=== PATIENT | female | born 1950 | race Caucasian/White ===

== ENCOUNTER 2016-07-04 12:57 | Outpatient (CLI) | payer MEDICAID | END 2016-07-04 12:58 | disposition home or self-care (01) | DX: I69.90 Unspecified sequelae of unspecified cerebrovascular disease (principal) ==

== ENCOUNTER 2016-07-11 14:32 | Outpatient (CLI) | payer MEDICAID | END 2016-07-11 14:33 | disposition home or self-care (01) | DX: I69.90 Unspecified sequelae of unspecified cerebrovascular disease (principal) ==

== ENCOUNTER 2016-08-01 12:34 | Outpatient (CLI) | payer MEDICAID | END 2016-08-01 12:35 | disposition home or self-care (01) | DX: I69.90 Unspecified sequelae of unspecified cerebrovascular disease (principal) ==

== ENCOUNTER 2016-08-22 12:30 | Outpatient (CLI) | payer MEDICAID | END 2016-08-22 12:31 | disposition home or self-care (01) | DX: I69.90 Unspecified sequelae of unspecified cerebrovascular disease (principal) ==

== ENCOUNTER 2016-09-30 08:00 | Outpatient (CLI) | payer MEDICAID | END 2016-09-30 08:01 | disposition home or self-care (01) | DX: I69.90 Unspecified sequelae of unspecified cerebrovascular disease (principal) ==

== ENCOUNTER 2016-09-30 13:24 | Outpatient (CLI) | payer MEDICAID | END 2016-09-30 13:25 | disposition home or self-care (01) | DX: R91.8 Other nonspecific abnormal finding of lung field (principal); I69.90 Unspecified sequelae of unspecified cerebrovascular disease ==

== ENCOUNTER 2016-10-02 11:47 | Outpatient (CLI) | payer MEDICAID | END 2016-10-02 11:48 | disposition home or self-care (01) | DX: I69.90 Unspecified sequelae of unspecified cerebrovascular disease (principal) ==

== ENCOUNTER 2016-10-15 15:20 | Outpatient (CLI) | payer MEDICAID | END 2016-10-15 15:21 | disposition home or self-care (01) | DX: I69.90 Unspecified sequelae of unspecified cerebrovascular disease (principal) ==

== ENCOUNTER 2016-11-07 12:24 | Outpatient (CLI) | payer MEDICAID | END 2016-11-07 12:25 | disposition home or self-care (01) | DX: I69.90 Unspecified sequelae of unspecified cerebrovascular disease (principal) ==

== ENCOUNTER 2016-11-20 14:17 | Outpatient (CLI) | payer MEDICAID | END 2016-11-20 14:18 | disposition home or self-care (01) | DX: I69.90 Unspecified sequelae of unspecified cerebrovascular disease (principal) ==

== ENCOUNTER 2016-11-28 14:21 | Outpatient (CLI) | payer MEDICAID | END 2016-11-28 14:22 | disposition home or self-care (01) | LOC: LAB 14:21 | PROVIDERS: ATTEND Nurse Practitioner Gerontology | DX: I69.90 Unspecified sequelae of unspecified cerebrovascular disease (principal) | CPT/HCPCS: 85610 ==

== ENCOUNTER 2016-11-28 14:32 | Outpatient (CLI) | payer MEDICAID ==
--- NOTE | 2016-11-28 21:48 | Ultrasound Report ---
EXAM: RIGHT LOWER EXTREMITY VENOUS ULTRASOUND EXAM DATE: 11/28/2016 03:25 PM. CLINICAL HISTORY: RIGHT EDEMA LOWER EXTREMITY. COMPARISON: None. TECHNIQUE: Real-time sonographic vascular imaging was performed by the gyn physician through the lower extremity utilizing both color-flow and Doppler spectral analysis. Multiple parts representative static dean ges were saved for review. FINDINGS: Common Femoral Vein (CFV): Normal. CFV-GSV Junction: Normal. Profunda Femoral Vein (PFV): Normal. Femoral Vein (FV) Prox: Normal. Femoral Vein (FV) Mid: Normal. Femoral Vein (FV) Dist: Normal. Popliteal Vein: Normal. Posterior Tibial Veins: Normal. Peroneal Veins: Normal. Other: None. IMPRESSION: No evidence for deep venous thrombosis. [facility] Referring Provider Line: [phone] SITE ID: [id number]
== END 2016-11-28 14:33 | disposition home or self-care (01) ==
LOC: DI 14:32
PROVIDERS: ATTEND Nurse Practitioner Gerontology
DX: R60.0 Localized edema (principal)
CPT/HCPCS: 85610

== ENCOUNTER 2016-12-05 15:36 | Outpatient (CLI) | payer MEDICAID | END 2016-12-05 15:37 | disposition home or self-care (01) | LOC: LAB 15:36 | PROVIDERS: ATTEND Nurse Practitioner Gerontology | DX: I69.90 Unspecified sequelae of unspecified cerebrovascular disease (principal) | CPT/HCPCS: 85610 ==

== ENCOUNTER 2016-12-19 11:23 | Outpatient (CLI) | payer MEDICAID | END 2016-12-19 11:24 | disposition home or self-care (01) | LOC: LAB 11:23 | PROVIDERS: ATTEND Nurse Practitioner Gerontology | DX: I69.90 Unspecified sequelae of unspecified cerebrovascular disease (principal) | CPT/HCPCS: 85610 ==

== ENCOUNTER 2017-01-02 15:35 | Outpatient (CLI) | payer MEDICAID | END 2017-01-02 15:36 | disposition home or self-care (01) | LOC: LAB.N 15:35 | PROVIDERS: ATTEND Nurse Practitioner Gerontology | DX: I69.90 Unspecified sequelae of unspecified cerebrovascular disease (principal) | CPT/HCPCS: 85610 ==

== ENCOUNTER 2017-01-29 14:00 | Outpatient (CLI) | payer MEDICAID | END 2017-01-29 14:01 | disposition home or self-care (01) | LOC: LAB 14:00 | PROVIDERS: ATTEND Nurse Practitioner Gerontology | DX: I69.90 Unspecified sequelae of unspecified cerebrovascular disease (principal) | CPT/HCPCS: 85610 ==

== ENCOUNTER 2017-03-20 13:40 | Outpatient (CLI) | payer MEDICARE, MEDICAID | END 2017-03-20 13:41 | disposition home or self-care (01) | LOC: LAB 13:40 | PROVIDERS: ATTEND Nurse Practitioner Gerontology | DX: I69.90 Unspecified sequelae of unspecified cerebrovascular disease (principal); Z79.01 Long term (current) use of anticoagulants | CPT/HCPCS: 85610 ==

== ENCOUNTER 2017-04-17 12:45 | Outpatient (CLI) | payer MEDICARE, MEDICAID | END 2017-04-17 12:46 | disposition home or self-care (01) | LOC: LAB 12:45 | PROVIDERS: ATTEND Nurse Practitioner Gerontology | DX: I69.90 Unspecified sequelae of unspecified cerebrovascular disease (principal); Z79.01 Long term (current) use of anticoagulants | CPT/HCPCS: 85610 ==

== ENCOUNTER 2017-05-11 14:42 | Outpatient (CLI) | payer MEDICARE, MEDICAID ==
[2017-05-11 19:04] LABS: BASOPHILS # (AUTO) 0.1 10^3/uL (0.0-0.1); BASOPHILS % (AUTO) 0.8 %; EOSINOPHILS # (AUTO) 0.2 10^3/uL (0.0-0.7); EOSINOPHILS % (AUTO) 2.4 %; HCT - HEMATOCRIT 39.2 % (37.0-47.0); HGB - HEMOGLOBIN 12.9 g/dL (12.0-16.0); LYMPHOCYTES # (AUTO) 1.7 10^3/uL (1.5-3.5); LYMPHOCYTES % (AUTO) 20.7 %; MEAN CORPUSCULAR HEMOGLOBIN 31.1 pg (27.0-31.0); MEAN CORPUSCULAR HGB CONC 32.9 g/dL (32.0-36.0); MEAN CORPUSCULAR VOLUME 94.4 fL (81.0-99.0); MEAN PLATELET VOLUME 8.6 fL (7.9-10.8); MONOCYTES # (AUTO) 0.5 10^3/uL (0.0-1.0); MONOCYTES % (AUTO) 6.6 %; NEUTROPHILS # (AUTO) 5.6 10^3/uL (1.5-6.6); NEUTROPHILS % (AUTO) 69.5 %; NUCLEATED RED BLOOD CELLS AUTO 0.2 /100WBC; RED BLOOD COUNT 4.15 10^6/uL (4.20-5.40); RED CELL DISTRIBUTION WIDTH 13.7 % (12.0-15.0); UNCORRECTED WHITE BLOOD COUNT 8.1 x10^3/uL; WHITE BLOOD COUNT 8.1 x10^3/uL (4.8-10.8)
[2017-05-11 19:53] LABS: BILIRUBIN,TOTAL 0.3 mg/dL (0.2-1.0); BUN - BLOOD UREA NITROGEN 18 mg/dL (6-20); CALCIUM 9.1 mg/dL (8.5-10.3); CARBON DIOXIDE - CO2 28 mmol/L (21-32); CHLORIDE 99 mmol/L (101-111); CHOLESTEROL 151 mg/dL; CREATININE 0.8 mg/dL (0.4-1.0); GFR - MDRD 72 (>89); GLUCOSE 118 mg/dL (70-100); HDL CHOLESTEROL 38 mg/dL; LDL/HDL RATIO 1.5 (<4.4); POTASSIUM 4.1 mmol/L (3.5-5.0); SODIUM 137 mmol/L (135-145); TOTAL PROTEIN 7.8 g/dL (6.7-8.2); TRIGLYCERIDES 280 mg/dL; VLDL CHOLESTEROL 56 mg/dL
[2017-05-11 20:35] LABS: HEMOGLOBIN A1C 0.62 g/dL
== END 2017-05-11 14:43 | disposition home or self-care (01) ==
LOC: LAB.N 14:42
PROVIDERS: ATTEND Nurse Practitioner Gerontology
DX: E78.5 Hyperlipidemia, unspecified (principal); E11.9 Type 2 diabetes mellitus without complications; Z79.01 Long term (current) use of anticoagulants; I69.90 Unspecified sequelae of unspecified cerebrovascular disease
CPT/HCPCS: 36415; 80053; 80061; 83036; 85025; 85610

== ENCOUNTER 2017-06-10 13:37 | Outpatient (CLI) | payer MEDICARE, MEDICAID | END 2017-06-10 13:38 | disposition home or self-care (01) | LOC: LAB 13:37 | PROVIDERS: ATTEND Nurse Practitioner Gerontology | DX: I69.90 Unspecified sequelae of unspecified cerebrovascular disease (principal); Z79.01 Long term (current) use of anticoagulants | CPT/HCPCS: 85610 ==

== ENCOUNTER 2017-07-07 15:40 | Outpatient (CLI) | payer MEDICARE, MEDICAID | END 2017-07-07 15:41 | disposition home or self-care (01) | LOC: LAB.N 15:40 | PROVIDERS: ATTEND Nurse Practitioner Gerontology | DX: I69.90 Unspecified sequelae of unspecified cerebrovascular disease (principal); Z79.01 Long term (current) use of anticoagulants | CPT/HCPCS: 85610 ==

== ENCOUNTER 2017-08-10 12:23 | Outpatient (CLI) | payer MEDICARE, MEDICAID | END 2017-08-10 12:24 | disposition home or self-care (01) | LOC: LAB 12:23 | PROVIDERS: ATTEND Nurse Practitioner Gerontology | DX: I69.90 Unspecified sequelae of unspecified cerebrovascular disease (principal); Z79.01 Long term (current) use of anticoagulants | CPT/HCPCS: 85610 ==

== ENCOUNTER 2017-08-18 13:54 | Outpatient (CLI) | payer MEDICARE, MEDICAID | END 2017-08-18 13:55 | disposition home or self-care (01) | LOC: LAB 13:54 | PROVIDERS: ATTEND Nurse Practitioner Gerontology | DX: I69.90 Unspecified sequelae of unspecified cerebrovascular disease (principal); Z79.01 Long term (current) use of anticoagulants | CPT/HCPCS: 85610 ==

== ENCOUNTER 2017-09-02 13:48 | Outpatient (CLI) | payer MEDICARE, MEDICAID | END 2017-09-02 13:49 | disposition home or self-care (01) | LOC: LAB 13:48 | PROVIDERS: ATTEND Nurse Practitioner Gerontology | DX: I69.90 Unspecified sequelae of unspecified cerebrovascular disease (principal); Z79.01 Long term (current) use of anticoagulants | CPT/HCPCS: 85610 ==

== ENCOUNTER 2017-09-11 13:23 | Outpatient (CLI) | payer MEDICARE, MEDICAID | END 2017-09-11 13:24 | disposition home or self-care (01) | LOC: LAB 13:23 | PROVIDERS: ATTEND Nurse Practitioner Gerontology | DX: I69.90 Unspecified sequelae of unspecified cerebrovascular disease (principal); Z79.01 Long term (current) use of anticoagulants | CPT/HCPCS: 85610 ==

== ENCOUNTER 2017-09-21 23:17 | Outpatient (CLI) | payer MEDICARE, MEDICAID | END 2017-09-21 23:18 | disposition home or self-care (01) | LOC: LAB.N 23:17 | PROVIDERS: ATTEND Nurse Practitioner Gerontology | DX: I69.90 Unspecified sequelae of unspecified cerebrovascular disease (principal); Z79.01 Long term (current) use of anticoagulants | CPT/HCPCS: 85610 ==

== ENCOUNTER 2017-10-19 11:48 | Outpatient (CLI) | payer MEDICARE, MEDICAID | END 2017-10-19 11:49 | disposition home or self-care (01) | LOC: LAB 11:48 | PROVIDERS: ATTEND Nurse Practitioner Gerontology | DX: Z79.01 Long term (current) use of anticoagulants (principal); I69.90 Unspecified sequelae of unspecified cerebrovascular disease | CPT/HCPCS: 85610 ==

== ENCOUNTER 2017-10-26 13:47 | Outpatient (CLI) | payer MEDICARE, MEDICAID | END 2017-10-26 13:48 | disposition home or self-care (01) | LOC: LAB 13:47 | PROVIDERS: ATTEND Nurse Practitioner Gerontology | DX: I69.90 Unspecified sequelae of unspecified cerebrovascular disease (principal); Z79.01 Long term (current) use of anticoagulants | CPT/HCPCS: 85610 ==

== ENCOUNTER 2017-11-19 13:53 | Outpatient (CLI) | payer MEDICARE, MEDICAID ==
[2017-11-19 14:45] LABS: HB2 TOTAL 15.2 g/dL; HEMOGLOBIN A1C 0.75 g/dL; HEMOGLOBIN A1C % 6.7 % (4.6-6.2)
== END 2017-11-19 13:54 | disposition home or self-care (01) ==
LOC: LAB 13:53
PROVIDERS: ATTEND Nurse Practitioner Gerontology
DX: Z79.01 Long term (current) use of anticoagulants (principal); E11.9 Type 2 diabetes mellitus without complications; I69.90 Unspecified sequelae of unspecified cerebrovascular disease
CPT/HCPCS: 36415; 83036; 85610

== ENCOUNTER 2017-12-17 11:16 | Outpatient (CLI) | payer MEDICARE, MEDICAID | END 2017-12-17 11:17 | disposition home or self-care (01) | LOC: LAB 11:16 | PROVIDERS: ATTEND Nurse Practitioner Gerontology | DX: I69.90 Unspecified sequelae of unspecified cerebrovascular disease (principal); Z79.01 Long term (current) use of anticoagulants | CPT/HCPCS: 85610 ==

== ENCOUNTER 2017-12-22 12:35 | Outpatient (CLI) | payer MEDICARE | END 2017-12-22 12:36 | disposition home or self-care (01) | LOC: LAB 12:35 | PROVIDERS: ATTEND Nurse Practitioner Gerontology | DX: I69.90 Unspecified sequelae of unspecified cerebrovascular disease (principal); Z79.01 Long term (current) use of anticoagulants | CPT/HCPCS: 85610 ==

== ENCOUNTER 2017-12-30 13:52 | Outpatient (CLI) | payer MEDICARE, MEDICAID | END 2017-12-30 13:53 | disposition home or self-care (01) | LOC: LAB 13:52 | PROVIDERS: ATTEND Nurse Practitioner Gerontology | DX: Z79.01 Long term (current) use of anticoagulants (principal); I69.90 Unspecified sequelae of unspecified cerebrovascular disease | CPT/HCPCS: 85610 ==

== ENCOUNTER 2018-01-07 13:37 | Outpatient (CLI) | payer MEDICARE, MEDICAID | END 2018-01-07 13:38 | disposition home or self-care (01) | LOC: LAB 13:37 | PROVIDERS: ATTEND Nurse Practitioner Gerontology | DX: Z79.01 Long term (current) use of anticoagulants (principal); I69.90 Unspecified sequelae of unspecified cerebrovascular disease | CPT/HCPCS: 85610 ==

== ENCOUNTER 2018-01-14 09:32 | Outpatient (CLI) | payer MEDICARE, MEDICAID | END 2018-01-14 09:33 | disposition home or self-care (01) | LOC: LAB 09:32 | PROVIDERS: ATTEND Nurse Practitioner Gerontology | DX: I69.90 Unspecified sequelae of unspecified cerebrovascular disease (principal); Z79.01 Long term (current) use of anticoagulants | CPT/HCPCS: 85610 ==

== ENCOUNTER 2018-02-03 13:21 | Outpatient (CLI) | payer MEDICARE, MEDICAID | END 2018-02-03 13:22 | disposition home or self-care (01) | LOC: LAB 13:21 | PROVIDERS: ATTEND Nurse Practitioner Gerontology | DX: Z79.01 Long term (current) use of anticoagulants (principal); I69.90 Unspecified sequelae of unspecified cerebrovascular disease | CPT/HCPCS: 85610 ==

== ENCOUNTER 2018-02-17 12:15 | Outpatient (CLI) | payer MEDICARE, MEDICAID | END 2018-02-17 12:16 | disposition home or self-care (01) | LOC: LAB 12:15 | PROVIDERS: ATTEND Nurse Practitioner Gerontology | DX: I69.90 Unspecified sequelae of unspecified cerebrovascular disease (principal); Z79.01 Long term (current) use of anticoagulants | CPT/HCPCS: 85610 ==

== ENCOUNTER 2018-03-22 12:36 | Outpatient (CLI) | payer MEDICARE, MEDICAID | END 2018-03-22 12:37 | disposition home or self-care (01) | LOC: LAB 12:36 | PROVIDERS: ATTEND Nurse Practitioner Gerontology | DX: I69.90 Unspecified sequelae of unspecified cerebrovascular disease (principal); Z79.01 Long term (current) use of anticoagulants | CPT/HCPCS: 85610 ==

== ENCOUNTER 2018-03-31 13:54 | Outpatient (CLI) | payer MEDICARE, MEDICAID | END 2018-03-31 13:55 | disposition home or self-care (01) | LOC: LAB 13:54 | PROVIDERS: ATTEND Nurse Practitioner Gerontology | DX: Z79.01 Long term (current) use of anticoagulants (principal); I69.90 Unspecified sequelae of unspecified cerebrovascular disease | CPT/HCPCS: 85610 ==

== ENCOUNTER 2018-04-07 13:17 | Outpatient (CLI) | payer MEDICARE, MEDICAID | END 2018-04-07 13:18 | disposition home or self-care (01) | LOC: LAB 13:17 | PROVIDERS: ATTEND Nurse Practitioner Gerontology | DX: Z79.01 Long term (current) use of anticoagulants (principal); I69.90 Unspecified sequelae of unspecified cerebrovascular disease | CPT/HCPCS: 85610 ==

== ENCOUNTER 2018-04-15 12:22 | Outpatient (CLI) | payer MEDICARE, MEDICAID | END 2018-04-15 12:23 | disposition home or self-care (01) | LOC: LAB 12:22 | PROVIDERS: ATTEND Nurse Practitioner Gerontology | DX: Z79.01 Long term (current) use of anticoagulants (principal); I69.90 Unspecified sequelae of unspecified cerebrovascular disease | CPT/HCPCS: 85610 ==

== ENCOUNTER 2018-04-22 09:53 | Outpatient (CLI) | payer MEDICARE, MEDICAID | END 2018-04-22 09:54 | disposition home or self-care (01) | LOC: LAB 09:53 | PROVIDERS: ATTEND Nurse Practitioner Gerontology | DX: I69.90 Unspecified sequelae of unspecified cerebrovascular disease (principal); Z79.01 Long term (current) use of anticoagulants | CPT/HCPCS: 85610 ==

== ENCOUNTER 2018-05-06 12:21 | Outpatient (CLI) | payer MEDICARE, MEDICAID | END 2018-05-06 12:22 | disposition home or self-care (01) | LOC: LAB 12:21 | PROVIDERS: ATTEND Nurse Practitioner Gerontology | DX: I69.90 Unspecified sequelae of unspecified cerebrovascular disease (principal); Z79.01 Long term (current) use of anticoagulants | CPT/HCPCS: 85610 ==

== ENCOUNTER 2018-05-14 13:33 | Outpatient (CLI) | payer MEDICARE, MEDICAID | END 2018-05-14 13:34 | disposition home or self-care (01) | LOC: LAB 13:33 | PROVIDERS: ATTEND Nurse Practitioner Gerontology | DX: I69.90 Unspecified sequelae of unspecified cerebrovascular disease (principal); Z79.01 Long term (current) use of anticoagulants | CPT/HCPCS: 85610 ==

== ENCOUNTER 2018-05-21 13:03 | Outpatient (CLI) | payer MEDICARE, MEDICAID | END 2018-05-21 13:04 | disposition home or self-care (01) | LOC: LAB 13:03 | PROVIDERS: ATTEND Nurse Practitioner Gerontology | DX: I69.90 Unspecified sequelae of unspecified cerebrovascular disease (principal); Z79.01 Long term (current) use of anticoagulants | CPT/HCPCS: 85610 ==

== ENCOUNTER 2018-06-04 12:13 | Outpatient (CLI) | payer MEDICARE, MEDICAID | END 2018-06-04 12:14 | disposition home or self-care (01) | LOC: LAB 12:13 | PROVIDERS: ATTEND Nurse Practitioner Gerontology | DX: I69.90 Unspecified sequelae of unspecified cerebrovascular disease (principal); Z79.01 Long term (current) use of anticoagulants | CPT/HCPCS: 85610 ==

== ENCOUNTER 2018-07-02 07:50 | Outpatient (CLI) | payer MEDICARE, MEDICAID ==
[2018-07-02 08:41] LABS: BASOPHILS % (AUTO) 0.6 %; EOSINOPHILS # (AUTO) 0.2 10^3/uL (0.0-0.7); EOSINOPHILS % (AUTO) 1.8 %; HGB - HEMOGLOBIN 13.6 g/dL (12.0-16.0); LYMPHOCYTES # (AUTO) 1.5 10^3/uL (1.5-3.5); LYMPHOCYTES % (AUTO) 17.7 %; MEAN CORPUSCULAR HEMOGLOBIN 31.2 pg (27.0-31.0); MEAN CORPUSCULAR HGB CONC 33.2 g/dL (32.0-36.0); MEAN CORPUSCULAR VOLUME 93.9 fL (81.0-99.0); MEAN PLATELET VOLUME 8.2 fL (7.9-10.8); MONOCYTES # (AUTO) 0.6 10^3/uL (0.0-1.0); MONOCYTES % (AUTO) 7.1 %; NEUTROPHILS % (AUTO) 72.8 %; PLT - PLATELET COUNT 398 10^3/uL (130-450); RED BLOOD COUNT 4.35 10^6/uL (4.20-5.40); RED CELL DISTRIBUTION WIDTH 14.6 % (12.0-15.0); WHITE BLOOD COUNT 8.3 x10^3/uL (4.8-10.8)
[2018-07-02 08:53] LABS: ALBUMIN/GLOBULIN RATIO 1.1 (1.0-2.2); ALKALINE PHOSPHATASE 104 IU/L (42-121); ALT ALANINE AMINOTRANSFERASE 16 IU/L (10-60); AST ASPARTATE AMINOTRANSFERASE 17 IU/L (10-42); BILIRUBIN,TOTAL 0.5 mg/dL (0.2-1.0); BUN - BLOOD UREA NITROGEN 17 mg/dL (6-20); CALCIUM 8.9 mg/dL (8.5-10.3); CARBON DIOXIDE - CO2 26 mmol/L (21-32); CHLORIDE 103 mmol/L (101-111); CHOL/HDL RATIO 3.7 (<4.4); CHOLESTEROL 139 mg/dL; CREATININE 0.8 mg/dL (0.4-1.0); GFR - MDRD 72 (>89); GLUCOSE 100 mg/dL (70-100); HDL CHOLESTEROL 38 mg/dL; LDL CHOLESTEROL,CALCULATED 75 mg/dL; SODIUM 140 mmol/L (135-145); TOTAL PROTEIN 7.8 g/dL (6.7-8.2); VLDL CHOLESTEROL 26 mg/dL
[2018-07-02 09:09] LABS: HB2 TOTAL 14.4 g/dL; HEMOGLOBIN A1C 0.61 g/dL
== END 2018-07-02 07:51 | disposition home or self-care (01) ==
LOC: LAB 07:50
PROVIDERS: ATTEND Nurse Practitioner Gerontology
DX: R74.8 Abnormal levels of other serum enzymes (principal); Z79.01 Long term (current) use of anticoagulants; E11.9 Type 2 diabetes mellitus without complications; E78.5 Hyperlipidemia, unspecified; Z79.899 Other long term (current) drug therapy; I69.90 Unspecified sequelae of unspecified cerebrovascular disease
CPT/HCPCS: 36415; 80053; 80061; 83036; 83721; 84443; 85025; 85610

== ENCOUNTER 2018-07-09 13:00 | Outpatient (CLI) | payer MEDICARE, MEDICAID | END 2018-07-09 13:01 | disposition home or self-care (01) | LOC: LAB 13:00 | PROVIDERS: ATTEND Nurse Practitioner Gerontology | DX: I69.90 Unspecified sequelae of unspecified cerebrovascular disease (principal); Z79.01 Long term (current) use of anticoagulants | CPT/HCPCS: 85610 ==

== ENCOUNTER 2018-07-23 12:41 | Outpatient (CLI) | payer MEDICARE, MEDICAID | END 2018-07-23 12:42 | disposition home or self-care (01) | LOC: LAB 12:41 | PROVIDERS: ATTEND Nurse Practitioner Gerontology | DX: I69.90 Unspecified sequelae of unspecified cerebrovascular disease (principal); Z79.01 Long term (current) use of anticoagulants | CPT/HCPCS: 85610 ==

== ENCOUNTER 2018-08-20 10:36 | Outpatient (CLI) | payer MEDICARE, MEDICAID | END 2018-08-20 10:37 | disposition home or self-care (01) | LOC: LAB 10:36 | PROVIDERS: ATTEND Nurse Practitioner Gerontology | DX: I69.90 Unspecified sequelae of unspecified cerebrovascular disease (principal); Z79.01 Long term (current) use of anticoagulants | CPT/HCPCS: 85610 ==

== ENCOUNTER 2018-09-03 11:20 | Outpatient (CLI) | payer MEDICARE, MEDICAID | END 2018-09-03 11:21 | disposition home or self-care (01) | LOC: LAB 11:20 | PROVIDERS: ATTEND Nurse Practitioner Gerontology | DX: I69.90 Unspecified sequelae of unspecified cerebrovascular disease (principal); Z79.01 Long term (current) use of anticoagulants | CPT/HCPCS: 85610 ==

== ENCOUNTER 2018-09-06 12:01 | Outpatient (CLI) | payer MEDICARE, MEDICAID | END 2018-09-06 12:02 | disposition home or self-care (01) | LOC: LAB 12:01 | PROVIDERS: ATTEND Nurse Practitioner Gerontology | DX: I69.90 Unspecified sequelae of unspecified cerebrovascular disease (principal); Z79.01 Long term (current) use of anticoagulants | CPT/HCPCS: 85610 ==

== ENCOUNTER 2018-09-10 11:34 | Outpatient (CLI) | payer MEDICARE, MEDICAID | END 2018-09-10 11:35 | disposition home or self-care (01) | LOC: LAB 11:34 | PROVIDERS: ATTEND Nurse Practitioner Gerontology | DX: I69.90 Unspecified sequelae of unspecified cerebrovascular disease (principal); Z79.01 Long term (current) use of anticoagulants | CPT/HCPCS: 85610 ==

== ENCOUNTER 2018-09-17 11:32 | Outpatient (CLI) | payer MEDICARE, MEDICAID | END 2018-09-17 11:33 | disposition home or self-care (01) | LOC: LAB 11:32 | PROVIDERS: ATTEND Nurse Practitioner Gerontology | DX: Z79.01 Long term (current) use of anticoagulants (principal); I69.90 Unspecified sequelae of unspecified cerebrovascular disease | CPT/HCPCS: 85610 ==

== ENCOUNTER 2018-09-24 13:06 | Emergency (ER) | payer MEDICARE, MEDICAID ==
[2018-09-24 13:16] VITALS: BP 143/54
--- NOTE | 2018-09-24 13:42 | ED Physician Documentation ---
History of Present Illness - Stated complaint Stated Complaint: RT FT SWELLING - Chief complaint Chief Complaint: Ext Problem - History obtained from History obtained from: Patient, Caregiver - History of Present Illness Timing: Unknown Pain level max: 0 Pain level now: 0 Improved by: Nothing Worsened by: Nothing - Additonal information Additional information: Caregiver last saw the patient on Thursday, a week ago. Today she saw her again and noticed that her right foot and right lower extremity were swollen. Patient does not recall any injury. No pain. Patient has had a stroke that does affect the right side of her body. She is on warfarin, unknown if she has a history of A. fib or not. Her INR was high approximately 4 weeks ago, therefore they decreased her warfarin, last INR last week was 1.0. She is on 2.5 mg of warfarin daily currently. Review of Systems Ten Systems: 10 systems reviewed and negative Constitutional: denies: Fever, Chills Throat: denies: Sore throat Cardiac: denies: Chest pain / pressure Respiratory: denies: Cough GI: denies: Nausea, Vomiting Skin: denies: Rash Musculoskeletal: denies: Neck pain, Back pain Neurologic: denies: Headache PD PAST MEDICAL HISTORY - Past Medical History Past Medical History: Yes Cardiovascular: High cholesterol, Coronary artery disease, Deep vein thrombosis Respiratory: None Endocrine/Autoimmune: Type 2 diabetes GI: None : None HEENT: Chronic vision loss, Other Psych: None Musculoskeletal: Fibromyalgia, Hemiplegia Derm: None - Past Surgical History Past Surgical History: No - Present Medications Home Medications: Ambulatory Orders Medication Instructions Recorded Confirmed Atorvastatin [Lipitor] 40 mg ORAL QPM 08/21/15 08/21/15 Bethanechol [Urecholine] 12.5 mg ORAL TID 08/21/15 08/21/15 Bisacodyl Supp [Dulcolax Supp] 10 mg [place] DAILY PRN 08/21/15 08/21/15 Cholecalciferol (Vitamin D3) 2,000 unit ORAL DAILY 08/21/15 08/21/15 [Vitamin D] Docusate Sodium [Stool Softener] 100 mg ORAL BID 08/21/15 08/21/15 Gabapentin 400 mg ORAL TID 08/21/15 08/21/15 Lidocaine Patch 5% [Lidoderm Patch] 1 each TOP DAILY PRN #10 patch 08/21/15 Lisinopril 20 mg ORAL BID 08/21/15 08/21/15 Ondansetron Odt [Zofran] 4 mg TL Q6H PRN #10 tablet 08/21/15 Polyethylene Glycol 3350 [Miralax] 17 gm ORAL DAILY 08/21/15 08/21/15 Senna [Senokot] 17.2 mg ORAL QPM 08/21/15 08/21/15 Sertraline [Zoloft] 100 mg ORAL DAILY 08/21/15 08/21/15 Warfarin [Coumadin] 2.5 mg ORAL DAILY 08/21/15 08/21/15 amLODIPine [Norvasc] 10 mg ORAL QPM 08/21/15 08/21/15 metFORMIN [Glucophage] 500 mg ORAL BID 08/21/15 08/21/15 traMADol [Ultram] 50 mg ORAL BID 08/21/15 08/21/15 Amox/Clav 875/125 [Augmentin] 1 each PO Q12H #20 tablet 12/18/15 - Allergies Allergies/Adverse Reactions: Allergies Allergy/AdvReac Type Severity Reaction Status Date / Time No Known Drug Allergies Allergy Verified 09/24/18 13:15 - Social History Does the pt smoke?: No Smoking Status: Never smoker Does the pt drink ETOH?: Yes Does the pt have substance abuse?: No - Immunizations Immunizations are current?: No Immunizations: TDAP >10years/unknown - POLST Patient has POLST: No PD ED PE NORMAL - Vitals Vital signs reviewed: Yes - General General: Alert and oriented X 3, No acute distress - HEENT HEENT: Moist mucous membranes - Neck Neck: Supple, no meningeal sign - Cardiac Cardiac: RRR - Respiratory Respiratory: No respiratory distress, Clear bilaterally - Abdomen Abdomen: Soft, Non tender, Non distended - Derm Derm: Warm and dry - Extremities Extremities: Other (RLE swollen from foot to mid thigh. no calf tenderness.) - Neuro Neuro: Alert and oriented X 3 Results - Vitals Vitals: Vital Signs - 24 hr 09/24/18 09/24/18 13:09 13:15 Temperature 36.2 C L Heart Rate 94 94 Respiratory 14 14 Rate Blood Pressure 143/54 H 143/54 H O2 Saturation 99 99 Oxygen O2 Source Room air - Labs Labs: Laboratory Tests 09/24/18 09/24/18 09/24/18 13:50 13:50 13:50 WBC 7.6 RBC 3.84 L Hgb 12.7 Hct 36.2 L MCV 94.1 MCH 33.0 H MCHC 35.1 RDW 14.9 Plt Count 363 MPV 7.7 L Neut # (Auto) 5.3 Lymph # (Auto) 1.6 [place] # (Auto) 0.5 Eos # (Auto) 0.2 Baso # (Auto) 0.0 Absolute Nucleated RBC 0.00 Nucleated RBC % 0.0 PT 21.2 H INR 1.9 H Sodium 138 Potassium 4.2 Chloride 100 L Carbon Dioxide 26 Anion Gap 12.0 BUN 19 Creatinine 0.8 Estimated GFR (MDRD) 72 L Glucose 115 H Calcium 9.0 Urine Color Urine Clarity Urine pH Ur Specific [place] Urine Protein Urine Glucose (UA) Urine Ketones Urine Occult Blood Urine Nitrite Urine Bilirubin Urine Urobilinogen Ur Leukocyte Esterase Urine RBC Urine WBC Ur Squamous Epith Cells Urine Bacteria Ur Microscopic Review Urine Culture Comments 09/24/18 14:50 WBC RBC Hgb Hct MCV MCH MCHC RDW Plt Count MPV Neut # (Auto) Lymph # (Auto) [place] # (Auto) Eos # (Auto) Baso # (Auto) Absolute Nucleated RBC Nucleated RBC % PT INR Sodium Potassium Chloride Carbon Dioxide Anion Gap BUN Creatinine Estimated GFR (MDRD) Glucose Calcium Urine Color YELLOW Urine Clarity CLEAR Urine pH 6.0 Ur Specific [place] 1.010 Urine Protein NEGATIVE Urine Glucose (UA) NEGATIVE Urine Ketones NEGATIVE Urine Occult Blood NEGATIVE Urine Nitrite NEGATIVE Urine Bilirubin NEGATIVE Urine Urobilinogen 0.2 (NORMAL) Ur Leukocyte Esterase TRACE H Urine RBC 0-5 Urine WBC 0-3 Ur Squamous Epith Cells RARE Squamous Urine Bacteria None Seen Ur Microscopic Review INDICATED Urine Culture Comments INDICATED - Rads (name of study) duplex US RLE Radiology: Prelim report reviewed, EMP read contemporaneously PD MEDICAL DECISION MAKING - ED course Complexity details: reviewed results, re-evaluated patient, considered differential, d/w patient ED course: 68-year-old female with right lower extremity swelling that started when her warfarin level was subtherapeutic. Concern for possible DVT as she has had DVTs in the past. Ultrasound ordered. Patient and caregiver did not want to wait to have ultrasound performed. Counseled regarding the importance of evaluation for new DVT and potential harmful effects such as pulmonary embolisms that could result in her if they do not stay. They state understanding of this and still wants to go home. Signed AGAINST MEDICAL ADVICE. They are informed that they are welcome to return anytime for further evaluation. Patient counseled regarding signs and symptoms for which I believe and urgent re-evaluation would be necessary. Patient with good understanding of and agreement to plan and is comfortable going home at this time This document was made in part using voice recognition software. While efforts are made to proofread this document, sound alike and grammatical errors may occur. Departure - Departure Disposition: 07 Against Medical Advice Clinical Impression: Peripheral edema Condition: Stable Discharge Date/Time: 09/24/18 15:11
[2018-09-24 13:57] LABS: BASOPHILS % (AUTO) 0.6 %; EOSINOPHILS # (AUTO) 0.2 10^3/uL (0.0-0.7); EOSINOPHILS % (AUTO) 2.5 %; HGB - HEMOGLOBIN 12.7 g/dL (12.0-16.0); LYMPHOCYTES # (AUTO) 1.6 10^3/uL (1.5-3.5); LYMPHOCYTES % (AUTO) 21.4 %; MEAN CORPUSCULAR HGB CONC 35.1 g/dL (32.0-36.0); MEAN CORPUSCULAR VOLUME 94.1 fL (81.0-99.0); MEAN PLATELET VOLUME 7.7 fL (7.9-10.8); MONOCYTES # (AUTO) 0.5 10^3/uL (0.0-1.0); MONOCYTES % (AUTO) 6.1 %; NEUTROPHILS # (AUTO) 5.3 10^3/uL (1.5-6.6); NEUTROPHILS % (AUTO) 69.4 %; PLT - PLATELET COUNT 363 10^3/uL (130-450); RED BLOOD COUNT 3.84 10^6/uL (4.20-5.40); RED CELL DISTRIBUTION WIDTH 14.9 % (12.0-15.0); WHITE BLOOD COUNT 7.6 x10^3/uL (4.8-10.8)
[2018-09-24 14:01] LABS: INR 1.9 (0.8-1.2); PT - PROTHROMBIN TIME 21.2 secs (9.9-12.6)
[2018-09-24 14:06] LABS: CREATININE 0.8 mg/dL (0.4-1.0)
[2018-09-24 15:02] LABS: BILIRUBIN,URINE NEGATIVE (NEGATIVE); GLUCOSE, URINE (UA) NEGATIVE (NEGATIVE); KETONES,URINE (UA) NEGATIVE (NEGATIVE); LEUKOCYTE ESTERASE, URINE TRACE (NEGATIVE); NITRITE,URINE NEGATIVE (NEGATIVE); OCCULT BLOOD,URINE NEGATIVE (NEGATIVE); PROTEIN,URINE NEGATIVE (NEGATIVE); UROBILINOGEN,URINE 0.2 (NORMAL) E.U./dL (NORMAL)
[2018-09-24 15:09] LABS: CLARITY,URINE CLEAR (CLEAR)
[2018-09-24 15:16] LABS: BACTERIA,URINE None Seen /HPF (None Seen); RBC,URINE 0-5 /HPF (0-5); SQUAMOUS EPITHELIAL CELL,UR RARE Squamous (<= Few)
== END 2018-09-24 15:11 | disposition left against medical advice (07) ==
LOC: ED 13:06
DX: R60.0 Localized edema (principal); I25.10 Atherosclerotic heart disease of native coronary artery without angina pectoris; E78.00 Pure hypercholesterolemia, unspecified; E11.9 Type 2 diabetes mellitus without complications; G81.90 Hemiplegia, unspecified affecting unspecified side; Z79.84 Long term (current) use of oral hypoglycemic drugs; Z86.718 Personal history of other venous thrombosis and embolism; Z79.01 Long term (current) use of anticoagulants
CPT/HCPCS: 36415; 80048; 81001; 81003; 85025; 85610; 87086; 99283

== ENCOUNTER 2018-09-27 10:11 | Emergency (ER) | payer MEDICARE, MEDICAID ==
--- NOTE | 2018-09-27 13:28 | Ultrasound Report ---
Reason: RLE swollen Procedure Date: 09/27/2018 Accession Number: [id number] / [id number] Procedure: US - Duplex Ext Veins Right CPT Code: FULL RESULT: EXAM: RIGHT LOWER EXTREMITY VENOUS ULTRASOUND EXAM DATE: 09/27/2018 12:43 PM. CLINICAL HISTORY: RLE swollen. COMPARISON: DUPLEX EXT VEINS RIGHT 11/28/2016 2:45 PM. TECHNIQUE: Real-time sonographic vascular imaging was performed by the truck and transport mechanic through the lower extremity utilizing both color-flow and Doppler spectral analysis. Multiple insurance healthcare representative static images were saved for review. FINDINGS: Common Femoral Vein (CFV): Normal. CFV-GSV Junction: Normal. Profunda Femoral Vein (PFV): Normal. Femoral Vein (FV) Prox: Normal. Femoral Vein (FV) Mid: Normal. Femoral Vein (FV) Dist: Normal. Popliteal Vein: Normal. Posterior Tibial Veins: Normal. Peroneal Veins: Normal. Other: None. IMPRESSION: No evidence for deep venous thrombosis. [facility]
--- NOTE | 2018-09-27 13:42 | ED Physician Documentation ---
History of Present Illness - Stated complaint Stated Complaint: LEG SWOLLEN - Chief complaint Chief Complaint: General - History obtained from History obtained from: Patient, Caregiver - History of Present Illness Timing: Other (68-year-old woman with history of stroke and some communication difficulty. Much of the history is from her caregiver who accompanies her. She has had approximately 2 weeks of atraumatic right lower extremity swelling without pain. She was seen here on Thursday but signed out against advice before the performance of an ultrasound and they returned today for that to be done. She denies chest pain or trouble breathing.) Review of Systems Constitutional: reports: Reviewed and negative Cardiac: reports: Reviewed and negative Respiratory: reports: Reviewed and negative PD PAST MEDICAL HISTORY - Past Medical History Cardiovascular: High cholesterol, Coronary artery disease, Deep vein thrombosis Respiratory: None Endocrine/Autoimmune: Type 2 diabetes GI: None : None HEENT: Chronic vision loss, Other Psych: None Musculoskeletal: Fibromyalgia, Hemiplegia Derm: None - Past Surgical History Past Surgical History: No - Present Medications Home Medications: Ambulatory Orders Medication Instructions Recorded Confirmed Atorvastatin [Lipitor] 40 mg ORAL QPM 08/21/15 08/21/15 Bethanechol [Urecholine] 12.5 mg ORAL TID 08/21/15 08/21/15 Bisacodyl Supp [Dulcolax Supp] 10 mg [place] DAILY PRN 08/21/15 08/21/15 Cholecalciferol (Vitamin D3) 2,000 unit ORAL DAILY 08/21/15 08/21/15 [Vitamin D] Docusate Sodium [Stool Softener] 100 mg ORAL BID 08/21/15 08/21/15 Gabapentin 400 mg ORAL TID 08/21/15 08/21/15 Lidocaine Patch 5% [Lidoderm Patch] 1 each TOP DAILY PRN #10 patch 08/21/15 Lisinopril 20 mg ORAL BID 08/21/15 08/21/15 Ondansetron Odt [Zofran] 4 mg TL Q6H PRN #10 tablet 08/21/15 Polyethylene Glycol 3350 [Miralax] 17 gm ORAL DAILY 08/21/15 08/21/15 Senna [Senokot] 17.2 mg ORAL QPM 08/21/15 08/21/15 Sertraline [Zoloft] 100 mg ORAL DAILY 03/01/16 03/01/16 Warfarin [Coumadin] 2.5 mg ORAL DAILY 08/21/15 08/21/15 amLODIPine [Norvasc] 10 mg ORAL QPM 08/21/15 08/21/15 metFORMIN [Glucophage] 500 mg ORAL BID 08/21/15 08/21/15 traMADol [Ultram] 50 mg ORAL BID 08/21/15 08/21/15 Amox/Clav 875/125 [Augmentin] 1 each PO Q12H #20 tablet 12/18/15 - Allergies Allergies/Adverse Reactions: Allergies Allergy/AdvReac Type Severity Reaction Status Date / Time No Known Drug Allergies Allergy Verified 09/24/18 13:15 - Social History Does the pt smoke?: No Smoking Status: Never smoker Does the pt drink ETOH?: Yes Does the pt have substance abuse?: No - Immunizations Immunizations are current?: No Immunizations: TDAP >10years/unknown - POLST Patient has POLST: No PD ED PE NORMAL - Vitals Vital signs reviewed: Yes - General General: Other (She is alert, answers simple questions but clearly has some difficulty with communication.) - Extremities Extremities: Other (Very mild right lower extremity swelling from mid calf down without tenderness or cellulitis.) Results - Vitals Vitals: Vital Signs - 24 hr 09/27/18 10:17 Temperature 36.8 C Heart Rate 110 H Respiratory 14 Rate Blood Pressure 147/70 H O2 Saturation 98 Oxygen O2 Source Room air - Rads (name of study) RLE DVT sono Radiology: EMP read contemporaneously (negative) PD MEDICAL DECISION MAKING - ED course ED course: 68-year-old woman with history of stroke with right-sided deficits and some communication difficulties presents with about 2 weeks of right lower extremity swelling. They return today for ultrasound which was negative. No other new complaints. Departure - Departure Disposition: Home, Self Care Clinical Impression: Peripheral edema Condition: Good Record reviewed to determine appropriate education?: Yes Comments: Recheck with your doctor towards the end of the week, repeat INR then as it was 1.9 the other day and is probably still coming up. Return for new or worsening symptoms.
[2018-09-27 13:52] VITALS: BP 149/63
== END 2018-09-27 14:41 | disposition home or self-care (01) ==
LOC: ED 10:11
DX: R60.0 Localized edema (principal); I25.10 Atherosclerotic heart disease of native coronary artery without angina pectoris; E78.00 Pure hypercholesterolemia, unspecified; E11.9 Type 2 diabetes mellitus without complications; Z86.718 Personal history of other venous thrombosis and embolism; Z86.73 Personal history of transient ischemic attack (TIA), and cerebral infarction without residual deficits
CPT/HCPCS: 99281; 99282

== ENCOUNTER 2018-10-01 12:09 | Outpatient (CLI) | payer MEDICARE, MEDICAID | END 2018-10-01 12:10 | disposition home or self-care (01) | LOC: LAB 12:09 | PROVIDERS: ATTEND Nurse Practitioner Gerontology | DX: Z79.01 Long term (current) use of anticoagulants (principal); I69.90 Unspecified sequelae of unspecified cerebrovascular disease | CPT/HCPCS: 85610 ==

== ENCOUNTER 2018-10-08 12:36 | Outpatient (CLI) | payer MEDICARE, MEDICAID | END 2018-10-08 12:37 | disposition home or self-care (01) | LOC: LAB 12:36 | PROVIDERS: ATTEND Nurse Practitioner Gerontology | DX: Z79.01 Long term (current) use of anticoagulants (principal); I69.90 Unspecified sequelae of unspecified cerebrovascular disease | CPT/HCPCS: 85610 ==

== ENCOUNTER 2018-10-15 10:55 | Outpatient (CLI) | payer MEDICARE, MEDICAID | END 2018-10-15 10:56 | disposition home or self-care (01) | LOC: LAB 10:55 | PROVIDERS: ATTEND Nurse Practitioner Gerontology | DX: I69.90 Unspecified sequelae of unspecified cerebrovascular disease (principal); Z79.01 Long term (current) use of anticoagulants | CPT/HCPCS: 85610 ==

== ENCOUNTER 2018-10-18 08:00 | Outpatient (CLI) | payer MEDICARE, MEDICAID | END 2018-10-18 23:59 | disposition home or self-care (01) | LOC: LAB.N 08:00 | PROVIDERS: ATTEND Nurse Practitioner Gerontology | DX: I69.90 Unspecified sequelae of unspecified cerebrovascular disease (principal); Z79.01 Long term (current) use of anticoagulants | CPT/HCPCS: 85610 ==

== ENCOUNTER 2018-10-22 09:51 | Outpatient (CLI) | payer MEDICARE, MEDICAID | END 2018-10-22 09:52 | disposition home or self-care (01) | LOC: LAB 09:51 | PROVIDERS: ATTEND Nurse Practitioner Gerontology | DX: I69.90 Unspecified sequelae of unspecified cerebrovascular disease (principal); Z79.01 Long term (current) use of anticoagulants | CPT/HCPCS: 85610 ==

== ENCOUNTER 2018-10-29 12:48 | Outpatient (CLI) | payer MEDICARE, MEDICAID | END 2018-10-29 12:49 | disposition home or self-care (01) | LOC: LAB 12:48 | PROVIDERS: ATTEND Nurse Practitioner Gerontology | DX: I69.90 Unspecified sequelae of unspecified cerebrovascular disease (principal); Z79.01 Long term (current) use of anticoagulants | CPT/HCPCS: 85610 ==

== ENCOUNTER 2018-11-05 12:56 | Outpatient (CLI) | payer MEDICARE, MEDICAID | END 2018-11-05 12:57 | disposition home or self-care (01) | LOC: LAB 12:56 | PROVIDERS: ATTEND Nurse Practitioner Gerontology | DX: Z51.81 Encounter for therapeutic drug level monitoring (principal); Z79.01 Long term (current) use of anticoagulants; I69.90 Unspecified sequelae of unspecified cerebrovascular disease | CPT/HCPCS: 85610 ==

== ENCOUNTER 2018-11-08 11:37 | Emergency (ER) | payer MEDICARE, MEDICAID ==
--- NOTE | 2018-11-08 12:25 | ED Physician Documentation ---
PD HPI Fall - Stated complaint Stated Complaint: GLF/R ARM AND R HIP PX - Chief complaint Chief Complaint: Trauma Ext - History obtained from History obtained from: Patient, Caregiver - History of Present Illness Mechanism of injury: Lost balance Fall distance: Standing position (The patient reportedly fell trying to get up out of her wheelchair couple of days ago. She fell to the left side. She has been complaining of pain in the left posterior lateral ribs and chest as well as the left low back and pelvis. Her caregiver says she takes an aspirin but no blood thinners. She is at her normal level of mentation and has not had any headache or neck pain. She was having pain in the left hip and left ribs with movement and as they were assisting her up in the caregiver and were concerned she may have broken some ribs.) Where injury occurred: Home Timing - onset: How many days ago (2) Injury(ies) location: Chest (left posterior lower), Other (left posterior pelvis/SI area.). No: Head, Neck Quality of pain: Aching Associated symptoms: Weakness (baseline weakness right arm/leg from prior CVA, per caregiver.). No: LOC, Neck pain Contributing factors: Anticoagulated. No: Intoxicated Similar symptoms before: Has not had sx before Review of Systems Constitutional: denies: Fever Nose: denies: Rhinorrhea / runny nose, Congestion Throat: denies: Sore throat Respiratory: denies: Cough PD PAST MEDICAL HISTORY - Past Medical History Cardiovascular: High cholesterol, Coronary artery disease, Deep vein thrombosis Respiratory: None Endocrine/Autoimmune: Type 2 diabetes GI: None : None HEENT: Chronic vision loss, Other Psych: None Musculoskeletal: Fibromyalgia, Hemiplegia Derm: None - Past Surgical History Past Surgical History: No - Present Medications Home Medications: Ambulatory Orders Medication Instructions Recorded Confirmed Atorvastatin [Lipitor] 40 mg ORAL QPM 08/21/15 11/08/18 Cholecalciferol (Vitamin D3) 2,000 unit ORAL DAILY 08/21/15 11/08/18 [Vitamin D] Gabapentin 400 mg ORAL TID 08/21/15 11/08/18 Lisinopril 20 mg ORAL BID 08/21/15 11/08/18 Warfarin [Coumadin] 2.5 mg ORAL DAILY 08/21/15 11/08/18 amLODIPine [Norvasc] 10 mg ORAL QPM 08/21/15 11/08/18 metFORMIN [Glucophage] 500 mg ORAL BID 08/21/15 11/08/18 - Allergies Allergies/Adverse Reactions: Allergies Allergy/AdvReac Type Severity Reaction Status Date / Time No Known Drug Allergies Allergy Verified 11/08/18 11:45 - Social History Does the pt smoke?: No Smoking Status: Never smoker Does the pt drink ETOH?: Yes Does the pt have substance abuse?: No - Immunizations Immunizations are current?: No Immunizations: TDAP >10years/unknown - POLST Patient has POLST: No PD ED PE NORMAL - Vitals Vital signs reviewed: Yes - General General: Well developed/nourished, Other (Oriented to person and place but not time. She does appear uncomfortable with turning to the side and points to the lower posterior lateral ribs and also the back part of the pelvis at the SI joint.) - HEENT HEENT: Atraumatic - Neck Neck: Supple, no meningeal sign, No bony TTP, No adenopathy - Cardiac Cardiac: RRR, No murmur - Respiratory Respiratory: Clear bilaterally, Other (There is some tenderness to palpation in the posterior lateral left lower ribs 8 through 11 area. There is no obvious crepitance. There is no rash nor sores. There is no bruising noted. There is also some tenderness in the left iliac crest and SI joint area on the pelvis. There is no tenderness in the anterior hip joint. There is no pain with impaction no rotational stress testing on either hip. There is weakness noted of the right arm and leg consistent with prior stroke according to her caregiver.) - Abdomen Abdomen: Normal bowel sounds, Soft, Non tender, Non distended, No organomegaly Results - Vitals Vitals: Vital Signs - 24 hr 11/08/18 11/08/18 11:41 14:47 Temperature 37.2 C 37 C Heart Rate 108 H 95 Respiratory 18 18 Rate Blood Pressure 158/73 H 160/80 H O2 Saturation 96 97 Oxygen O2 Source Room air - Labs Labs: Laboratory Tests 11/08/18 11/08/18 11/08/18 12:52 12:52 12:52 WBC 12.5 H RBC 4.09 L Hgb 12.8 Hct 38.3 MCV 93.7 MCH 31.3 H MCHC 33.4 RDW 14.5 Plt Count 417 MPV 7.8 L Neut # (Auto) 10.4 H Lymph # (Auto) 1.2 L [place] # (Auto) 0.7 Eos # (Auto) 0.1 Baso # (Auto) 0.1 Absolute Nucleated RBC 0.00 Nucleated RBC % 0.0 PT 30.5 H INR 2.8 H Sodium 142 Potassium 3.2 L Chloride 104 Carbon Dioxide 26 Anion Gap 12.0 BUN 17 Creatinine 0.7 Estimated GFR (MDRD) 84 L Glucose 139 H Calcium 9.2 Total Bilirubin 0.5 AST 21 ALT 14 Alkaline Phosphatase 97 Total Protein 7.7 Albumin 4.2 Globulin 3.5 Albumin/Globulin Ratio 1.2 Lipase 31 Urine Color Urine Clarity Urine pH Ur Specific [place] Urine Protein Urine Glucose (UA) Urine Ketones Urine Occult Blood Urine Nitrite Urine Bilirubin Urine Urobilinogen Ur Leukocyte Esterase Urine RBC Urine WBC Ur Squamous Epith Cells Urine Bacteria Urine Mucus Ur Microscopic Review Urine Culture Comments 11/08/18 13:15 WBC RBC Hgb Hct MCV MCH MCHC RDW Plt Count MPV Neut # (Auto) Lymph # (Auto) [place] # (Auto) Eos # (Auto) Baso # (Auto) Absolute Nucleated RBC Nucleated RBC % PT INR Sodium Potassium Chloride Carbon Dioxide Anion Gap BUN Creatinine Estimated GFR (MDRD) Glucose Calcium Total Bilirubin AST ALT Alkaline Phosphatase Total Protein Albumin Globulin Albumin/Globulin Ratio Lipase Urine Color YELLOW Urine Clarity CLEAR Urine pH 6.0 Ur Specific [place] 1.020 Urine Protein TRACE Urine Glucose (UA) NEGATIVE Urine Ketones NEGATIVE Urine Occult Blood SMALL H Urine Nitrite NEGATIVE Urine Bilirubin NEGATIVE Urine Urobilinogen 0.2 (NORMAL) Ur Leukocyte Esterase NEGATIVE Urine RBC 0-5 Urine WBC 0-3 Ur Squamous Epith Cells RARE Squamous Urine Bacteria Rare Urine Mucus Few Strands Ur Microscopic Review INDICATED Urine Culture Comments NOT INDICATED - Rads (name of study) chest,abd,pelvis CT Radiology: Prelim report reviewed (Irregular contour of left ribs 2 and 3. No definitie fracture. else no acute. See report. ), EMP read contemporaneously, See rad report PD MEDICAL DECISION MAKING - ED course Complexity details: reviewed results (Her pain is in the posterior lateral lower ribs area. The CT reading of some irregular contour in the second and third rib area do not correlate clinically. There is no report of fractures in the pelvic area. No other acute findings reported on the CT.) Departure - Departure Disposition: 01 Home, Self Care Clinical Impression: Fall, accidental Qualifiers: Encounter type: initial encounter Qualified Code(s): W19.XXXA - Unspecified fall, initial encounter Pelvic contusion Qualifiers: Encounter type: initial encounter Qualified Code(s): S30.0XXA - Contusion of lower back and pelvis, initial encounter Chest wall contusion Qualifiers: Encounter type: initial encounter Laterality: left Qualified Code(s): S20.212A - Contusion of left front wall of thorax, initial encounter Condition: Stable Record reviewed to determine appropriate education?: Yes Instructions: ED Contusion Chest Wall Follow-Up: Brittney Alicea ARNP [Primary Care Provider] - Comments: Continue usual medications at home. There is no obvious fracture seen on your x-ray. Discharge Date/Time: 11/08/18 16:00
[2018-11-08] MEDS ORDERED: SODIUM CHLORIDE 0.9% 1,000 ML IV ONE (12:26)
[2018-11-08] MEDS ORDERED: ACETAMINOPHEN 325 MG TABLET PO STA (12:28)
[2018-11-08] MEDS ORDERED: IOVERSOL 320 100 ML VIAL IVP ONE ×2 (12:38→15:12)
[2018-11-08 13:06] LABS: BASOPHILS # (AUTO) 0.1 10^3/uL (0.0-0.1); BASOPHILS % (AUTO) 0.6 %; EOSINOPHILS # (AUTO) 0.1 10^3/uL (0.0-0.7); EOSINOPHILS % (AUTO) 0.4 %; HGB - HEMOGLOBIN 12.8 g/dL (12.0-16.0); LYMPHOCYTES # (AUTO) 1.2 10^3/uL (1.5-3.5); LYMPHOCYTES % (AUTO) 9.7 %; MEAN CORPUSCULAR HEMOGLOBIN 31.3 pg (27.0-31.0); MEAN CORPUSCULAR HGB CONC 33.4 g/dL (32.0-36.0); MEAN CORPUSCULAR VOLUME 93.7 fL (81.0-99.0); MEAN PLATELET VOLUME 7.8 fL (7.9-10.8); MONOCYTES # (AUTO) 0.7 10^3/uL (0.0-1.0); MONOCYTES % (AUTO) 5.8 %; NEUTROPHILS # (AUTO) 10.4 10^3/uL (1.5-6.6); NEUTROPHILS % (AUTO) 83.5 %; PLT - PLATELET COUNT 417 10^3/uL (130-450); RED BLOOD COUNT 4.09 10^6/uL (4.20-5.40); RED CELL DISTRIBUTION WIDTH 14.5 % (12.0-15.0); WHITE BLOOD COUNT 12.5 x10^3/uL (4.8-10.8)
[2018-11-08 13:15] LABS: ALBUMIN 4.2 g/dL (3.2-5.5); ALBUMIN/GLOBULIN RATIO 1.2 (1.0-2.2); BILIRUBIN,TOTAL 0.5 mg/dL (0.2-1.0); CALCIUM 9.2 mg/dL (8.5-10.3); CREATININE 0.7 mg/dL (0.4-1.0); TOTAL PROTEIN 7.7 g/dL (6.7-8.2)
[2018-11-08 13:24] LABS: INR 2.8 (0.8-1.2); PT - PROTHROMBIN TIME 30.5 secs (9.9-12.6)
[2018-11-08 13:29] LABS: BILIRUBIN,URINE NEGATIVE (NEGATIVE); GLUCOSE, URINE (UA) NEGATIVE (NEGATIVE); KETONES,URINE (UA) NEGATIVE (NEGATIVE); LEUKOCYTE ESTERASE, URINE NEGATIVE (NEGATIVE); NITRITE,URINE NEGATIVE (NEGATIVE); OCCULT BLOOD,URINE SMALL (NEGATIVE); PROTEIN,URINE TRACE mg/dL (NEGATIVE); UROBILINOGEN,URINE 0.2 (NORMAL) E.U./dL (NORMAL)
[2018-11-08 13:34] LABS: CLARITY,URINE CLEAR (CLEAR)
[2018-11-08 13:44] LABS: RBC,URINE 0-5 /HPF (0-5); SQUAMOUS EPITHELIAL CELL,UR RARE Squamous (<= Few)
[2018-11-08 13:45] LABS: BACTERIA,URINE Rare /HPF (None Seen); MUCUS,URINE Few Strands
--- NOTE | 2018-11-08 14:36 | CT Report ---
Reason: fall with pain left chest and flank Procedure Date: 11/08/2018 Accession Number: [id number] / [id number] Procedure: CT - Abdomen/Pelvis W CPT Code: FULL RESULT: EXAM: CT CHEST, ABDOMEN AND PELVIS WITH CONTRAST. EXAM DATE: 11/08/2018 01:48 PM. CLINICAL HISTORY: Fall with pain left chest and flank. COMPARISONS: CHEST W/ 11/08/2018 1:46 PM. TECHNIQUE: Routine helical CT imaging was performed through the chest, abdomen, and pelvis. IV contrast: 100 mL Optiray 320. Enteric contrast: No. Reconstructions: Coronal and sagittal. In accordance with CT protocol optimization, one or more of the following dose reduction techniques were utilized for this exam: automated exposure control, adjustment of mA and/or KV based on patient size, or use of iterative reconstructive technique. FINDINGS: Lungs/Pleura: Normal. No nodules, bronchial thickening, consolidation, or edema. Pulmonary vasculature is normal. No effusions or pneumothorax. Mediastinum: Coronary atherosclerotic disease as well as atherosclerotic aortic arch without evidence of traumatic injury to the mediastinal structures. No pericardial effusion. Liver: No evidence of trauma. Segment 7 curvilinear hyperdensity, prior intervention versus calcification. Gallbladder/Bile Ducts: Unremarkable. Spleen: Atraumatic with 2.2 x 1.6 cm calcification. Pancreas: Normal. Adrenal Glands: Normal. Kidneys: Atraumatic with no evidence of hydronephrosis. Visualized renal hypodensities are too small to characterize. Peritoneal Cavity/Bowel: No free fluid, free air or adenopathy. No masses or acute inflammatory process. No bowel obstruction. Pelvic Organs: Normal. The bladder and visualized pelvic organs are within normal limits. Vasculature: Atherosclerotic disease with no traumatic vascular injury detected. Bones: There are subtle anterolateral cortical buckle deformities of the left second and third ribs without displacement or interruption of the cortex. No acute displaced traumatic fracture is identified. Remote posttraumatic changes are seen at the right clavicle. Healed rib fractures are also seen in the right first rib. 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 Other: None. IMPRESSION: Minimal buckling irregularity of the anterolateral second and third left ribs with no other traumatic injury to the chest, abdomen or pelvis detected. [facility]
[2018-11-08 14:49] VITALS: BP 160/80
== END 2018-11-08 16:00 | disposition home or self-care (01) ==
LOC: ED 11:37
DX: S30.0XXA Contusion of lower back and pelvis, initial encounter (principal); S20.212A Contusion of left front wall of thorax, initial encounter; W05.0XXA Fall from non-moving wheelchair, initial encounter; Y92.009 Unspecified place in unspecified non-institutional (private) residence as the place of occurrence of the external cause; E11.9 Type 2 diabetes mellitus without complications; Z79.82 Long term (current) use of aspirin; Z79.01 Long term (current) use of anticoagulants; I69.351 Hemiplegia and hemiparesis following cerebral infarction affecting right dominant side
CPT/HCPCS: 36415; 71260; 74177; 80053; 81001; 83690; 85025; 85610; 96360; 96361; 99283; A9270; Q9967; 81003; 87086

== ENCOUNTER 2018-11-12 08:00 | Outpatient (CLI) | payer MEDICARE, MEDICAID | END 2018-11-12 23:59 | LOC: LAB.R 08:00 | PROVIDERS: ATTEND Family Medicine | DX: Z53.9 Procedure and treatment not carried out, unspecified reason (principal) ==

== ENCOUNTER 2018-11-22 08:00 | Outpatient (CLI) | payer MEDICARE, MEDICAID ==
[2018-11-22 19:52] LABS: HB2 TOTAL 15.4 g/dL; HEMOGLOBIN A1C 0.64 g/dL
== END 2018-11-22 23:59 | disposition home or self-care (01) ==
LOC: LAB.N 08:00
PROVIDERS: ATTEND Nurse Practitioner Gerontology
DX: I69.90 Unspecified sequelae of unspecified cerebrovascular disease (principal); Z79.01 Long term (current) use of anticoagulants; E11.9 Type 2 diabetes mellitus without complications
CPT/HCPCS: 36415; 83036; 85610

== ENCOUNTER 2018-12-10 13:00 | Outpatient (CLI) | payer MEDICARE, MEDICAID ==
[2018-12-10 13:38] LABS: BILIRUBIN,URINE NEGATIVE (NEGATIVE); GLUCOSE, URINE (UA) NEGATIVE (NEGATIVE); KETONES,URINE (UA) NEGATIVE (NEGATIVE); LEUKOCYTE ESTERASE, URINE NEGATIVE (NEGATIVE); NITRITE,URINE NEGATIVE (NEGATIVE); OCCULT BLOOD,URINE TRACE-INTA (NEGATIVE); PROTEIN,URINE TRACE mg/dL (NEGATIVE); UROBILINOGEN,URINE 0.2 (NORMAL) E.U./dL (NORMAL)
[2018-12-10 13:40] LABS: CLARITY,URINE CLEAR (CLEAR)
== END 2018-12-10 23:59 | disposition home or self-care (01) ==
LOC: LAB.R 13:00
PROVIDERS: ATTEND Nurse Practitioner Gerontology
DX: I69.351 Hemiplegia and hemiparesis following cerebral infarction affecting right dominant side (principal); M62.81 Muscle weakness (generalized); N39.0 Urinary tract infection, site not specified
CPT/HCPCS: 81001; 81003

== ENCOUNTER 2019-04-25 12:04 | Outpatient (CLI) | payer MEDICARE, MEDICAID ==
[2019-04-25 19:04] LABS: BASOPHILS # (AUTO) 0.1 10^3/uL (0.0-0.1); BASOPHILS % (AUTO) 0.5 %; EOSINOPHILS # (AUTO) 0.2 10^3/uL (0.0-0.7); EOSINOPHILS % (AUTO) 1.3 %; HGB - HEMOGLOBIN 12.5 g/dL (12.0-16.0); LYMPHOCYTES # (AUTO) 2.7 10^3/uL (1.5-3.5); LYMPHOCYTES % (AUTO) 20.1 %; MEAN CORPUSCULAR HEMOGLOBIN 31.3 pg (27.0-31.0); MEAN CORPUSCULAR HGB CONC 31.9 g/dL (32.0-36.0); MEAN PLATELET VOLUME 10.4 fL (7.9-10.8); MONOCYTES # (AUTO) 0.8 10^3/uL (0.0-1.0); MONOCYTES % (AUTO) 6.2 %; NEUTROPHILS # (AUTO) 9.5 10^3/uL (1.5-6.6); NEUTROPHILS % (AUTO) 71.2 %; PLT - PLATELET COUNT 464 10^3/uL (130-450); RED CELL DISTRIBUTION WIDTH 13.6 % (12.0-15.0); WHITE BLOOD COUNT 13.3 x10^3/uL (4.8-10.8)
[2019-04-25 19:45] LABS: ALBUMIN 3.9 g/dL (3.2-5.5); ALKALINE PHOSPHATASE 81 IU/L (42-121); ALT ALANINE AMINOTRANSFERASE 25 IU/L (10-60); AST ASPARTATE AMINOTRANSFERASE 22 IU/L (10-42); BILIRUBIN,TOTAL 0.5 mg/dL (0.2-1.0); BUN - BLOOD UREA NITROGEN 27 mg/dL (6-20); CALCIUM 9.2 mg/dL (8.5-10.3); CARBON DIOXIDE - CO2 28 mmol/L (21-32); CHLORIDE 101 mmol/L (101-111); CHOL/HDL RATIO 3.2 (<4.4); CHOLESTEROL 154 mg/dL; CREATININE 0.8 mg/dL (0.4-1.0); GFR - MDRD 72 (>89); HDL CHOLESTEROL 48 mg/dL; LDL CHOLESTEROL,CALCULATED 84 mg/dL; LDL/HDL RATIO 1.8 (<4.4); SODIUM 138 mmol/L (135-145); TOTAL PROTEIN 7.7 g/dL (6.7-8.2); VLDL CHOLESTEROL 22 mg/dL
[2019-04-25 19:46] LABS: HB2 TOTAL 12.6 g/dL; HEMOGLOBIN A1C 0.55 g/dL; HEMOGLOBIN A1C % 6.1 % (4.6-6.2)
[2019-04-25 19:51] LABS: GLUCOSE 59 mg/dL (70-100)
== END 2019-04-25 23:59 | disposition home or self-care (01) ==
LOC: LAB.N 12:04
PROVIDERS: ATTEND Nurse Practitioner Gerontology
DX: I10 Essential (primary) hypertension (principal); Z79.899 Other long term (current) drug therapy; E78.5 Hyperlipidemia, unspecified; E11.9 Type 2 diabetes mellitus without complications
CPT/HCPCS: 36415; 80053; 80061; 83036; 83721; 84443; 85025

== ENCOUNTER 2019-08-16 14:28 | Outpatient (CLI) | payer MEDICARE, MEDICAID | END 2019-08-16 14:29 | disposition home or self-care (01) | LOC: DI.N 14:28 | PROVIDERS: ATTEND Nurse Practitioner Gerontology | DX: Z53.9 Procedure and treatment not carried out, unspecified reason (principal) ==

== ENCOUNTER 2019-08-17 13:17 | Outpatient (CLI) | payer MEDICARE, MEDICAID ==
--- NOTE | 2019-08-17 19:08 | XRAY Report ---
Reason: COPD,CHRONIC COUGH Procedure Date: 08/17/2019 Accession Number: [id number] / [id number] Procedure: XR - Chest 2 View X-Ray CPT Code: 38971 Final Report FULL RESULT: EXAM: CHEST RADIOGRAPHY. EXAM DATE: 08/17/2019 01:37 PM. CLINICAL HISTORY: Chronic obstructive pulmonary disease, chronic cough. COMPARISON: RIBS W/PA CHEST LT 11/06/2015 12:15 PM. CHEST W/ 11/08/2018 1:46 PM. TECHNIQUE: 2 views. FINDINGS: Lungs/Pleura: No focal opacities evident. No pleural effusion. No pneumothorax. Normal volumes. Mediastinum: Heart and mediastinal contours are unremarkable. Other: Old rib fractures. IMPRESSION: No acute process seen in the chest. [facility]
== END 2019-08-17 13:18 | disposition home or self-care (01) ==
LOC: DI 13:17
PROVIDERS: ATTEND Nurse Practitioner Gerontology
DX: J44.9 Chronic obstructive pulmonary disease, unspecified (principal); R05 Cough
CPT/HCPCS: 71046

== ENCOUNTER 2019-08-18 12:15 | Outpatient (CLI) | payer MEDICARE, MEDICAID | END 2019-08-18 12:16 | disposition EMS.NT | LOC: EMS 12:15 | PROVIDERS: ATTEND Surgery | DX: R11.10 Vomiting, unspecified (principal) ==

== ENCOUNTER 2019-08-18 13:09 | Emergency (ER) | payer MEDICARE, MEDICAID ==
[2019-08-18 14:01] LABS: BASOPHILS # (AUTO) 0.1 10^3/uL (0.0-0.1); BASOPHILS % (AUTO) 0.6 %; EOSINOPHILS # (AUTO) 0.2 10^3/uL (0.0-0.7); EOSINOPHILS % (AUTO) 1.8 %; LYMPHOCYTES # (AUTO) 1.3 10^3/uL (1.5-3.5); LYMPHOCYTES % (AUTO) 12.3 %; MEAN CORPUSCULAR HEMOGLOBIN 31.3 pg (27.0-31.0); MEAN CORPUSCULAR HGB CONC 33.1 g/dL (32.0-36.0); MEAN CORPUSCULAR VOLUME 94.7 fL (81.0-99.0); MEAN PLATELET VOLUME 9.2 fL (7.9-10.8); MONOCYTES # (AUTO) 0.7 10^3/uL (0.0-1.0); MONOCYTES % (AUTO) 6.9 %; NEUTROPHILS # (AUTO) 8.4 10^3/uL (1.5-6.6); NEUTROPHILS % (AUTO) 77.9 %; PLT - PLATELET COUNT 433 10^3/uL (130-450); RED BLOOD COUNT 4.15 10^6/uL (4.20-5.40); RED CELL DISTRIBUTION WIDTH 13.2 % (12.0-15.0); WHITE BLOOD COUNT 10.8 x10^3/uL (4.8-10.8)
[2019-08-18 14:22] LABS: ALBUMIN 3.9 g/dL (3.2-5.5); ALBUMIN/GLOBULIN RATIO 1.1 (1.0-2.2); BILIRUBIN,TOTAL 0.5 mg/dL (0.2-1.0); CALCIUM 9.3 mg/dL (8.5-10.3); CREATININE 0.8 mg/dL (0.4-1.0); TOTAL PROTEIN 7.5 g/dL (6.7-8.2)
[2019-08-18] MEDS ORDERED: IPRATROPIUM/ALBUTEROL 3 ML NEB INH STA (14:58)
--- NOTE | 2019-08-18 15:01 | ED Physician Documentation ---
PD HPI DYSPNEA - Stated complaint Stated Complaint: N/V - Chief complaint Chief Complaint: Resp - History obtained from History obtained from: Patient, Caregiver - History of Present Illness Timing - onset: Chronic (69-year-old woman with history of stroke, also COPD. For the last several months she has had an increased cough and often has posttussive emesis and gagging. 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 HEENT: Chronic vision loss, Other Psych: None Musculoskeletal: Fibromyalgia, Hemiplegia Derm: None - Past Surgical History Past Surgical History: No - Present Medications Home Medications: Ambulatory Orders Medication Instructions Recorded Confirmed Atorvastatin [Lipitor] 40 mg ORAL QPM 08/21/15 11/08/18 Cholecalciferol (Vitamin D3) 2,000 unit ORAL DAILY 08/21/15 11/08/18 [Vitamin D] Gabapentin 400 mg ORAL 08/21/15 11/08/18 Lisinopril 20 mg ORAL BID 08/21/15 11/08/18 amLODIPine [Norvasc] 10 mg ORAL QPM 08/21/15 11/08/18 metFORMIN [Glucophage] 500 mg ORAL BID 08/21/15 11/08/18 Ipratropium/Albuterol [Duoneb] 3 ml INH Q6H PRN #1 neb 08/18/19 Nebulizer [Aeroneb Go Nebulizer] 1 each MC ONCE #1 each 08/18/19 Rivaroxaban [Xarelto] 20 mg PO 08/18/19 08/18/19 - Allergies Allergies/Adverse Reactions: Allergies Allergy/AdvReac Type Severity Reaction Status Date / Time No Known Drug Allergies Allergy Verified 08/18/19 13:36 - Social History Does the pt smoke?: No Smoking Status: Never smoker Does the pt drink ETOH?: Yes Does the pt have substance abuse?: No - Immunizations Immunizations are current?: No Immunizations: TDAP >10years/unknown - POLST Patient has POLST: No PD ED PE NORMAL - Vitals Vital signs reviewed: Yes - General General: Other (She is alert and cooperative but minimally verbal) - Cardiac Cardiac: RRR, No murmur - Respiratory Respiratory: No respiratory distress, Other (Mild expiratory wheezes) - Abdomen Abdomen: Non tender - Derm Derm: Normal color, Warm and dry - Extremities Extremities: No edema, No calf tenderness / cord Results - Vitals Vitals: Vital Signs - 24 hr 08/18/19 13:29 Temperature 36.8 C Heart Rate 80 Respiratory 16 Rate Blood Pressure 126/35 L O2 Saturation 96 Oxygen O2 Source Room air - Labs Labs: Laboratory Tests 08/18/19 08/18/19 13:54 13:54 WBC 10.8 RBC 4.15 L Hgb 13.0 Hct 39.3 MCV 94.7 MCH 31.3 H MCHC 33.1 RDW 13.2 Plt Count 433 MPV 9.2 Neut # (Auto) 8.4 H Lymph # (Auto) 1.3 L Dougherty # (Auto) 0.7 Eos # (Auto) 0.2 Baso # (Auto) 0.1 Absolute Nucleated RBC 0.00 Nucleated RBC % 0.0 Sodium 141 Potassium 3.8 Chloride 101 Carbon Dioxide 27 Anion Gap 13.0 BUN 19 Creatinine 0.8 Estimated GFR (MDRD) 72 L Glucose 142 H Calcium 9.3 Total Bilirubin 0.5 AST 18 ALT 19 Alkaline Phosphatase 82 Total Protein 7.5 Albumin 3.9 Globulin 3.6 Albumin/Globulin Ratio 1.1 Lipase 37 PD MEDICAL DECISION MAKING - ED course ED course: 69-year-old woman with history of stroke presents with subacute increased cough with posttussive emesis. I suspect inhalers may not be working well for her given the history of stroke and as such she is prescribed a nebulizer. A chest x-ray was done yesterday which was without acute infiltrates. Departure - Departure Disposition: 01 Home, Self Care Clinical Impression: Moderate COPD (chronic obstructive pulmonary disease), Post-tussive emesis Condition: Good Record reviewed to determine appropriate education?: Yes Instructions: COPD Dc Prescriptions: Ipratropium/Albuterol [Duoneb] 3 ml INH Q6H PRN #1 neb PRN Reason: Cough Nebulizer [Aeroneb Go Nebulizer] 1 each ONCE #1 each Comments: It seems that likely the vomiting is related to the increased cough. The x-ray yesterday showed no sign of pneumonia. I suspect that they her inhalers are not working because of the difficulty coordinating between the inhaler action and history of stroke and as such we are prescribing a nebulizer. Return if worse. Follow-up with your primary care physician, next available appointment.
[2019-08-18 15:22] VITALS: BP 150/56
== END 2019-08-18 15:21 | disposition home or self-care (01) ==
LOC: ED 13:09
DX: J44.9 Chronic obstructive pulmonary disease, unspecified (principal); R11.10 Vomiting, unspecified; E11.9 Type 2 diabetes mellitus without complications; Z79.84 Long term (current) use of oral hypoglycemic drugs; I69.359 Hemiplegia and hemiparesis following cerebral infarction affecting unspecified side
CPT/HCPCS: 36415; 80053; 83690; 85025; 94640; 99281; 99283

== ENCOUNTER 2019-09-21 10:23 | Outpatient (CLI) | payer MEDICARE, MEDICAID | END 2019-09-21 10:24 | disposition home or self-care (01) | LOC: DI 10:23 | PROVIDERS: ATTEND Nurse Practitioner Gerontology | DX: R01.1 Cardiac murmur, unspecified (principal); I51.7 Cardiomegaly | CPT/HCPCS: 93306 ==

== ENCOUNTER → 2020-02-14 | Outpatient (CLI) | payer MEDICARE, MEDICAID ==
[2020-02-14 18:22] LABS: BASOPHILS # (AUTO) 0.1 10^3/uL (0.0-0.1); BASOPHILS % (AUTO) 0.5 %; EOSINOPHILS # (AUTO) 0.1 10^3/uL (0.0-0.7); EOSINOPHILS % (AUTO) 0.9 %; HGB - HEMOGLOBIN 12.1 g/dL (12.0-16.0); LYMPHOCYTES # (AUTO) 1.3 10^3/uL (1.5-3.5); LYMPHOCYTES % (AUTO) 10.6 %; MEAN CORPUSCULAR HEMOGLOBIN 30.6 pg (27.0-31.0); MEAN CORPUSCULAR VOLUME 98.7 fL (81.0-99.0); MEAN PLATELET VOLUME 10.2 fL (7.9-10.8); MONOCYTES # (AUTO) 0.8 10^3/uL (0.0-1.0); MONOCYTES % (AUTO) 6.7 %; NEUTROPHILS # (AUTO) 10.1 10^3/uL (1.5-6.6); NEUTROPHILS % (AUTO) 80.7 %; PLT - PLATELET COUNT 439 10^3/uL (130-450); RED BLOOD COUNT 3.95 10^6/uL (4.20-5.40); RED CELL DISTRIBUTION WIDTH 13.9 % (12.0-15.0); WHITE BLOOD COUNT 12.5 x10^3/uL (4.8-10.8)
[2020-02-14 18:48] LABS: ALBUMIN/GLOBULIN RATIO 1.1 (1.0-2.2); ALKALINE PHOSPHATASE 90 IU/L (42-121); ALT ALANINE AMINOTRANSFERASE 15 IU/L (10-60); AST ASPARTATE AMINOTRANSFERASE 18 IU/L (10-42); BILIRUBIN,TOTAL 0.5 mg/dL (0.2-1.0); BUN - BLOOD UREA NITROGEN 20 mg/dL (6-20); CALCIUM 9.9 mg/dL (8.5-10.3); CARBON DIOXIDE - CO2 26 mmol/L (21-32); CHLORIDE 99 mmol/L (101-111); CHOL/HDL RATIO 3.4 (<4.4); CHOLESTEROL 148 mg/dL; CREATININE 0.9 mg/dL (0.4-1.0); GLUCOSE 129 mg/dL (70-100); HDL CHOLESTEROL 43 mg/dL; LDL CHOLESTEROL,CALCULATED 62 mg/dL; LDL/HDL RATIO 1.4 (<4.4); SODIUM 138 mmol/L (135-145); TOTAL PROTEIN 7.6 g/dL (6.7-8.2); VLDL CHOLESTEROL 43 mg/dL
[2020-02-14 19:10] LABS: HEMOGLOBIN A1c% 6.4 % (4.27-6.07)
== END ==
LOC: LAB.WCP 11:15
PROVIDERS: ATTEND Nurse Practitioner
DX: I10 Essential (primary) hypertension (principal); E11.9 Type 2 diabetes mellitus without complications; Z79.01 Long term (current) use of anticoagulants; Z79.899 Other long term (current) drug therapy; Z86.79 Personal history of other diseases of the circulatory system; R74.8 Abnormal levels of other serum enzymes; E78.5 Hyperlipidemia, unspecified
CPT/HCPCS: 36415; 80053; 80061; 83036; 83721; 84443; 85025

== ENCOUNTER 2020-06-06 08:00 | Outpatient (CLI) | payer MEDICARE, MEDICAID ==
[2020-06-06 18:11] LABS: BASOPHILS # (AUTO) 0.1 10^3/uL (0.0-0.1); BASOPHILS % (AUTO) 0.6 %; EOSINOPHILS # (AUTO) 0.2 10^3/uL (0.0-0.7); EOSINOPHILS % (AUTO) 1.6 %; HGB - HEMOGLOBIN 12.2 g/dL (12.0-16.0); LYMPHOCYTES # (AUTO) 1.3 10^3/uL (1.5-3.5); LYMPHOCYTES % (AUTO) 12.6 %; MEAN CORPUSCULAR HGB CONC 30.5 g/dL (32.0-36.0); MEAN CORPUSCULAR VOLUME 98.5 fL (81.0-99.0); MEAN PLATELET VOLUME 10.4 fL (7.9-10.8); MONOCYTES # (AUTO) 0.6 10^3/uL (0.0-1.0); MONOCYTES % (AUTO) 5.5 %; NEUTROPHILS # (AUTO) 8.2 10^3/uL (1.5-6.6); NEUTROPHILS % (AUTO) 79.3 %; PLT - PLATELET COUNT 447 10^3/uL (130-450); RED BLOOD COUNT 4.06 10^6/uL (4.20-5.40); RED CELL DISTRIBUTION WIDTH 13.8 % (12.0-15.0); WHITE BLOOD COUNT 10.4 x10^3/uL (4.8-10.8)
[2020-06-06 18:36] LABS: ALBUMIN/GLOBULIN RATIO 1.1 (1.0-2.2); BILIRUBIN,TOTAL 0.5 mg/dL (0.2-1.0); CALCIUM 9.6 mg/dL (8.5-10.3); CREATININE 0.9 mg/dL (0.4-1.0); TOTAL PROTEIN 7.8 g/dL (6.7-8.2)
[2020-06-06 19:03] LABS: HEMOGLOBIN A1c% 6.2 % (4.27-6.07)
== END 2020-06-06 23:59 | disposition home or self-care (01) ==
LOC: LAB.WCP 08:00
PROVIDERS: ATTEND Nurse Practitioner
DX: R63.0 Anorexia (principal); R10.11 Right upper quadrant pain; E11.9 Type 2 diabetes mellitus without complications; R74.8 Abnormal levels of other serum enzymes
CPT/HCPCS: 36415; 80053; 83036; 85025

== ENCOUNTER 2020-06-29 12:35 | Outpatient (CLI) | payer MEDICARE, MEDICAID ==
[2020-06-29] MEDS ORDERED: IOVERSOL 320 50 ML VIAL ONE (12:53)
[2020-06-29] MEDS ORDERED: IOVERSOL 320 100 ML VIAL IVP ONE ×2 (12:53→14:30)
[2020-06-29] MEDS ORDERED: IOVERSOL 320 50 ML VIAL PO ONE (14:30)
--- NOTE | 2020-06-29 16:06 | CT Report ---
PROCEDURE: CHEST W INDICATIONS: DECREASED APPETITE CONTRAST: IV CONTRAST: Optiray 320 ml: 100 PO CONTRAST: Optiray 320 ml50 TECHNIQUE: After the administration of intravenous contrast, 5 mm thick sections acquired from the pulmonary api tae to the posterior costophrenic angles. 7 mm thick coronal MIP reformats were acquired. For radia tion dose reduction, the following was used: automated exposure control, adjustment of mA and/or kV according to patient size. COMPARISON: 11/08/2018. FINDINGS: Image quality: Excellent. Lungs and pleura: There is a rounded groundglass nodule in the right lung apex measuring approximate ly 1.8 cm in diameter. This is seen on image 38, series 4. There is a smaller, adjacent groundglass n odule noted near the inferior, medial aspect of this larger nodule measuring 5 mm on image 42, series 4. Otherwise, no acute air space opacities. No septal thickening or nodularity. No pleural effusions or pneumothorax. Central and peripheral airways are patent and normal in caliber. Mediastinum: Heart size is normal. Atherosclerotic calcifications of the coronary arteries are pres ent. No pericardial effusion. Multiple mediastinal lymph nodes are visualized which are more notable for number rather than size. Largest measures approximately 1.1 cm in maximum short axis dimension. No hilar adenopathy. Thoracic aorta and central pulmonary arteries are normal in size with moderate atherosclerotic calcifications of the thoracic aorta. No evidence for dissection or aneurysmal dilata tion. Esophagus is normal in caliber. There is a moderate-sized hiatal hernia. Bones and chest wall: No suspicious bony lesions. There are healed fracture deformities of the righ t mid clavicle. No acute vertebral body compression fractures. No axillary or supraclavicular adenop athy by size criteria. Thyroid gland is unremarkable.. Abdomen: Stable coarse calcifications of the posterior aspect of the right hepatic lobe and anterior margin of the spleen. Remainder of the visualized upper abdominal solid organs appear normal. Upper abdominal bowel loops are normal in caliber. IMPRESSION: There is a 1.8 cm groundglass nodule in the right lung apex smaller adjacent 5 mm groundglass nodule. There are prominent, scattered mediastinal lymph nodes more notable for number rather than size, lik oscar reactive in etiology. Recommend short interval follow-up CT in 3-6 months to document stability v ersus resolution. Moderate sized hiatal hernia. Atherosclerotic vascular disease. Borderline ectasia of the thoracic aorta. No evidence for aneurysma l dilatation or dissection Reviewed by: Haseeb Quinn MD on 06/29/2020 4:04 PM PST Approved by: Haseeb Quinn MD on 06/29/2020 4:04 PM PST Station ID: [id number]
--- NOTE | 2020-06-29 17:42 | CT Report ---
PROCEDURE: Abdomen/Pelvis W INDICATIONS: DECREASED APPETITE CONTRAST: IV CONTRAST: Optiray 320 ml: 100 PO CONTRAST: Optiray 320 ml50 TECHNIQUE: After the administration of both oral and weight appropriate dose of intravenous contrast, 5 mm thick sections acquired from the diaphragms to the symphysis. 5 mm thick coronal and sagittal reformats w ere acquired. For radiation dose reduction, the following was used: automated exposure control, adj ustment of mA and/or kV according to patient size. COMPARISON: 11/08/2018. FINDINGS: Image quality: Excellent. ABDOMEN: Lung bases: Lung bases are clear. Heart size is normal. Moderate-sized hiatal hernia. Solid organs: Liver and spleen are normal in size and enhancement. Diffuse hepatic steatosis. Stabl e coarse calcifications of the liver and spleen. Gallbladder is unremarkable Biliary system is non d ilated. Pancreas enhances normally. No adrenal nodules. Kidneys demonstrate normal size and enhanc ement, without hydronephrosis. Peritoneum and bowel: Bowel loops demonstrate normal wall thickness and caliber. No free fluid or a ir. Normal appendix. Small distal duodenal diverticulum is incidentally noted. Nodes and vessels: No retroperitoneal or mesenteric adenopathy by size criteria. Aorta and inferior vena cava are normal in size. Atherosclerotic calcifications of the abdominal aorta without aneurys mal dilatation. Miscellaneous: No ventral hernias. PELVIS: Genitourinary: Bladder wall thickness is normal. Miscellaneous: No inguinal hernias or adenopathy. Bones: No suspicious bony lesions. No acute vertebral body compression fractures. Moderate multile erma spondylitic changes throughout the imaged spine. IMPRESSION: 1. CT abdomen and pelvis without acute abnormalities, suspicious mass, or adenopathy. 2. Hepatic steatosis. 3. Moderate size hiatal hernia. 4. Atherosclerotic vascular disease without aneurysmal dilatation of the abdominal aorta. Reviewed by: Haseeb Quinn MD on 06/29/2020 5:41 PM PST Approved by: Haseeb Quinn MD on 06/29/2020 5:41 PM PST Station ID: [id number]
== END 2020-06-29 12:36 | disposition home or self-care (01) ==
LOC: DI 12:35
PROVIDERS: ATTEND Nurse Practitioner
DX: R10.11 Right upper quadrant pain (principal); R63.0 Anorexia; R74.8 Abnormal levels of other serum enzymes; E11.9 Type 2 diabetes mellitus without complications; R91.1 Solitary pulmonary nodule; K76.0 Fatty (change of) liver, not elsewhere classified; K44.9 Diaphragmatic hernia without obstruction or gangrene; I70.0 Atherosclerosis of aorta
CPT/HCPCS: 71260; 74177; Q9967

== ENCOUNTER 2020-09-03 15:44 | Outpatient (CLI) | payer MEDICARE, MEDICAID ==
[2020-09-03 18:42] LABS: ALBUMIN/GLOBULIN RATIO 1.1 (1.0-2.2); BILIRUBIN,TOTAL 0.4 mg/dL (0.2-1.0); CALCIUM 9.1 mg/dL (8.5-10.3); CREATININE 1.1 mg/dL (0.4-1.0); POTASSIUM 4.4 mmol/L (3.5-5.0); TOTAL PROTEIN 7.8 g/dL (6.7-8.2)
[2020-09-03 18:58] LABS: THYROID STIMULATING HORMONE 1.74 uIU/mL (0.34-5.60)
[2020-09-03 19:00] LABS: FREE T3 2.95 pg/mL (2.5-3.9); FREE T4 (FREE THYROXINE) 0.97 ng/dL (0.58-1.64)
== END 2020-09-03 23:59 | disposition home or self-care (01) ==
LOC: LAB.WCP 15:44
PROVIDERS: ATTEND Nurse Practitioner
DX: R91.8 Other nonspecific abnormal finding of lung field (principal); R63.0 Anorexia
CPT/HCPCS: 36415; 80053; 84439; 84443; 84481

== ENCOUNTER 2020-09-14 12:56 | Outpatient (CLI) | payer MEDICARE, MEDICAID ==
[2020-09-14] MEDS ORDERED: IOVERSOL 320 100 ML VIAL IVP ONE ×2 (13:11→13:38)
--- NOTE | 2020-09-14 16:59 | CT Report ---
PROCEDURE: CHEST W INDICATIONS: MULTIPLE NODULES CONTRAST: IV CONTRAST: Optiray 320 ml: 100 PO CONTRAST: *NO PO CONTRAST TECHNIQUE: After the administration of intravenous contrast, 5 mm thick sections acquired from the pulmonary api tae to the posterior costophrenic angles. 7 mm thick coronal MIP reformats were acquired. For radia tion dose reduction, the following was used: automated exposure control, adjustment of mA and/or kV according to patient size. COMPARISON: CT chest 06/29/2020 FINDINGS: Image quality: Excellent. Lungs and pleura: There is a groundglass nodule in the right upper lobe measuring 17 mm AP by 21 mm t ransverse compared to 15 mm AP by 16 mm transverse. It is noted on prior exam there was a adjacent sm aller subcentimeter nodule. Minimal residual nodule is visualized. There are No pleural effusions or pneumothorax. Central and peripheral airways are patent and normal in caliber. Mediastinum: Heart size is normal. No pericardial effusion. No mediastinal or hilar adenopathy by size criteria. Thoracic aorta and central pulmonary arteries are normal in size. Esophagus is mayte l in caliber. No hiatal hernia. Bones and chest wall: No suspicious bony lesions. No vertebral body compression fractures. No axil brenda or supraclavicular adenopathy by size criteria. Thyroid gland demonstrates a subcentimeter low- attenuation focus within the left lobe. Abdomen: Visualized upper abdominal solid organs appear normal. Upper abdominal bowel loops are nor mal in caliber. IMPRESSION: 1. Increased size of previously identified right upper lobe nodule. Finding is concerning for progres melinda of infection/inflammation. However, neoplasm should be considered as a can present as a groundgl ass nodule. Further evaluation with PET scan may be obtained for further evaluation as indicated. 2. Low-attenuation focus within the left thyroid lobe, unchanged. Further evaluation with thyroid ult rasound may be obtained as indicated. Reviewed by: Deisy Pineda MD on 09/14/2020 4:58 PM PDT Approved by: Deisy Pineda MD on 09/14/2020 4:58 PM PDT Station ID: [id number]
== END 2020-09-14 12:57 | disposition home or self-care (01) ==
LOC: DI 12:56
PROVIDERS: ATTEND Nurse Practitioner
DX: R91.1 Solitary pulmonary nodule (principal); R93.89 Abnormal findings on diagnostic imaging of other specified body structures
CPT/HCPCS: 71260; Q9967

== ENCOUNTER 2020-10-08 14:00 | Outpatient (CLI) | payer MEDICARE, MEDICAID | END 2020-10-08 14:01 | disposition critical access hospital (66) | LOC: EMS 14:00 | DX: S40.022A Contusion of left upper arm, initial encounter (principal); M79.602 Pain in left arm; X58.XXXA Exposure to other specified factors, initial encounter | CPT/HCPCS: A0425; A0429 ==

== ENCOUNTER 2020-10-08 14:13 | Emergency (ER) | payer MEDICARE, MEDICAID ==
--- NOTE | 2020-10-08 14:30 | ED Physician Documentation ---
PD HPI UPPER EXT INJURY - Stated complaint Stated Complaint: LT ARM PX - History obtained from History obtained from: EMS - Additonal information Additional information: Much of the history is from EMS as the patient is not a very good historian because of prior stroke. Had El[employer]gin vaccine in the left arm about 3 weeks ago. Also has had some blood draws in that arm. Caregiver had not noted any bruising 3 days ago but now has extensive bruising and complaints of pain to the left arm. 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 HEENT: Chronic vision loss, Other Psych: None Musculoskeletal: Fibromyalgia, Hemiplegia Derm: None - Past Surgical History Past Surgical History: No - Present Medications Home Medications: Ambulatory Orders Medication Instructions Recorded Confirmed Atorvastatin [Lipitor] 20 mg ORAL QPM 08/21/15 11/08/18 Cholecalciferol (Vitamin D3) 2,000 unit ORAL DAILY 08/21/15 10/08/20 [Vitamin D] Gabapentin 400 mg ORAL BID 08/21/15 10/08/20 Lisinopril 20 mg ORAL BID 08/21/15 11/08/18 amLODIPine [Norvasc] 10 mg ORAL QPM 08/21/15 11/08/18 Ipratropium/Albuterol [Duoneb] 3 ml INH Q6H PRN #1 neb 08/18/19 Nebulizer [Aeroneb Go Nebulizer] 1 each MC ONCE #1 each 08/18/19 Rivaroxaban [Xarelto] 20 mg PO DAILY 08/18/19 10/08/20 Losartan [Cozaar] 50 mg PO BID 10/08/20 10/08/20 Metformin HCl [Glucophage] 1,000 mg PO BID 10/08/20 10/08/20 Multivitamin 1 each PO DAILY 10/08/20 10/08/20 Omeprazole Magnesium 20 mg PO DAILY 10/08/20 10/08/20 Sertraline [Zoloft] 25 mg PO DAILY 10/08/20 10/08/20 - Allergies Allergies/Adverse Reactions: Allergies Allergy/AdvReac Type Severity Reaction Status Date / Time No Known Drug Allergies Allergy Verified 10/08/20 14:26 - Social History Does the pt smoke?: No Smoking Status: Never smoker Does the pt drink ETOH?: Yes Does the pt have substance abuse?: No - Immunizations Immunizations are current?: No Immunizations: TDAP >10years/unknown - POLST Patient has POLST: No PD ED PE NORMAL - Vitals Vital signs reviewed: Yes - General General: Other (She is alert and cooperative, can answer yes or no questions for the most part although seems easily flustered by them. Obvious right-sided deficits from prior stroke.) - Neck Neck: Supple, no meningeal sign, No bony TTP - Extremities Extremities: Other (Bruising and swelling of the left arm over the deltoid, medial antecubital fossa and forearm. No tenderness or limited range of motion. No signs of infection. Normal radial pulse.) Results - Vitals Vitals: Vital Signs - 24 hr 10/08/20 14:26 Temperature 37.3 C Heart Rate 88 Respiratory 18 Rate Blood Pressure 183/73 H O2 Saturation 97 Oxygen O2 Source Room air - Labs Labs: Laboratory Tests 10/08/20 10/08/20 10/08/20 14:34 14:34 14:34 WBC 10.1 RBC 3.38 L Hgb 10.4 L Hct 32.0 L MCV 94.7 MCH 30.8 MCHC 32.5 RDW 14.1 Plt Count 395 MPV 9.6 Neut # (Auto) 7.7 H Lymph # (Auto) 1.4 L Weber # (Auto) 0.7 Eos # (Auto) 0.2 Baso # (Auto) 0.1 Absolute Nucleated RBC 0.00 Nucleated RBC % 0.0 PT 14.1 H INR 1.3 H Sodium 140 Potassium 4.1 Chloride 105 Carbon Dioxide 25 Anion Gap 10.0 BUN 24 H Creatinine 0.9 Estimated GFR (MDRD) 62 L Glucose 151 H Calcium 9.0 PD MEDICAL DECISION MAKING - ED course ED course: 70-year-old woman presents with extensive left arm bruising. Recent El[employer] vaccine in that arm and also some blood draws. Could just be local trauma with subcutaneous bleeding. Given the recent concerns about that particular vaccine will obtain ultrasound to rule out DVT and labs. 70-year-old woman presents with bruising to the left upper extremity, could be from blood draws or vaccine. No evidence of infection. Given the recent vaccination she was checked for DVT and no evidence of this. They declined anything stronger for pain than Tylenol noting that she will just use marijuana. Departure - Departure Disposition: 01 Home, Self Care Clinical Impression: CVA (cerebral vascular accident) Qualifiers: Laterality of affected vessel: left Pain in extremity Qualifiers: Extremity pain location: upper extremity Laterality: left Qualified Code(s): M79.602 - Pain in left arm Condition: Good Record reviewed to determine appropriate education?: Yes Instructions: ED Contusion Soft Tissue Comments: No Evidence of blood clot or other serious etiology of your arm bruising. Likely from the vaccination. Ice and elevate. Return for new or worsening symptoms.
[2020-10-08 14:48] LABS: CREATININE 0.9 mg/dL (0.4-1.0); POTASSIUM 4.1 mmol/L (3.5-5.0)
[2020-10-08 14:49] LABS: BASOPHILS # (AUTO) 0.1 10^3/uL (0.0-0.1); BASOPHILS % (AUTO) 0.6 %; EOSINOPHILS # (AUTO) 0.2 10^3/uL (0.0-0.7); EOSINOPHILS % (AUTO) 2.1 %; HGB - HEMOGLOBIN 10.4 g/dL (12.0-16.0); LYMPHOCYTES # (AUTO) 1.4 10^3/uL (1.5-3.5); LYMPHOCYTES % (AUTO) 13.4 %; MEAN CORPUSCULAR HEMOGLOBIN 30.8 pg (27.0-31.0); MEAN CORPUSCULAR HGB CONC 32.5 g/dL (32.0-36.0); MEAN CORPUSCULAR VOLUME 94.7 fL (81.0-99.0); MEAN PLATELET VOLUME 9.6 fL (7.9-10.8); MONOCYTES # (AUTO) 0.7 10^3/uL (0.0-1.0); MONOCYTES % (AUTO) 7.1 %; NEUTROPHILS # (AUTO) 7.7 10^3/uL (1.5-6.6); NEUTROPHILS % (AUTO) 76.3 %; PLT - PLATELET COUNT 395 10^3/uL (130-450); RED BLOOD COUNT 3.38 10^6/uL (4.20-5.40); RED CELL DISTRIBUTION WIDTH 14.1 % (12.0-15.0); WHITE BLOOD COUNT 10.1 x10^3/uL (4.8-10.8)
[2020-10-08 15:02] LABS: INR 1.3 (0.8-1.2); PT - PROTHROMBIN TIME 14.1 secs (9.9-12.6)
--- NOTE | 2020-10-08 16:16 | Ultrasound Report ---
PROCEDURE: Duplex Ext Veins Left INDICATIONS: L arm pain TECHNIQUE: Real-time imaging, as well as color and pulse Doppler interrogation, was performed of the left upper extremity deep veins from the inferior neck to the antecubital fossa. COMPARISON: None. FINDINGS: The internal jugular vein, visualized portions of the subclavian vein, axillary, and brach ial veins are free of intraluminal thrombus. Where physically possible, the veins are normally compr essible. Color and pulse Doppler demonstrate normal intraluminal flow, with expected phasicity and p ulsatility. Additional scanning of the cephalic and basilic veins of the superficial system demonstr ate normal compressibility, without thrombus. IMPRESSION: No evidence of deep vein thrombosis involving the left upper extremity. Reviewed by: Elle Cabrera MD, PhD on 10/08/2020 4:14 PM PDT Approved by: Elle Cabrera MD, PhD on 10/08/2020 4:14 PM PDT Station ID: [id number]
[2020-10-08 16:24] VITALS: BP 174/79
== END 2020-10-08 16:56 | disposition home or self-care (01) ==
LOC: EDUNIT# → ED 14:13
DX: S40.022A Contusion of left upper arm, initial encounter (principal); X58.XXXA Exposure to other specified factors, initial encounter; R41.0 Disorientation, unspecified; I69.959 Hemiplegia and hemiparesis following unspecified cerebrovascular disease affecting unspecified side; E11.9 Type 2 diabetes mellitus without complications; I25.10 Atherosclerotic heart disease of native coronary artery without angina pectoris; M79.7 Fibromyalgia; E78.00 Pure hypercholesterolemia, unspecified; H54.7 Unspecified visual loss; Z86.718 Personal history of other venous thrombosis and embolism; Z79.84 Long term (current) use of oral hypoglycemic drugs; Z79.899 Other long term (current) drug therapy
CPT/HCPCS: 36415; 80048; 85025; 85610; 99281; 99284

== ENCOUNTER 2020-10-22 20:10 | Outpatient (CLI) | payer MEDICARE, MEDICAID | END 2020-10-22 20:11 | disposition home or self-care (01) | LOC: COV 20:10 | PROVIDERS: ATTEND Internal Medicine Gastroenterology | DX: Z01.812 Encounter for preprocedural laboratory examination (principal); Z20.822 Contact with and (suspected) exposure to COVID-19 ==

== ENCOUNTER 2020-11-06 10:04 | Outpatient (CLI) | payer MEDICARE, MEDICAID ==
[2020-11-06] MEDS ORDERED: GADOBUTROL 10 MMOL/10 ML VIAL ONE (10:18)
--- NOTE | 2020-11-06 15:16 | MRI Report ---
PROCEDURE: Upper Arm/Humerus LT W/WO INDICATIONS: MASS OF SOFT TISSUSE OF LEFT ARM TECHNIQUE: Coronal T1-weighted, STIR, Axial fat-suppressed T2-weighted, T1-weighted, Axial diffusion weighted, sagittal STIR, Postcontrast axial, coronal and sagittal fat-suppressed T1-weighted pulse sequences were obtained thr ough the left humerus COMPARISON: Outside PET/CT dated 10/19/2020 [facility]. FINDINGS: In the area of masslike appearance on the outside PET/CT, there is enlargement of the triceps muscula ture with multifocal areas of T1/T2 bright foci the largest measuring up to 1.7 x 1.0 cm. All of these demonstrate a low signal presumed hemosiderin rim. There is surrounding inflammation and T2 hyperintensity. The overall extent measures approximately 4.6 x 2.9 cm on coronal pulse sequences . Intrinsic T1 hyperintensity is present therefore no definite internal enhancement. Marrow signal in tensity grossly unremarkable. Incidentally noted lipoma seen in the posterior left shoulder measuring 5.2 x 1.9 cm on image 29/601. No axillary lymphadenopathy. IMPRESSION: Heterogeneous, multifocal or confluent mass involving the triceps musculature in the area of abnormal ity described on the PET/CT. This could reflect large hematoma given areas of hemosiderin deposition, however an underlying hemorrhagic soft tissue neoplasm cannot be excluded. Recommend surgical consul tation and management. Reviewed by: Rahul Ramos MD on 11/06/2020 3:15 PM PDT Approved by: Rahul Ramos MD on 11/06/2020 3:15 PM PDT Station ID: [id number]
[2020-11-06] MEDS ORDERED: GADOBUTROL 10 MMOL/10 ML VIAL IVP ONE (15:43)
== END 2020-11-06 10:05 | disposition home or self-care (01) ==
LOC: DI 10:04
PROVIDERS: ATTEND Family Medicine
DX: M79.89 Other specified soft tissue disorders (principal); R22.32 Localized swelling, mass and lump, left upper limb
CPT/HCPCS: 73220; A9585

== ENCOUNTER 2020-11-28 10:37 | Outpatient (CLI) | payer MEDICARE, MEDICAID | END 2020-11-28 10:38 | disposition home or self-care (01) | LOC: DI 10:37 | PROVIDERS: ATTEND Family Medicine | DX: I51.7 Cardiomegaly (principal); I87.8 Other specified disorders of veins | CPT/HCPCS: 93306 ==

== ENCOUNTER 2020-12-18 14:10 | Outpatient (CLI) | payer MEDICARE, MEDICAID ==
--- NOTE | 2020-12-18 15:15 | XRAY Report ---
PROCEDURE: Humerus LT INDICATIONS: mass of soft tissue of left arm TECHNIQUE: 2 views of the humerus were acquired. COMPARISON: MRI of humerus dated 11/06/2020 FINDINGS: Bones: No fractures or dislocations. Moderate left acromioclavicular joint and glenohumeral joint o steophytic changes are seen. No bony erosive changes. No suspicious bony lesions. Soft tissues: No suspicious soft tissue calcifications. IMPRESSION: Patient's known intramuscular mass involving left triceps muscle is not well appreciated on this uppe r arm radiograph study. No humeral fracture or dislocation. 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 No suspicious intraosseous lesion. Reviewed by: Angel Vicente MD on 12/18/2020 3:14 PM PDT Approved by: Angel Vicente MD on 12/18/2020 3:14 PM PDT Station ID: [id number]
== END 2020-12-18 14:11 | disposition home or self-care (01) ==
LOC: DI 14:10
PROVIDERS: ATTEND Family Medicine
DX: M19.012 Primary osteoarthritis, left shoulder (principal)

== ENCOUNTER 2021-01-17 12:27 | Outpatient (CLI) | payer MEDICARE, MEDICAID ==
[2021-01-17 13:15] LABS: BASOPHILS % (AUTO) 0.5 %; EOSINOPHILS # (AUTO) 0.2 10^3/uL (0.0-0.7); EOSINOPHILS % (AUTO) 2.4 %; HCT - HEMATOCRIT 37.8 % (37.0-47.0); HGB - HEMOGLOBIN 12.2 g/dL (12.0-16.0); LYMPHOCYTES # (AUTO) 1.3 10^3/uL (1.5-3.5); LYMPHOCYTES % (AUTO) 15.7 %; MEAN CORPUSCULAR HEMOGLOBIN 30.2 pg (27.0-31.0); MEAN CORPUSCULAR HGB CONC 32.3 g/dL (32.0-36.0); MEAN CORPUSCULAR VOLUME 93.6 fL (81.0-99.0); MEAN PLATELET VOLUME 9.2 fL (7.9-10.8); MONOCYTES # (AUTO) 0.5 10^3/uL (0.0-1.0); MONOCYTES % (AUTO) 6.4 %; NEUTROPHILS # (AUTO) 6.3 10^3/uL (1.5-6.6); NEUTROPHILS % (AUTO) 74.5 %; PLT - PLATELET COUNT 376 10^3/uL (130-450); RED BLOOD COUNT 4.04 10^6/uL (4.20-5.40); RED CELL DISTRIBUTION WIDTH 13.7 % (12.0-15.0); WHITE BLOOD COUNT 8.5 x10^3/uL (4.8-10.8)
[2021-01-17 13:27] LABS: ALBUMIN 4.1 g/dL (3.2-5.5); ALBUMIN/GLOBULIN RATIO 1.1 (1.0-2.2); BILIRUBIN,TOTAL 0.5 mg/dL (0.2-1.0); CALCIUM 9.6 mg/dL (8.5-10.3); CREATININE 1.1 mg/dL (0.4-1.0)
[2021-01-17 13:45] LABS: THYROID STIMULATING HORMONE 1.39 uIU/mL (0.34-5.60)
[2021-01-17 21:22] LABS: ESTIMATED AVERAGE GLUCOSE 137 mg/dL (70-100); HEMOGLOBIN A1c% 6.4 % (4.27-6.07)
== END 2021-01-17 12:28 | disposition home or self-care (01) ==
LOC: LAB 12:27
PROVIDERS: ATTEND Family Medicine
DX: K80.20 Calculus of gallbladder without cholecystitis without obstruction (principal); E11.9 Type 2 diabetes mellitus without complications
CPT/HCPCS: 36415; 80053; 83036; 84443; 85025

== ENCOUNTER 2021-02-22 09:31 | Outpatient (CLI) | payer MEDICARE, MEDICAID ==
[2021-02-22] MEDS ORDERED: LACTATED RINGERS 1,000 ML IV ONE ×2 (10:05→12:17)
[2021-02-22 10:24] LABS: BASOPHILS # (AUTO) 0.1 10^3/uL (0.0-0.1); BASOPHILS % (AUTO) 0.6 %; EOSINOPHILS # (AUTO) 0.2 10^3/uL (0.0-0.7); EOSINOPHILS % (AUTO) 2.1 %; HCT - HEMATOCRIT 36.2 % (37.0-47.0); HGB - HEMOGLOBIN 11.5 g/dL (12.0-16.0); LYMPHOCYTES % (AUTO) 11.1 %; MEAN CORPUSCULAR HEMOGLOBIN 29.8 pg (27.0-31.0); MEAN CORPUSCULAR HGB CONC 31.8 g/dL (32.0-36.0); MEAN CORPUSCULAR VOLUME 93.8 fL (81.0-99.0); MEAN PLATELET VOLUME 9.3 fL (7.9-10.8); MONOCYTES # (AUTO) 0.6 10^3/uL (0.0-1.0); MONOCYTES % (AUTO) 7.2 %; NEUTROPHILS % (AUTO) 78.4 %; PLT - PLATELET COUNT 366 10^3/uL (130-450); RED BLOOD COUNT 3.86 10^6/uL (4.20-5.40); WHITE BLOOD COUNT 8.9 x10^3/uL (4.8-10.8)
[2021-02-22 10:31] LABS: INR 1.1 (0.8-1.2)
[2021-02-22 10:39] LABS: PARTIAL THROMBOPLASTIN TIME 30.3 secs (24.9-33.3)
[2021-02-22] MEDS ORDERED: fentaNYL 100 MCG/2 ML VIAL ONE (10:40)
[2021-02-22] MEDS ORDERED: MIDAZOLAM 2 MG/2 ML VIAL ONE (10:41)
--- NOTE | 2021-02-22 13:24 | CT Report ---
PROCEDURE: RT LUNG BX PERC Sedation analgesia for 30 minutes. INDICATIONS: RIGHT UPPER LOBE BRONCHIAL CA TECHNIQUE: The indications, alternatives, benefits, risks, and possible complications of the procedure were comm unicated to the patient. Informed written consent from the patient was obtained and placed in the art. Continuous EKG and hemodynamic monitoring was started by trained personnel. For radiation dose reduction, the following was used: automated exposure control, adjustment of mA and/or kV according to patient size. The patient was brought to the CT suite and supervisor production spiral CT imaging was performed with localization g rid. The appropriate site for percutaneous access to the biopsy target was marked, was prepped and d raped sterilely, and was infused with local anaesthesia. Under CT guidance, a core biopsy trocar and needle set was advanced to the biopsy target, and specimen(s) were obtained. The trocar and needle were then removed, and the patient was sent for post-procedure monitoring. Trace pneumothorax is pre sent at the procedure. COMPARISON: CT chest 326.1 FINDINGS: Biopsy site: Right upper lobe Needle: 20 gauge biopsy needle with introducer trocar. Number of passes: 3 Medications: 1% lidocaine for local anaesthesia. IV Fentanyl and Versed for conscious sedation for 30 minutes (see nursing record). Complications: None. IMPRESSION: Successful CT-guided biopsy of right upper lobe mass. Reviewed by: Deisy Pineda MD on 02/22/2021 1:22 PM PDT Approved by: Deisy Pineda MD on 02/22/2021 1:22 PM PDT Station ID: [id number]
--- NOTE | 2021-02-22 14:23 | XRAY Report ---
PROCEDURE: Chest 1 View X-Ray INDICATIONS: 2 HOUR POST FILM TECHNIQUE: One view of the chest was acquired. COMPARISON: Chest x-ray 02/22/2021 FINDINGS: Surgical changes and devices: None. Lungs and pleura: Minimal lucency at the right apex is noted.. Mediastinum: Mediastinal contours appear normal. Heart size is normal. Bones and chest wall: No suspicious bony lesions. Overlying soft tissues appear unremarkable. IMPRESSION: Minimal right apical lucency likely related to trace pneumothorax identified at procedure conclusion. Reviewed by: Deisy Pineda MD on 02/22/2021 2:21 PM PDT Approved by: Deisy Pineda MD on 02/22/2021 2:21 PM PDT Station ID: [id number]
--- NOTE | 2021-02-22 14:40 | XRAY Report ---
PROCEDURE: Chest 1 View X-Ray INDICATIONS: POST LUNG BIOSPY TECHNIQUE: One view of the chest was acquired. COMPARISON: CT lung biopsy 02/22/2021. Chest CT 09/14/2020. FINDINGS: Surgical changes and devices: None. Lungs and pleura: Small opacity at the right lung apex most likely represents the previously seen no dule in the small amount of surrounding edema or blood products related to the recent biopsy. Minimal trace periapical lucency is consistent with the trace pneumothorax is seen at the end of the procedu re. Mediastinum: Mediastinal contours appear normal. Heart size is normal. Mild aortic atherosclerotic calcifications. Bones and chest wall: No suspicious bony lesions. Overlying soft tissues appear unremarkable. IMPRESSION: Subtle trace apical lucency is consistent with the tiny apical pneumothorax seen at the termination o f the biopsy procedure performed earlier the same day. Reviewed by: Oliver Michel MD on 02/22/2021 2:39 PM PDT Approved by: Oliver Michel MD on 02/22/2021 2:39 PM PDT Station ID: [id number]
[2021-02-22 16:03] VITALS: BP 187/63
--- NOTE | 2021-02-22 16:06 | XRAY Report ---
PROCEDURE: Chest 1 View X-Ray INDICATIONS: Pneumothorax TECHNIQUE: One view of the chest was acquired. COMPARISON: Chest x-ray 02/22/2021 FINDINGS: Surgical changes and devices: None. Lungs and pleura: Persistent trace right apical pneumothorax. Mediastinum: Mediastinal contours appear normal. Heart size is normal. Bones and chest wall: No suspicious bony lesions. Overlying soft tissues appear unremarkable. IMPRESSION: Persistent right apical trace pneumothorax. Reviewed by: Deisy Pineda MD on 02/22/2021 4:05 PM PDT Approved by: Deisy Pineda MD on 02/22/2021 4:05 PM PDT Station ID: [id number]
== END 2021-02-22 09:32 | disposition home or self-care (01) ==
LOC: DI 09:31
PROVIDERS: ATTEND Family Medicine
DX: D02.21 Carcinoma in situ of right bronchus and lung (principal); I48.91 Unspecified atrial fibrillation; Z87.891 Personal history of nicotine dependence; Z79.01 Long term (current) use of anticoagulants
CPT/HCPCS: 32408; 36415; 85025; 85610; 85730; J7120

== ENCOUNTER 2021-02-23 14:26 | Outpatient (CLI) | payer MEDICARE, MEDICAID ==
--- NOTE | 2021-02-23 15:12 | XRAY Report ---
PROCEDURE: Chest 1 View X-Ray INDICATIONS: PNEUMO, POST BIOPSY TECHNIQUE: One view of the chest was acquired. COMPARISON: Prior radiographs on 03/11/2021 FINDINGS: Surgical changes and devices: None. Lungs and pleura: There is again seen a trace right apical pneumothorax, which is minimally smaller than on the prior chest radiograph. No pleural effusions. Lungs are clear. Mediastinum: Mediastinal contours appear normal. Heart size is normal. Calcification is seen of th e aortic arch. Bones and chest wall: No suspicious bony lesions. Age-appropriate degenerative changes are seen. Overlying soft tissues appear unremarkable. IMPRESSION: Trace right apical pneumothorax, minimally improved compared to the prior. Reviewed by: Stefano Mora MD on 02/23/2021 2:11 PM PAIGE Approved by: Stefano Mora MD on 02/23/2021 2:11 PM PAIGE Station ID: [id number]
== END 2021-02-23 14:27 | disposition home or self-care (01) ==
LOC: DI 14:26
PROVIDERS: ATTEND Radiology Neuroradiology
DX: J93.9 Pneumothorax, unspecified (principal)

== ENCOUNTER 2021-02-23 22:08 | Outpatient (CLI) | payer MEDICARE, MEDICAID | END 2021-02-23 22:09 | disposition EMS.NT | LOC: EMS 22:08 | DX: Z03.89 Encounter for observation for other suspected diseases and conditions ruled out (principal) ==

== ENCOUNTER 2021-03-25 12:30 | Outpatient (CLI) | payer MEDICARE, MEDICAID ==
[2021-03-25 13:04] LABS: CALCIUM 9.2 mg/dL (8.5-10.3); CREATININE 1.1 mg/dL (0.4-1.0); POTASSIUM 4.1 mmol/L (3.5-5.0)
[2021-03-25] MEDS ORDERED: IOVERSOL 320 100 ML VIAL IVP ONE (15:08)
--- NOTE | 2021-03-26 09:09 | CT Report ---
PROCEDURE: CHEST W INDICATIONS: LUNG CA CONTRAST: IV CONTRAST: Optiray 320 ml: 100 PO CONTRAST: *NO PO CONTRAST TECHNIQUE: After the administration of intravenous contrast, 1 mm axial images were acquired from the pulmonary apices through the posterior costophrenic angles. Axial 5 mm soft tissue kernel reconstructions were performed as well as 8 mm axial MIP and coronal and sagittal 5 mm reformations. For radiation dose reduction, the following was used: automated exposure control, adjustment of mA and/or kV according to patient size. COMPARISON: Prior studies dating back to June 29, 2019 FINDINGS: CT CHEST: Thyroid: Redemonstrated 5.6 mm hypoattenuating area in the left lobe of the rectum which may reflect a nodule. Vasculature: Calcified atheromatous changes aorta. No evidence of aneurysm or dissection. Heart: No cardiomegaly or significant pericardial effusion. Prominence of the left ventricle wall, wh ich is nonspecific and may reflect hypertrophy. Mediastinum: No pathologic enlargement. Small hiatal hernia. Lung/pleura: Redemonstrated groundglass nodule in the right upper lobe measuring 2 x 1.7 cm (4-46). A n additional spiculated, ground glass density seen in the right upper lobe, measuring 8 mm (4-64), un changed. No consolidation, pleural effusion, or pneumothorax. Tracheobronchial tree: Patent. Minimal bronchial wall thickening. Upper abdomen: No acute abnormality. Redemonstrated coarse calcifications in the liver and spleen. Mi nimal cholelithiasis. Bones: No significant osseous abnormalities are noted. Remote fracture deformity of the right clavicl e. Chest wall: The chest wall and axilla are within normal limits. IMPRESSION: 1.Stable subsolid nodule in the right apex, measuring up to 2 cm. Continued follow-up as clinically w arranted. Reviewed by: Ryley Muro MD on 03/25/2021 3:12 PM PDT Approved by: Ryley Muro MD on 03/25/2021 3:12 PM PDT Station ID: [id number]
== END 2021-03-25 12:31 | disposition home or self-care (01) ==
LOC: LAB 12:30
PROVIDERS: ATTEND Thoracic Surgery (Cardiothoracic Vascular Surgery)
DX: C34.11 Malignant neoplasm of upper lobe, right bronchus or lung (principal)
CPT/HCPCS: 36415; 71260; 80048; Q9967

== ENCOUNTER 2021-04-12 07:00 | Outpatient (CLI) | payer MEDICARE, MEDICAID | END 2021-04-12 23:59 | disposition home or self-care (01) | LOC: COV 07:00 | PROVIDERS: ATTEND Thoracic Surgery (Cardiothoracic Vascular Surgery) | DX: Z01.812 Encounter for preprocedural laboratory examination (principal); C34.11 Malignant neoplasm of upper lobe, right bronchus or lung; Z20.822 Contact with and (suspected) exposure to COVID-19 ==

== ENCOUNTER 2021-04-24 17:34 | Outpatient (CLI) | payer MEDICARE, MEDICAID | END 2021-04-24 17:35 | disposition critical access hospital (66) | LOC: EMS 17:34 | DX: R41.82 Altered mental status, unspecified (principal); R53.83 Other fatigue; R50.9 Fever, unspecified; R11.10 Vomiting, unspecified; I69.351 Hemiplegia and hemiparesis following cerebral infarction affecting right dominant side; Z74.01 Bed confinement status | CPT/HCPCS: A0425; A0429 ==

== ENCOUNTER 2021-04-24 17:47 | Inpatient (IN) | payer MEDICARE, MEDICAID ==
[2021-04-24] MEDS ORDERED: OLANZapine ODT 5 MG TABLET TL STA (18:03)
--- NOTE | 2021-04-24 18:05 | ED Physician Documentation ---
PD HPI ALTERED MENTAL STATUS - Stated complaint Stated Complaint: AMS - Chief complaint Chief Complaint: Neuro - History obtained from History obtained from: Patient, EMS - History of Present Illness Contributing factors: Anticoagulated (Upon review of her chart, she appears to be on Xarelto), Diabetic, Cancer Treatment CERTIFIED PARALEGAL: Accucheck - Additional information Additional information: Patient is a 71-year-old female who presents to the emergency department altered mental status today. EMS states that she has residual right-sided deficits from a stroke. Patient has had decreased verbal responsiveness today per EMS. EMS believes that she has mostly bedbound at home. She does not use home oxygen. They state she had a recent lung biopsy at [facility]. They believe that she may have lung cancer but are unsure of this. No other history available at this time. 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 : None HEENT: Chronic vision loss, Other Psych: None Musculoskeletal: Fibromyalgia, Hemiplegia Derm: None - Past Surgical History Past Surgical History: No - Present Medications Home Medications: Ambulatory Orders Medication Instructions Recorded Confirmed Atorvastatin [Lipitor] 20 mg ORAL QPM 08/21/15 11/08/18 Cholecalciferol (Vitamin D3) 2,000 unit ORAL DAILY 08/21/15 10/08/20 [Vitamin D] Gabapentin 400 mg ORAL BID 08/21/15 10/08/20 Lisinopril 20 mg ORAL BID 08/21/15 11/08/18 amLODIPine [Norvasc] 10 mg ORAL QPM 08/21/15 02/22/21 Ipratropium/Albuterol [Duoneb] 3 ml INH Q6H PRN #1 neb 08/18/19 Nebulizer [Aeroneb Go Nebulizer] 1 each MC ONCE #1 each 08/18/19 02/22/21 Rivaroxaban [Xarelto] 20 mg PO DAILY 08/18/19 02/22/21 Losartan [Cozaar] 50 mg PO BID 10/08/20 02/22/21 Metformin HCl [Glucophage] 1,000 mg PO BID 10/08/20 02/22/21 Multivitamin 1 each PO DAILY 10/08/20 02/22/21 Omeprazole Magnesium 20 mg PO DAILY 10/08/20 02/22/21 Sertraline [Zoloft] 25 mg PO DAILY 10/08/20 02/22/21 - Allergies Allergies/Adverse Reactions: Allergies Allergy/AdvReac Type Severity Reaction Status Date / Time No Known Drug Allergies Allergy Verified 04/24/21 17:57 - Social History Does the pt smoke?: No Smoking Status: Never smoker Does the pt drink ETOH?: Yes Does the pt have substance abuse?: No - Immunizations Immunizations are current?: No Immunizations: TDAP >10years/unknown - POLST Patient has POLST: No PD ED PE NORMAL - Vitals Vital signs reviewed: Yes - General General: No acute distress, Well developed/nourished, Other (Drowsy but arousabl e. Minimal verbal responses) - HEENT HEENT: Atraumatic, PERRL, Moist mucous membranes - Neck Neck: Supple, no meningeal sign, No bony TTP - Cardiac Cardiac: RRR - Respiratory Respiratory: No respiratory distress, Other (Diminished breath sounds on the right side) - Abdomen Abdomen: Soft, Non tender, Non distended - Back Back: No CVA TTP, No spinal TTP - Derm Derm: Warm and dry, Other (Multiple healing biopsy incisions on the back. Mild warmth and redness.) - Extremities Extremities: No edema, No calf tenderness / cord - Neuro Neuro: Other (Drowsy but arousable) Results - Vitals Vitals: Vital Signs - 24 hr 04/24/21 04/24/21 04/24/21 17:57 18:29 18:30 Temperature 37.6 C Heart Rate 78 66 68 Respiratory 18 18 Rate Blood Pressure 131/102 H 110/69 O2 Saturation 90 L 90 L 96 04/24/21 04/24/21 04/24/21 19:00 19:30 20:00 Temperature Heart Rate 73 72 75 Respiratory 19 15 17 Rate Blood Pressure 112/48 L 103/73 112/48 L O2 Saturation 96 97 96 04/24/21 20:30 Temperature Heart Rate 68 Respiratory 18 Rate Blood Pressure 110/74 O2 Saturation 99 Oxygen O2 Source Room air - Labs Labs: Laboratory Tests 04/24/21 04/24/21 04/24/21 17:57 18:12 18:12 WBC 13.7 H RBC 3.11 L Hgb 9.4 L Hct 30.4 L MCV 97.7 MCH 30.2 MCHC 30.9 L RDW 14.2 Plt Count 512 H MPV 9.3 Neut # (Auto) 12.0 H Lymph # (Auto) 0.7 L [place] # (Auto) 0.6 Eos # (Auto) 0.1 Baso # (Auto) 0.1 Absolute Nucleated RBC 0.00 Nucleated RBC % 0.0 Sodium 138 Potassium 5.6 H Chloride 106 Carbon Dioxide 22 Anion Gap 10.0 BUN 58 H Creatinine 2.4 H Estimated GFR (MDRD) 20 L Glucose 150 H Lactic Acid Calcium 8.3 L Total Bilirubin 0.5 AST 12 ALT < 10 L Alkaline Phosphatase 94 Total Protein 6.7 Albumin 3.0 L Globulin 3.7 Albumin/Globulin Ratio 0.8 L Lipase 33 TSH 0.29 L Urine Color Urine Clarity Urine pH Ur Specific [place] Urine Protein Urine Glucose (UA) Urine Ketones Urine Occult Blood Urine Nitrite Urine Bilirubin Urine Urobilinogen Ur Leukocyte Esterase Urine RBC Urine WBC Ur Squamous Epith Cells Urine Bacteria Ur Microscopic Review Urine Culture Comments Salicylates < 6.0 Urine Opiates Screen Ur Oxycodone Screen Urine Methadone Screen Ur Propoxyphene Screen Acetaminophen 14 Ur Barbiturates Screen Ur Tricyclics Screen Ur Phencyclidine Scrn Ur Amphetamine Screen U Methamphetamines Scrn U Benzodiazepines Scrn Urine Cocaine Screen U Cannabinoids Screen Ethyl Alcohol < 5.0 04/24/21 04/24/21 18:12 18:35 WBC RBC Hgb Hct MCV MCH MCHC RDW Plt Count MPV Neut # (Auto) Lymph # (Auto) [place] # (Auto) Eos # (Auto) Baso # (Auto) Absolute Nucleated RBC Nucleated RBC % Sodium Potassium Chloride Carbon Dioxide Anion Gap BUN Creatinine Estimated GFR (MDRD) Glucose Lactic Acid 2.1 Calcium Total Bilirubin AST ALT Alkaline Phosphatase Total Protein Albumin Globulin Albumin/Globulin Ratio Lipase TSH Urine Color YELLOW Urine Clarity CLOUDY Urine pH 5.0 Ur Specific [place] >=1.030 H Urine Protein 30 H Urine Glucose (UA) NEGATIVE Urine Ketones TRACE Urine Occult Blood TRACE-INTA Urine Nitrite NEGATIVE Urine Bilirubin NEGATIVE Urine Urobilinogen 0.2 (NORMAL) Ur Leukocyte Esterase MODERATE H Urine RBC 0-5 Urine WBC >25 H Ur Squamous Epith Cells RARE Squamous Urine Bacteria Moderate H Ur Microscopic Review INDICATED Urine Culture Comments INDICATED Salicylates Urine Opiates Screen NEGATIVE Ur Oxycodone Screen NEGATIVE Urine Methadone Screen NEGATIVE Ur Propoxyphene Screen NEGATIVE Acetaminophen Ur Barbiturates Screen NEGATIVE Ur Tricyclics Screen NEGATIVE Ur Phencyclidine Scrn NEGATIVE Ur Amphetamine Screen NEGATIVE U Methamphetamines Scrn NEGATIVE U Benzodiazepines Scrn NEGATIVE Urine Cocaine Screen NEGATIVE U Cannabinoids Screen POSITIVE H Ethyl Alcohol - Rads (name of study) Head CT Radiology: Final report received, EMP read contemporaneously, See rad report (1. No acute process. 2. 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 3. Sinus disease.) cxr Radiology: Final report received, EMP read contemporaneously, See rad report (Right greater than left pneumonia. Small right parapneumonic effusion. Follow- up PA and lateral chest x-rays or chest CT is recommended to ensure resolution, and to exclude underlying neoplasm.) chest CT Radiology: Final report received, EMP read contemporaneously, See rad report (1. Right pleural effusion. 2. Presumed postsurgical sequelae within the right upper lobe posteriorly. Continued follow-up is recommended to exclude underlying neoplasm. 3. Coronary artery disease. 4. Aneurysmal dilatation of the thoracic aorta. 5. Cholelithiasis.) abd/pelvis Ct Radiology: Final report received, EMP read contemporaneously, See rad report (1. Right pleural effusion. 2. Right lower lobe atelectasis versus pneumonia. 3. Coronary artery disease. 4. Cholelithiasis. 5. Normal appendix.) PD MEDICAL DECISION MAKING - ED course Complexity details: reviewed results, re-evaluated patient, considered differential, d/w patient ED course: Patient with significant altered mental status. She does have a UTI, leukocytosis, pleural effusion and possible secondary pneumonia. Given IV Rocephin and azithromycin. Attempted to obtain records from [facility] for 3 to 4 hours, no records given. Likely this will have to be attempted again tomorrow. We will admit the patient for her altered mental status, UTI and pleural effusion/pneumonia. Discussed the case with Dr. Boyce, hospitalist who accepts This document was made in part using voice recognition software. While efforts are made to proofread this document, sound alike and grammatical errors may occur. Departure - Departure Disposition: 66 [facility] DC/Xfer Clinical Impression: Pleural effusion Altered mental status Qualifiers: Altered mental status type: delirium Qualified Code(s): R41.0 - Disorientation, unspecified UTI (urinary tract infection) Qualifiers: Urinary tract infection type: acute cystitis Hematuria presence: without hematuria Qualified Code(s): N30.00 - Acute cystitis without hematuria Condition: Stable Discharge Date/Time: 04/24/21 21:41
--- NOTE | 2021-04-24 18:14 | XRAY Report ---
PROCEDURE: Chest 1 View X-Ray INDICATIONS: recent lung biopsy, altered TECHNIQUE: One view of the chest was acquired. COMPARISON: 02/23/2021 FINDINGS: Surgical changes and devices: None. Lungs and pleura: No pneumothorax. Small right pleural effusion. Severe diffuse right lung airspace opacity. Mild diffuse left lung opacity. Mediastinum: Mediastinal contours appear normal. Heart size is normal. Bones and chest wall: No suspicious bony lesions. Overlying soft tissues appear unremarkable. IMPRESSION: Right greater than left pneumonia. Small right parapneumonic effusion. Follow-up PA and lateral chest x-rays or chest CT is recommended to ensure resolution, and to exclude underlying neoplasm. Reviewed by: Maegan Carrillo MD on 04/24/2021 6:13 PM PDT Approved by: Maegan Carrillo MD on 04/24/2021 6:13 PM PDT Station ID: [id number]
[2021-04-24 18:25] LABS: BASOPHILS # (AUTO) 0.1 10^3/uL (0.0-0.1); BASOPHILS % (AUTO) 0.4 %; EOSINOPHILS # (AUTO) 0.1 10^3/uL (0.0-0.7); EOSINOPHILS % (AUTO) 0.6 %; HCT - HEMATOCRIT 30.4 % (37.0-47.0); HGB - HEMOGLOBIN 9.4 g/dL (12.0-16.0); LYMPHOCYTES # (AUTO) 0.7 10^3/uL (1.5-3.5); LYMPHOCYTES % (AUTO) 4.8 %; MEAN CORPUSCULAR HEMOGLOBIN 30.2 pg (27.0-31.0); MEAN CORPUSCULAR HGB CONC 30.9 g/dL (32.0-36.0); MEAN CORPUSCULAR VOLUME 97.7 fL (81.0-99.0); MEAN PLATELET VOLUME 9.3 fL (7.9-10.8); MONOCYTES # (AUTO) 0.6 10^3/uL (0.0-1.0); MONOCYTES % (AUTO) 4.7 %; NEUTROPHILS % (AUTO) 87.9 %; PLT - PLATELET COUNT 512 10^3/uL (130-450); RED BLOOD COUNT 3.11 10^6/uL (4.20-5.40); RED CELL DISTRIBUTION WIDTH 14.2 % (12.0-15.0); WHITE BLOOD COUNT 13.7 x10^3/uL (4.8-10.8)
[2021-04-24 18:41] LABS: ACETAMINOPHEN 14 ug/mL (10-30); ALBUMIN/GLOBULIN RATIO 0.8 (1.0-2.2); ALKALINE PHOSPHATASE 94 IU/L (42-121); ALT ALANINE AMINOTRANSFERASE < 10 IU/L (10-60); AST ASPARTATE AMINOTRANSFERASE 12 IU/L (10-42); BILIRUBIN,TOTAL 0.5 mg/dL (0.2-1.0); BUN - BLOOD UREA NITROGEN 58 mg/dL (6-20); CALCIUM 8.3 mg/dL (8.5-10.3); CARBON DIOXIDE - CO2 22 mmol/L (21-32); CHLORIDE 106 mmol/L (101-111); CREATININE 2.4 mg/dL (0.4-1.0); ETOH - ETHANOL < 5.0 mg/dL; GFR - MDRD 20 (>89); GLUCOSE 150 mg/dL (70-100); LIPASE 33 U/L (22-51); POTASSIUM 5.6 mmol/L (3.5-5.0); SALICYLATE < 6.0 mg/dL; SODIUM 138 mmol/L (135-145); TOTAL PROTEIN 6.7 g/dL (6.7-8.2)
[2021-04-24 18:42] LABS: MUDS CUTOFF CONCENTRATIONS CUTOFF CONC BELOW:
[2021-04-24 18:49] LABS: BILIRUBIN,URINE NEGATIVE (NEGATIVE); GLUCOSE, URINE (UA) NEGATIVE (NEGATIVE); KETONES,URINE (UA) TRACE mg/dL (NEGATIVE); LEUKOCYTE ESTERASE, URINE MODERATE (NEGATIVE); NITRITE,URINE NEGATIVE (NEGATIVE); OCCULT BLOOD,URINE TRACE-INTA (NEGATIVE); PROTEIN,URINE 30 mg/dL (NEGATIVE); UROBILINOGEN,URINE 0.2 (NORMAL) E.U./dL (NORMAL)
[2021-04-24] MEDS ORDERED: SODIUM CHLORIDE 0.9% 1,000 ML IV STA ×3 (18:50→19:20)
[2021-04-24 18:51] LABS: CLARITY,URINE CLOUDY (CLEAR)
[2021-04-24 18:57] LABS: BACTERIA,URINE Moderate /HPF (None Seen); RBC,URINE 0-5 /HPF (0-5); SQUAMOUS EPITHELIAL CELL,UR RARE Squamous (<= Few); WBC,URINE >25 /HPF (0-5)
[2021-04-24 19:03] LABS: AMPHETAMINE SCREEN,URINE NEGATIVE (NEGATIVE); BARBITURATE SCREEN,UR NEGATIVE (NEGATIVE); BENZODIAZEPINES SCREEN, URINE NEGATIVE (NEGATIVE); COCAINE SCREEN URINE NEGATIVE (NEGATIVE); METHADONE SCREEN, URINE NEGATIVE (NEGATIVE); METHAMPHETAMINES SCREEN, URINE NEGATIVE (NEGATIVE); OPIATE SCREEN, URINE NEGATIVE (NEGATIVE); OXYCODONE SCREEN, URINE NEGATIVE (NEGATIVE); PROPOXYPHENE SCREEN, URINE NEGATIVE (NEGATIVE); THC CANNABINOID SCREEN, URINE POSITIVE (NEGATIVE); TRICYCLIC ANTIDEPRESSANT,URINE NEGATIVE (NEGATIVE)
[2021-04-24] MEDS ORDERED: cefTRIAXone 1 GM VIAL IVP STA (19:06)
[2021-04-24] MEDS ORDERED: AZITHROMYCIN INJ 500 MG in SODIUM CHLORIDE 0.9% 250 ML IV STA (20:43)
[2021-04-24] MEDS ORDERED: SODIUM CHLORIDE FLUSH 0.9% 10 ML SYRINGE IVP PRN (20:44)
[2021-04-24] MEDS ORDERED: ACETAMINOPHEN 325 MG TABLET PO PRN (20:44)
[2021-04-24] MEDS ORDERED: ONDANSETRON 4 MG/2 ML VIAL IVP PRN (20:44)
--- NOTE | 2021-04-24 20:45 | CT Report ---
PROCEDURE: HEAD WO INDICATIONS: altered mental status TECHNIQUE: Noncontrast 4.5 mm thick angled axial sections acquired from the foramen magnum to the vertex. For r adiation dose reduction, the following was used: automated exposure control, adjustment of mA and/or kV according to patient size. COMPARISON: None. FINDINGS: Image quality: Excellent. CSF spaces: Basal cisterns are patent. No extra-axial fluid collections. A saccular dilatation of t he left lateral ventricle. Ventricles are otherwise normal in size and shape. Brain: No midline shift. Well-aerated degeneration of the left cerebral peduncle. Moderate chronic appearing left middle cerebral artery distribution infarct. No intracranial masses or hemorrhage. Gr ay-white matter interface is normal. Skull and face: Calvarium and visualized facial bones are intact, without suspicious lesions. Sinuses: Mild mucosal thickening within the bilateral ethmoid air cells. Visualized sinuses and mast oids are otherwise clear. IMPRESSION: 1. No acute process. 2. 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 3. Sinus disease. Reviewed by: Maegan Carrillo MD on 04/24/2021 8:44 PM PDT Approved by: Maegan Carrillo MD on 04/24/2021 8:44 PM PDT Station ID: [id number]
--- NOTE | 2021-04-24 20:48 | HISTORY & PHYSICAL EXAMINATION ---
Chief Complaint - Chief Complaint Chief Complaint: Altered mental status History of Present Illness - Admitted From Admitted From:: [facility] ED - History Obtained From Records Reviewed: Yes History obtained from: ED physicians notes Exam Limitations: AMS - History of Present Illness HPI Comment/Other: "Patient is a 71-year-old female who presents to the emergency department altered mental status today. EMS states that she has residual right-sided deficits from a stroke. Patient has had decreased verbal responsiveness today per EMS. EMS believes that she has mostly bedbound at home. She does not use home oxygen. They state she had a recent lung biopsy at [facility]. They believe that she may have lung cancer but are unsure of this. No other history available at this time." The above was obtained from the ED physicians H&P because the patient is currently very altered/somnolent and unable to provide history. Work-up in the ED included CBC which showed a white count of 13.7. Urine analysis was also indicated of of a UTI with moderate bacteria, moderate leukocyte esterase, greater than 25 WBCs. Patient also had a creatinine of 2.4. As a result of this findings and her clinical presentation, she was presented for admission for further treatment. At bedside patient mainly mumbles and groans. She is unable to provide any further history. 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 Her mother of CHF complications but also had a major stroke in her 70s. Her father is secondary to a brain bleed secondary to a fall at age of 86. She has 5 siblings, 1 is due to Hodgkin's lymphoma. Social History Notes: The patient smoked on and off for 20 years combined at half a pack per day. She drinks wine with dinner on occasion. She uses marijuana. - POLST Patient has POLST: No POLST Status: Full Code Meds/Allgy - Home Medications Home Medications: Ambulatory Orders Medication Instructions Recorded Confirmed Atorvastatin [Lipitor] 20 mg ORAL QPM 08/21/15 11/08/18 Cholecalciferol (Vitamin D3) 2,000 unit ORAL DAILY 08/21/15 10/08/20 [Vitamin D] Gabapentin 400 mg ORAL BID 08/21/15 10/08/20 Lisinopril 20 mg ORAL BID 08/21/15 11/08/18 amLODIPine [Norvasc] 10 mg ORAL QPM 08/21/15 02/22/21 Ipratropium/Albuterol [Duoneb] 3 ml INH Q6H PRN #1 neb 08/18/19 Nebulizer [Aeroneb Go Nebulizer] 1 each MC ONCE #1 each 08/18/19 02/22/21 Rivaroxaban [Xarelto] 20 mg PO DAILY 08/18/19 02/22/21 Losartan [Cozaar] 50 mg PO BID 10/08/20 02/22/21 Metformin HCl [Glucophage] 1,000 mg PO BID 10/08/20 02/22/21 Multivitamin 1 each PO DAILY 10/08/20 02/22/21 Omeprazole Magnesium 20 mg PO DAILY 10/08/20 02/22/21 Sertraline [Zoloft] 25 mg PO DAILY 10/08/20 02/22/21 - Allergies Allergies/Adverse Reactions: Allergies Allergy/AdvReac Type Severity Reaction Status Date / Time No Known Drug Allergies Allergy Verified 04/24/21 17:57 Review of Systems - Other Findings Other Findings: A 12 point Review of system is limited because the patient is currently altered and unable to provide Prior Level of Functionality: Patient's assists her with activities of daily living Exam - Vital Signs Vital Signs: Vital Signs x48h Temp Pulse Resp BP Pulse Ox 04/24/21 20:30 68 18 110/74 99 04/24/21 20:00 75 17 112/48 L 96 04/24/21 19:30 72 15 103/73 97 04/24/21 19:00 73 19 112/48 L 96 04/24/21 18:30 68 96 04/24/21 18:29 66 18 110/69 90 L 04/24/21 17:57 37.6 C 78 18 131/102 H 90 L - Physical Exam General Appearance: positive: No acute distress, Lethargic, Other (not oriented to place time or reason) Eyes Bilateral: positive: PERRL ENT: positive: Dry mucous membranes Neck: positive: No JVD, Trachea midline Respiratory: positive: Chest non-tender, No respiratory distress, Breath sounds nml. negative: Wheezes, Rales, Rhonchi Cardiovascular: positive: Systolic murmur Abdomen: positive: Non-tender, No organomegaly, Nml bowel sounds, No distention. negative: Guarding, Rebound Back: positive: Nml inspection Skin: positive: Color nml, No rash, Warm, Dry Extremities: positive: Non-tender, Nml appearance, No pedal edema Neurologic/Psychiatric: positive: Disoriented to person, Disoriented to place, Disoriented to time Conclusion/Plan - Problem List (1) UTI (urinary tract infection) Conclusion/Plan: Blood and urine cultures obtained. Patient is currently on Rocephin 1 g IV daily. Will continue. Qualifiers: Urinary tract infection type: acute cystitis Hematuria presence: without h ematuria Qualified Code(s): N30.00 - Acute cystitis without hematuria (2) Pleural effusion Conclusion/Plan: Suspected to be related to recent lung biopsy. There is suspicion of potential lung cancer. Patient recently under went lung biopsy at [facility]. Medical records from [facility] pending. Patient was an on and off smoker for 20 years. Patient is empirically on Rocephin and azithromycin for possible pneumonia. (3) Altered mental status Conclusion/Plan: Likely secondary to infection. Patient is on Rocephin for UTI. Pneumonia also suspected. Patient is also on azithromycin. Blood and urine cultures pending. White blood cell count was 13.7. Toxicology was only positive for cannabinoids CT Brain was unremarkable for any acute process. It showed chronic left middle cerebral artery distribution infarct.. Qualifiers: Altered mental status type: delirium Qualified Code(s): R41.0 - Disorientation, unspecified (4) Hypertension Conclusion/Plan: On amlodipine 10 mg p.o. daily and losartan 50 mg p.o. twice daily. (5) Hyperlipidemia Conclusion/Plan: On atorvastatin 20 mg p.o. daily (6) History of CVA (cerebrovascular accident) Conclusion/Plan: Withdrawal right-sided weakness. On atorvastatin, Xarelto, amlodipine, lisinopril. (7) T2DM (type 2 diabetes mellitus) Conclusion/Plan: We will hold patient's Metformin. We will order sliding scale insulin. Continue gabapentin 400 mg p.o. twice daily - Lab Results Fish Bones: 04/24/21 17:57 04/24/21 18:12 Core Measures - Anticipated LOS I expect patient to be DC'd or transferred within 96 hours.: Yes - DVT/VTE - Prophylaxis VTE/DVT Device ordered at admit?: Yes VTE/DVT Prophylaxis med ordered at admit?: Yes
--- NOTE | 2021-04-24 20:48 | CT Report ---
PROCEDURE: CHEST WO INDICATIONS: altered s/p biopsy, poss pneumonia TECHNIQUE: Noncontrast 1mm axial images were acquired from the pulmonary apices to the posterior costophrenic an gles. Axial 5 mm soft tissue kernel reconstructions were performed as well as 8 mm axial MIP and cor onal and sagittal 5 mm reformations. For radiation dose reduction, the following was used: automate d exposure control, adjustment of mA and/or kV according to patient size. COMPARISON: 03/25/[address] FINDINGS: Image quality: Excellent. Lungs and pleura: There is a moderate right pleural effusion. There is a rounded density within the r ight upper lobe posteriorly with curvilinear internal metallic density, measuring roughly 30 mm, comp atible with postsurgical sequelae. Deep tendon atelectasis versus pneumonia within the right lower lo be is present. Central and peripheral airways are patent and normal in caliber. Mediastinum: Heart size is normal. No pericardial effusion. No mediastinal adenopathy by size crit eria. There is mild dilatation of the descending thoracic aorta with a maximal short axis diameter o f roughly 35 mm. Calcification of the coronary vasculature is present. Thoracic aorta and central pul monary arteries are otherwise normal in size. Esophagus is normal in caliber. No hiatal hernia. Bones and chest wall: No suspicious bony lesions. No vertebral body compression fractures. No axil brenda or supraclavicular adenopathy by size criteria. The thyroid is normal in size and there are no incidental findings. Abdomen: Visualized portions of the upper abdomen demonstrate calcifications within the spleen and l iver. Cholelithiasis is present. IMPRESSION: 1. Right pleural effusion. 2. Presumed postsurgical sequelae within the right upper lobe posteriorly. Continued follow-up is rec ommended to exclude underlying neoplasm. 3. Coronary artery disease. 4. Aneurysmal dilatation of the thoracic aorta. 5. Cholelithiasis. CLINICAL RECOMMENDATION STATEMENTS: In patients <35 years with an ITN detected on CT, MRI, or extrathyroidal ultrasound, the Committee re commends further evaluation with dedicated thyroid ultrasound if the nodule is "e1 cm and has no susp icious imaging features, and if the patient has normal life expectancy. In patients "e35 years with an ITN detected on CT, MRI, or extrathyroidal ultrasound, the Committee r ecommends further evaluation with dedicated thyroid ultrasound if the nodule is "e1.5 cm and has no s uspicious imaging features, and if the patient has normal life expectancy. (ACR, 2014) Reviewed by: Maegan Carrillo MD on 04/24/2021 8:47 PM PDT Approved by: Maegan Carrillo MD on 04/24/2021 8:47 PM PDT Station ID: [id number]
--- NOTE | 2021-04-24 20:50 | CT Report ---
PROCEDURE: Abdomen/Pelvis WO INDICATIONS: altered s/p biopsy, acute renal insufficiency TECHNIQUE: Noncontrast 5 mm thick sections acquired from the diaphragms to the symphysis. 5 mm coronal and sagi ttal reformats were then performed. For radiation dose reduction, the following was used: automated exposure control, adjustment of mA and/or kV according to patient size. COMPARISON: CT dated 06/29/2020 FINDINGS: Image quality: Excellent. ABDOMEN: Lung bases: Moderate right pleural effusion. The atelectasis versus pneumonia within the right lower lobe. Calcification of the coronary vasculature. Heart size is normal. Solid organs: Liver and spleen are normal in size. Calcification within the right posterior liver an d anterior spleen. Gallbladder demonstrates multiple calculi within its lumen Pancreas is normal in contours. No adrenal nodules. Kidneys are normal in size, without hydronephrosis or nephrolithiasi s. Peritoneum and bowel: Unenhanced bowel loops demonstrate normal wall thickness and caliber. No free fluid or air. Normal appendix. Nodes and vessels: No retroperitoneal or mesenteric adenopathy by size criteria. Aorta and inferior vena cava are normal in caliber. Miscellaneous: No ventral hernias. PELVIS: Genitourinary: Bladder wall thickness is normal. Miscellaneous: No inguinal hernias or adenopathy. Bones: No suspicious bony lesions. No vertebral body compression fractures. IMPRESSION: 1. Right pleural effusion. 2. Right lower lobe atelectasis versus pneumonia. 3. Coronary artery disease. 4. Cholelithiasis. 5. Normal appendix. Reviewed by: Maegan Carrillo MD on 04/24/2021 8:49 PM PDT Approved by: Maegan Carrillo MD on 04/24/2021 8:49 PM PDT Station ID: [id number]
[2021-04-24] MEDS: SODIUM CHLORIDE 0.9% 1,000 ML IV SCH (22:06)
[2021-04-24 22:26] LABS: B. PARAPERTUSSIS- RESP PCR PAN NOT DETECTED; B. PERTUSSIS- RESP PCR PANEL NOT DETECTED; C. PNEUMONIAE- RESP PCR PANEL NOT DETECTED; CORONAVIRUS 229E-RESP PCR NOT DETECTED; CORONAVIRUS HKU1-RESP PCR NOT DETECTED; CORONAVIRUS NL63-RESP PCR NOT DETECTED; CORONAVIRUS OC43-RESP PCR NOT DETECTED; HUMAN METAPNEUMOVIRUS NOT DETECTED; INFLUENZA A- RESP PCR PANEL NOT DETECTED; INFLUENZA B - RESP PCR PANEL NOT DETECTED; M. PNEUMONIAE- RESP PCR PANEL NOT DETECTED; PARAINFLUENZA VIRUS 1 NOT DETECTED; PARAINFLUENZA VIRUS 2 NOT DETECTED; PARAINFLUENZA VIRUS 3 NOT DETECTED; PARAINFLUENZA VIRUS 4 NOT DETECTED; RHINOVIRUS/ENTEROVIRUS NOT DETECTED; RSV- RESP PCR PANEL NOT DETECTED; SARS-CoV-2 -RESP PCR PANEL NOT DETECTED
[2021-04-25] MEDS: SODIUM CHLORIDE FLUSH 0.9% 10 ML SYRINGE IVP SCH ×3 (01:30→16:41)
[2021-04-25] MEDS: SODIUM CHLORIDE 0.9% 1,000 ML IV SCH ×2 (05:31→15:37)
[2021-04-25 05:51] LABS: BASOPHILS % (AUTO) 0.4 %; EOSINOPHILS # (AUTO) 0.4 10^3/uL (0.0-0.7); EOSINOPHILS % (AUTO) 4.3 %; HCT - HEMATOCRIT 28.9 % (37.0-47.0); LYMPHOCYTES # (AUTO) 1.5 10^3/uL (1.5-3.5); LYMPHOCYTES % (AUTO) 15.3 %; MEAN CORPUSCULAR HEMOGLOBIN 30.1 pg (27.0-31.0); MEAN CORPUSCULAR HGB CONC 31.1 g/dL (32.0-36.0); MEAN CORPUSCULAR VOLUME 96.7 fL (81.0-99.0); MEAN PLATELET VOLUME 9.1 fL (7.9-10.8); MONOCYTES # (AUTO) 0.7 10^3/uL (0.0-1.0); MONOCYTES % (AUTO) 6.7 %; NEUTROPHILS % (AUTO) 72.3 %; PLT - PLATELET COUNT 435 10^3/uL (130-450); RED BLOOD COUNT 2.99 10^6/uL (4.20-5.40); WHITE BLOOD COUNT 9.7 x10^3/uL (4.8-10.8)
[2021-04-25 05:58] LABS: CALCIUM 7.7 mg/dL (8.5-10.3); CREATININE 1.8 mg/dL (0.4-1.0); POTASSIUM 4.3 mmol/L (3.5-5.0)
[2021-04-25] MEDS ORDERED: INSULIN REGULAR HUMAN 300 UNIT/3 ML VIAL SUBQ SCH (06:00)
--- NOTE | 2021-04-25 11:38 | PHARMACY PROGRESS NOTE ---
- Best Possible Medication History Admit Date and Time: 04/24/212043 Processed by: Pharmacy Medication History completed: Yes Patient Interview: Pt unable to participate Secondary Source(s): Physician records, Pharmacy records, Insurance records As the person ultimately responsible for medication therapy, providers are able to order a medication from an existing home medication list in [facility] via the "Reconcile Routine" prior to Confirmation of that medication by office support assistant. Such practice is discouraged except when the physician, in their clinical judgment, deems that a medical need exists for a medication without regard to previous use.
[2021-04-25] MEDS: INSULIN ASPART 300 UNIT/3 ML PEN SUBQ SCH ×3 (12:19→20:45)
--- NOTE | 2021-04-25 13:12 | PROVIDER PROGRESS NOTE ---
Assessment/Plan - Problem List (1) UTI (urinary tract infection) Qualifiers: Urinary tract infection type: acute cystitis Hematuria presence: without hematuria Qualified Code(s): N30.00 - Acute cystitis without hematuria Assessment/Plan: Blood and urine cultures obtained. Patient is currently on Rocephin 1 g IV daily. Will continue. (2) Altered mental status Qualifiers: Altered mental status type: delirium Qualified Code(s): R41.0 - Disorientation, unspecified Assessment/Plan: She was obtunded on presentation, today she is opening her eyes, following, speaking however she answers the same sentence to all questions she is asked. Continue with IV hydration and IV back antibiotics to manage the underlying cause of the altered mental status (3) History of CVA with residual deficit Assessment/Plan: She has right arm and leg flaccidity. The right leg has clonus. She is bedbound according to history. She is on atorvastatin, Xarelto, amlodipine, lisinopril. (4) REINIER (acute kidney injury) Assessment/Plan: Her BUN and creatinine are improving with IV fluids. Avoid nephrotoxins. Follow BMP daily (5) Pleural effusion Assessment/Plan: She recently had a biopsy of an area that was suspected to be malignant. The results are not known, we have asked for records from [facility]. Since the lungs could also be the source of her infection causing the obtundation, she is on Zithromax (6) Anemia Assessment/Plan: Her baseline hemoglobin level is not known. Part of the anemia is hemodilutional. Follow CBC daily. Transfuse if hemoglobin under 7. Serum studies could be done (7) Hypertension Assessment/Plan: Will resume amlodipine 10 mg p.o. daily and losartan 50 mg p.o. twice daily, when she is able to swallow, as she awakens (8) Hyperlipidemia Assessment/Plan: On atorvastatin 20 mg p.o. daily at home (9) T2DM (type 2 diabetes mellitus) Assessment/Plan: We will hold patient's Metformin. Will restart a diet, c arb controlled. We will order sliding scale insulin. Continue gabapentin 400 mg p.o. twice daily - Current Meds Current Meds: Current Medications Generic Name Dose Route Start Last Admin Trade Name Freq PRN Reason Stop Dose Admin Sodium Chloride 1,000 mls @ 100 mls/hr 04/24/21 21:00 04/25/21 05:31 Normal Saline 0.9% IV 100 mls/hr .Q10H ZIGGY Administration Insulin Aspart 1 - 5 unit 04/25/21 12:07 04/25/21 12:19 Insulin Aspart 300 Unit/3 Ml Pen SUBQ Not Given 0800,1200,1700,2100 [facility] Protocol Sodium Chloride 10 ml 04/25/21 01:00 04/25/21 10:16 Sodium Chloride Flush 0.9% 10 Ml Syringe IVP Not Given 0100,0900,1700 ZIGGY - Lab Result Fish Bone Diagrams: 04/25/21 05:32 04/25/21 05:32 - Additional Planning My Orders: My Active Orders 04/25/21 08:49 Miscellaenous Nursing Order [RC] ONCE 04/25/21 Lunch Carb-controlled Diet [DIET] 04/26/21 05:00 HEMOGLOBIN A1c% [CHEM] DAILYLAB Subjective - Subjective Patient Reports: Other (Awake, staring ahead, needed to be fed) Objective Vital Signs: Vital Signs - 24 hr 04/24/21 04/24/21 04/24/21 17:57 18:29 18:30 Temperature 37.6 C Heart Rate 78 66 68 Heart Rate [ Brachial] Heart Rate [ Radial] Respiratory 18 18 Rate Blood Pressure 131/102 H 110/69 Blood Pressure [Right Brachial artery] O2 Saturation 90 L 90 L 96 04/24/21 04/24/21 04/24/21 19:00 19:30 20:00 Temperature Heart Rate 73 72 75 Heart Rate [ Brachial] Heart Rate [ Radial] Respiratory 19 15 17 Rate Blood Pressure 112/48 L 103/73 112/48 L Blood Pressure [Right Brachial artery] O2 Saturation 96 97 96 04/24/21 04/24/21 04/24/21 20:30 21:00 21:50 Temperature Heart Rate 68 70 Heart Rate [ Brachial] Heart Rate [ 73 Radial] Respiratory 18 12 22 Rate Blood Pressure 110/74 123/48 L Blood Pressure 105/50 L [Right Brachial artery] O2 Saturation 99 97 04/25/21 04/25/21 04/25/21 01:45 01:46 03:16 Temperature 35.4 C L 34.9 C L Heart Rate Heart Rate [ Brachial] Heart Rate [ 70 74 Radial] Respiratory 16 16 Rate Blood Pressure Blood Pressure 146/58 H 148/59 H [Right Brachial artery] O2 Saturation 98 98 04/25/21 04/25/21 05:00 07:35 Temperature 36.3 C L 37.0 C Heart Rate Heart Rate [ 83 Brachial] Heart Rate [ 75 Radial] Respiratory 18 18 Rate Blood Pressure Blood Pressure 140/50 H 148/59 H [Right Brachial artery] O2 Saturation 98 93 Oxygen O2 Source Room air I&O (Last 24 Hrs): Intake and Output Totals x24h 04/23/21 04/24/21 04/25/21 23:59 23:59 23:59 Intake Total 2250 741.667 Output Total 50 Balance 2250 691.667 General: Alert HEENT: Mucous membr. moist/pink Neck: Supple, No JVD Neuro: Alert (R sided weakness 0/5, stares ahead, answers but repeats the same answer to all, questions.), Other (R foot has clonus) Cardiovascular: Regular rate, No murmurs Respiratory: No respiratory distress, Breath sounds nml Abdomen: Normal bowel sounds, Soft Extremities: No edema, No tenderness/swelling - Results Results: Laboratory Results WBC 9.7 x10^3/uL (4.8-10.8) 04/25/21 05:32 RBC 2.99 10^6/uL (4.20-5.40) L 04/25/21 05:32 Hgb 9.0 g/dL (12.0-16.0) L 04/25/21 05:32 Hct 28.9 % (37.0-47.0) L 04/25/21 05:32 MCV 96.7 fL (81.0-99.0) 04/25/21 05:32 MCH 30.1 pg (27.0-31.0) 04/25/21 05:32 MCHC 31.1 g/dL (32.0-36.0) L 04/25/21 05:32 RDW 14.0 % (12.0-15.0) 04/25/21 05:32 Plt Count 435 10^3/uL (130-450) 04/25/21 05:32 MPV 9.1 fL (7.9-10.8) 04/25/21 05:32 Neut # (Auto) 7.0 10^3/uL (1.5-6.6) H 04/25/21 05:32 Lymph # (Auto) 1.5 10^3/uL (1.5-3.5) 04/25/21 05:32 Coffee # (Auto) 0.7 10^3/uL (0.0-1.0) 04/25/21 05:32 Eos # (Auto) 0.4 10^3/uL (0.0-0.7) 04/25/21 05:32 Baso # (Auto) 0.0 10^3/uL (0.0-0.1) 04/25/21 05:32 Absolute Nucleated RBC 0.00 x10^3/uL 04/25/21 05:32 Nucleated RBC % 0.0 /100WBC 04/25/21 05:32 Sodium 142 mmol/L (135-145) 04/25/21 05:32 Potassium 4.3 mmol/L (3.5-5.0) 04/25/21 05:32 Chloride 111 mmol/L (101-111) 04/25/21 05:32 Carbon Dioxide 22 mmol/L (21-32) 04/25/21 05:32 Anion Gap 9.0 (6-13) 04/25/21 05:32 BUN 49 mg/dL (6-20) H 04/25/21 05:32 Creatinine 1.8 mg/dL (0.4-1.0) H 04/25/21 05:32 Estimated GFR (MDRD) 28 (>89) L 04/25/21 05:32 Glucose 82 mg/dL (70-100) 04/25/21 05:32 Lactic Acid 2.1 mmol/L (0.5-2.2) 04/24/21 18:12 Calcium 7.7 mg/dL (8.5-10.3) L 04/25/21 05:32 Total Bilirubin 0.5 mg/dL (0.2-1.0) 04/24/21 18:12 AST 12 IU/L (10-42) 04/24/21 18:12 ALT < 10 IU/L (10-60) L 04/24/21 18:12 Alkaline Phosphatase 94 IU/L (42-121) 04/24/21 18:12 Total Protein 6.7 g/dL (6.7-8.2) 04/24/21 18:12 Albumin 3.0 g/dL (3.2-5.5) L 04/24/21 18:12 Globulin 3.7 g/dL (2.1-4.2) 04/24/21 18:12 Albumin/Globulin Ratio 0.8 (1.0-2.2) L 04/24/21 18:12 Lipase 33 U/L (22-51) 04/24/21 18:12 TSH 0.29 uIU/mL (0.34-5.60) L 04/24/21 18:12 Urine Color YELLOW 04/24/21 18:35 Urine Clarity CLOUDY (CLEAR) 04/24/21 18:35 Urine pH 5.0 PH (5.0-7.5) 04/24/21 18:35 Ur Specific Strang >=1.030 (1.002-1.030) H 04/24/21 18:35 Urine Protein 30 mg/dL (NEGATIVE) H 04/24/21 18:35 Urine Glucose (UA) NEGATIVE mg/dL (NEGATIVE) 04/24/21 18:35 Urine Ketones TRACE mg/dL (NEGATIVE) 04/24/21 18:35 Urine Occult Blood TRACE-INTA (NEGATIVE) 04/24/21 18:35 Urine Nitrite NEGATIVE (NEGATIVE) 04/24/21 18:35 Urine Bilirubin NEGATIVE (NEGATIVE) 04/24/21 18:35 Urine Urobilinogen 0.2 (NORMAL) E.U./dL (NORMAL) 04/24/21 18:35 Ur Leukocyte Esterase MODERATE (NEGATIVE) H 04/24/21 18:35 Urine RBC 0-5 /HPF (0-5) 04/24/21 18:35 Urine WBC >25 /HPF (0-5) H 04/24/21 18:35 Ur Squamous Epith Cells RARE Squamous (<= Few) 04/24/21 18:35 Urine Bacteria Moderate /HPF (None Seen) H 04/24/21 18:35 Ur Microscopic Review INDICATED 04/24/21 18:35 Urine Culture Comments INDICATED 04/24/21 18:35 Nasal Adenovirus (PCR) NOT DETECTED 04/24/21 21:29 Nasal B. parapertussis DNA (PCR) NOT DETECTED 04/24/21 21: Nasal Coronavir 229E PCR NOT DETECTED 04/24/21 21:29 Nasal Coronavir HKU1 PCR NOT DETECTED 04/24/21 21:29 Nasal Coronavir NL63 PCR NOT DETECTED 04/24/21 21:29 Nasal Coronavir OC43 PCR NOT DETECTED 04/24/21 21:29 Nasal Enterovir/Rhinovir PCR NOT DETECTED 04/24/21 21:29 Nasal Influenza B PCR NOT DETECTED 04/24/21 21:29 Nasal Influenza A PCR NOT DETECTED 04/24/21 21:29 Nasal Parainfluen 1 PCR NOT DETECTED 04/24/21 21:29 Nasal Parainfluen 2 PCR NOT DETECTED 04/24/21 21:29 Nasal Parainfluen 3 PCR NOT DETECTED 04/24/21 21:29 Nasal Parainfluen 4 PCR NOT DETECTED 04/24/21 21:29 Nasal RSV (PCR) NOT DETECTED 04/24/21 21: Nasal B.pertussis DNA PCR NOT DETECTED 04/24/21 21: Nasal C.pneumoniae (PCR) NOT DETECTED 04/24/21 21:29 Jewel Human Metapneumo PCR NOT DETECTED 04/24/21 21: Nasal M.pneumoniae (PCR) NOT DETECTED 04/24/21 21:29 Nasal SARS-CoV-2 (PCR) NOT DETECTED 04/24/21 21:29 Salicylates < 6.0 mg/dL 04/24/21 18:12 Urine Opiates Screen NEGATIVE (NEGATIVE) 04/24/21 18:35 Ur Oxycodone Screen NEGATIVE (NEGATIVE) 04/24/21 18:35 Urine Methadone Screen NEGATIVE (NEGATIVE) 04/24/21 18:35 Ur Propoxyphene Screen NEGATIVE (NEGATIVE) 04/24/21 18:35 Acetaminophen 14 ug/mL (10-30) 04/24/21 18:12 Ur Barbiturates Screen NEGATIVE (NEGATIVE) 04/24/21 18:35 Ur Tricyclics Screen NEGATIVE (NEGATIVE) 04/24/21 18:35 Ur Phencyclidine Scrn NEGATIVE (NEGATIVE) 04/24/21 18:35 Ur Amphetamine Screen NEGATIVE (NEGATIVE) 04/24/21 18:35 U Methamphetamines Scrn NEGATIVE (NEGATIVE) 04/24/21 18:35 U Benzodiazepines Scrn NEGATIVE (NEGATIVE) 04/24/21 18:35 Urine Cocaine Screen NEGATIVE (NEGATIVE) 04/24/21 18:35 U Cannabinoids Screen POSITIVE (NEGATIVE) H 04/24/21 18:35 Ethyl Alcohol < 5.0 mg/dL 04/24/21 18:12
[2021-04-25] MEDS ORDERED: cefTRIAXone 1 GM in SODIUM CHLORIDE 0.9% MINIBAG 100 ML IV SCH (20:00)
[2021-04-25] MEDS ORDERED: AZITHROMYCIN INJ 500 MG in SODIUM CHLORIDE 0.9% 250 ML IV SCH (21:00)
[2021-04-26] MEDS: SODIUM CHLORIDE FLUSH 0.9% 10 ML SYRINGE IVP SCH ×2 (00:42→08:51)
[2021-04-26] MEDS: SODIUM CHLORIDE 0.9% 1,000 ML IV SCH ×2 (02:47→13:01)
--- NOTE | 2021-04-26 08:18 | PROVIDER PROGRESS NOTE ---
Objective - Vital Signs/Intake & Output Vital Signs: Vital Signs x48h Temp Pulse Resp BP BP Pulse Ox 04/26/21 08:00 82 18 215/77 H 100 04/26/21 05:27 73 18 199/72 H 94 04/26/21 03:05 197/85 H 04/26/21 02:58 190/70 H 04/26/21 00:30 36.6 C 79 16 172/72 H 94 Intake & Output: Intake & Output 04/23/21 04/24/21 04/25/21 04/26/21 23:59 23:59 23:59 23:59 Intake Total 2250 3761.667 1000 Output Total 1500 500 Balance 2250 2261.667 500 - Lab Results Fish Bones: 04/25/21 05:32 04/25/21 05:32
[2021-04-26] MEDS: INSULIN ASPART 300 UNIT/3 ML PEN SUBQ SCH ×2 (08:50→12:08)
[2021-04-26] MEDS ORDERED: GABAPENTIN 400 MG CAPSULE PO SCH ×2 (09:00→21:00)
[2021-04-26] MEDS ORDERED: SERTRALINE 50 MG TABLET PO SCH (09:00)
[2021-04-26] MEDS ORDERED: CHOLECALCIFEROL 25 MCG TABLET PO SCH (09:00)
[2021-04-26] MEDS ORDERED: SPIRONOLACTONE 25 MG TABLET PO SCH (09:00)
[2021-04-26] MEDS ORDERED: VERAPAMIL ER 180 MG TABLET PO SCH ×2 (09:00→13:15)
[2021-04-26] MEDS ORDERED: LOSARTAN 50 MG TABLET PO SCH ×2 (09:00→13:15)
[2021-04-26 13:00] LABS: BASOPHILS # (AUTO) 0.1 10^3/uL (0.0-0.1); BASOPHILS % (AUTO) 0.7 %; EOSINOPHILS # (AUTO) 0.2 10^3/uL (0.0-0.7); EOSINOPHILS % (AUTO) 1.9 %; HCT - HEMATOCRIT 33.4 % (37.0-47.0); HGB - HEMOGLOBIN 10.8 g/dL (12.0-16.0); LYMPHOCYTES % (AUTO) 9.6 %; MEAN CORPUSCULAR HEMOGLOBIN 30.9 pg (27.0-31.0); MEAN CORPUSCULAR HGB CONC 32.3 g/dL (32.0-36.0); MEAN CORPUSCULAR VOLUME 95.4 fL (81.0-99.0); MEAN PLATELET VOLUME 9.1 fL (7.9-10.8); MONOCYTES # (AUTO) 0.6 10^3/uL (0.0-1.0); MONOCYTES % (AUTO) 5.5 %; NEUTROPHILS # (AUTO) 8.1 10^3/uL (1.5-6.6); NEUTROPHILS % (AUTO) 81.2 %; PLT - PLATELET COUNT 498 10^3/uL (130-450); RED CELL DISTRIBUTION WIDTH 13.8 % (12.0-15.0)
[2021-04-26 13:10] LABS: CALCIUM 7.9 mg/dL (8.5-10.3); POTASSIUM 4.5 mmol/L (3.5-5.0)
[2021-04-26 14:02] LABS: ESTIMATED AVERAGE GLUCOSE 131 mg/dL (70-100); HEMOGLOBIN A1c% 6.2 % (4.27-6.07)
--- NOTE | 2021-04-26 14:03 | Discharge Plan ---
Discharge Plan Problem Reviewed?: Yes Disposition: Home Health Service Condition: Stable Diet: Regular Activity Restrictions: Activity as Tolerated Health Concerns: You were admitted to the hospital because of confusion which was likely due to dehydration which affected your kidneys. Because your kidneys were not working as well as usual, some of the medications you take at home likely accumulated which can cause confusion. This is not uncommon with the medication called gabapentin. We thought you may have had an infection of the urine and so treated you with antibiotics but ultimately no bacteria grew in urine. Your kidney numbers are now back to normal and you are back to your baseline. You are stable for discharge. Plan of Treatment: There are no changes to medication. Please continue take your blood pressure medications as prescribed. Please make sure to drink plenty of fluids. Care Goals: The goal is to prevent further episodes of confusion. Assessment: The family and caregiver expressed understanding of the treatment plan. Additional Instructions or Follow Up instructions: Please follow-up with your primary care physician within 1 week. No Smoking: If you smoke, Please STOP! Call for help. Follow-up with: Prem Vaughn MD [Primary Care Provider] -
[2021-04-26] MEDS ORDERED: hydrALAZINE INJ 20 MG/ML VIAL IVP ONE (15:44)
[2021-04-26 16:48] VITALS: BP 142/61
[2021-04-26] MEDS ORDERED: APIXABAN 5 MG TABLET PO SCH (17:00)
--- NOTE | 2021-04-26 18:22 | DISCHARGE SUMMARY ---
Discharge Summary Admit Date: 04/24/21 Discharge Date: 04/26/21 Discharging Provider: Too Rodriguez Primary Care Provider: Prem Vaughn Code Status: Attempt Resuscitation Condition at Discharge: Stable Discharge Disposition: 06 Home Health Service - DIAGNOSES Admission Diagnoses: UTI Pleural effusion Altered mental status Hypertension Hyperlipidemia History of CVA Type 2 diabetes mellitus Discharge Diagnoses with Status of Each Condition: Altered mental status - resolved. Acute kidney injury - resolved. Right pleural effusion - stable. Lung mass - stable. History of CVA with residual deficits - stable. Hypertension - stable. Hyperlipidemia - stable. Type 2 diabetes mellitus - stable. - HPI History of Present Illness: H&P per Dr. Boyce: "Patient is a 71-year-old female who presents to the emergency department altered mental status today. EMS states that she has residual right-sided deficits from a stroke. Patient has had decreased verbal responsiveness today p er EMS. EMS believes that she has mostly bedbound at home. She does not use home oxygen. They state she had a recent lung biopsy at [facility]. They believe that she may have lung cancer but are unsure of this. No other history available at this time." The above was obtained from the ED physicians H&P because the patient is currently very altered/somnolent and unable to provide history. Work-up in the ED included CBC which showed a white count of 13.7. Urine analys is was also indicated of of a UTI with moderate bacteria, moderate leukocyte esterase, greater than 25 WBCs. Patient also had a creatinine of 2.4. As a result of this findings and her clinical presentation, she was presented for admission for further treatment. At bedside patient mainly mumbles and groans. She is unable to provide any further history. - HOSPITAL COURSE Hospital Course: She was admitted for altered mental status which was initially thought to be secondary to urinary tract infection. Urine culture ultimately had no growth. She was treated with ceftriaxone and azithromycin initially given result also concern for possible pneumonia. CT showed no evidence of pneumonia. Her mentation returned to baseline within 24 hours. She did have acute kidney injury and this resolved on discharge. It was suspect that she likely had ultimately status due to acute kidney injury and likely drug accumulation given she is on gabapentin at home. On day of discharge, antibiotics were discontinued and after speaking with family, it was found that she was at baseline. She was initially hypertensive the day of discharge with systolic as high as 200 but this was because she declined her and hypertensives in the morning. These were resumed and she was given a dose of IV hydralazine. Her blood pressure had improved to the 140s on discharge. - ALLERGIES Allergies/Adverse Reactions: Allergies Allergy/AdvReac Type Severity Reaction Status Date / Time No Known Drug Allergies Allergy Verified 04/24/21 17:57 - MEDICATIONS Home Medications: Ambulatory Orders Medication Instructions Recorded Confirmed Cholecalciferol (Vitamin D3) 2,000 unit PO DAILY 08/21/15 04/25/21 [Vitamin D3] Gabapentin 400 mg PO DAILY 08/21/15 04/25/21 Rivaroxaban [Xarelto] 20 mg PO QDDINNER 08/18/19 04/25/21 Losartan [Cozaar] 50 mg PO BID 10/08/20 04/25/21 Metformin HCl [Glucophage] 1,000 mg PO BID 10/08/20 04/25/21 Multivitamin 1 each PO DAILY 10/08/20 04/25/21 Omeprazole Magnesium 20 mg PO BID 10/08/20 04/25/21 Atorvastatin [Lipitor] 20 mg PO QPM 04/25/21 04/25/21 Gabapentin [Neurontin] 800 mg PO QPM 04/25/21 04/25/21 Sertraline [Zoloft] 50 mg PO DAILY 04/25/21 04/25/21 Spironolactone [Aldactone] 25 mg PO DAILY 04/25/21 04/25/21 Verapamil HCl [Verapamil ER] 180 mg PO DAILY 04/25/21 04/25/21 - PHYSICAL EXAM AT DISCHARGE General Appearance: positive: No acute distress, Alert Eyes Bilateral: positive: Conjunctivae nml ENT: positive: ENT inspection nml Neck: positive: Nml inspection Respiratory: positive: No respiratory distress. negative: Wheezes, Rales Cardiovascular: positive: Regular rate & rhythm. negative: Tachycardia, Systolic murmur Abdomen: positive: Non-tender, No distention Skin: positive: Warm, Dry Extremities: positive: No pedal edema Neurologic/Psychiatric: positive: Slurred/abnml speech (Speech slightly slurred which is baseline. Repeats yes/no often.), Other (Contracture of right upper extremity. 2/5 motor strength in right upper and lower extremities.) Physical Exam Other/Comments: Vital Signs - 24 hr 04/25/21 04/26/21 04/26/21 20:00 00:30 02:58 Temperature 37.0 C 36.6 C Heart Rate [ 84 79 Brachial] Respiratory 18 16 Rate Blood Pressure 149/60 H [Right Brachial artery] Blood Pressure 172/72 H 190/70 H [left arm] O2 Saturation 94 94 04/26/21 04/26/21 04/26/21 03:05 05:27 08:00 Temperature Heart Rate [ 73 82 Brachial] Respiratory 18 18 Rate Blood Pressure 199/72 H 215/77 H [Right Brachial artery] Blood Pressure 197/85 H [left arm] O2 Saturation 94 100 04/26/21 04/26/21 04/26/21 13:26 14:59 15:38 Temperature 36.8 C Heart Rate [ 86 89 87 Brachial] Respiratory 16 16 18 Rate Blood Pressure 195/79 H 195/69 H [Right Brachial artery] Blood Pressure 188/73 H 193/52 H [left arm] O2 Saturation 93 04/26/21 04/26/21 04/26/21 16:10 16:15 16:20 Temperature Heart Rate [ 90 91 90 Brachial] Respiratory 18 Rate Blood Pressure 187/75 H 195/73 H 184/83 H [Right Brachial artery] Blood Pressure [left arm] O2 Saturation 04/26/21 04/26/21 04/26/21 16:25 16:30 16:35 Temperature Heart Rate [ 95 99 97 Brachial] Respiratory Rate Blood Pressure 176/59 H 155/70 H 142/61 H [Right Brachial artery] Blood Pressure [left arm] O2 Saturation Oxygen O2 Source Room air - LABS Result Diagrams: 04/26/21 12:49 04/26/21 12:49 - FOLLOW UP Follow Up: She was asked to follow-up with her primary care physician within 1 week. - TIME SPENT Time Spent in Discharge (Minutes): 36
[2021-04-26] MEDS ORDERED: ATORVASTATIN 10 MG TABLET PO SCH (21:00)
== END 2021-04-26 17:45 | disposition home health service (06) | DRG 948 ==
LOC: EDUNIT# → SUPCPDRO 17:47 → ED 17:47 → MS2 20:44
PROVIDERS: ADMIT Internal Medicine; ATTEND Internal Medicine
DX: N30.00 Acute cystitis without hematuria (principal); R41.0 Disorientation, unspecified; R41.82 Altered mental status, unspecified; N17.9 Acute kidney failure, unspecified; Z20.822 Contact with and (suspected) exposure to COVID-19; J90 Pleural effusion, not elsewhere classified; I69.351 Hemiplegia and hemiparesis following cerebral infarction affecting right dominant side; R91.8 Other nonspecific abnormal finding of lung field; I10 Essential (primary) hypertension; E11.9 Type 2 diabetes mellitus without complications; E78.5 Hyperlipidemia, unspecified; I25.10 Atherosclerotic heart disease of native coronary artery without angina pectoris; Z86.718 Personal history of other venous thrombosis and embolism; Z79.01 Long term (current) use of anticoagulants; Z87.891 Personal history of nicotine dependence; Z74.01 Bed confinement status; D64.9 Anemia, unspecified; R25.8 Other abnormal involuntary movements; E86.0 Dehydration; Z79.84 Long term (current) use of oral hypoglycemic drugs; R47.81 Slurred speech; Z79.899 Other long term (current) drug therapy
CPT/HCPCS: 36415; 51701; 70450; 71045; 71250; 74176; 80048; 80053; 80306; 80307; 81001; 83036; 83605; 83690; 84439; 84443; 85025; 87040; 87086; 87631; 96361; 96374; 99285; A9270; G0480; 0202U; 80320; 80329; 81003

== ENCOUNTER 2021-05-03 14:22 | Outpatient (CLI) | payer MEDICARE, MEDICAID | END 2021-05-03 23:59 | disposition EMS.NT | LOC: EMS 14:22 | DX: Z03.89 Encounter for observation for other suspected diseases and conditions ruled out (principal) ==

== ENCOUNTER 2021-06-14 18:00 | Outpatient (CLI) | payer MEDICARE, MEDICAID | END 2021-06-14 18:01 | disposition critical access hospital (66) | LOC: EMS 18:00 | DX: R41.82 Altered mental status, unspecified (principal); R11.2 Nausea with vomiting, unspecified | CPT/HCPCS: A0425; A0429 ==

== ENCOUNTER 2021-06-14 18:13 | Inpatient (IN) | payer MEDICARE, MEDICAID ==
--- NOTE | 2021-06-14 18:23 | ED Physician Documentation ---
PD HPI FOCAL NEURO - Stated complaint Stated Complaint: AMS - History obtained from History obtained from: EMS - Additional information Additional information: 71-year-old woman with history of prior stroke presents from home with altered mental status which is reportedly improving compared to what the paramedics initially saw. She had a similar presentation in early April and was in the hospital for 2 days. It was felt to be due to gabapentin use in the setting of mild acute kidney injury. She is still on gabapentin. She was released from another hospital 10 days ago where it sounds like she had a biopsy of a lung lesion or pleural effusion drainage. She is on Xarelto. Prehospital blood sugar was 180. Family was concerned that she was having a stroke but really her symptoms were just decreased mental status and communication. She has chronic deficits on the right side from prior stroke. Review of Systems Unable to obtain: Confused PD PAST MEDICAL HISTORY - Past Medical History Cardiovascular: High cholesterol, Coronary artery disease, Deep vein thrombosis Respiratory: None Neuro: CVA Endocrine/Autoimmune: Type 2 diabetes GI: None REFERENCE ASSISTANT: None : None HEENT: Chronic vision loss, Other Psych: None Musculoskeletal: Fibromyalgia, Hemiplegia Derm: None - Past Surgical History Past Surgical History: No HEENT: Tonsil/Adenoidectomy - Present Medications Home Medications: Ambulatory Orders Medication Instructions Recorded Confirmed Cholecalciferol (Vitamin D3) 2,000 unit PO DAILY 08/21/15 04/25/21 [Vitamin D3] Gabapentin 400 mg PO DAILY 08/21/15 04/25/21 Rivaroxaban [Xarelto] 20 mg PO QDDINNER 08/18/19 04/25/21 Losartan [Cozaar] 50 mg PO BID 10/08/20 04/25/21 Metformin HCl [Glucophage] 1,000 mg PO BID 10/08/20 04/25/21 Multivitamin 1 each PO DAILY 10/08/20 04/25/21 Omeprazole Magnesium 20 mg PO BID 10/08/20 04/25/21 Atorvastatin [Lipitor] 20 mg PO QPM 04/25/21 04/25/21 Gabapentin [Neurontin] 800 mg PO QPM 04/25/21 04/25/21 Sertraline [Zoloft] 50 mg PO DAILY 04/25/21 04/25/21 Spironolactone [Aldactone] 25 mg PO DAILY 04/25/21 04/25/21 Verapamil HCl [Verapamil ER] 180 mg PO DAILY 04/25/21 04/25/21 - Allergies Allergies/Adverse Reactions: Allergies Allergy/AdvReac Type Severity Reaction Status Date / Time No Known Drug Allergies Allergy Verified 06/14/21 18:23 - Social History Does the pt smoke?: No Smoking Status: Never smoker Does the pt drink ETOH?: Yes Does the pt have substance abuse?: No - Immunizations Immunizations are current?: No Immunizations: TDAP >10years/unknown - POLST Patient has POLST: No POLST Status: Full Code PD ED PE NORMAL - Vitals Vital signs reviewed: Yes - General General: Other (She makes eye contact and will follow simple commands on the left. She is slightly somnolent.) - HEENT HEENT: Other (Midpoint reactive pupils) - Neck Neck: Supple, no meningeal sign, No bony TTP - Cardiac Cardiac: RRR, No murmur - Respiratory Respiratory: No respiratory distress, Clear bilaterally - Abdomen Abdomen: Normal bowel sounds, Soft, Non tender - Back Back: No CVA TTP, No spinal TTP - Derm Derm: Normal color, Warm and dry - Neuro Neuro: Other (Contracture in the right upper extremity, she will squeeze hands on the left side. Does not follow commands in any other extremity. She does withdraw from pain seemingly in all 4.) Eye Opening: Spontaneous Motor: Obeys Commands Verbal: None GCS Score: 11 - Psych Psych: Normal mood, Normal affect Results - Vitals Vitals: Vital Signs - 24 hr 06/14/21 06/14/21 18:14 18:34 Temperature 35.9 C L Heart Rate 67 Respiratory 16 22 Rate Blood Pressure 101/37 L 94/50 L O2 Saturation 94 94 Oxygen O2 Source Room air - Labs Labs: Laboratory Tests 06/14/21 06/14/21 06/14/21 18:48 18:48 18:48 WBC 14.4 H RBC 3.68 L Hgb 10.8 L Hct 33.8 L MCV 91.8 MCH 29.3 MCHC 32.0 RDW 14.2 Plt Count 463 H MPV 9.9 Neut # (Auto) 12.1 H Lymph # (Auto) 1.0 L Washburn # (Auto) 0.9 Eos # (Auto) 0.2 Baso # (Auto) 0.1 Absolute Nucleated RBC 0.00 Nucleated RBC % 0.0 VBG pH 7.371 VBG pCO2 41.2 VBG pO2 50.0 H VBG HCO3 23.3 VBG Total CO2 24.6 VBG O2 Saturation 84.6 H VBG Base Excess -1.8 Sodium 132 L Potassium 4.2 Chloride 100 L Carbon Dioxide 23 Anion Gap 9.0 BUN 22 H Creatinine 0.9 Estimated GFR (MDRD) 62 L Glucose 191 H Calcium 7.9 L Magnesium 1.2 L Total Bilirubin 0.3 AST 13 ALT 10 Alkaline Phosphatase 87 Total Protein 6.1 L Albumin 2.7 L Globulin 3.4 Albumin/Globulin Ratio 0.8 L Urine Color Urine Clarity Urine pH Ur Specific Woodrow Urine Protein Urine Glucose (UA) Urine Ketones Urine Occult Blood Urine Nitrite Urine Bilirubin Urine Urobilinogen Ur Leukocyte Esterase Ur Microscopic Review Urine Culture Comments Nasal Adenovirus (PCR) Nasal B. parapertussis DNA (PCR) Nasal Coronavir 229E PCR Nasal Coronavir HKU1 PCR Nasal Coronavir NL63 PCR Nasal Coronavir OC43 PCR Nasal Enterovir/Rhinovir PCR Nasal Influenza B PCR Nasal Influenza A PCR Nasal Parainfluen 1 PCR Nasal Parainfluen 2 PCR Nasal Parainfluen 3 PCR Nasal Parainfluen 4 PCR Nasal RSV (PCR) Nasal B.pertussis DNA PCR Nasal C.pneumoniae (PCR) Jewel Human Metapneumo PCR Nasal M.pneumoniae (PCR) Nasal SARS-CoV-2 (PCR) Urine Opiates Screen Ur Oxycodone Screen Urine Methadone Screen Ur Propoxyphene Screen Ur Barbiturates Screen Ur Tricyclics Screen Ur Phencyclidine Scrn Ur Amphetamine Screen U Methamphetamines Scrn U Benzodiazepines Scrn Urine Cocaine Screen U Cannabinoids Screen Ethyl Alcohol < 5.0 06/14/21 06/14/21 18:50 19:17 WBC RBC Hgb Hct MCV MCH MCHC RDW Plt Count MPV Neut # (Auto) Lymph # (Auto) Washburn # (Auto) Eos # (Auto) Baso # (Auto) Absolute Nucleated RBC Nucleated RBC % VBG pH VBG pCO2 VBG pO2 VBG HCO3 VBG Total CO2 VBG O2 Saturation VBG Base Excess Sodium Potassium Chloride Carbon Dioxide Anion Gap BUN Creatinine Estimated GFR (MDRD) Glucose Calcium Magnesium Total Bilirubin AST ALT Alkaline Phosphatase Total Protein Albumin Globulin Albumin/Globulin Ratio Urine Color YELLOW Urine Clarity CLEAR Urine pH 5.0 Ur Specific Woodrow >=1.030 H Urine Protein NEGATIVE Urine Glucose (UA) NEGATIVE Urine Ketones TRACE Urine Occult Blood NEGATIVE Urine Nitrite NEGATIVE Urine Bilirubin NEGATIVE Urine Urobilinogen 0.2 (NORMAL) Ur Leukocyte Esterase NEGATIVE Ur Microscopic Review NOT INDICATED Urine Culture Comments NOT INDICATED Nasal Adenovirus (PCR) NOT DETECTED Nasal B. parapertussis DNA (PCR) NOT DETECTED Nasal Coronavir 229E PCR NOT DETECTED Nasal Coronavir HKU1 PCR NOT DETECTED Nasal Coronavir NL63 PCR NOT DETECTED Nasal Coronavir OC43 PCR NOT DETECTED Nasal Enterovir/Rhinovir PCR NOT DETECTED Nasal Influenza B PCR NOT DETECTED Nasal Influenza A PCR NOT DETECTED Nasal Parainfluen 1 PCR NOT DETECTED Nasal Parainfluen 2 PCR NOT DETECTED Nasal Parainfluen 3 PCR NOT DETECTED Nasal Parainfluen 4 PCR NOT DETECTED Nasal RSV (PCR) NOT DETECTED Nasal B.pertussis DNA PCR NOT DETECTED Nasal C.pneumoniae (PCR) NOT DETECTED Jewel Human Metapneumo PCR NOT DETECTED Nasal M.pneumoniae (PCR) NOT DETECTED Nasal SARS-CoV-2 (PCR) NOT DETECTED Urine Opiates Screen NEGATIVE Ur Oxycodone Screen NEGATIVE Urine Methadone Screen NEGATIVE Ur Propoxyphene Screen NEGATIVE Ur Barbiturates Screen NEGATIVE Ur Tricyclics Screen NEGATIVE Ur Phencyclidine Scrn NEGATIVE Ur Amphetamine Screen NEGATIVE U Methamphetamines Scrn NEGATIVE U Benzodiazepines Scrn NEGATIVE Urine Cocaine Screen NEGATIVE U Cannabinoids Screen POSITIVE H Ethyl Alcohol - Rads (name of study) 1v chest Radiology: EMP read contemporaneously (Single view chest x-ray shows extensive subcutaneous emphysema likely related to recent thoracic procedure, small right pleural effusion and atelectasis, possible additional right-sided opacities could be pneumonia or edema versus overlying emphysema.) CT of the head demonstrates no acute abnormality but with a chronic left MCA infarct Radiology: EMP read contemporaneously PD MEDICAL DECISION MAKING - ED course ED course: 71-year-old woman brought in with altered mental status. Stroke is considered but she is not a TPA candidate due to recent surgery as well as Xarelto use. This is very similar to admission she had in early April, it sounds like at that time REINIER combined with gabapentin use was the culprit and she certainly is a victim of polypharmacy. She did not clear at all during her ED stay and I discussed the case with Dr. Boyce at 8:24pm who would like her covered for pneumonia given the chest x-ray findings. Departure - Departure Disposition: ED Place in Observation Clinical Impression: History of CVA with residual deficit, Altered mental status, Polypharmacy Condition: Fair
[2021-06-14 19:09] LABS: BASOPHILS # (AUTO) 0.1 10^3/uL (0.0-0.1); BASOPHILS % (AUTO) 0.4 %; EOSINOPHILS # (AUTO) 0.2 10^3/uL (0.0-0.7); HCT - HEMATOCRIT 33.8 % (37.0-47.0); HGB - HEMOGLOBIN 10.8 g/dL (12.0-16.0); LYMPHOCYTES % (AUTO) 6.9 %; MEAN CORPUSCULAR HEMOGLOBIN 29.3 pg (27.0-31.0); MEAN CORPUSCULAR VOLUME 91.8 fL (81.0-99.0); MEAN PLATELET VOLUME 9.9 fL (7.9-10.8); MONOCYTES # (AUTO) 0.9 10^3/uL (0.0-1.0); MONOCYTES % (AUTO) 6.1 %; NEUTROPHILS # (AUTO) 12.1 10^3/uL (1.5-6.6); NEUTROPHILS % (AUTO) 83.9 %; PLT - PLATELET COUNT 463 10^3/uL (130-450); RED BLOOD COUNT 3.68 10^6/uL (4.20-5.40); RED CELL DISTRIBUTION WIDTH 14.2 % (12.0-15.0); WHITE BLOOD COUNT 14.4 x10^3/uL (4.8-10.8)
[2021-06-14 19:10] LABS: VBG HCO3 23.3 mmol/L (23-28); VBG PCO2 41.2 mmHg (41-51); VBG PH 7.371 (7.31-7.41); VBG TOTAL CO2 24.6 mmol/L (24-29)
[2021-06-14 19:11] LABS: VBG BASE EXCESS -1.8 mmol/L (-2 - +2); VBG OXYGEN SATURATION 84.6 % (60-80)
--- NOTE | 2021-06-14 19:11 | XRAY Report ---
PROCEDURE: Chest 1 View X-Ray INDICATIONS: ams, recent pna, effusion TECHNIQUE: One view of the chest was acquired. COMPARISON: CT chest 04/24/2021 FINDINGS: Surgical changes and devices: None. Lungs and pleura: Small right pleural effusion with atelectasis of the right lung base. The right nathanael g is obscured by heterogeneity of the overlying soft tissues related to subcutaneous emphysema. Right -sided opacities are not excluded. The patient is mildly rotated towards the right. Mediastinum: Mediastinal contours appear normal. Heart size is normal. Bones and chest wall: Extensive subcutaneous emphysema is seen throughout the right chest. No suspic ious bony lesions. A splenic ossification is seen in the right upper quadrant. Coarse calcification is also noted in the liver. Healed right clavicular shaft fracture is noted. IMPRESSION: 1.Extensive subcutaneous emphysema is new when compared to the CT from 04/24/2021. Findings are most l ikely related to recent instrumentation. 2.Small right pleural effusion with atelectasis of the right lung base. 3.Possible additional right-sided pulmonary opacities could represent pneumonia or edema, although fi ndings are obscured by superimposed subcutaneous emphysema. Findings were discussed with the referring physician, Dr. Grace, by telephone on 06/14/2021 at 7:08 PM. Reviewed by: Oliver Michel MD on 06/14/2021 7:10 PM PST Approved by: Oliver Michel MD on 06/14/2021 7:10 PM PST Station ID: [id number]
[2021-06-14 19:21] LABS: ALBUMIN 2.7 g/dL (3.2-5.5); ALBUMIN/GLOBULIN RATIO 0.8 (1.0-2.2); ALKALINE PHOSPHATASE 87 IU/L (42-121); ALT ALANINE AMINOTRANSFERASE 10 IU/L (10-60); AST ASPARTATE AMINOTRANSFERASE 13 IU/L (10-42); BILIRUBIN,TOTAL 0.3 mg/dL (0.2-1.0); BUN - BLOOD UREA NITROGEN 22 mg/dL (6-20); CALCIUM 7.9 mg/dL (8.5-10.3); CARBON DIOXIDE - CO2 23 mmol/L (21-32); CHLORIDE 100 mmol/L (101-111); CREATININE 0.9 mg/dL (0.4-1.0); ETOH - ETHANOL < 5.0 mg/dL; GFR - MDRD 62 (>89); GLUCOSE 191 mg/dL (70-100); MAGNESIUM 1.2 mg/dL (1.7-2.8); POTASSIUM 4.2 mmol/L (3.5-5.0); SODIUM 132 mmol/L (135-145); TOTAL PROTEIN 6.1 g/dL (6.7-8.2)
[2021-06-14 19:23] LABS: MUDS CUTOFF CONCENTRATIONS CUTOFF CONC BELOW:
--- NOTE | 2021-06-14 19:23 | CT Report ---
PROCEDURE: HEAD WO INDICATIONS: ams TECHNIQUE: Noncontrast 4.5 mm thick angled axial sections acquired from the foramen magnum to the vertex. For r adiation dose reduction, the following was used: automated exposure control, adjustment of mA and/or kV according to patient size. COMPARISON: CT head 04/24/2021. FINDINGS: Image quality: Excellent. CSF spaces: Basal cisterns are patent. No extra-axial fluid collections. There is ex vacuo dilatati on of the left lateral ventricle Brain: No midline shift. No acute intracranial hemorrhage or mass effect. Chronic encephalomalacia is seen in the left temporal lobe and left basal ganglia. There is asymmetric parenchymal volume loss throughout the left cerebral hemisphere with ex vacuo dilatation of the left lateral ventricle. Hypo densities in the subcortical and periventricular white matter are worse on the left side. While teari ng and degeneration of the left cerebral peduncle is noted. Findings do not appear significant change d when compared to the prior CT from 04/24/2021. Skull and face: Calvarium and visualized facial bones are intact, without suspicious lesions. Sinuses: There is partial opacification of the ethmoid air cells. The remainder/paranasal sinuses and the mastoid air cells are clear. IMPRESSION: 1.No acute intracranial abnormality. 2.Chronic left middle cerebral artery territory infarct. Reviewed by: Oliver Michel MD on 06/14/2021 7:22 PM PST Approved by: Oliver Mcihel MD on 06/14/2021 7:22 PM PST Station ID: [id number]
[2021-06-14 19:26] LABS: BILIRUBIN,URINE NEGATIVE (NEGATIVE); GLUCOSE, URINE (UA) NEGATIVE (NEGATIVE); KETONES,URINE (UA) TRACE mg/dL (NEGATIVE); LEUKOCYTE ESTERASE, URINE NEGATIVE (NEGATIVE); NITRITE,URINE NEGATIVE (NEGATIVE); OCCULT BLOOD,URINE NEGATIVE (NEGATIVE); PROTEIN,URINE NEGATIVE (NEGATIVE); UROBILINOGEN,URINE 0.2 (NORMAL) E.U./dL (NORMAL)
[2021-06-14 19:38] LABS: CLARITY,URINE CLEAR (CLEAR)
[2021-06-14 19:39] LABS: AMPHETAMINE SCREEN,URINE NEGATIVE (NEGATIVE); BARBITURATE SCREEN,UR NEGATIVE (NEGATIVE); BENZODIAZEPINES SCREEN, URINE NEGATIVE (NEGATIVE); COCAINE SCREEN URINE NEGATIVE (NEGATIVE); METHADONE SCREEN, URINE NEGATIVE (NEGATIVE); METHAMPHETAMINES SCREEN, URINE NEGATIVE (NEGATIVE); OPIATE SCREEN, URINE NEGATIVE (NEGATIVE); OXYCODONE SCREEN, URINE NEGATIVE (NEGATIVE); PROPOXYPHENE SCREEN, URINE NEGATIVE (NEGATIVE); THC CANNABINOID SCREEN, URINE POSITIVE (NEGATIVE); TRICYCLIC ANTIDEPRESSANT,URINE NEGATIVE (NEGATIVE)
[2021-06-14 20:10] LABS: CORONAVIRUS 229E-RESP PCR NOT DETECTED; CORONAVIRUS HKU1-RESP PCR NOT DETECTED; CORONAVIRUS NL63-RESP PCR NOT DETECTED; CORONAVIRUS OC43-RESP PCR NOT DETECTED; HUMAN METAPNEUMOVIRUS NOT DETECTED; INFLUENZA A- RESP PCR PANEL NOT DETECTED; RHINOVIRUS/ENTEROVIRUS NOT DETECTED; SARS-CoV-2 -RESP PCR PANEL NOT DETECTED
[2021-06-14 20:11] LABS: B. PARAPERTUSSIS- RESP PCR PAN NOT DETECTED; B. PERTUSSIS- RESP PCR PANEL NOT DETECTED; C. PNEUMONIAE- RESP PCR PANEL NOT DETECTED; INFLUENZA B - RESP PCR PANEL NOT DETECTED; M. PNEUMONIAE- RESP PCR PANEL NOT DETECTED; PARAINFLUENZA VIRUS 1 NOT DETECTED; PARAINFLUENZA VIRUS 2 NOT DETECTED; PARAINFLUENZA VIRUS 3 NOT DETECTED; PARAINFLUENZA VIRUS 4 NOT DETECTED; RSV- RESP PCR PANEL NOT DETECTED
[2021-06-14] MEDS ORDERED: cefTRIAXone 1 GM in SODIUM CHLORIDE 0.9% MINIBAG 100 ML IV STA (20:22)
[2021-06-14] MEDS ORDERED: AZITHROMYCIN INJ 500 MG in SODIUM CHLORIDE 0.9% 250 ML IV STA (20:22)
[2021-06-14] MEDS ORDERED: MAGNESIUM SULFATE 2 GRAM 2 GM/50 ML BAG IV ONE ×2 (20:22→23:28)
[2021-06-14] MEDS ORDERED: ACETAMINOPHEN 325 MG TABLET PO PRN (20:30)
[2021-06-14] MEDS ORDERED: ONDANSETRON 4 MG/2 ML VIAL IVP PRN (20:30)
[2021-06-14] MEDS ORDERED: SODIUM CHLORIDE FLUSH 0.9% 10 ML SYRINGE IVP PRN (20:30)
[2021-06-14] MEDS ORDERED: cefTRIAXone 1 GM VIAL ONE (20:32)
--- NOTE | 2021-06-14 20:36 | HISTORY & PHYSICAL EXAMINATION ---
Chief Complaint - Chief Complaint Chief Complaint: altered mental status History of Present Illness - Admitted From Admitted From:: [facility] ED - History Obtained From Records Reviewed: yes History obtained from: ED physician and medical records Exam Limitations: altered mental status - History of Present Illness HPI Comment/Other: "71-year-old woman with history of prior stroke presents from home with altered mental status which is reportedly improving compared to what the paramedics initially saw. She had a similar presentation in early April and was in the hospital for 2 days. It was felt to be due to gabapentin use in the setting of mild acute kidney injury. She is still on gabapentin. She was released from another hospital 10 days ago where it sounds like she had a biopsy of a lung lesion or pleural effusion drainage. She is on Xarelto. Prehospital blood sugar was 180. Family was concerned that she was having a stroke but really her symptoms were just decreased mental status and communication. She has chronic deficits on the right side from prior stroke. " The above account Obtained from the ED physician Dr. Babcock H&P because the patient is currently altered and unable to provide history. Upon presentation to bedside she is awake and alert but mainly oriented to self. She is not in any distress. She does not answer any questions asked. On auscultation of lungs there is appreciable subcutaneous emphysema. History - Past Medical History Cardiovascular: reports: High cholesterol, Coronary artery disease, Deep vein thrombosis Respiratory: reports: None Neuro: reports: CVA Endocrine/Autoimmune: reports: Type 2 diabetes GI: reports: None TRAINING AND DEVELOPMENT PROFESSIONAL: reports: None : reports: None HEENT: reports: Chronic vision loss, Other Psych: reports: None Musculoskeletal: reports: Fibromyalgia, Hemiplegia Derm: reports: None MRSA Hx?: No - Past Surgical History HEENT: reports: Tonsil/Adenoidectomy - Family & Social History Family History Comment/Other: Prior records indicate the patient's parents are . Her mother of CHF complications but also had a major stroke in her 70s. Her father is secondary to a brain bleed secondary to a fall at age of 86. She has 5 siblings, 1 is due to Hodgkin's lymphoma. Social History Notes: The patient smoked on and off for 20 years combined at half a pack per day. She drinks wine with dinner on occasion. She uses marijuana. - POLST Patient has POLST: No POLST Status: Full Code Meds/Allgy - Home Medications Home Medications: Ambulatory Orders Medication Instructions Recorded Confirmed Cholecalciferol (Vitamin D3) 2,000 unit PO DAILY 08/21/15 04/25/21 [Vitamin D3] Gabapentin 400 mg PO DAILY 08/21/15 04/25/21 Rivaroxaban [Xarelto] 20 mg PO QDDINNER 08/18/19 04/25/21 Losartan [Cozaar] 50 mg PO BID 10/08/20 04/25/21 Metformin HCl [Glucophage] 1,000 mg PO BID 10/08/20 04/25/21 Multivitamin 1 each PO DAILY 10/08/20 04/25/21 Omeprazole Magnesium 20 mg PO BID 10/08/20 04/25/21 Atorvastatin [Lipitor] 20 mg PO QPM 04/25/21 04/25/21 Gabapentin [Neurontin] 800 mg PO QPM 04/25/21 04/25/21 Sertraline [Zoloft] 50 mg PO DAILY 04/25/21 04/25/21 Spironolactone [Aldactone] 25 mg PO DAILY 04/25/21 04/25/21 Verapamil HCl [Verapamil ER] 180 mg PO DAILY 04/25/21 04/25/21 - Allergies Allergies/Adverse Reactions: Allergies Allergy/AdvReac Type Severity Reaction Status Date / Time No Known Drug Allergies Allergy Verified 06/14/21 18:23 Review of Systems - Other Findings Other Findings: Review of system is currently limited because patient is encephalopathic and unable to provide a reliable history. Prior Level of Functionality: Patient's assists her with activities of daily living. Exam - Vital Signs Vital Signs: Vital Signs x48h Temp Pulse Resp BP Pulse Ox 06/14/21 20:23 66 18 97/51 L 95 06/14/21 18:34 22 94/50 L 94 06/14/21 18:14 35.9 C L 67 16 101/37 L 94 - Physical Exam General Appearance: positive: No acute distress, Alert, Other (Oriented to self only) Eyes Bilateral: positive: PERRL, EOMI ENT: positive: No signs of dehydration Neck: positive: No JVD, Trachea midline Respiratory: positive: Chest non-tender, No respiratory distress, Breath sounds nml, Other (Subcutaneous emphysema noted/crepitus on palpation of chest wall on the left.) Cardiovascular: positive: Regular rate & rhythm, No murmur Abdomen: positive: Non-tender, No organomegaly, Nml bowel sounds, No distention. negative: Guarding, Rebound Back: positive: Nml inspection Skin: positive: Color nml, No rash, Warm, Dry Extremities: positive: Non-tender, Full ROM, Nml appearance, No pedal edema Neurologic/Psychiatric: positive: Mood/affect nml, Disoriented to place, Disoriented to time Conclusion/Plan - Problem List (1) Altered mental status Conclusion/Plan: Etiology undetermined Suspected medication vs pneumonia Patient presented on 04/24/2021 with similar symptoms. At that time it was start that had gabapentin could be contributing to her symptoms. She is currently still on gabapentin which we will hold. She was empirically started on Rocephin and azithromycin after blood cultures were obtained for potential pneumonia. Her white blood cell count was 14.4 at time of presentation. CT brain done today was negative for any acute intracranial abnormality. It showed chronic left middle cerebral artery territory infarct. (2) Leukocytosis Conclusion/Plan: White blood cell count was 14.4. Reactive versus infectious. Chest x-ray done today raised reported right-sided pulmonary opacity for which pneumonia was a possibility. Blood cultures were drawn. Lactic acid was 1.8. Patient was started on Rocephin and azithromycin. (3) Pleural effusion Conclusion/Plan: Chest x-ray reported small right pleural effusion with atelectasis of the right lung bases. It was reported by the ED provider that the patient recently underwent another thoracentesis. Patient is breathing comfortably on room air without any difficulties. Oxygen saturation is 97% on room air. (4) Subcutaneous emphysema Conclusion/Plan: This is new when compared to CT scan from 04/24/2021. This is most likely related to recent instrumentation. Patient is comfortable on room air with oxygen saturation 97%. We will continue to monitor. Anticipating improvement/resolution over time. (5) History of CVA (cerebrovascular accident) Conclusion/Plan: With right-sided residual weakness. On atorvastatin, Xarelto, amlodipine and losartan. (6) Hyperlipidemia Conclusion/Plan: On atorvastatin 20 mg p.o. daily. (7) Hypertension Conclusion/Plan: On amlodipine, verapamil and losartan (8) T2DM (type 2 diabetes mellitus) Conclusion/Plan: We will hold patient's Metformin and gabapentin. Accu-Cheks before every meal and at bedtime. Sliding scale insulin. Carb controlled diet. - Lab Results Fish Bones: 06/14/21 18:48 06/14/21 18:48 Core Measures - Anticipated LOS I expect patient to be DC'd or transferred within 96 hours.: Yes - DVT/VTE - Prophylaxis VTE/DVT Device ordered at admit?: Yes
[2021-06-14] MEDS: SODIUM CHLORIDE 0.9% 1,000 ML IV SCH (21:49)
[2021-06-14] MEDS: INSULIN ASPART 300 UNIT/3 ML PEN SUBQ SCH (21:53)
[2021-06-15] MEDS: SODIUM CHLORIDE FLUSH 0.9% 10 ML SYRINGE IVP SCH ×4 (00:09→23:40)
[2021-06-15] MEDS ORDERED: LACTATED RINGERS 1,000 ML IV ONE (07:15)
[2021-06-15] MEDS: INSULIN ASPART 300 UNIT/3 ML PEN SUBQ SCH ×4 (08:05→21:42)
[2021-06-15 08:49] LABS: BASOPHILS % (AUTO) 0.4 %; EOSINOPHILS # (AUTO) 0.2 10^3/uL (0.0-0.7); EOSINOPHILS % (AUTO) 2.1 %; HGB - HEMOGLOBIN 10.8 g/dL (12.0-16.0); LYMPHOCYTES # (AUTO) 1.1 10^3/uL (1.5-3.5); LYMPHOCYTES % (AUTO) 10.8 %; MEAN CORPUSCULAR HEMOGLOBIN 29.6 pg (27.0-31.0); MEAN CORPUSCULAR HGB CONC 31.8 g/dL (32.0-36.0); MEAN CORPUSCULAR VOLUME 93.2 fL (81.0-99.0); MEAN PLATELET VOLUME 9.8 fL (7.9-10.8); MONOCYTES # (AUTO) 0.8 10^3/uL (0.0-1.0); MONOCYTES % (AUTO) 7.6 %; NEUTROPHILS % (AUTO) 77.9 %; PLT - PLATELET COUNT 418 10^3/uL (130-450); RED BLOOD COUNT 3.65 10^6/uL (4.20-5.40); RED CELL DISTRIBUTION WIDTH 14.1 % (12.0-15.0); WHITE BLOOD COUNT 10.2 x10^3/uL (4.8-10.8)
[2021-06-15 08:59] LABS: CREATININE 0.8 mg/dL (0.4-1.0); MAGNESIUM 2.4 mg/dL (1.7-2.8); PHOSPHORUS 2.7 mg/dL (2.5-4.6); POTASSIUM 4.4 mmol/L (3.5-5.0)
[2021-06-15 09:14] LABS: % IRON SATURATION 10 % (20-50); IRON 23 ug/dL (28-170); TOTAL IRON BINDING CAPACITY 232 ug/dL (250-450); TRANSFERRIN 166 mg/dL (192-382)
--- NOTE | 2021-06-15 09:27 | PHARMACY PROGRESS NOTE ---
- Best Possible Medication History Admit Date and Time: 06/14/212029 Processed by: Pharmacy Medication History completed: Yes Patient Interview: Pt unable to participate Secondary Source(s): Physician records, Insurance records As the person ultimately responsible for medication therapy, providers are able to order a medication from an existing home medication list in [facility] via the "Reconcile Routine" prior to Confirmation of that medication by work station support specialist. Such practice is discouraged except when the physician, in their clinical judgment, deems that a medical need exists for a medication without regard to previous use.
[2021-06-15] MEDS: cefTRIAXone 1 GM in SODIUM CHLORIDE 0.9% MINIBAG 100 ML IV SCH (10:05)
[2021-06-15] MEDS: SODIUM CHLORIDE 0.9% 1,000 ML IV SCH ×3 (12:22→21:41)
--- NOTE | 2021-06-15 13:57 | PROVIDER PROGRESS NOTE ---
Subjective - Prog Note Date Prog Note Date: 06/15/21 - Subjective Subjective: She denies any complaints. Reports no dyspnea. She is able to move her left upper extremity and leg. Current Medications - Current Medications Current Medications: Active Medications Acetaminophen (Acetaminophen 325 Mg Tablet) 650 mg PO Q4HR PRN PRN Reason: Pain 1 to 4 Gabapentin (Gabapentin 400 Mg Capsule) 400 mg PO DAILY [facility] Gabapentin (Gabapentin 400 Mg Capsule) 800 mg PO QPM [facility] Sodium Chloride (Normal Saline 0.9%) 1,000 mls @ 100 mls/hr IV .Q10H [facility] Last Admin: 06/15/21 12:22 Dose: 100 mls/hr Documented by: Ceftriaxone Sodium 1 gm/ (Sodium Chloride) 100 mls @ 200 mls/hr IV DAILY [facility] Stop: 06/18/21 09:29 Last Infusion: 06/15/21 10:43 Dose: Infused Documented by: Azithromycin 500 mg/ Sodium (Chloride) 250 mls @ 250 mls/hr IV DAILY [facility] Stop: 06/16/21 09:59 Insulin Aspart (Insulin Aspart 300 Unit/3 Ml Pen) 1 - 5 unit SUBQ 0800,1200,1700,2100 [facility]; Protocol Last Admin: 06/15/21 12:23 Dose: Not Given Documented by: Losartan Potassium (Losartan 50 Mg Tablet) 50 mg PO DAILY [facility] Non-Formulary Medication (Atorvastatin [Lipitor]) 20 mg PO QPM [facility] Non-Formulary Medication (Rivaroxaban [Xarelto]) 20 mg PO QDDINNER [facility] Non-Formulary Medication (Omeprazole Magnesium [Omeprazole Magnesium]) 20 mg PO BID [facility] Non-Formulary Medication (Verapamil Hcl [Verapamil Er]) 180 mg PO QPM [facility] Ondansetron HCl (Ondansetron 4 Mg/2 Ml Vial) 4 mg IVP Q6HR PRN PRN Reason: Nausea / Vomiting Sertraline HCl (Sertraline 50 Mg Tablet) 50 mg PO DAILY [facility] Sodium Chloride (Sodium Chloride Flush 0.9% 10 Ml Syringe) 10 ml IVP PRN PRN PRN Reason: NEEDED PER PROVIDER ORDERS Sodium Chloride (Sodium Chloride Flush 0.9% 10 Ml Syringe) 10 ml IVP 0100,0900,1700 [facility] Last Admin: 06/15/21 08:06 Dose: 10 ml Documented by: Spironolactone (Spironolactone 25 Mg Tablet) 25 mg PO DAILY [facility] Cholecalciferol (Vitamin D3) [Vitamin D3] 2,000 unit PO DAILY 08/21/15 Gabapentin 400 mg PO DAILY 08/21/15 Rivaroxaban [Xarelto] 20 mg PO QDDINNER 08/18/19 Losartan [Cozaar] 50 mg PO BID 10/08/20 Metformin HCl [Glucophage] 1,000 mg PO BID 10/08/20 Multivitamin 1 each PO DAILY 10/08/20 Omeprazole Magnesium 20 mg PO BID 10/08/20 Atorvastatin [Lipitor] 20 mg PO QPM 04/25/21 Gabapentin [Neurontin] 800 mg PO QPM 04/25/21 Sertraline [Zoloft] 50 mg PO DAILY 04/25/21 Spironolactone [Aldactone] 25 mg PO DAILY 04/25/21 Albuterol 2.5 mg INH Q4H PRN 06/15/21 Budesonide/Formoterol Fumarate [Symbicort 160-4.5 Mcg Inhaler] 2 puffs INH BID 06/15/21 Carvedilol [Coreg] 6.25 mg PO BID 06/15/21 Verapamil HCl [Verapamil ER] 240 mg PO QPM 06/15/21 Objective - Vital Signs/Intake & Output Reviewed Vital Signs: Yes Vital Signs: Vital Signs x48h Temp Pulse Resp BP Pulse Ox 06/15/21 09:00 36.4 C L 78 15 137/60 H 93 06/15/21 06:01 35.1 C L 74 16 113/56 L 95 Intake & Output: Intake & Output 06/12/21 06/13/21 06/14/21 06/15/21 23:59 23:59 23:59 23:59 Intake Total 342.677 5471.667 Output Total 1050 Balance 151.667 571.667 - Objective General Appearance: positive: No acute distress, Alert Eyes Bilateral: positive: Normal inspection, Conjunctivae nml ENT: positive: ENT inspection nml Neck: positive: Nml inspection Cardiovascular: positive: Regular rate & rhythm, No murmur. negative: Ta chycardia Abdomen: positive: Non-tender, No distention. negative: Tenderness Skin: positive: Warm, Dry Extremities: positive: No pedal edema Neurologic/Psychiatric: positive: Disoriented to time, Facial droop, Other (She has contractures of the right upper extremity. She has 1 out of 5 motor stren gth in the right upper and lower extremity. Motor strength is intact in the left upper extremity and lower extremity.). negative: Disoriented to person - Lab Results Fish Bones: 06/15/21 08:37 06/15/21 08:37 Other Labs: Lab Results x24hrs 06/15/21 06/15/21 06/15/21 Range/Units 08:37 08:37 08:37 WBC (4.8-10.8) x10^3/uL RBC (4.20-5.40) 10^6/uL Hgb (12.0-16.0) g/dL Hct (37.0-47.0) % MCV (81.0-99.0) fL MCH (27.0-31.0) pg MCHC (32.0-36.0) g/dL RDW (12.0-15.0) % Plt Count (130-450) 10^3/uL MPV (7.9-10.8) fL Neut # (Auto) (1.5-6.6) 10^3/uL Lymph # (Auto) (1.5-3.5) 10^3/uL Levy # (Auto) (0.0-1.0) 10^3/uL Eos # (Auto) (0.0-0.7) 10^3/uL Baso # (Auto) (0.0-0.1) 10^3/uL Absolute Nucleated RBC x10^3/uL Nucleated RBC % /100WBC VBG pH (7.31-7.41) VBG pCO2 (41-51) mmHg VBG pO2 (25-47) mmHg VBG HCO3 (23-28) mmol/L VBG Total CO2 (24-29) mmol/L VBG O2 Saturation (60-80) % VBG Base Excess (-2 - +2) mmol/L Sodium 135 (135-145) mmol/L Potassium 4.4 (3.5-5.0) mmol/L Chloride 101 (101-111) mmol/L Carbon Dioxide 26 (21-32) mmol/L Anion Gap 8.0 (6-13) BUN 18 (6-20) mg/dL Creatinine 0.8 (0.4-1.0) mg/dL Estimated GFR (MDRD) 71 L (>89) Glucose 100 (70-100) mg/dL Lactic Acid (0.5-2.2) mmol/L Calcium 8.0 L (8.5-10.3) mg/dL Phosphorus 2.7 (2.5-4.6) mg/dL Magnesium 2.4 (1.7-2.8) mg/dL Iron 23 L (28-170) ug/dL TIBC 232 L (250-450) ug/dL % Saturation 10 L (20-50) % Transferrin 166 L (192-382) mg/dL Ferritin 78.5 (11.0-306.8) ng/mL Total Bilirubin (0.2-1.0) mg/dL AST (10-42) IU/L ALT (10-60) IU/L Alkaline Phosphatase (42-121) IU/L Total Protein (6.7-8.2) g/dL Albumin (3.2-5.5) g/dL Globulin (2.1-4.2) g/dL Albumin/Globulin Ratio (1.0-2.2) Urine Color Urine Clarity (CLEAR) Urine pH (5.0-7.5) PH Ur Specific [place] (1.002-1.030) Urine Protein (NEGATIVE) mg/dL Urine Glucose (UA) (NEGATIVE) mg/dL Urine Ketones (NEGATIVE) mg/dL Urine Occult Blood (NEGATIVE) Urine Nitrite (NEGATIVE) Urine Bilirubin (NEGATIVE) Urine Urobilinogen (NORMAL) E.U./dL Ur Leukocyte Esterase (NEGATIVE) Ur Microscopic Review Urine Culture Comments Nasal Adenovirus (PCR) Nasal B. parapertussis DNA (PCR) Nasal Coronavir 229E PCR Nasal Coronavir HKU1 PCR Nasal Coronavir NL63 PCR Nasal Coronavir OC43 PCR Nasal Enterovir/Rhinovir PCR Nasal Influenza B PCR Nasal Influenza A PCR Nasal Parainfluen 1 PCR Nasal Parainfluen 2 PCR Nasal Parainfluen 3 PCR Nasal Parainfluen 4 PCR Nasal RSV (PCR) Nasal B.pertussis DNA PCR Nasal C.pneumoniae (PCR) Jewel Human Metapneumo PCR Nasal M.pneumoniae (PCR) Nasal SARS-CoV-2 (PCR) Urine Opiates Screen (NEGATIVE) Ur Oxycodone Screen (NEGATIVE) Urine Methadone Screen (NEGATIVE) Ur Propoxyphene Screen (NEGATIVE) Ur Barbiturates Screen (NEGATIVE) Ur Tricyclics Screen (NEGATIVE) Ur Phencyclidine Scrn (NEGATIVE) Ur Amphetamine Screen (NEGATIVE) U Methamphetamines Scrn (NEGATIVE) U Benzodiazepines Scrn (NEGATIVE) Urine Cocaine Screen (NEGATIVE) U Cannabinoids Screen (NEGATIVE) Ethyl Alcohol mg/dL 06/15/21 06/14/21 06/14/21 Range/Units 08:37 20:30 19:17 WBC 10.2 (4.8-10.8) x10^3/uL RBC 3.65 L (4.20-5.40) 10^6/uL Hgb 10.8 L (12.0-16.0) g/dL Hct 34.0 L (37.0-47.0) % MCV 93.2 (81.0-99.0) fL MCH 29.6 (27.0-31.0) pg MCHC 31.8 L (32.0-36.0) g/dL RDW 14.1 (12.0-15.0) % Plt Count 418 (130-450) 10^3/uL MPV 9.8 (7.9-10.8) fL Neut # (Auto) 8.0 H (1.5-6.6) 10^3/uL Lymph # (Auto) 1.1 L (1.5-3.5) 10^3/uL Levy # (Auto) 0.8 (0.0-1.0) 10^3/uL Eos # (Auto) 0.2 (0.0-0.7) 10^3/uL Baso # (Auto) 0.0 (0.0-0.1) 10^3/uL Absolute Nucleated RBC 0.00 x10^3/uL Nucleated RBC % 0.0 /100WBC VBG pH (7.31-7.41) VBG pCO2 (41-51) mmHg VBG pO2 (25-47) mmHg VBG HCO3 (23-28) mmol/L VBG Total CO2 (24-29) mmol/L VBG O2 Saturation (60-80) % VBG Base Excess (-2 - +2) mmol/L Sodium (135-145) mmol/L Potassium (3.5-5.0) mmol/L Chloride (101-111) mmol/L Carbon Dioxide (21-32) mmol/L Anion Gap (6-13) BUN (6-20) mg/dL Creatinine (0.4-1.0) mg/dL Estimated GFR (MDRD) (>89) Glucose (70-100) mg/dL Lactic Acid 1.8 (0.5-2.2) mmol/L Calcium (8.5-10.3) mg/dL Phosphorus (2.5-4.6) mg/dL Magnesium (1.7-2.8) mg/dL Iron (28-170) ug/dL TIBC (250-450) ug/dL % Saturation (20-50) % Transferrin (192-382) mg/dL Ferritin (11.0-306.8) ng/mL Total Bilirubin (0.2-1.0) mg/dL AST (10-42) IU/L ALT (10-60) IU/L Alkaline Phosphatase (42-121) IU/L Total Protein (6.7-8.2) g/dL Albumin (3.2-5.5) g/dL Globulin (2.1-4.2) g/dL Albumin/Globulin Ratio (1.0-2.2) Urine Color YELLOW Urine Clarity CLEAR (CLEAR) Urine pH 5.0 (5.0-7.5) PH Ur Specific [place] >=1.030 H (1.002-1.030) Urine Protein NEGATIVE (NEGATIVE) mg/dL Urine Glucose (UA) NEGATIVE (NEGATIVE) mg/dL Urine Ketones TRACE (NEGATIVE) mg/dL Urine Occult Blood NEGATIVE (NEGATIVE) Urine Nitrite NEGATIVE (NEGATIVE) Urine Bilirubin NEGATIVE (NEGATIVE) Urine Urobilinogen 0.2 (NORMAL) (NORMAL) E.U./dL Ur Leukocyte Esterase NEGATIVE (NEGATIVE) Ur Microscopic Review NOT INDICATED Urine Culture Comments NOT INDICATED Nasal Adenovirus (PCR) Nasal B. parapertussis DNA (PCR) Nasal Coronavir 229E PCR Nasal Coronavir HKU1 PCR Nasal Coronavir NL63 PCR Nasal Coronavir OC43 PCR Nasal Enterovir/Rhinovir PCR Nasal Influenza B PCR Nasal Influenza A PCR Nasal Parainfluen 1 PCR Nasal Parainfluen 2 PCR Nasal Parainfluen 3 PCR Nasal Parainfluen 4 PCR Nasal RSV (PCR) Nasal B.pertussis DNA PCR Nasal C.pneumoniae (PCR) Jewel Human Metapneumo PCR Nasal M.pneumoniae (PCR) Nasal SARS-CoV-2 (PCR) Urine Opiates Screen NEGATIVE (NEGATIVE) Ur Oxycodone Screen NEGATIVE (NEGATIVE) Urine Methadone Screen NEGATIVE (NEGATIVE) Ur Propoxyphene Screen NEGATIVE (NEGATIVE) Ur Barbiturates Screen NEGATIVE (NEGATIVE) Ur Tricyclics Screen NEGATIVE (NEGATIVE) Ur Phencyclidine Scrn NEGATIVE (NEGATIVE) Ur Amphetamine Screen NEGATIVE (NEGATIVE) U Methamphetamines Scrn NEGATIVE (NEGATIVE) U Benzodiazepines Scrn NEGATIVE (NEGATIVE) Urine Cocaine Screen NEGATIVE (NEGATIVE) U Cannabinoids Screen POSITIVE H (NEGATIVE) Ethyl Alcohol mg/dL 06/14/21 06/14/21 06/14/21 Range/Units 18:50 18:48 18:48 WBC (4.8-10.8) x10^3/uL RBC (4.20-5.40) 10^6/uL Hgb (12.0-16.0) g/dL Hct (37.0-47.0) % MCV (81.0-99.0) fL MCH (27.0-31.0) pg MCHC (32.0-36.0) g/dL RDW (12.0-15.0) % Plt Count (130-450) 10^3/uL MPV (7.9-10.8) fL Neut # (Auto) (1.5-6.6) 10^3/uL Lymph # (Auto) (1.5-3.5) 10^3/uL Levy # (Auto) (0.0-1.0) 10^3/uL Eos # (Auto) (0.0-0.7) 10^3/uL Baso # (Auto) (0.0-0.1) 10^3/uL Absolute Nucleated RBC x10^3/uL Nucleated RBC % /100WBC VBG pH 7.371 (7.31-7.41) VBG pCO2 41.2 (41-51) mmHg VBG pO2 50.0 H (25-47) mmHg VBG HCO3 23.3 (23-28) mmol/L VBG Total CO2 24.6 (24-29) mmol/L VBG O2 Saturation 84.6 H (60-80) % VBG Base Excess -1.8 (-2 - +2) mmol/L Sodium 132 L (135-145) mmol/L Potassium 4.2 (3.5-5.0) mmol/L Chloride 100 L (101-111) mmol/L Carbon Dioxide 23 (21-32) mmol/L Anion Gap 9.0 (6-13) BUN 22 H (6-20) mg/dL Creatinine 0.9 (0.4-1.0) mg/dL Estimated GFR (MDRD) 62 L (>89) Glucose 191 H (70-100) mg/dL Lactic Acid (0.5-2.2) mmol/L Calcium 7.9 L (8.5-10.3) mg/dL Phosphorus (2.5-4.6) mg/dL Magnesium 1.2 L (1.7-2.8) mg/dL Iron (28-170) ug/dL TIBC (250-450) ug/dL % Saturation (20-50) % Transferrin (192-382) mg/dL Ferritin (11.0-306.8) ng/mL Total Bilirubin 0.3 (0.2-1.0) mg/dL AST 13 (10-42) IU/L ALT 10 (10-60) IU/L Alkaline Phosphatase 87 (42-121) IU/L Total Protein 6.1 L (6.7-8.2) g/dL Albumin 2.7 L (3.2-5.5) g/dL Globulin 3.4 (2.1-4.2) g/dL Albumin/Globulin Ratio 0.8 L (1.0-2.2) Urine Color Urine Clarity (CLEAR) Urine pH (5.0-7.5) PH Ur Specific [place] (1.002-1.030) Urine Protein (NEGATIVE) mg/dL Urine Glucose (UA) (NEGATIVE) mg/dL Urine Ketones (NEGATIVE) mg/dL Urine Occult Blood (NEGATIVE) Urine Nitrite (NEGATIVE) Urine Bilirubin (NEGATIVE) Urine Urobilinogen (NORMAL) E.U./dL Ur Leukocyte Esterase (NEGATIVE) Ur Microscopic Review Urine Culture Comments Nasal Adenovirus (PCR) NOT DETECTED Nasal B. parapertussis DNA (PCR) NOT DETECTED Nasal Coronavir 229E PCR NOT DETECTED Nasal Coronavir HKU1 PCR NOT DETECTED Nasal Coronavir NL63 PCR NOT DETECTED Nasal Coronavir OC43 PCR NOT DETECTED Nasal Enterovir/Rhinovir PCR NOT DETECTED Nasal Influenza B PCR NOT DETECTED Nasal Influenza A PCR NOT DETECTED Nasal Parainfluen 1 PCR NOT DETECTED Nasal Parainfluen 2 PCR NOT DETECTED Nasal Parainfluen 3 PCR NOT DETECTED Nasal Parainfluen 4 PCR NOT DETECTED Nasal RSV (PCR) NOT DETECTED Nasal B.pertussis DNA PCR NOT DETECTED Nasal C.pneumoniae (PCR) NOT DETECTED Jewel Human Metapneumo PCR NOT DETECTED Nasal M.pneumoniae (PCR) NOT DETECTED Nasal SARS-CoV-2 (PCR) NOT DETECTED Urine Opiates Screen (NEGATIVE) Ur Oxycodone Screen (NEGATIVE) Urine Methadone Screen (NEGATIVE) Ur Propoxyphene Screen (NEGATIVE) Ur Barbiturates Screen (NEGATIVE) Ur Tricyclics Screen (NEGATIVE) Ur Phencyclidine Scrn (NEGATIVE) Ur Amphetamine Screen (NEGATIVE) U Methamphetamines Scrn (NEGATIVE) U Benzodiazepines Scrn (NEGATIVE) Urine Cocaine Screen (NEGATIVE) U Cannabinoids Screen (NEGATIVE) Ethyl Alcohol < 5.0 mg/dL 06/14/21 Range/Units 18:48 WBC 14.4 H (4.8-10.8) x10^3/uL RBC 3.68 L (4.20-5.40) 10^6/uL Hgb 10.8 L (12.0-16.0) g/dL Hct 33.8 L (37.0-47.0) % MCV 91.8 (81.0-99.0) fL MCH 29.3 (27.0-31.0) pg MCHC 32.0 (32.0-36.0) g/dL RDW 14.2 (12.0-15.0) % Plt Count 463 H (130-450) 10^3/uL MPV 9.9 (7.9-10.8) fL Neut # (Auto) 12.1 H (1.5-6.6) 10^3/uL Lymph # (Auto) 1.0 L (1.5-3.5) 10^3/uL Levy # (Auto) 0.9 (0.0-1.0) 10^3/uL Eos # (Auto) 0.2 (0.0-0.7) 10^3/uL Baso # (Auto) 0.1 (0.0-0.1) 10^3/uL Absolute Nucleated RBC 0.00 x10^3/uL Nucleated RBC % 0.0 /100WBC VBG pH (7.31-7.41) VBG pCO2 (41-51) mmHg VBG pO2 (25-47) mmHg VBG HCO3 (23-28) mmol/L VBG Total CO2 (24-29) mmol/L VBG O2 Saturation (60-80) % VBG Base Excess (-2 - +2) mmol/L Sodium (135-145) mmol/L Potassium (3.5-5.0) mmol/L Chloride (101-111) mmol/L Carbon Dioxide (21-32) mmol/L Anion Gap (6-13) BUN (6-20) mg/dL Creatinine (0.4-1.0) mg/dL Estimated GFR (MDRD) (>89) Glucose (70-100) mg/dL Lactic Acid (0.5-2.2) mmol/L Calcium (8.5-10.3) mg/dL Phosphorus (2.5-4.6) mg/dL Magnesium (1.7-2.8) mg/dL Iron (28-170) ug/dL TIBC (250-450) ug/dL % Saturation (20-50) % Transferrin (192-382) mg/dL Ferritin (11.0-306.8) ng/mL Total Bilirubin (0.2-1.0) mg/dL AST (10-42) IU/L ALT (10-60) IU/L Alkaline Phosphatase (42-121) IU/L Total Protein (6.7-8.2) g/dL Albumin (3.2-5.5) g/dL Globulin (2.1-4.2) g/dL Albumin/Globulin Ratio (1.0-2.2) Urine Color Urine Clarity (CLEAR) Urine pH (5.0-7.5) PH Ur Specific [place] (1.002-1.030) Urine Protein (NEGATIVE) mg/dL Urine Glucose (UA) (NEGATIVE) mg/dL Urine Ketones (NEGATIVE) mg/dL Urine Occult Blood (NEGATIVE) Urine Nitrite (NEGATIVE) Urine Bilirubin (NEGATIVE) Urine Urobilinogen (NORMAL) E.U./dL Ur Leukocyte Esterase (NEGATIVE) Ur Microscopic Review Urine Culture Comments Nasal Adenovirus (PCR) Nasal B. parapertussis DNA (PCR) Nasal Coronavir 229E PCR Nasal Coronavir HKU1 PCR Nasal Coronavir NL63 PCR Nasal Coronavir OC43 PCR Nasal Enterovir/Rhinovir PCR Nasal Influenza B PCR Nasal Influenza A PCR Nasal Parainfluen 1 PCR Nasal Parainfluen 2 PCR Nasal Parainfluen 3 PCR Nasal Parainfluen 4 PCR Nasal RSV (PCR) Nasal B.pertussis DNA PCR Nasal C.pneumoniae (PCR) Jewel Human Metapneumo PCR Nasal M.pneumoniae (PCR) Nasal SARS-CoV-2 (PCR) Urine Opiates Screen (NEGATIVE) Ur Oxycodone Screen (NEGATIVE) Urine Methadone Screen (NEGATIVE) Ur Propoxyphene Screen (NEGATIVE) Ur Barbiturates Screen (NEGATIVE) Ur Tricyclics Screen (NEGATIVE) Ur Phencyclidine Scrn (NEGATIVE) Ur Amphetamine Screen (NEGATIVE) U Methamphetamines Scrn (NEGATIVE) U Benzodiazepines Scrn (NEGATIVE) Urine Cocaine Screen (NEGATIVE) U Cannabinoids Screen (NEGATIVE) Ethyl Alcohol mg/dL Assessment/Plan - Problem List (1) Altered mental status Impression: This appears to have resolved. She appears to be back to her baseline neurologic status after speaking with her . He did inform me that she s tarted on carvedilol recently and he does not know if that may have played a part in what occurred yesterday evening. I do wonder if she might have been hypotensive or potentially bradycardic causing her to become unresponsive. Her blood pressure today is borderline with systolics as low as the 90s at times. This is without her receiving any of her home antihypertensives. Low suspicion for stroke at this time given lack of new deficits. CT on admission also showed no acute normalities. We will keep her hospitalized 1 more night as we resume her home and hypertensives at a reduced dose. If she is stable tomorrow then she can be discharged home. (2) Hypotension Impression: She is hypotensive at times with systolics as low as the 90s. I do wonder if she may have been hypotensive yesterday at home causing her presentation. She could have also been bradycardic although she has been in a sinus rhythm here without any significant bradycardia on telemetry. We will resume her home and hypertensives but at a lower dose. Losartan will be 50 mg once a day instead of twice daily. We will discontinue carvedilol. We will resume verapamil but at a lower dose of 180 mg. If she does well on this overnight then we will plan to discharge her tomorrow. (3) Community acquired pneumonia Impression: There was concern on admission for community-acquired pneumonia given an infiltrate on chest x-ray though this was difficult to appreciate due to subcutaneous emphysema from her recent thoracentesis. Her white count was elevated though and so we will treat her empirically. Is difficult to obtain a good history from the patient is we will treat her empirically with Rocephin and azithromycin with today being day 2. We will switch her to oral antibiotics tomorrow in preparation for discharge. (4) Subcutaneous emphysema Impression: Imaging revealed subcutaneous emphysema which was likely due to her recent lung biopsy. Her told me that she had a complication with a pneumothorax that required chest tube placement. We will continue to monitor at this time. (5) History of CVA with residual deficit Impression: She has a history of stroke with residual right-sided deficits. We have resumed her home Xarelto and Lipitor. (6) Hypertension Impression: She is a history of hypertension but is currently borderline hypotensive. We will adjust her home antihypertensives as mentioned above. (7) T2DM (type 2 diabetes mellitus) Impression: Her blood glucose is currently well controlled. We will keep on a sliding scale and carb controlled diet. Continue Metformin on discharge.
[2021-06-15] MEDS: AZITHROMYCIN INJ 500 MG in SODIUM CHLORIDE 0.9% 250 ML IV SCH (14:36)
[2021-06-15] MEDS: LOSARTAN 50 MG TABLET PO SCH (14:37)
[2021-06-15] MEDS: PANTOPRAZOLE 40 MG TABLET PO SCH (16:57)
[2021-06-15] MEDS ORDERED: ATORVASTATIN 10 MG TABLET PO SCH (21:00)
[2021-06-15] MEDS ORDERED: VERAPAMIL ER 180 MG TABLET PO SCH (21:00)
[2021-06-15] MEDS ORDERED: AZITHROMYCIN INJ 500 MG in SODIUM CHLORIDE 0.9% 250 ML IV SCH (21:00)
[2021-06-15] MEDS ORDERED: GABAPENTIN 400 MG CAPSULE PO SCH (21:00)
[2021-06-15] MEDS: polyethylene glycoL 3350 17 GM PACKET PO SCH (21:28)
[2021-06-15] MEDS: SENNA 8.6 MG TABLET PO SCH (21:29)
[2021-06-15] MEDS: APIXABAN 5 MG TABLET PO SCH (21:30)
[2021-06-15] MEDS: DOCUSATE SODIUM 250 MG CAPSULE PO SCH (21:30)
[2021-06-16] MEDS: PANTOPRAZOLE 40 MG TABLET PO SCH (05:16)
[2021-06-16 06:04] LABS: BASOPHILS % (AUTO) 0.4 %; EOSINOPHILS # (AUTO) 0.3 10^3/uL (0.0-0.7); EOSINOPHILS % (AUTO) 2.7 %; HCT - HEMATOCRIT 31.6 % (37.0-47.0); HGB - HEMOGLOBIN 10.2 g/dL (12.0-16.0); LYMPHOCYTES % (AUTO) 10.3 %; MEAN CORPUSCULAR HEMOGLOBIN 29.3 pg (27.0-31.0); MEAN CORPUSCULAR HGB CONC 32.3 g/dL (32.0-36.0); MEAN CORPUSCULAR VOLUME 90.8 fL (81.0-99.0); MEAN PLATELET VOLUME 9.6 fL (7.9-10.8); MONOCYTES # (AUTO) 0.9 10^3/uL (0.0-1.0); MONOCYTES % (AUTO) 8.8 %; NEUTROPHILS # (AUTO) 7.7 10^3/uL (1.5-6.6); NEUTROPHILS % (AUTO) 77.1 %; PLT - PLATELET COUNT 424 10^3/uL (130-450); RED BLOOD COUNT 3.48 10^6/uL (4.20-5.40); RED CELL DISTRIBUTION WIDTH 14.3 % (12.0-15.0)
[2021-06-16 06:13] LABS: CALCIUM 7.7 mg/dL (8.5-10.3); CREATININE 0.7 mg/dL (0.4-1.0); MAGNESIUM 1.7 mg/dL (1.7-2.8); PHOSPHORUS 2.6 mg/dL (2.5-4.6); POTASSIUM 3.6 mmol/L (3.5-5.0)
[2021-06-16] MEDS: SODIUM CHLORIDE 0.9% 1,000 ML IV SCH (06:52)
[2021-06-16] MEDS: cefTRIAXone 1 GM in SODIUM CHLORIDE 0.9% MINIBAG 100 ML IV SCH (07:54)
--- NOTE | 2021-06-16 08:13 | Discharge Plan ---
Discharge Plan Problem Reviewed?: Yes Disposition: Home, Self Care Condition: Stable Prescriptions: Amoxicillin 1,000 mg PO TID 2 Days #6 cap Diet: Regular Activity Restrictions: Activity as Tolerated Assistance Devices: Wheelchair Health Concerns: You were admitted to the hospital because of confusion. This is felt to be likely due to dehydration and low blood pressure. We gave you IV fluids and adjusted your blood pressure medications with improvement. There was concern that he may have potentially had a pneumonia and so you are treated with antibiotics. You are now stable for discharge home. Plan of Treatment: You were previously taking losartan 50 mg twice a day but please begin to take this only once a day. You can continue with your current dose of verapamil 240 mg in the evening. Please stop the carvedilol. Please finish the course of antibiotics which will resume on June 17 for 2 more days. Please take amoxicillin 1 g 3 times a day for the remaining 2 days. There were no other changes made to medications. Please ensure that you continue to drink plenty of fluids. Additional Instructions or Follow Up instructions: Please follow-up with your primary care physician within 1 week to ensure your blood pressure is stable. No Smoking: If you smoke, Please STOP! Call for help.
--- NOTE | 2021-06-16 08:15 | DISCHARGE SUMMARY ---
Discharge Summary Admit Date: 06/14/21 Discharge Date: 06/16/21 Discharging Provider: Too Rodriguez Primary Care Provider: Prem Vaughn Code Status: Attempt Resuscitation Condition at Discharge: Stable Discharge Disposition: 01 Home, Self Care - DIAGNOSES Admission Diagnoses: Altered mental status Leukocytosis Pleural effusion Subcutaneous emphysema History of CVA Hyperlipidemia Hypertension Type 2 diabetes mellitus Discharge Diagnoses with Status of Each Condition: Altered mental status - resolved. Hypotension - resolved. Community-acquired pneumonia - improved. Subcutaneous emphysema - stable. History of CVA with residual deficit - stable. Hypertension - stable. Type 2 diabetes mellitus - stable. - HPI History of Present Illness: H&P per Dr. Boyce: "71-year-old woman with history of prior stroke presents from home with altered mental status which is reportedly improving compared to what the paramedics initially saw. She had a similar presentation in early April and was in the hospital for 2 days. It was felt to be due to gabapentin use in the setting of mild acute kidney injury. She is still on gabapentin. She was released from another hospital 10 days ago where it sounds like she had a biopsy of a lung lesion or pleural effusion drainage. She is on Xarelto. Prehospital blood sugar was 180. Family was concerned that she was having a stroke but really her symptoms were just decreased mental status and communication. She has chronic deficits on the right side from prior stroke. " The above account Obtained from the ED physician Dr. Babcock H&P because the patient is currently altered and unable to provide history. Upon presentation to bedside she is awake and alert but mainly oriented to self. She is not in any distress. She does not answer any questions asked. On auscultation of lungs there is appreciable subcutaneous emphysema. - HOSPITAL COURSE Hospital Course: She was admitted for altered mental status which was felt to likely be secondary to acute kidney injury and potentially gabapentin accumulation due to this. It was noted she was also hypotensive and quite dehydrated. She treated with IV fluids with improvement in her mentation. After discussion with her , it was noted she was started on carvedilol recently and the concern was that she may have become hypotensive with this or bradycardic causing her to become altered at times. Initial x-ray is also concerning for potential infiltrate and so she was treated with ceftriaxone and azithromycin. Her home blood pressure medications were resumed but losartan was continued at a lower dose of 50 mg daily instead of twice daily and carvedilol was discontinued. She did well with this and was actually hypertensive with systolics in the 160s but given she was mentating well, it was felt this was acceptable for the time being. She was discharged home on her home antihypertensives except with a change of the reduced dose of losartan to once daily and the discontinuation of carvedilol. She is also prescribed amoxicillin 1 g 3 times daily for 2 more days to complete 5 days of therapy for the pneumonia. She will need follow-up with a primary care physician to monitor her blood pressure. - ALLERGIES Allergies/Adverse Reactions: Allergies Allergy/AdvReac Type Severity Reaction Status Date / Time No Known Drug Allergies Allergy Verified 06/14/21 18:23 - MEDICATIONS Home Medications: Ambulatory Orders Medication Instructions Recorded Confirmed Cholecalciferol (Vitamin D3) 2,000 unit PO DAILY 08/21/15 06/15/21 [Vitamin D3] Gabapentin 400 mg PO DAILY 08/21/15 06/15/21 Rivaroxaban [Xarelto] 20 mg PO QDDINNER 08/18/19 06/15/21 Metformin HCl [Glucophage] 1,000 mg PO BID 10/08/20 06/15/21 Multivitamin 1 each PO DAILY 10/08/20 06/15/21 Omeprazole Magnesium 20 mg PO BID 10/08/20 06/15/21 Atorvastatin [Lipitor] 20 mg PO QPM 04/25/21 06/15/21 Gabapentin [Neurontin] 800 mg PO QPM 04/25/21 06/15/21 Sertraline [Zoloft] 50 mg PO DAILY 04/25/21 06/15/21 Spironolactone [Aldactone] 25 mg PO DAILY 04/25/21 06/15/21 Albuterol 2.5 mg INH Q4H PRN 06/15/21 06/15/21 Budesonide/Formoterol Fumarate 2 puffs INH BID 06/15/21 06/15/21 [Symbicort 160-4.5 Mcg Inhaler] Verapamil HCl [Verapamil ER] 240 mg PO QPM 06/15/21 06/15/21 Amoxicillin 1,000 mg PO TID 2 Days #6 cap 06/16/21 Losartan [Cozaar] 50 mg PO DAILY tablet 06/16/21 - PHYSICAL EXAM AT DISCHARGE General Appearance: positive: No acute distress, Alert Eyes Bilateral: positive: Normal inspection, Conjunctivae nml ENT: positive: ENT inspection nml Neck: positive: Nml inspection Respiratory: positive: No respiratory distress, Other (Diminished right base.) Cardiovascular: positive: Regular rate & rhythm. negative: Tachycardia Abdomen: positive: Non-tender, No distention. negative: Tenderness Skin: positive: Warm, Dry Extremities: positive: No pedal edema Neurologic/Psychiatric: positive: Disoriented to time, Slurred/abnml speech (She predominantly only answers yes and no to most questions. Will occasionally say a few words but for the most part just nods and says yes or no.), Other (Right hand is contracted. Motor strength about 1-2 out of 5 in the right upper and lower extremities.). negative: Disoriented to person Physical Exam Other/Comments: Vital Signs - 24 hr 06/15/21 06/15/21 06/16/21 19:41 23:38 05:11 Temperature 36.9 C 36.9 C 36.9 C Heart Rate [ 85 80 73 Brachial] Respiratory 16 18 16 Rate Blood Pressure 151/60 H 148/66 H 152/52 H [Left Brachial artery] O2 Saturation 95 93 94 06/16/21 09:00 Temperature 36.7 C Heart Rate [ 73 Brachial] Respiratory 22 Rate Blood Pressure 181/72 H [Left Brachial artery] O2 Saturation 96 Oxygen O2 Source Room air - LABS Result Diagrams: 06/16/21 05:47 06/16/21 05:47 - FOLLOW UP Follow Up: She will need follow-up with her primary care physician in 1 to 2 weeks to ensure her blood pressure stable. - TIME SPENT Time Spent in Discharge (Minutes): 32
[2021-06-16] MEDS: polyethylene glycoL 3350 17 GM PACKET PO SCH (08:24)
[2021-06-16] MEDS: SENNA 8.6 MG TABLET PO SCH (08:24)
[2021-06-16] MEDS: LOSARTAN 50 MG TABLET PO SCH (08:24)
[2021-06-16] MEDS: DOCUSATE SODIUM 250 MG CAPSULE PO SCH (08:24)
[2021-06-16] MEDS: APIXABAN 5 MG TABLET PO SCH (08:24)
[2021-06-16] MEDS: SODIUM CHLORIDE FLUSH 0.9% 10 ML SYRINGE IVP SCH (08:27)
[2021-06-16] MEDS: INSULIN ASPART 300 UNIT/3 ML PEN SUBQ SCH ×2 (08:27→12:45)
[2021-06-16] MEDS: AZITHROMYCIN INJ 500 MG in SODIUM CHLORIDE 0.9% 250 ML IV SCH (08:35)
[2021-06-16] MEDS ORDERED: SERTRALINE 50 MG TABLET PO SCH (09:00)
[2021-06-16] MEDS ORDERED: GABAPENTIN 400 MG CAPSULE PO SCH (09:00)
[2021-06-16] MEDS ORDERED: SPIRONOLACTONE 25 MG TABLET PO SCH (09:00)
[2021-06-16 09:04] VITALS: BP 181/72
== END 2021-06-16 14:43 | disposition home or self-care (01) | DRG 682 ==
LOC: EDBD → EDUNIT# → ED 18:13 → MS2 20:30 → OBSVTOIN 06-15 13:45
PROVIDERS: ADMIT Internal Medicine; ATTEND Internal Medicine
DX: R41.82 Altered mental status, unspecified (principal); N17.9 Acute kidney failure, unspecified; D72.829 Elevated white blood cell count, unspecified; J90 Pleural effusion, not elsewhere classified; J18.9 Pneumonia, unspecified organism; I69.351 Hemiplegia and hemiparesis following cerebral infarction affecting right dominant side; T79.7XXA Traumatic subcutaneous emphysema, initial encounter; I10 Essential (primary) hypertension; Z20.822 Contact with and (suspected) exposure to COVID-19; Z79.01 Long term (current) use of anticoagulants; I95.9 Hypotension, unspecified; E11.9 Type 2 diabetes mellitus without complications; E78.00 Pure hypercholesterolemia, unspecified; Z87.891 Personal history of nicotine dependence; I25.10 Atherosclerotic heart disease of native coronary artery without angina pectoris; Z79.51 Long term (current) use of inhaled steroids; Z79.84 Long term (current) use of oral hypoglycemic drugs; Z79.899 Other long term (current) drug therapy; Z82.3 Family history of stroke; Z82.49 Family history of ischemic heart disease and other diseases of the circulatory system; Z86.718 Personal history of other venous thrombosis and embolism
CPT/HCPCS: 36415; 70450; 71045; 80048; 80053; 80306; 81003; 82728; 82803; 83540; 83605; 83735; 84100; 84466; 85025; 87040; 87631; 93005; 96365; 96366; 96367; 96375; 96376; 99285; A9270; G0480; J7120; 0202U; 80320; 81001; 87086

== ENCOUNTER 2021-06-16 14:31 | Outpatient (CLI) | payer MEDICARE, MEDICAID | END 2021-06-16 14:32 | disposition home or self-care (01) | LOC: EMS 14:31 | PROVIDERS: ATTEND Internal Medicine | DX: Z74.01 Bed confinement status (principal); R41.82 Altered mental status, unspecified; I69.351 Hemiplegia and hemiparesis following cerebral infarction affecting right dominant side | CPT/HCPCS: A0425; A0428 ==

== ENCOUNTER 2021-10-06 07:30 | Outpatient (CLI) | payer MEDICARE, MEDICAID | END 2021-10-06 07:31 | disposition critical access hospital (66) | LOC: EMS 07:30 | DX: R11.10 Vomiting, unspecified (principal); W05.0XXA Fall from non-moving wheelchair, initial encounter; Y92.009 Unspecified place in unspecified non-institutional (private) residence as the place of occurrence of the external cause; I10 Essential (primary) hypertension; Z79.01 Long term (current) use of anticoagulants | CPT/HCPCS: A0425; A0429 ==

== ENCOUNTER 2021-10-06 07:42 | Emergency (ER) | payer MEDICARE, MEDICAID ==
--- NOTE | 2021-10-06 07:49 | ED Physician Documentation ---
PD HPI Fall - Stated complaint Stated Complaint: FALL FROM WHEELCHAIR/ALOC - History obtained from History obtained from: Patient (limited due to prior CVA/dementia), Family, EMS - History of Present Illness Mechanism of injury: Lost balance (she remembers falling from wheelchair last night and being on floor awhile. EMS reports that the told them he did not see the fall and patient was on floor unknown amount of time. He helped her up into bed. This morning, he felt she was a bit more confused than baseline, and some head pain.) Fall distance: Sitting position (from wheelchair) Where injury occurred: Home Timing - onset: Last night (during the night sometime.) Injury(ies) location: Head (presume hit head from mechanism of fall.), Right Upper Extremity (she seems to have pain with right shoulder movement, though has some stiffness/contracture from prior CVA in right arm/leg baseline. No apparent head injury, but is on Xarelto.). No: Neck Associated symptoms: AMS (her felt patient was a bit more confused this morning.). No: LOC Contributing factors: Anticoagulated Similar symptoms before: Has not had sx before Recently seen: Not recently seen Review of Systems Constitutional: denies: Fever Cardiac: denies: Chest pain / pressure Respiratory: denies: Dyspnea, Cough GI: denies: Abdominal Pain, Vomiting, Diarrhea Skin: denies: Abrasion (s), Laceration (s) PD PAST MEDICAL HISTORY - Past Medical History Cardiovascular: High cholesterol, Coronary artery disease, Deep vein thrombosis Respiratory: None Neuro: CVA (with right sided weakness and muscle stiffness/mild contractures. 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 : None HEENT: Chronic vision loss, Other Psych: None Musculoskeletal: Fibromyalgia, Hemiplegia Derm: None - Past Surgical History Past Surgical History: No HEENT: Tonsil/Adenoidectomy - Present Medications Home Medications: Ambulatory Orders Medication Instructions Recorded Confirmed Cholecalciferol (Vitamin D3) 2,000 unit PO DAILY 08/21/15 06/15/21 [Vitamin D3] Gabapentin 400 mg PO DAILY 08/21/15 06/15/21 Rivaroxaban [Xarelto] 20 mg PO QDDINNER 08/18/19 06/15/21 Metformin HCl [Glucophage] 1,000 mg PO BID 10/08/20 06/15/21 Multivitamin 1 each PO DAILY 10/08/20 06/15/21 Omeprazole Magnesium 20 mg PO BID 10/08/20 06/15/21 Atorvastatin [Lipitor] 20 mg PO QPM 04/25/21 06/15/21 Gabapentin [Neurontin] 800 mg PO QPM 04/25/21 06/15/21 Sertraline [Zoloft] 50 mg PO DAILY 04/25/21 06/15/21 Spironolactone [Aldactone] 25 mg PO DAILY 04/25/21 06/15/21 Albuterol 2.5 mg INH Q4H PRN 06/15/21 06/15/21 Budesonide/Formoterol Fumarate 2 puffs INH BID 06/15/21 06/15/21 [Symbicort 160-4.5 Mcg Inhaler] Verapamil HCl [Verapamil ER] 240 mg PO QPM 06/15/21 06/15/21 Amoxicillin 1,000 mg PO TID 2 Days #6 cap 06/16/21 Losartan [Cozaar] 50 mg PO DAILY tablet 06/16/21 - Allergies Allergies/Adverse Reactions: Allergies Allergy/AdvReac Type Severity Reaction Status Date / Time No Known Drug Allergies Allergy Verified 10/06/21 07:51 - Social History Does the pt smoke?: No Smoking Status: Unknown if ever smoked Does the pt drink ETOH?: Yes Does the pt have substance abuse?: No - Immunizations Immunizations are current?: No Immunizations: TDAP >10years/unknown - POLST Patient has POLST: No POLST Status: Full Code PD ED PE NORMAL - Vitals Vital signs reviewed: Yes - General General: No acute distress, Well developed/nourished. No: Alert and oriented X 3 (alert and conversant. Oriented to person and place. ) - HEENT HEENT: Other (mild tenderness back of scalp without swelling. ) - Neck Neck: Supple, no meningeal sign, No bony TTP, No adenopathy - Cardiac Cardiac: No murmur, Other (no chestwall tenderness) - Respiratory Respiratory: No respiratory distress, Clear bilaterally - Abdomen Abdomen: Soft, Non tender - Derm Derm: Normal color, Warm and dry - Extremities Extremities: Other (right arm and leg with weakness but also stiffness for ROM. Right shoulder seems to hurt with passive ROM. No obvious deformity. Left arm/leg with good ROM and no pain. ) - Neuro Neuro: Normal speech Eye Opening: Spontaneous Motor: Obeys Commands Verbal: Confused (more with not oriented to time and less memory of recent events.) GCS Score: 14 Results - Vitals Vitals: Vital Signs - 24 hr 10/06/21 10/06/21 10/06/21 07:43 08:23 09:00 Temperature 37.0 C Heart Rate 104 H 98 96 Respiratory 21 24 16 Rate Blood Pressure 210/93 H 210/75 H 197/72 H O2 Saturation 97 98 96 Oxygen O2 Source Room air - Labs Labs: Laboratory Tests 10/06/21 10/06/21 08:45 08:45 WBC 12.9 H RBC 4.07 L Hgb 11.6 L Hct 35.4 L MCV 87.0 MCH 28.5 MCHC 32.8 RDW 15.6 H Plt Count 469 H MPV 9.2 Neut # (Auto) 11.5 H Lymph # (Auto) 0.5 L [place] # (Auto) 0.8 Eos # (Auto) 0.1 Baso # (Auto) 0.1 Absolute Nucleated RBC 0.00 Nucleated RBC % 0.0 Sodium 139 Potassium 4.2 Chloride 99 L Carbon Dioxide 26 Anion Gap 14.0 H BUN 18 Creatinine 1.0 Estimated GFR (MDRD) 55 L Glucose 137 H Calcium 9.0 Magnesium 1.3 L Total Bilirubin 0.6 AST 20 ALT 13 Alkaline Phosphatase 127 H Total Creatine Kinase 109 Total Protein 8.2 Albumin 3.7 Globulin 4.5 H Albumin/Globulin Ratio 0.8 L Lipase 32 - Rads (name of study) head CT Radiology: Prelim report reviewed (no intracranial hemorrhage), See rad report cervical CT Radiology: Prelim report reviewed (no fractures), See rad report shoulder xray Radiology: Prelim report reviewed (prior healed distal clavicle fracture. No acute fractures. ), See rad report PD MEDICAL DECISION MAKING - ED course Complexity details: reviewed results, re-evaluated patient (still awake and alert, without any pain complaints as she is lying there. BP initially elevated and is improving without treatment.), considered differential, d/w patient - Critical Care Time(min): 25 Time Includes: Direct patient care (modified trauma patient, fall on anticoagulants), Reassess patient, Document care, Coordinate care Departure - Departure Disposition: 01 Home, Self Care Clinical Impression: Fall from wheelchair, Anticoagulant long-term use Condition: Stable Comments: We did some basic blood test to look at your blood count, electrolytes, kidney function, and any signs of notable muscle breakdown. These are normal. We did a CT scan of your head and neck and there were no acute injuries noted. We x-rayed your shoulder and no signs of fractures. You may still be sore in places from having fallen. Tylenol every 4-6 hours if needed for pains. Continue your other usual medicines.
--- NOTE | 2021-10-06 08:36 | XRAY Report ---
PROCEDURE: Shoulder 3 View RT INDICATIONS: fall, shoulder pain TECHNIQUE: 4 views of the shoulder were acquired. COMPARISON: Correlation is made with the prior clavicle plain films, 3-16. Correlation is also made with the accompanying CT examinations, 10/06/2021. FINDINGS: Bones: No acute fractures or dislocations. There is a remote, healed right distal clavicle fracture . No suspicious bony lesions. Visualized ribs appear intact. Degenerative changes are seen, includi ng mild subacromial spurring. Soft tissues: No suspicious soft tissue calcifications. The visualized lung demonstrates a normal a ppearance. IMPRESSION: No acute fracture or dislocation can be seen. Underlying degenerative changes are seen. Remote, healed right distal clavicle fracture. Reviewed by: Stefano Mora MD on 10/06/2021 7:35 AM PAIGE Approved by: Stefano Mora MD on 10/06/2021 7:35 AM PAIGE Station ID: [id number]
--- NOTE | 2021-10-06 08:39 | CT Report ---
PROCEDURE: HEAD WO INDICATIONS: fall, struck head, on DOAC TECHNIQUE: Noncontrast 4.5 mm thick angled axial sections acquired from the foramen magnum to the vertex. For r adiation dose reduction, the following was used: automated exposure control, adjustment of mA and/or kV according to patient size. COMPARISON: 05/25/2021, 04/24/2021. Correlation is made with the accompanying cervical spine CT, 09/20. FINDINGS: Image quality: Excellent. CSF spaces: Basal cisterns are patent. No extra-axial fluid collections. Ventricles are stable, wi th ex vacuo dilatation of the left lateral ventricle. Brain: No midline shift. No intracranial masses or hemorrhage. Graff-white matter interface is norm al. There is a remote left MCA distribution infarction seen. Skull and face: Calvarium and visualized facial bones are intact, without suspicious lesions. Sinuses: Visualized sinuses and mastoids are clear. Bilateral cipriano bullosa are incidentally noted . IMPRESSION: No intracranial hemorrhage is seen. No acute intracranial abnormality is seen. Remote left MCA distribution infarction again seen, with ex vacuo dilatation of the left lateral vent ricle, as before. Reviewed by: Stefano Mora MD on 10/06/2021 7:38 AM PAIGE Approved by: Stefano Mora MD on 10/06/2021 7:38 AM PAIGE Station ID: [id number]
--- NOTE | 2021-10-06 08:51 | CT Report ---
PROCEDURE: CERVICAL SPINE WO INDICATIONS: fall with some neck pain TECHNIQUE: Noncontrast 3 mm thick sections acquired from the skull base to the T4 level. Sagittal and coronal r eformats were then constructed. For radiation dose reduction, the following was used: automated exp osure control, adjustment of mA and/or kV according to patient size. COMPARISON: 07/11/2015. Correlation is also made with the accompanying head CT, 10/06/2021 and the betty or chest CT examinations of 04/24/2021 and 03/25/2021. FINDINGS: Image quality: Excellent. Bones: No acute fractures or dislocations. There is a remote right clavicle fracture. Visualized schultz perior ribs are intact. Multiple levels of relatively prominent degenerative change can be seen, including mild to moderate d isc space narrowing at C2-C3 and C3-C4, with moderate to severe disc space narrowing at C4-C5, C5-C6, C6-C7, and C7-T1. Partially bridging anterior osteophytes are seen C3-T1. Minimal anterolisthesis is seen at C4-C5, C5-6, C6-C7, and C7-T1. Focal degenerative change can also be seen involving the C1-C 2 interface anteriorly. Soft tissues: Prevertebral soft tissues are normal in thickness. No paravertebral hematomas. Within the right lung apex, there is a staple line, which is best demonstrated on coronal images. Lik oscar scarring change can be seen along the staple line There is a small right-sided pleural effusion. Atherosclerotic calcification is seen. There is partial visualization of aneurysmal dilatation of the distal aortic arch, measuring up to 4.1 cm. IMPRESSION: No acute fractures are seen. Advanced cervical spine degenerative changes are seen. Postoperative change of the right lung apex, with likely scarring along the staple line. Small right-sided pleural effusion. Remote right clavicle fracture Atherosclerotic calcification, with partial visualization of an aneurysm involving the distal aortic arch, 4.1 cm. Reviewed by: Stefano Mora MD on 10/06/2021 7:50 AM PAIGE Approved by: Stefano Mora MD on 10/06/2021 7:50 AM PAIGE Station ID: [id number]
[2021-10-06 08:52] LABS: BASOPHILS # (AUTO) 0.1 10^3/uL (0.0-0.1); BASOPHILS % (AUTO) 0.4 %; EOSINOPHILS # (AUTO) 0.1 10^3/uL (0.0-0.7); EOSINOPHILS % (AUTO) 0.4 %; HCT - HEMATOCRIT 35.4 % (37.0-47.0); HGB - HEMOGLOBIN 11.6 g/dL (12.0-16.0); LYMPHOCYTES # (AUTO) 0.5 10^3/uL (1.5-3.5); LYMPHOCYTES % (AUTO) 3.6 %; MEAN CORPUSCULAR HEMOGLOBIN 28.5 pg (27.0-31.0); MEAN CORPUSCULAR HGB CONC 32.8 g/dL (32.0-36.0); MEAN PLATELET VOLUME 9.2 fL (7.9-10.8); MONOCYTES # (AUTO) 0.8 10^3/uL (0.0-1.0); MONOCYTES % (AUTO) 5.9 %; NEUTROPHILS # (AUTO) 11.5 10^3/uL (1.5-6.6); NEUTROPHILS % (AUTO) 89.2 %; PLT - PLATELET COUNT 469 10^3/uL (130-450); RED BLOOD COUNT 4.07 10^6/uL (4.20-5.40); RED CELL DISTRIBUTION WIDTH 15.6 % (12.0-15.0); WHITE BLOOD COUNT 12.9 x10^3/uL (4.8-10.8)
[2021-10-06 09:07] LABS: ALBUMIN 3.7 g/dL (3.2-5.5); ALBUMIN/GLOBULIN RATIO 0.8 (1.0-2.2); BILIRUBIN,TOTAL 0.6 mg/dL (0.2-1.0); MAGNESIUM 1.3 mg/dL (1.7-2.8); POTASSIUM 4.2 mmol/L (3.5-5.0); TOTAL PROTEIN 8.2 g/dL (6.7-8.2)
[2021-10-06 14:33] VITALS: BP 167/71
== END 2021-10-06 14:32 | disposition home or self-care (01) ==
LOC: EDUNIT# → ED 07:42
DX: S09.90XA Unspecified injury of head, initial encounter (principal); W05.0XXA Fall from non-moving wheelchair, initial encounter; Z86.718 Personal history of other venous thrombosis and embolism; Z79.01 Long term (current) use of anticoagulants; E11.9 Type 2 diabetes mellitus without complications; Z79.84 Long term (current) use of oral hypoglycemic drugs
CPT/HCPCS: 36415; 80053; 82550; 83690; 83735; 85025; 99282; 99284

== ENCOUNTER 2022-10-22 14:07 | Outpatient (CLI) | payer MEDICARE, MEDICAID ==
--- NOTE | 2022-10-22 16:31 | CT Report ---
PROCEDURE: CHEST WO INDICATIONS: RUL LUNG CA TECHNIQUE: Noncontrast 1mm axial images were acquired from the pulmonary apices to the posterior costophrenic an gles. Axial 5 mm soft tissue kernel reconstructions were performed as well as 8 mm axial MIP and cor onal and sagittal 5 mm reformations. For radiation dose reduction, the following was used: automate d exposure control, adjustment of mA and/or kV according to patient size. COMPARISON: CT 04/24/2021, 03/25/2021 FINDINGS: Image quality: Excellent. Lungs and pleura: Prior right upper lobe wedge resection. Nodularity along the surgical margin, follo wing the sutures. No suspicious nodules. Mediastinum: Heart size is normal. No pericardial effusions. No mediastinal adenopathy by size criter ia. No large vessel abnormality. Moderate hiatal hernia. Chest wall and lower neck: Thyroid is unremarkable. No axillary or supraclavicular adenopathy by size . Bones: No aggressive osseous abnormality. Osteoporosis by Hounsfield units criteria.. Upper Abdomen: Dystrophic calcifications of the liver and spleen, probably posttraumatic. Cholelithia sis without evidence of acute cholecystitis. IMPRESSION: Prior right upper lobe wedge resection. Linear nodularity along the suture line may indicate local re currence versus scarring. Close attention on follow-up. Alternatively, PET/CT. Osteoporosis by Hounsfield units criteria. Reviewed by: Ady Griffin on 10/22/2022 4:30 PM PDT Approved by: Ady Griffin on 10/22/2022 4:30 PM PDT Station ID: [id number]
== END 2022-10-22 14:08 | disposition home or self-care (01) ==
LOC: DI 14:07
PROVIDERS: ATTEND Internal Medicine Medical Oncology
DX: C34.11 Malignant neoplasm of upper lobe, right bronchus or lung (principal)

== ENCOUNTER 2022-12-19 21:15 | Outpatient (CLI) | payer MEDICARE, MEDICAID | END 2022-12-19 21:16 | disposition EMS.NT | LOC: EMS 21:15 | DX: Z03.89 Encounter for observation for other suspected diseases and conditions ruled out (principal) ==

== ENCOUNTER 2023-04-13 13:44 | Outpatient (CLI) | payer MEDICARE, MEDICAID ==
[2023-04-13 14:02] LABS: BASOPHILS # (AUTO) 0.1 10^3/uL (0.0-0.1); BASOPHILS % (AUTO) 0.7 %; EOSINOPHILS # (AUTO) 0.3 10^3/uL (0.0-0.7); EOSINOPHILS % (AUTO) 4.1 %; HGB - HEMOGLOBIN 12.4 g/dL (12.0-16.0); LYMPHOCYTES # (AUTO) 0.9 10^3/uL (1.5-3.5); LYMPHOCYTES % (AUTO) 10.9 %; MEAN CORPUSCULAR HEMOGLOBIN 29.7 pg (27.0-31.0); MEAN CORPUSCULAR HGB CONC 31.8 g/dL (32.0-36.0); MEAN CORPUSCULAR VOLUME 93.5 fL (81.0-99.0); MEAN PLATELET VOLUME 9.9 fL (7.9-10.8); MONOCYTES # (AUTO) 0.5 10^3/uL (0.0-1.0); MONOCYTES % (AUTO) 6.1 %; NEUTROPHILS # (AUTO) 6.4 10^3/uL (1.5-6.6); NEUTROPHILS % (AUTO) 77.6 %; PLT - PLATELET COUNT 389 10^3/uL (130-450); RED BLOOD COUNT 4.17 10^6/uL (4.20-5.40); RED CELL DISTRIBUTION WIDTH 14.4 % (12.0-15.0); WHITE BLOOD COUNT 8.2 x10^3/uL (4.8-10.8)
[2023-04-13 14:23] LABS: ALBUMIN/GLOBULIN RATIO 1.1 (1.0-2.2); BILIRUBIN,TOTAL 0.5 mg/dL (0.2-1.0); CALCIUM 9.3 mg/dL (8.5-10.3); CREATININE 1.1 mg/dL (0.6-1.3); POTASSIUM 4.3 mmol/L (3.5-4.5); TOTAL PROTEIN 7.6 g/dL (6.4-8.9)
[2023-04-13 21:08] LABS: ESTIMATED AVERAGE GLUCOSE 140 mg/dL (70-100); HEMOGLOBIN A1c% 6.5 % (4.27-6.07)
== END 2023-04-13 13:45 | disposition home or self-care (01) ==
LOC: LAB 13:44
PROVIDERS: ATTEND Family Medicine
DX: I10 Essential (primary) hypertension (principal); F12.10 Cannabis abuse, uncomplicated; J90 Pleural effusion, not elsewhere classified; I48.91 Unspecified atrial fibrillation; K80.20 Calculus of gallbladder without cholecystitis without obstruction; R01.1 Cardiac murmur, unspecified; Z79.01 Long term (current) use of anticoagulants; J44.9 Chronic obstructive pulmonary disease, unspecified; F33.0 Major depressive disorder, recurrent, mild; I69.354 Hemiplegia and hemiparesis following cerebral infarction affecting left non-dominant side; E11.9 Type 2 diabetes mellitus without complications
CPT/HCPCS: 36415; 80053; 83036; 85025

== ENCOUNTER 2023-06-23 14:01 | Outpatient (CLI) | payer MEDICARE, MEDICAID | END 2023-06-23 23:59 | disposition critical access hospital (66) | LOC: EMS 14:01 | DX: S01.01XA Laceration without foreign body of scalp, initial encounter (principal); W18.30XA Fall on same level, unspecified, initial encounter; Y92.002 Bathroom of unspecified non-institutional (private) residence as the place of occurrence of the external cause; Z79.01 Long term (current) use of anticoagulants | CPT/HCPCS: A0425; A0429 ==

== ENCOUNTER 2023-06-23 14:16 | Emergency (ER) | payer MEDICARE, MEDICAID ==
[2023-06-23] MEDS ORDERED: ACETAMINOPHEN 500 MG TABLET PO STA (15:44)
[2023-06-23] MEDS ORDERED: BACITRACIN ZINC OINT 1 PACKET TOP STA (15:44)
[2023-06-23] MEDS ORDERED: ENALAPRILAT 1.25 MG/ML VIAL IVP STA (16:34)
[2023-06-23] MEDS ORDERED: MORPHINE 2 MG/ML CARPUJECT IVP STA (16:34)
--- NOTE | 2023-06-23 17:22 | CT Report ---
PROCEDURE: Cervical Spine WO INDICATIONS: fall, with head/neck pain TECHNIQUE: Noncontrast 3 mm thick sections acquired from the skull base to the T4 level. Sagittal and coronal r eformats were then constructed. For radiation dose reduction, the following was used: automated exp osure control, adjustment of mA and/or kV according to patient size. COMPARISON: CT chest dated 10/22/2022. FINDINGS: Image quality: Excellent. Bones: No fractures or dislocations. Visualized superior ribs are intact. Diffuse cervical spondylo sis. Soft tissues: Prevertebral soft tissues are normal in thickness. No paravertebral hematomas. No ap ical pneumothoraces. Aneurysmal dilatation of the descending thoracic aorta, which on the lowest dean ge provided measures 4.2 x 3.8 cm. This is unchanged from the previous study. Remote partial right up per lobe pulmonary resection. Nodularity along the suture line, as before, not significantly changed. Small right pleural effusion. Prominent right-sided upper mediastinal lymph nodes are not significan tly changed. IMPRESSION: 1. No acute cervical fracture or dislocation. 2. Cervical spondylosis. 3. The currently imaged part of the descending thoracic aortic aneurysm is stable. 4. Remote wedge resection in the right upper lobe with stable thickening along the suture line in sta ble prominent right superior mediastinal lymph nodes. Reviewed by: Josh Barber MD on 06/23/2023 5:20 PM PST Approved by: Josh Barber MD on 06/23/2023 5:20 PM PST Station ID: [id number]
--- NOTE | 2023-06-23 17:24 | CT Report ---
PROCEDURE: Head WO INDICATIONS: fall with head injury; on DOAC TECHNIQUE: Noncontrast 4.5 mm thick angled axial sections acquired from the foramen magnum to the vertex. For r adiation dose reduction, the following was used: automated exposure control, adjustment of mA and/or kV according to patient size. COMPARISON: 10/06/2021. FINDINGS: Image quality: Excellent. CSF spaces: Basal cisterns are patent. No extra-axial fluid collections. Extra-axial dilatation of the left lateral ventricle. Brain: No midline shift. No intracranial masses or hemorrhage. Graff-white matter interface is norm al. Old moderate left MCA distribution infarct with encephalomalacia and gliosis. Age-related volume loss and moderate small vessel ischemic change. Skull and face: Calvarium and visualized facial bones are intact, without suspicious lesions. Sinuses: Visualized sinuses and mastoids are clear. IMPRESSION: 1. No acute intracranial pathology. 2. Old left MCA distribution infarct, small vessel ischemic change. Reviewed by: Josh Barber MD on 06/23/2023 5:22 PM PST Approved by: Josh Barber MD on 06/23/2023 5:22 PM PST Station ID: [id number]
--- NOTE | 2023-06-23 17:27 | CT Report ---
PROCEDURE: Lumbar Spine WO INDICATIONS: fall with low back pain TECHNIQUE: Noncontrast 3 mm thick sections acquired from the T12 level to the sacrum. Sagittal and coronal refo rmats were constructed. For radiation dose reduction, the following was used: automated exposure co ntrol, adjustment of mA and/or kV according to patient size. COMPARISON: None. FINDINGS: Image quality: Excellent. Bones: Trace retrolisthesis of L3 on L4 and L4 on L5. No acute vertebral body compression fractures. No suspicious lytic or blastic bony lesions. Central spinal caliber is of normal overall caliber. No pars defects. T12-L1: No canal stenosis or foraminal stenosis. L1-L2: No canal stenosis or foraminal stenosis. L2-L3: No canal stenosis or foraminal stenosis. L3-L4: Trace retrolisthesis of L3 and L4. Facet hypertrophy. Mild posterior disc bulge. Mild canal stenosis. No significant foraminal stenosis. L4-L5: Trace retrolisthesis of L4 on L5. Disc bulge. Facet and ligament hypertrophy. Moderate canal stenosis. Moderate to severe right foraminal narrowing with a mild degree of right foraminal L4 nerv e root impingement. L5-S1: Facet hypertrophy. No canal stenosis or significant foraminal stenosis. Soft tissues: No retroperitoneal masses or hematomas. Visualized aorta is normal in caliber. IMPRESSION: 1. No acute bony abnormality. No compression fractures. 2. Degenerative change. 3. Canal stenosis is mild at L3-L4 and moderate at L4-L5. There is also moderate to severe right fora laurita narrowing at L4-L5. Reviewed by: Josh Barber MD on 06/23/2023 5:26 PM PST Approved by: Josh Barber MD on 06/23/2023 5:26 PM PST Station ID: [id number]
--- NOTE | 2023-06-23 17:45 | CT Report ---
PROCEDURE: Chest WO INDICATIONS: fall with ribs/back pain TECHNIQUE: Noncontrast 1mm axial images acquired from the pulmonary apex to the posterior costophrenic angles in the supine end-inspiration, supine end-expiration, and prone end-inspiration positions. Axial 5 mm soft tissue kernel reconstructions were performed as well as 8 mm axial MIP and coronal and sagittal 5 mm reformations. For radiation dose reduction, the following was used: automated exposure control , adjustment of mA and/or kV according to patient size. COMPARISON: 10/22/2022 FINDINGS: Image quality: Diagnostic. Lungs: Stable postsurgical changes of previous right upper lobe wedge resection with associated underlying p leural thickening. Right basilar atelectasis/scarring not significantly changed. Minimal perihilar ai rway thickening of the bilateral lower lobes and right middle lobe. No septal thickening or nodularit y. No acute consolidation seen. No pneumothorax. No substantial pleural effusion. No suspicious pulmo nary nodules. Pleura: No pleural effusions or pneumothorax. Mediastinum: Heart size is normal. No pericardial effusion. No large vessel abnormality. No mediastin al adenopathy by size criteria. Multiple prominent mediastinal lymph nodes not significantly changed compared to prior studies. Atherosclerosis. Chest wall and lower neck: Thyroid is unremarkable. No axillary or supraclavicular adenopathy by size . Bones: No aggressive osseous abnormality. No acute compression fractures. Multilevel spondylosis. Dif fuse osteopenia. Remote healed rib fracture deformities of the lower lateral right ribs. Upper Abdomen: Cholelithiasis. No CT evidence for acute cholecystitis. Small hiatal hernia. Splenic c alcification, stable IMPRESSION: CT chest without acute cardiopulmonary abnormalities. No acute fracture identified. Stable postsurgical changes of right upper lobe wedge resection with persistent underlying pleural th ickening and nodularity along the surgical scar. Recommend continued imaging surveillance. Cholelithiasis without CT evidence for acute cholecystitis. Small hiatal hernia. Atherosclerosis. Reviewed by: Haseeb Quinn MD on 06/23/2023 5:43 PM PST Approved by: Haseeb Quinn MD on 06/23/2023 5:43 PM PST Station ID: [id number]
--- NOTE | 2023-06-23 17:47 | ED Physician Documentation ---
PD HPI Fall - Stated complaint Stated Complaint: GLF/HIT HEAD - Chief complaint Chief Complaint: Trauma Hd/Nk - History obtained from History obtained from: Patient, EMS - History of Present Illness Mechanism of injury: Lost balance Fall distance: Standing position (getting up from toilet and lost balance, falling backwrad and struck back of head. No LOC but apparently dazed few seconds. On Xarelto. Caregiver concerned and brought pt for eval.) Where injury occurred: Home Timing - onset: Today Injury(ies) location: Head (abrasion bleeding top of head/scalp. Pain in thoracic area across both sides, and some pain in mid lumbar area.) Associated symptoms: AMS (briefly), Neck pain (some with ROM). No: LOC, Weakness, Paresthesias Worsens with: Movement Contributing factors: Anticoagulated. No: Intoxicated Similar symptoms before: Has not had sx before Review of Systems Unable to obtain: Dementia, Other (info from caregiver.) Constitutional: denies: Fever Nose: denies: Rhinorrhea / runny nose, Congestion Throat: denies: Sore throat Respiratory: denies: Cough PD PAST MEDICAL HISTORY - Past Medical History Past Medical History: Yes Cardiovascular: High cholesterol, Coronary artery disease, Deep vein thrombosis Respiratory: None Neuro: Dementia, CVA Endocrine/Autoimmune: Type 2 diabetes GI: None DIRECTOR OF INFECTION CONTROL: None : None HEENT: Chronic vision loss, Other Psych: None Musculoskeletal: Fibromyalgia, Hemiplegia Derm: None - Past Surgical History Past Surgical History: No HEENT: Tonsil/Adenoidectomy - Present Medications Home Medications: Ambulatory Orders Medication Instructions Recorded Confirmed Cholecalciferol (Vitamin D3) 2,000 unit PO DAILY 08/21/15 06/15/21 [Vitamin D3] Gabapentin 400 mg PO DAILY 08/21/15 06/15/21 Rivaroxaban [Xarelto] 20 mg PO QDDINNER 08/18/19 06/15/21 Metformin HCl [Glucophage] 1,000 mg PO BID 10/08/20 06/15/21 Multivitamin 1 each PO DAILY 10/08/20 06/15/21 Omeprazole Magnesium 20 mg PO BID 10/08/20 06/15/21 Atorvastatin [Lipitor] 20 mg PO QPM 04/25/21 06/15/21 Gabapentin [Neurontin] 800 mg PO QPM 04/25/21 06/15/21 Sertraline [Zoloft] 50 mg PO DAILY 04/25/21 06/15/21 Spironolactone [Aldactone] 25 mg PO DAILY 04/25/21 06/15/21 Albuterol 2.5 mg INH Q4H PRN 06/15/21 06/15/21 Budesonide/Formoterol Fumarate 2 puffs INH BID 06/15/21 06/15/21 [Symbicort 160-4.5 Mcg Inhaler] Verapamil HCl [Verapamil ER] 240 mg PO QPM 06/15/21 06/15/21 Amoxicillin 1,000 mg PO TID 2 Days #6 cap 06/16/21 Losartan [Cozaar] 50 mg PO DAILY tablet 06/16/21 - Allergies Allergies/Adverse Reactions: Allergies Allergy/AdvReac Type Severity Reaction Status Date / Time No Known Drug Allergies Allergy Verified 10/06/21 07:51 - Social History Does the pt smoke?: No Smoking Status: Never smoker Does the pt drink ETOH?: Yes Does the pt have substance abuse?: No - Immunizations Immunizations are current?: No Immunizations: TDAP >10years/unknown - POLST Patient has POLST: No POLST Status: Full Code PD ED PE NORMAL - Vitals Vital signs reviewed: Yes - General General: Alert and oriented X 3, No acute distress, Well developed/nourished - HEENT HEENT: PERRL, EOMI, Other (scalp abrasion without laceration at right vertex. Mild bleeding stopped with ointment. No lac. Neck with some tenderness mid to lower neck. ) - Neck Neck: Supple, no meningeal sign - Respiratory Respiratory: No respiratory distress, Clear bilaterally, Other (right to mid back with some general nonfocal tenderness. No crepitance of ribs noted. ) - Abdomen Abdomen: Soft, Non tender - Back Back: No CVA TTP, Other (mild tender to palpation upper lumbar area and some to muscles across lower back. ) - Derm Derm: Normal color, Warm and dry Results - Vitals Vitals: Oxygen O2 Source Room air - Rads (name of study) head CT Relevant Findings:: Prelim report reviewed (no acute ICH), EMP independent interpretation of test cervical CT Relevant Findings:: Prelim report reviewed (arthritic changes, no fractures), EMP independent interpretation of test chest CT Relevant Findings:: Prelim report reviewed (no fractures nor lung injury), EMP independent interpretation of test lumbar CT Relevant Findings:: Prelim report reviewed (no fractures. chronic changes noted. ), EMP independent interpretation of test PD Medical Decision Making - ED course Complexity details: reviewed results, re-evaluated patient (still good alertnenss and not in pain. ), considered differential (scalp abrasion without laceration. Pressure and then oitnemtn placed with stopping of bleeding. CT head/neck/chest/lumbar without acute findings. No concussive symptoms. Is on Xarelto DOAC. Pt is at baseline mentation per caegambrocio who came with her initially. Seems safe for discharge home. ), d/w patient Departure - Departure Disposition: 01 Home, Self Care Clinical Impression: Scalp abrasion, Anticoagulant long-term use, Back contusion, Head contusion, Elevated blood pressure reading Condition: Stable Record reviewed to determine appropriate education?: Yes Comments: The injury on your scalp is more of a deep abrasion and there is not a lac eration for suturing etc. Clean the area with just soap and water once or twice daily and apply ointment. This should heal in on its own. Tylenol every 4-6 hours if needed for pains. We did do a CT scan of your head neck chest and lower back without any signs of bony fractures or organ injury or internal bleeding. You will still be sore likely in those areas from the fall. Activity as tolerated and continue your usual medications. Your blood pressure was elevated here for a while. This may be situational related to the injury and pains. It seems to be improving with some pain medicine and a dose of blood pressure medicine. Continue usual medications for blood pressure etc. but see how your blood pressure does over the next week or 2 and be in contact with your primary care if it is consistently elevated. Forms: PCP List Discharge Date/Time: 06/23/23 19:40
[2023-06-23 19:44] VITALS: BP 180/89; O2SAT 95
== END 2023-06-23 19:40 | disposition home or self-care (01) ==
LOC: ED 14:16
DX: S00.01XA Abrasion of scalp, initial encounter (principal); S00.93XA Contusion of unspecified part of head, initial encounter; S30.0XXA Contusion of lower back and pelvis, initial encounter; W18.39XA Other fall on same level, initial encounter; Y93.E8 Activity, other personal hygiene; Y92.002 Bathroom of unspecified non-institutional (private) residence as the place of occurrence of the external cause; I10 Essential (primary) hypertension; Z79.01 Long term (current) use of anticoagulants
CPT/HCPCS: 36415; 70450; 71250; 72125; 72131; 96374; 96375; 99284; A9270

== ENCOUNTER 2023-06-23 19:36 | Outpatient (CLI) | payer MEDICARE, MEDICAID | END 2023-06-23 23:59 | disposition home or self-care (01) | LOC: EMS 19:36 | PROVIDERS: ATTEND Emergency Medicine | DX: R41.0 Disorientation, unspecified (principal); S01.01XA Laceration without foreign body of scalp, initial encounter; W18.30XA Fall on same level, unspecified, initial encounter; F03.90 Unspecified dementia, unspecified severity, without behavioral disturbance, psychotic disturbance, mood disturbance, and anxiety | CPT/HCPCS: A0425; A0428 ==

== ENCOUNTER 2023-08-27 22:19 | Outpatient (CLI) | payer MEDICARE, MEDICAID | END 2023-08-27 22:20 | disposition EMS.NT | LOC: EMS 22:19 | DX: I95.9 Hypotension, unspecified (principal) ==

== ENCOUNTER 2024-01-02 10:12 | Outpatient (CLI) | payer MEDICARE, MEDICAID | END 2024-01-02 23:59 | disposition critical access hospital (66) | LOC: EMS 10:12 | DX: M25.561 Pain in right knee (principal); M79.671 Pain in right foot | CPT/HCPCS: A0425; A0429 ==

== ENCOUNTER 2024-01-02 11:11 | Emergency (ER) | payer MEDICARE, MEDICAID ==
--- NOTE | 2024-01-02 11:20 | ED Physician Documentation ---
PD HPI LOWER EXT INJURY - Stated complaint Stated Complaint: LEG PX - History obtained from History obtained from: Patient, EMS - History of Present Illness PD HPI LOW EXT INJURY LOCATION: Right, Knee, Ankle. No: Hip Type of injury: Other (unknown if fall. Pt has dementia due to prior CVA, poor articulation. Not very mobile with prior right weakness. Reportedly has 24 hour caregivers. EMS states pt complained of knee and ankle pain wiht swelling of knee.) Where injury occurred: Home Timing - onset: Today Review of Systems Unable to obtain: Dementia PD PAST MEDICAL HISTORY - Past Medical History Cardiovascular: High cholesterol, Coronary artery disease, Deep vein thrombosis Respiratory: None Neuro: Dementia, CVA Endocrine/Autoimmune: Type 2 diabetes GI: None TAX PREPARER: None : None HEENT: Chronic vision loss, Other Psych: None Musculoskeletal: Fibromyalgia, Hemiplegia Derm: None - Past Surgical History Past Surgical History: No HEENT: Tonsil/Adenoidectomy - Present Medications Home Medications: Ambulatory Orders Medication Instructions Recorded Confirmed Cholecalciferol (Vitamin D3) 2,000 unit PO DAILY 08/21/15 06/15/21 [Vitamin D3] Gabapentin 400 mg PO DAILY 08/21/15 06/15/21 Rivaroxaban [Xarelto] 20 mg PO QDDINNER 08/18/19 06/15/21 Metformin HCl [Glucophage] 1,000 mg PO BID 10/08/20 06/15/21 Multivitamin 1 each PO DAILY 10/08/20 06/15/21 Omeprazole Magnesium 20 mg PO BID 10/08/20 06/15/21 Atorvastatin [Lipitor] 20 mg PO QPM 04/25/21 06/15/21 Gabapentin [Neurontin] 800 mg PO QPM 04/25/21 06/15/21 Sertraline [Zoloft] 50 mg PO DAILY 04/25/21 06/15/21 Spironolactone [Aldactone] 25 mg PO DAILY 04/25/21 06/15/21 Albuterol 2.5 mg INH Q4H PRN 06/15/21 06/15/21 Budesonide/Formoterol Fumarate 2 puffs INH BID 06/15/21 06/15/21 [Symbicort 160-4.5 Mcg Inhaler] Verapamil HCl [Verapamil ER] 240 mg PO QPM 06/15/21 06/15/21 Amoxicillin 1,000 mg PO TID 2 Days #6 cap 06/16/21 Losartan [Cozaar] 50 mg PO DAILY tablet 06/16/21 Acetaminophen [Acetaminophen Extra 500 mg PO QID PRN #60 tablet 01/02/24 Strength] Diclofenac Sodium 1% Gel [Voltaren 2 gm TOP QID #50 gm 01/02/24 Gel] Docusate Sodium 100Mg Capsule 100 mg PO DAILY #20 cap 01/02/24 [Colace 100Mg Capsule] HYDROcod/ACETAM 5/325 [[place] 5/325] 1 ea PO Q8H PRN #18 tablet 01/02/24 - Allergies Allergies/Adverse Reactions: Allergies Allergy/AdvReac Type Severity Reaction Status Date / Time No Known Drug Allergies Allergy Verified 01/02/24 11:40 - Social History Does the pt smoke?: No Smoking Status: Never smoker Does the pt drink ETOH?: Yes Does the pt have substance abuse?: No - Immunizations Immunizations are current?: No Immunizations: TDAP >10years/unknown - POLST Patient has POLST: No POLST Status: Full Code PD ED PE NORMAL - Vitals Vital signs reviewed: Yes - General General: Well developed/nourished. No: Alert and oriented X 3 (oriented person, somewhat place. ) - HEENT HEENT: Atraumatic - Neck Neck: Supple, no meningeal sign, No bony TTP - Back Back: No spinal TTP - Derm Derm: Normal color, Warm and dry - Extremities Extremities: Other (ankle tender withoutd eformity, but hurts passive ROM. Knee with effusion and guarded ROM. No gross laity with simple ligament testing, but limited due to pain. Hip rotational movement without pain, none with impaction. ) - Neuro Neuro: Other (right weakness arm and leg.). No: Alert and oriented X 3, Normal speech (simple word answers.) Results - Vitals Vitals: Vital Signs - 24 hr 01/02/24 01/02/24 01/02/24 11:25 13:46 15:00 Temperature 36.3 C L Heart Rate 85 91 99 Respiratory 12 16 16 Rate Blood Pressure 208/107 H 197/84 H 203/93 H O2 Saturation 97 96 96 Oxygen O2 Source Room air - Labs Labs: Laboratory Tests 01/02/24 01/02/24 01/02/24 11:40 11:40 11:40 WBC 14.2 H RBC 4.09 L Hgb 12.1 Hct 38.2 MCV 93.4 MCH 29.6 MCHC 31.7 L RDW 14.3 Plt Count 379 MPV 9.5 Neut # (Auto) 13.0 H Lymph # (Auto) 0.4 L [place] # (Auto) 0.7 Eos # (Auto) 0.0 Baso # (Auto) 0.0 Absolute Nucleated RBC 0.00 Nucleated RBC % 0.0 ESR 17 Sodium 134 L Potassium 4.0 Chloride 98 L Carbon Dioxide 24 Anion Gap 12.0 BUN 16 Creatinine 1.0 Estimated GFR (MDRD) 55 L Glucose 210 H Calcium 9.7 Magnesium 1.3 L Total Bilirubin 0.7 AST 12 ALT 10 Alkaline Phosphatase 120 Total Protein 7.8 Albumin 4.3 Globulin 3.5 Albumin/Globulin Ratio 1.2 Lipase 17 - Rads (name of study) right ankle Relevant Findings:: Prelim report reviewed (no fracture), EMP independent interpretation of test right knee Relevant Findings:: Prelim report reviewed (tibeal platueal laterally), EMP independent interpretation of test knee CT Relevant Findings:: Prelim report reviewed (minimally displaced tibial plateau fracture wiht effusion. FIbular head fx as well. ), EMP independent interpretation of test duplex right leg Relevant Findings:: Other (US Tech: no DVT) PD Medical Decision Making - ED course Complexity details: considered differential, d/w patient, d/w mining consultant (Dr. Mejia orthopedics concrete smoother. He states typically not surgical if minimally displaced. Treat with knee immobilizer and walker. Minimize weight bearing. ) Departure - Departure Disposition: 01 Home, Self Care Clinical Impression: Knee injury, Tibial plateau fracture, Ankle sprain Condition: Stable Record reviewed to determine appropriate education?: Yes Instructions: ED Fx Knee Follow-Up: Prem Vaughn MD [Primary Care Provider] - [facility] [Provider Group] Prescriptions: Acetaminophen [Acetaminophen Extra Strength] 500 mg PO QID PRN #60 tablet PRN Reason: Pain Docusate Sodium 100Mg Capsule [Colace 100Mg Capsule] 100 mg PO DAILY #20 cap HYDROcod/ACETAM 5/325 [[place] 5/325] 1 ea PO Q8H PRN #18 tablet PRN Reason: Pain Diclofenac Sodium 1% Gel [Voltaren Gel] 2 gm TOP QID #50 gm Comments: Your ankle x-ray appears normal. You do have a fracture at the upper part of the tibia at the lateral plateau. This is a lower aspect of the knee joint. It is nondisplaced. I talked with the orthopedist on-call who states these are treated with a knee immobilizer and partial weightbearing. At your age and stature, it would be difficult to be using crutches to be fully off of it and fortunately using a walker with balance and helping with some of the weight off is adequate for this type of injury. Use the knee brace to help support the knee. It can be loosened and off at times when rested. You may want to keep it on most of the rest that time to help support the knee and minimize the amount of pain. There is swelling within the joint. This should go down with times. To help with the pain, I would suggest Tylenol 4 times daily regularly for the next week or 2. In addition you can use the Voltaren anti-inflammatory around the knee 3-4 times daily as well. To help with pain in addition, I did prescribe a pain medicine hydrocodone. You could use 1/2 to 1 tablet every 6-8 hours if needed for pain. Hopefully this would just be needed short-term. You will want to do a stool softener as well. I sent these prescriptions to your preferred pharmacy. Follow-up with orthopedics and have a follow-up visit mostly approximately 7-10 days from now. Forms: PCP List Discharge Date/Time: 01/02/24 18:14
[2024-01-02 11:48] LABS: BASOPHILS % (AUTO) 0.2 %; EOSINOPHILS % (AUTO) 0.1 %; HCT - HEMATOCRIT 38.2 % (37.0-47.0); HGB - HEMOGLOBIN 12.1 g/dL (12.0-16.0); LYMPHOCYTES # (AUTO) 0.4 10^3/uL (1.5-3.5); LYMPHOCYTES % (AUTO) 2.9 %; MEAN CORPUSCULAR HEMOGLOBIN 29.6 pg (27.0-31.0); MEAN CORPUSCULAR HGB CONC 31.7 g/dL (32.0-36.0); MEAN CORPUSCULAR VOLUME 93.4 fL (81.0-99.0); MEAN PLATELET VOLUME 9.5 fL (7.9-10.8); MONOCYTES # (AUTO) 0.7 10^3/uL (0.0-1.0); MONOCYTES % (AUTO) 4.8 %; NEUTROPHILS % (AUTO) 91.6 %; PLT - PLATELET COUNT 379 10^3/uL (130-450); RED BLOOD COUNT 4.09 10^6/uL (4.20-5.40); RED CELL DISTRIBUTION WIDTH 14.3 % (12.0-15.0); WHITE BLOOD COUNT 14.2 x10^3/uL (4.8-10.8)
[2024-01-02] MEDS: ACETAMINOPHEN 325 MG TABLET PO STA (11:54)
[2024-01-02] MEDS: KETOROLAC 30 MG/ML VIAL IM STA (11:54)
[2024-01-02 12:01] LABS: ALBUMIN 4.3 g/dL (3.2-5.5); ALBUMIN/GLOBULIN RATIO 1.2 (1.0-2.2); BILIRUBIN,TOTAL 0.7 mg/dL (0.2-1.0); CALCIUM 9.7 mg/dL (8.5-10.3); MAGNESIUM 1.3 mg/dL (1.7-2.3); TOTAL PROTEIN 7.8 g/dL (6.4-8.9)
--- NOTE | 2024-01-02 12:50 | XRAY Report ---
PROCEDURE: Knee 3V RT INDICATIONS: ankle and knee pain abruptly TECHNIQUE: 3 views of the knee(s) were acquired. COMPARISON: None. FINDINGS: Bones: There is nondisplaced fracture involving lateral tibial plateau with fracture line extending to base of tibial spine. No patella subluxation. No suspicious bony lesions. Soft tissues: Moderate to large knee joint effusion. No suspicious soft tissue calcifications or mas ses. IMPRESSION: Acute nondisplaced fracture involving lateral tibial plateau with moderate to large joint effusion schultz ggestive of lipohemarthrosis. Reviewed by: Angel Vicente MD on 01/02/2024 12:48 PM PDT Approved by: Angel Vicente MD on 01/02/2024 12:48 PM PDT Station ID: [id number]
--- NOTE | 2024-01-02 12:52 | XRAY Report ---
PROCEDURE: Ankle 3+V RT INDICATIONS: ankle and knee pain abruptly TECHNIQUE: 3 views of the ankle were acquired. COMPARISON: None. FINDINGS: Bones: No fractures or dislocations. There is diffuse osteopenia. Osteoarthritic changes are noted in midfoot and hindfoot joints. Well-defined plantar and dorsal calcaneal enthesophytes are seen. Ank le mortise is normally aligned. No suspicious bony lesions. Soft tissues: No tibiotalar joint effusion. Achilles tendon appears normal. IMPRESSION: No acute ankle fracture or dislocation. Osteopenia and midfoot and hindfoot joint osteoarthritis. [place]za caneal enthesophytes. Reviewed by: Angel Vicente MD on 01/02/2024 12:50 PM PDT Approved by: Angel Vicente MD on 01/02/2024 12:50 PM PDT Station ID: [id number]
--- NOTE | 2024-01-02 13:16 | Ultrasound Report ---
PROCEDURE: Duplex Ext Veins Right INDICATIONS: right leg pain from knee down. TECHNIQUE: Real-time imaging, as well as color and pulse Doppler interrogation, were performed of the lower extr emity deep veins from the inguinal ligament to the popliteal fossa. Attempted visualization of the ca lf veins was performed. COMPARISON: None. FINDINGS: The deep veins are normally compressible, and free of intraluminal thrombus. Color and pu lse Doppler demonstrate normal phasic intraluminal flow. There is normal augmentation response to di stal compression maneuver. IMPRESSION: No deep venous thrombosis of the visualized lower extremity. Reviewed by: Angel Vicente MD on 01/02/2024 1:15 PM PDT Approved by: Angel Vicente MD on 01/02/2024 1:15 PM PDT Station ID: [id number]
[2024-01-02 13:44] VITALS: O2SAT 96
--- NOTE | 2024-01-02 14:39 | CT Report ---
PROCEDURE: Lower Extremity RT WO INDICATIONS: tibial plateau fracture TECHNIQUE: Noncontrast 3-mm axial sections acquired from the distal tibial shaft to the talar dome, with coronal and sagittal reformats. For radiation dose reduction, the following was used: automated exposure c ontrol, adjustment of mA and/or kV according to patient size. COMPARISON: Right knee radiograph on the same date. FINDINGS: Image quality: Excellent. Bones: As seen on the right knee radiograph, there is an acute fracture through lateral portion of p roximal tibia with fracture line extending to lateral tibial plateau near base of tibial tuberosity. Minimal lateral displacement at fracture site is seen. Minimal depression is seen in anterior aspect of lateral tibial plateau fracture site. There is also subtle nondisplaced or minimally displaced fra cture involving fibular head and proximal fibular shaft. No other fracture or dislocation. Diffuse os teopenia. No suspicious intraosseous lesions. Soft tissues: Moderate joint effusion is seen with fat fluid level consistent with labral hemarthros is. No abnormal soft tissue calcifications or calcified intra-articular loose bodies. No gross full-t hickness quadriceps tendon or patellar tendon rupture. The PCL is intact. ACL is not well seen on thi s study. Vascular calcifications in posterior right knee. Impression: 1. Acute comminuted and slightly displaced fracture through lateral portion of proximal tibia extendi ng to involve lateral tibial plateau with minimal depression and slight lateral displacement of the f ractured fragment. 2. Moderate left hemarthrosis. 3. Subtle nondisplaced or minimally displaced fracture involving fibular head proximal fibular shaft. 4. Diffuse osteopenia. No other fracture or dislocation. No suspicious intraosseous lesion. 5. No abnormal soft tissue calcifications or calcified intra-articular bodies. No gross full-thicknes s tendon rupture. ACL is not well seen. PCL is intact. Reviewed by: Angel Vicente MD on 01/02/2024 2:38 PM PDT Approved by: Angel Vicente MD on 01/02/2024 2:38 PM PDT Station ID: [id number]
[2024-01-02 15:02] VITALS: BP 203/93
[2024-01-02] MEDS: HYDROcod/ACETAM 5/325 MG TABLET PO STA (15:33)
== END 2024-01-02 18:14 | disposition home or self-care (01) ==
LOC: EDUNIT# → ED 11:11
DX: S82.141A Displaced bicondylar fracture of right tibia, initial encounter for closed fracture (principal); S93.401A Sprain of unspecified ligament of right ankle, initial encounter; X58.XXXA Exposure to other specified factors, initial encounter; Y92.009 Unspecified place in unspecified non-institutional (private) residence as the place of occurrence of the external cause; E78.00 Pure hypercholesterolemia, unspecified; E11.9 Type 2 diabetes mellitus without complications; F03.90 Unspecified dementia, unspecified severity, without behavioral disturbance, psychotic disturbance, mood disturbance, and anxiety; I69.359 Hemiplegia and hemiparesis following cerebral infarction affecting unspecified side; Z79.899 Other long term (current) drug therapy; Z79.01 Long term (current) use of anticoagulants; Z79.84 Long term (current) use of oral hypoglycemic drugs; Z79.51 Long term (current) use of inhaled steroids
CPT/HCPCS: 36415; 73562; 73610; 73700; 80053; 83690; 83735; 85025; 85651; 93971; 96372; 99284; A9270

== ENCOUNTER 2024-01-03 16:40 | Outpatient (CLI) | payer MEDICARE, MEDICAID | END 2024-01-03 23:59 | disposition critical access hospital (66) | LOC: EMS 16:40 | DX: K92.0 Hematemesis (principal); R41.82 Altered mental status, unspecified; R46.4 Slowness and poor responsiveness; R23.1 Pallor | CPT/HCPCS: A0425; A0429 ==

== ENCOUNTER 2024-01-03 16:55 | Inpatient (IN) | payer MEDICARE, MEDICAID ==
--- NOTE | 2024-01-03 17:03 | ED Physician Documentation ---
History of Present Illness - Stated complaint Stated Complaint: AMS - History obtained from History obtained from: EMS - Additonal information Additional information: 73-year-old woman with history of stroke, on Xarelto, and she has some cognitive deficits from same. She was seen by my partner yesterday and had a tibial plateau fracture. She is in knee immobilizer went home. Today she vomited coffee-ground emesis this morning several times and this afternoon was more confused than normal. All of the history is from EMS on arrival as the patient is nonverbal. 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 : None HEENT: Chronic vision loss, Other Psych: None Musculoskeletal: Fibromyalgia, Hemiplegia Derm: None - Past Surgical History Past Surgical History: No HEENT: Tonsil/Adenoidectomy - Present Medications Home Medications: Ambulatory Orders Medication Instructions Recorded Confirmed Cholecalciferol (Vitamin D3) 2,000 unit PO DAILY 08/21/15 01/03/24 [Vitamin D3] Gabapentin 400 mg PO DAILY 08/21/15 01/03/24 Rivaroxaban [Xarelto] 20 mg PO QDDINNER 08/18/19 01/03/24 Metformin HCl [Glucophage] 1,000 mg PO BID 10/08/20 01/03/24 Multivitamin 1 each PO DAILY 10/08/20 01/03/24 Omeprazole Magnesium 20 mg PO BID 10/08/20 01/03/24 Atorvastatin [Lipitor] 20 mg PO QPM 04/25/21 01/03/24 Gabapentin [Neurontin] 800 mg PO QPM 04/25/21 01/03/24 Sertraline [Zoloft] 50 mg PO DAILY 04/25/21 01/03/24 Spironolactone [Aldactone] 25 mg PO DAILY 04/25/21 01/03/24 Albuterol 2.5 mg INH Q4H PRN 06/15/21 01/03/24 Budesonide/Formoterol Fumarate 2 puffs INH BID 06/15/21 01/03/24 [Symbicort 160-4.5 Mcg Inhaler] Verapamil HCl [Verapamil ER] 240 mg PO QPM 06/15/21 01/03/24 Amoxicillin 1,000 mg PO TID 2 Days #6 cap 06/16/21 01/03/24 Losartan [Cozaar] 50 mg PO DAILY tablet 06/16/21 01/03/24 Acetaminophen [Acetaminophen Extra 500 mg PO QID PRN #60 tablet 01/02/24 01/03/24 Strength] Diclofenac Sodium 1% Gel [Voltaren 2 gm TOP QID #50 gm 01/02/24 01/03/24 Gel] Docusate Sodium 100Mg Capsule 100 mg PO DAILY #20 cap 01/02/24 01/03/24 [Colace 100Mg Capsule] HYDROcod/ACETAM 5/325 [[place] 5/325] 1 ea PO Q8H PRN #18 tablet 01/02/24 01/03/24 - Allergies Allergies/Adverse Reactions: Allergies Allergy/AdvReac Type Severity Reaction Status Date / Time No Known Drug Allergies Allergy Verified 01/03/24 17:09 - Social History Does the pt smoke?: No Smoking Status: Never smoker Does the pt drink ETOH?: Yes Does the pt have substance abuse?: No - Immunizations Immunizations are current?: No Immunizations: TDAP >10years/unknown - POLST Patient has POLST: No POLST Status: Full Code PD ED PE NORMAL - Vitals Vital signs reviewed: Yes - General General: Other (She will look at me and follow simple commands. She is completely nonverbal. I asked her for example, "do you know where you are?" And she will nod her head in the affirmative. Then I would ask "are you in the library," and she would again nod her head in the affirmative) - HEENT HEENT: PERRL, EOMI, Other (There is bloody emesis around her neck and mouth.) - Cardiac Cardiac: RRR, No murmur - Respiratory Respiratory: No respiratory distress, Clear bilaterally - Abdomen Abdomen: Other (Possibly some diffuse abdominal tenderness without surgical signs) - Extremities Extremities: Other (Right leg in knee immobilizer) - Neuro Eye Opening: Spontaneous Motor: Obeys Commands Verbal: None GCS Score: 11 Results - Vitals Vitals: Vital Signs - 24 hr 01/03/24 01/03/24 01/03/24 17:01 19:09 19:30 Temperature 35.9 C L Heart Rate 112 H 116 H 106 H Respiratory 20 17 15 Rate Blood Pressure 153/83 H 168/69 H 194/81 H O2 Saturation 97 96 96 Oxygen O2 Source Room air - EKG (time done) 1725 EKG releavant findings:: EKG personally interpreted by author of this note. Relevant findings are: Rate: Rate (enter#) (111) Rhythm: Sinus tachycardia, NAIMA [place]: Normal Intervals: Normal OK Ischemia: ST depression (anmol V2-V5 and inferior) Compare to prior EKG: Changed from prior EKG (Compared with the prior EKG on the chart dated 06/14/[address] depression with T wave inversion is pre- existing. It is worse now, but not completely new anyway.) - Labs Labs: Laboratory Tests 01/02/24 01/03/24 01/03/24 11:40 17:15 17:15 WBC 19.7 H RBC 3.96 L Hgb 12.1 Hct 37.0 MCV 93.4 MCH 30.6 MCHC 32.7 RDW 14.6 Plt Count 497 H MPV 10.3 Neut # (Auto) Not Reportable Lymph # (Auto) Not Reportable [place] # (Auto) Not Reportable Eos # (Auto) Not Reportable Baso # (Auto) Not Reportable Absolute Nucleated RBC Not Reportable Total Counted 100 Band Neuts % (Manual) 1 Abnorm Lymph % (Manual) 0 Nucleated RBC % Not Reportable Neutrophils # (Manual) 18.1 H Lymphocytes # (Manual) 0.2 L Monocytes # (Manual) 1.2 H Eosinophils # (Manual) 0.2 Basophils # (Manual) 0.0 Differential Comment MANUAL DIFFERENTIAL Platelet Estimate INCREASED (>450,000) Platelet Morphology NORMAL APPEARANCE RBC Morph Micro Appear NORMAL APPEARANCE PT 25.4 H INR 2.4 H VBG pH VBG pCO2 VBG pO2 VBG HCO3 VBG Total CO2 VBG O2 Saturation VBG Base Excess Sodium Potassium Chloride Carbon Dioxide Anion Gap BUN Creatinine Estimated GFR (MDRD) Glucose Lactic Acid Calcium Total Bilirubin AST ALT Alkaline Phosphatase Ammonia Troponin I High Sens Total Protein Albumin Globulin Albumin/Globulin Ratio Salicylates Acetaminophen Ethyl Alcohol Blood Type Blood Type Recheck A POSITIVE Antibody Screen 01/03/24 01/03/24 01/03/24 17:15 17:15 17:15 WBC RBC Hgb Hct MCV MCH MCHC RDW Plt Count MPV Neut # (Auto) Lymph # (Auto) [place] # (Auto) Eos # (Auto) Baso # (Auto) Absolute Nucleated RBC Total Counted Band Neuts % (Manual) Abnorm Lymph % (Manual) Nucleated RBC % Neutrophils # (Manual) Lymphocytes # (Manual) Monocytes # (Manual) Eosinophils # (Manual) Basophils # (Manual) Differential Comment Platelet Estimate Platelet Morphology RBC Morph Micro Appear PT INR VBG pH 7.501 H VBG pCO2 28.7 L VBG pO2 60.3 H VBG HCO3 21.9 L VBG Total CO2 22.8 L VBG O2 Saturation 92.6 H VBG Base Excess -0.1 Sodium 142 Potassium 3.2 L Chloride 106 Carbon Dioxide 24 Anion Gap 12.0 BUN 59 H Creatinine 1.3 Estimated GFR (MDRD) 40 L Glucose 203 H Lactic Acid 1.1 Calcium 9.6 Total Bilirubin 0.7 AST 10 ALT 9 L Alkaline Phosphatase 103 Ammonia Troponin I High Sens Total Protein 7.3 Albumin 3.9 Globulin 3.4 Albumin/Globulin Ratio 1.1 Salicylates < 1.5 Acetaminophen 0.5 Ethyl Alcohol < 10.0 Blood Type Blood Type Recheck Antibody Screen 01/03/24 01/03/24 01/03/24 17:15 17:15 19:13 WBC RBC Hgb 11.9 L Hct 37.7 MCV MCH MCHC RDW Plt Count MPV Neut # (Auto) Lymph # (Auto) [place] # (Auto) Eos # (Auto) Baso # (Auto) Absolute Nucleated RBC Total Counted Band Neuts % (Manual) Abnorm Lymph % (Manual) Nucleated RBC % Neutrophils # (Manual) Lymphocytes # (Manual) Monocytes # (Manual) Eosinophils # (Manual) Basophils # (Manual) Differential Comment Platelet Estimate Platelet Morphology RBC Morph Micro Appear PT INR VBG pH VBG pCO2 VBG pO2 VBG HCO3 VBG Total CO2 VBG O2 Saturation VBG Base Excess Sodium Potassium Chloride Carbon Dioxide Anion Gap BUN Creatinine Estimated GFR (MDRD) Glucose Lactic Acid Calcium Total Bilirubin AST ALT Alkaline Phosphatase Ammonia Troponin I High Sens 27.7 H* Total Protein Albumin Globulin Albumin/Globulin Ratio Salicylates Acetaminophen Ethyl Alcohol Blood Type A POSITIVE Blood Type Recheck Antibody Screen NEGATIVE 01/03/24 19:13 WBC RBC Hgb Hct MCV MCH MCHC RDW Plt Count MPV Neut # (Auto) Lymph # (Auto) [place] # (Auto) Eos # (Auto) Baso # (Auto) Absolute Nucleated RBC Total Counted Band Neuts % (Manual) Abnorm Lymph % (Manual) Nucleated RBC % Neutrophils # (Manual) Lymphocytes # (Manual) Monocytes # (Manual) Eosinophils # (Manual) Basophils # (Manual) Differential Comment Platelet Estimate Platelet Morphology RBC Morph Micro Appear PT INR VBG pH VBG pCO2 VBG pO2 VBG HCO3 VBG Total CO2 VBG O2 Saturation VBG Base Excess Sodium Potassium Chloride Carbon Dioxide Anion Gap BUN Creatinine Estimated GFR (MDRD) Glucose Lactic Acid Calcium Total Bilirubin AST ALT Alkaline Phosphatase Ammonia 44.3 Troponin I High Sens Total Protein Albumin Globulin Albumin/Globulin Ratio Salicylates Acetaminophen Ethyl Alcohol Blood Type Blood Type Recheck Antibody Screen - Rads (name of study) Head CT old left MCA stroke, nad Relevant Findings:: Final report received, EMP independent interpretation of test PD Medical Decision Making - ED course ED course: 73-year-old woman who has a history of stroke with cognitive deficits now presents with much worse cognition with significant verbal delay and coffee- ground emesis in the setting of Xarelto anticoagulation. Her vital signs show mild tachycardia but no hypotension. Lab work demonstrates a leukocytosis with a hemoglobin of 12.1. This was repeated after 2 hours and I dropped only slightly to 11.9. INR is 2.4 from the Xarelto. Venous blood gas shows a respiratory alkalosis. Chemistry panel notable for for mild hypokalemia which I will replete orally and elevated BUN which could be from GI bleeding although she has had elevated BUN's before. She has a borderline troponin but I do not think that changes management now given active bleeding with a normal ammonia level and negative blood toxicology screening. Head CT shows the remote left MCA infarction, but no acute disease. She remains nonverbal and telehealth consultation placed for delirium and upper GI bleeding on anticoagulation at 7:52 PM. I spoke with the telehealth hospitalist at 8:19 PM who requested surgery consult and I did call Dr. Chow who will have his partner consult in the morning. Departure - Departure Disposition: 66 [facility] DC/[place] Clinical Impression: History of CVA with residual deficit, Upper GI bleeding, Anticoagulated, Mental status alteration Condition: Serious
[2024-01-03] MEDS ORDERED: iohexoL-300 100 ML VIAL ONE ×2 (17:11→18:07)
[2024-01-03 17:23] LABS: BASOPHILS % (AUTO) 0.2 %; HGB - HEMOGLOBIN 12.1 g/dL (12.0-16.0)
[2024-01-03] MEDS: PANTOPRAZOLE 40 MG VIAL IVP STA (17:26)
[2024-01-03] MEDS: SODIUM CHLORIDE 0.9% 1,000 ML IV STA (17:31)
[2024-01-03 17:32] LABS: INR 2.4 (0.8-1.2); PT - PROTHROMBIN TIME 25.4 secs (9.9-12.6)
[2024-01-03 17:33] LABS: EOSINOPHILS % (AUTO) 0.1 %; MEAN CORPUSCULAR HEMOGLOBIN 30.6 pg (27.0-31.0); MEAN CORPUSCULAR HGB CONC 32.7 g/dL (32.0-36.0); MEAN CORPUSCULAR VOLUME 93.4 fL (81.0-99.0); MEAN PLATELET VOLUME 10.3 fL (7.9-10.8); MONOCYTES % (AUTO) 7.9 %; NEUTROPHILS % (AUTO) 87.1 %; PLT - PLATELET COUNT 497 10^3/uL (130-450); RED BLOOD COUNT 3.96 10^6/uL (4.20-5.40); RED CELL DISTRIBUTION WIDTH 14.6 % (12.0-15.0); WHITE BLOOD COUNT 19.7 x10^3/uL (4.8-10.8)
[2024-01-03 17:34] LABS: VBG BASE EXCESS -0.1 mmol/L (-2 - +2); VBG HCO3 21.9 mmol/L (23-28); VBG OXYGEN SATURATION 92.6 % (60-80); VBG PCO2 28.7 mmHg (41-51); VBG PH 7.501 (7.31-7.41); VBG PO2 60.3 mmHg (25-47); VBG TOTAL CO2 22.8 mmol/L (24-29)
[2024-01-03 17:36] LABS: ACETAMINOPHEN 0.5 ug/mL; ALBUMIN 3.9 g/dL (3.2-5.5); ALBUMIN/GLOBULIN RATIO 1.1 (1.0-2.2); ALKALINE PHOSPHATASE 103 IU/L (42-121); ALT ALANINE AMINOTRANSFERASE 9 IU/L (10-60); AST ASPARTATE AMINOTRANSFERASE 10 IU/L (10-42); BILIRUBIN,TOTAL 0.7 mg/dL (0.2-1.0); BUN - BLOOD UREA NITROGEN 59 mg/dL (6-20); CALCIUM 9.6 mg/dL (8.5-10.3); CARBON DIOXIDE - CO2 24 mmol/L (21-32); CHLORIDE 106 mmol/L (101-111); CREATININE 1.3 mg/dL (0.6-1.3); ETOH - ETHANOL < 10.0 mg/dL; GFR - MDRD 40 (>89); GLUCOSE 203 mg/dL (74-104); POTASSIUM 3.2 mmol/L (3.5-4.5); SODIUM 142 mmol/L (135-145); TOTAL PROTEIN 7.3 g/dL (6.4-8.9)
[2024-01-03 17:37] LABS: ABNORMAL LYMPHS % (MANUAL) 0 %
[2024-01-03 17:46] LABS: SALICYLATE < 1.5 mg/dL
[2024-01-03 18:03] LABS: BAND NEUTROPHILS % (MANUAL) 1 %; EOSINOPHILS # (MANUAL) 0.2 10^3/uL (0-0.7); LYMPHOCYTES # (MANUAL) 0.2 10^3/uL (1.5-3.5); LYMPHOCYTES % (MANUAL) 1 %; MONOCYTES # (MANUAL) 1.2 10^3/uL (0.0-1.0); NEUTROPHILS # (MANUAL) 18.1 10^3/uL (1.5-6.6)
[2024-01-03 18:04] LABS: DIFFERENTIAL COMMENT MANUAL DIFFERENTIAL; PLATELET ESTIMATE, MANUAL INCREASED (>450,000) (NORMAL); PLATELET MORPHOLOGY NORMAL APPEARANCE (NORMAL); RBC MORPHOLOGY (MULTIPLE) NORMAL APPEARANCE (NORMAL)
--- NOTE | 2024-01-03 18:52 | CT Report ---
PROCEDURE: Head WO INDICATIONS: ams TECHNIQUE: Noncontrast 4.5 mm thick angled axial sections acquired from the foramen magnum to the vertex. For r adiation dose reduction, the following was used: automated exposure control, adjustment of mA and/or kV according to patient size. COMPARISON: 06/23/2023, 10/06/2021 FINDINGS: Image quality: Excellent. CSF spaces: Basal cisterns are patent. No extra-axial fluid collections. Ventricles are stable, wi th ex vacuo dilatation seen of the left lateral ventricle. Brain: No midline shift. No intracranial masses or hemorrhage. Graff-white matter interface is norm al. There is a remote left MCA territory infarction seen, which is stable compared to the prior exam ination. Skull and face: Calvarium and visualized facial bones are intact, without suspicious lesions. Sinuses: Visualized sinuses and mastoids are clear. IMPRESSION: No acute intracranial pathology. Stable remote left MCA territory infarction, with volume loss and stable ex vacuo dilatation of the l eft lateral ventricle. Reviewed by: Stefano Mora MD on 01/03/2024 5:50 PM AKDT Approved by: Stefano Mora MD on 01/03/2024 5:50 PM AKDT Station ID: [id number]
[2024-01-03 19:15] LABS: HCT - HEMATOCRIT 37.7 % (37.0-47.0); HGB - HEMOGLOBIN 11.9 g/dL (12.0-16.0)
[2024-01-03] MEDS: POTASSIUM BICARB 25 MEQ TABLET PO STA (19:56)
--- NOTE | 2024-01-03 20:13 | HISTORY & PHYSICAL EXAMINATION ---
Chief Complaint - Chief Complaint Chief Complaint: ams, vomiting blood History of Present Illness - History of Present Illness HPI Comment/Other: pt presents via ems with reports of coffee-ground emesis as reported by EMS and ed staff. no family currently available for details. pt has prior cognitive deficits d/t cva, but she has worsening AMS. pt currently takes xarelto. pt is confused and able to reorient with simple repeated statements and questions, but can't provide much history, though she does deny chest pain. 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 Her mother of CHF complications but also had a major stroke in her 70s. Her father is secondary to a brain bleed secondary to a fall at age of 86. She has 5 siblings, 1 is due to Hodgkin's lymphoma. Social History Notes: The patient smoked on and off for 20 years combined at half a pack per day. She drinks wine with dinner on occasion. She uses [employer]. - POLST Patient has POLST: No POLST Status: Full Code Meds/Allgy - Home Medications Home Medications: Ambulatory Orders Medication Instructions Recorded Confirmed Cholecalciferol (Vitamin D3) 2,000 unit PO DAILY 08/21/15 01/03/24 [Vitamin D3] Gabapentin 400 mg PO DAILY 08/21/15 01/03/24 Rivaroxaban [Xarelto] 20 mg PO QDDINNER 08/18/19 01/03/24 Metformin HCl [Glucophage] 1,000 mg PO BID 10/08/20 01/03/24 Multivitamin 1 each PO DAILY 10/08/20 01/03/24 Omeprazole Magnesium 20 mg PO BID 10/08/20 01/03/24 Atorvastatin [Lipitor] 20 mg PO QPM 04/25/21 01/03/24 Gabapentin [Neurontin] 800 mg PO QPM 04/25/21 01/03/24 Sertraline [Zoloft] 50 mg PO DAILY 04/25/21 01/03/24 Spironolactone [Aldactone] 25 mg PO DAILY 04/25/21 01/03/24 Albuterol 2.5 mg INH Q4H PRN 06/15/21 01/03/24 Budesonide/Formoterol Fumarate 2 puffs INH BID 06/15/21 01/03/24 [Symbicort 160-4.5 Mcg Inhaler] Verapamil HCl [Verapamil ER] 240 mg PO QPM 06/15/21 01/03/24 Amoxicillin 1,000 mg PO TID 2 Days #6 cap 06/16/21 01/03/24 Losartan [Cozaar] 50 mg PO DAILY tablet 06/16/21 01/03/24 Acetaminophen [Acetaminophen Extra 500 mg PO QID PRN #60 tablet 01/02/24 01/03/24 Strength] Diclofenac Sodium 1% Gel [Voltaren 2 gm TOP QID #50 gm 01/02/24 01/03/24 Gel] Docusate Sodium 100Mg Capsule 100 mg PO DAILY #20 cap 01/02/24 01/03/24 [Colace 100Mg Capsule] HYDROcod/ACETAM 5/325 [[place] 5/325] 1 ea PO Q8H PRN #18 tablet 01/02/24 01/03/24 - Allergies Allergies/Adverse Reactions: Allergies Allergy/AdvReac Type Severity Reaction Status Date / Time No Known Drug Allergies Allergy Verified 01/03/24 17:09 Review of Systems - Other Findings Other Findings: per simple repeated questions, positives per hpi; all others reviewed as negative Exam - Vital Signs Vital Signs: Vital Signs x48h Temp Pulse Resp BP Pulse Ox 01/03/24 19:30 106 H 15 194/81 H 96 01/03/24 19:09 116 H 17 168/69 H 96 01/03/24 17:01 35.9 C L 112 H 20 153/83 H 97 - Physical Exam Comments/Other: gen - awake, alert, but not very well oriented to events, nad heent - eomi, nc/at heart - per ed charting lungs - per ed charting, no obvious distress noted abd - per ed charting Conclusion/Plan - Lab Results Fish Bones: 01/03/24 20:54 01/03/24 17:15 - Other Other Results/Comments: pt with - - hematemesis concern for ugib hgb 11.9, vss, af hold xarelto ct abd/pelvis official report pending but per ED discussion no obvious acute findings noted on images ed to consult gen surg for further recommendations - ams, on top of severe mental debility d/t prior cva toxic metabolic encephalopathy likely d/t dehydration + uremia (below) ct head without acute findings, ammonia negative no new focal deficits ivf, neuro checks - uremia might be contributory to ams as above ivf to be continued - antonio vs antonio on ckd in setting of and contributory to above gfr 40 check renal sono, ivf -leukocytosis likely d/t current presentation no obvious infectious source identified cxr results pending f/u labs, monitor h/h, replete electrolytes further orders per clinical course
[2024-01-03] MEDS ORDERED: SODIUM CHLORIDE FLUSH 0.9% 10 ML SYRINGE IVP PRN (20:27)
[2024-01-03] MEDS ORDERED: ACETAMINOPHEN 325 MG TABLET PO PRN (20:27)
[2024-01-03 20:50] LABS: BILIRUBIN,URINE SMALL (NEGATIVE); GLUCOSE, URINE (UA) NEGATIVE (NEGATIVE); KETONES,URINE (UA) TRACE mg/dL (NEGATIVE); LEUKOCYTE ESTERASE, URINE NEGATIVE (NEGATIVE); NITRITE,URINE NEGATIVE (NEGATIVE); OCCULT BLOOD,URINE NEGATIVE (NEGATIVE); PH,URINE 5.5 PH (5.0-7.5); PROTEIN,URINE 30 mg/dL (NEGATIVE); UROBILINOGEN,URINE 0.2 (NORMAL) E.U./dL (NORMAL)
[2024-01-03 20:52] LABS: CLARITY,URINE CLEAR (CLEAR)
[2024-01-03 20:57] LABS: BASOPHILS % (AUTO) 0.1 %; HCT - HEMATOCRIT 35.2 % (37.0-47.0); HGB - HEMOGLOBIN 11.4 g/dL (12.0-16.0); LYMPHOCYTES % (AUTO) 4.5 %; MEAN CORPUSCULAR HEMOGLOBIN 30.5 pg (27.0-31.0); MEAN CORPUSCULAR HGB CONC 32.4 g/dL (32.0-36.0); MEAN CORPUSCULAR VOLUME 94.1 fL (81.0-99.0); MEAN PLATELET VOLUME 10.1 fL (7.9-10.8); MONOCYTES % (AUTO) 8.1 %; NEUTROPHILS % (AUTO) 86.7 %; PLT - PLATELET COUNT 441 10^3/uL (130-450); RED BLOOD COUNT 3.74 10^6/uL (4.20-5.40); WHITE BLOOD COUNT 20.8 x10^3/uL (4.8-10.8)
[2024-01-03 20:58] LABS: ABNORMAL LYMPHS % (MANUAL) 0 %
[2024-01-03 21:05] LABS: AMPHETAMINE SCREEN,URINE NEGATIVE (NEGATIVE); BARBITURATE SCREEN,UR NEGATIVE (NEGATIVE); BENZODIAZEPINES SCREEN, URINE NEGATIVE (NEGATIVE); BUPRENORPHINE SCREEN, URINE NEGATIVE (NEGATIVE); COCAINE SCREEN URINE NEGATIVE (NEGATIVE); METHADONE SCREEN, URINE NEGATIVE (NEGATIVE); METHAMPHETAMINES SCREEN, URINE NEGATIVE (NEGATIVE); OPIATE SCREEN, URINE POSITIVE (NEGATIVE); OXYCODONE SCREEN, URINE NEGATIVE (NEGATIVE); THC CANNABINOID SCREEN, URINE POSITIVE (NEGATIVE); TRICYCLIC ANTIDEPRESSANT,URINE NEGATIVE (NEGATIVE)
[2024-01-03 21:12] LABS: ALBUMIN 3.7 g/dL (3.2-5.5); ALBUMIN/GLOBULIN RATIO 1.2 (1.0-2.2); BILIRUBIN,TOTAL 0.6 mg/dL (0.2-1.0); CREATININE 1.3 mg/dL (0.6-1.3); MAGNESIUM 1.5 mg/dL (1.7-2.3); POTASSIUM 3.6 mmol/L (3.5-4.5); TOTAL PROTEIN 6.8 g/dL (6.4-8.9)
[2024-01-03 21:13] LABS: BACTERIA,URINE Few /HPF (None Seen); RBC,URINE 0-5 /HPF (0-5); SQUAMOUS EPITHELIAL CELL,UR FEW Squamous (<= Few); WBC,URINE 0-3 /HPF (0-5)
[2024-01-03 21:19] LABS: BAND NEUTROPHILS % (MANUAL) 1 %; EOSINOPHILS # (MANUAL) 0.4 10^3/uL (0-0.7); LYMPHOCYTES # (MANUAL) 0.8 10^3/uL (1.5-3.5); LYMPHOCYTES % (MANUAL) 3 %; MONOCYTES # (MANUAL) 1.7 10^3/uL (0.0-1.0); NEUTROPHILS # (MANUAL) 17.9 10^3/uL (1.5-6.6); REACTIVE LYMPHS % (MANUAL) 1 %
[2024-01-03 21:20] LABS: PLATELET ESTIMATE, MANUAL NORMAL (130-450,000) (NORMAL); PLATELET MORPHOLOGY NORMAL APPEARANCE (NORMAL); RBC MORPHOLOGY (MULTIPLE) NORMAL APPEARANCE (NORMAL)
[2024-01-03 21:21] LABS: DIFFERENTIAL COMMENT MANUAL DIFFERENTIAL
[2024-01-03 21:45] LABS: CHOL/HDL RATIO 2.8 (<4.4); CHOLESTEROL 125 mg/dL; HDL CHOLESTEROL 44 mg/dL; LDL CHOLESTEROL,CALCULATED 47 mg/dL; LDL/HDL RATIO 1.1 (<4.4); TRIGLYCERIDES 171 mg/dL; VLDL CHOLESTEROL 34 mg/dL
[2024-01-03 21:50] LABS: THYROID STIMULATING HORMONE 1.28 uIU/mL (0.34-5.60)
[2024-01-03] MEDS: LACTATED RINGERS 1,000 ML IV SCH (22:13)
[2024-01-03] MEDS: ATORVASTATIN 10 MG TABLET PO SCH (22:14)
--- NOTE | 2024-01-03 22:17 | XRAY Report ---
PROCEDURE: Chest 1V INDICATIONS: aspiration TECHNIQUE: One view of the chest was acquired. COMPARISON: CT chest 06/23/2023 FINDINGS: Surgical changes and devices: None. Lungs and pleura: No pleural effusions or pneumothorax. Lungs are clear. Mediastinum: Mediastinal contours appear normal. Heart size is enlarged. Bones and chest wall: No suspicious bony lesions. Overlying soft tissues appear unremarkable. Mul tiple rib fractures. IMPRESSION: No acute cardiopulmonary process. Reviewed by: Deisy Pineda MD on 01/03/2024 10:16 PM PDT Approved by: Deisy Pineda MD on 01/03/2024 10:16 PM PDT Station ID: [id number]
[2024-01-03] MEDS: iohexoL-300 100 ML VIAL IVP ONE (23:25)
--- NOTE | 2024-01-04 00:05 | CT Report ---
PROCEDURE: Angio Abdomen/Pelvis INDICATIONS: ugi bleed CONTRAST: 100 ML OMNI 300 TECHNIQUE: After the administration of intravenous contrast, 2.5 mm thick sections acquired from the diaphragm t o the symphysis. 10 mm maximum-intensity projection (MIP) reformats were then acquired. For radiati on dose reduction, the following was used: automated exposure control, adjustment of mA and/or kV ac cording to patient size. COMPARISON: CT abdomen pelvis 04/24/2021 FINDINGS: Image quality: Excellent. Aorta: Aorta demonstrates atherosclerotic wall calcifications about ectasia without gross aneurysmal dilation in the infrarenal portion. There are no areas of occlusion, hemodynamically significant shefali nosis or dissection. Mesenteric arteries: Celiac trunk, superior and inferior mesenteric arteries appear patent. Right pelvic arteries: Patent Left pelvic arteries: Patent Extravascular soft tissues: Linear opacities are present within the right base likely scarring versus atelectasis.. Heart size is normal. Liver and spleen are normal in size and enhancement. Calcifica tions are present within the liver and spleen possibly representing dystrophic calcifications versus calcified cysts, unchanged. Gallbladder demonstrates dependent luminal calcifications without wall th ickening.. Biliary system is non dilated. Pancreas enhances normally. No adrenal nodules. Kidneys are atrophic bilaterally and enhancement, without hydronephrosis. Non opacified bowel loops are nor mal in wall thickness and caliber. No contrast extravasation demonstrate active hemorrhage. Prominent hiatal hernia. No free fluid or air. No retroperitoneal or mesenteric adenopathy. No ventral herni as. No suspicious bony lesions. No vertebral body compression fractures. IMPRESSION: No contrast extravasation within portions of the bowel or upper GI system to demonstrate active hemor rhage. Unchanged cholelithiasis. Reviewed by: Deisy Pineda MD on 01/04/2024 12:04 AM PDT Approved by: Deisy Pineda MD on 01/04/2024 12:04 AM PDT Station ID: [id number]
[2024-01-04] MEDS: SODIUM CHLORIDE FLUSH 0.9% 10 ML SYRINGE IVP SCH (03:01)
[2024-01-04 05:45] LABS: BASOPHILS % (AUTO) 0.2 %; EOSINOPHILS % (AUTO) 0.1 %; HCT - HEMATOCRIT 28.7 % (37.0-47.0); HGB - HEMOGLOBIN 9.6 g/dL (12.0-16.0); LYMPHOCYTES # (AUTO) 0.8 10^3/uL (1.5-3.5); LYMPHOCYTES % (AUTO) 4.7 %; MEAN CORPUSCULAR HEMOGLOBIN 31.3 pg (27.0-31.0); MEAN CORPUSCULAR HGB CONC 33.4 g/dL (32.0-36.0); MEAN CORPUSCULAR VOLUME 93.5 fL (81.0-99.0); MEAN PLATELET VOLUME 9.9 fL (7.9-10.8); MONOCYTES # (AUTO) 1.2 10^3/uL (0.0-1.0); MONOCYTES % (AUTO) 6.9 %; NEUTROPHILS # (AUTO) 14.7 10^3/uL (1.5-6.6); NEUTROPHILS % (AUTO) 87.4 %; PLT - PLATELET COUNT 344 10^3/uL (130-450); RED BLOOD COUNT 3.07 10^6/uL (4.20-5.40); RED CELL DISTRIBUTION WIDTH 15.1 % (12.0-15.0); WHITE BLOOD COUNT 16.9 x10^3/uL (4.8-10.8)
[2024-01-04 06:04] LABS: ALBUMIN 3.2 g/dL (3.2-5.5); ALBUMIN/GLOBULIN RATIO 1.1 (1.0-2.2); BILIRUBIN,TOTAL 0.6 mg/dL (0.2-1.0); CALCIUM 8.8 mg/dL (8.5-10.3); CREATININE 1.1 mg/dL (0.6-1.3); MAGNESIUM 1.5 mg/dL (1.7-2.3); POTASSIUM 3.2 mmol/L (3.5-4.5)
[2024-01-04] MEDS: PANTOPRAZOLE 40 MG TABLET PO SCH (06:10)
[2024-01-04 08:24] LABS: ESTIMATED AVERAGE GLUCOSE 120 mg/dL (70-100); HEMOGLOBIN A1c% 5.8 % (4.27-6.07)
[2024-01-04] MEDS: FORMOTEROL FUMARATE NEB 20 MCG/2 ML INH SCH (08:33)
[2024-01-04] MEDS: BUDESONIDE 0.5 MG/2 ML NEB INH SCH (08:33)
[2024-01-04] MEDS: SPIRONOLACTONE 25 MG TABLET PO SCH (09:52)
[2024-01-04] MEDS: DOCUSATE SODIUM 100 MG CAPSULE PO SCH (09:52)
[2024-01-04] MEDS: MULTIVITAMIN TABLET PO SCH (09:52)
[2024-01-04] MEDS: CHOLECALCIFEROL 400 UNIT TABLET PO SCH (09:52)
[2024-01-04] MEDS: GABAPENTIN 400 MG CAPSULE PO SCH (09:52)
[2024-01-04] MEDS: LOSARTAN 50 MG TABLET PO SCH (10:15)
[2024-01-04] MEDS: ONDANSETRON 4 MG/2 ML VIAL IVP PRN (10:26)
--- NOTE | 2024-01-04 11:32 | PHARMACY PROGRESS NOTE ---
- Best Possible Medication History Admit Date and Time: 01/03/242026 Processed by: Pharmacy Medications reviewed in ED?: Yes Medication History completed: Yes Patient Interview: Pt unable to participate Secondary Source(s): Caregiver (pt's caregiver interviewed by retail pharmacy managerNeville), Physician records, Insurance records As the person ultimately responsible for medication therapy, providers are able to order a medication from an existing home medication list in [facility] via the "Reconcile Routine" prior to Confirmation of that medication by merchandise support associate. Such practice is discouraged except when the physician, in their clinical judgment, deems that a medical need exists for a medication without regard to previous use.
--- NOTE | 2024-01-04 12:13 | CONSULTATION NOTE ---
Surgery Consult - Admit Date Hospital Admission Date: 01/04/24 - Consult Date Consult Date: 01/04/24 Requesting Provider: Dr. Del Valle - Chief Complaint Chief Complaint: Anemia, coffee ground emesis - Home Meds/Allergies Home Medications: Patient History Medication Instructions Recorded Confirmed Cholecalciferol (Vitamin D3) 2,000 unit PO DAILY 08/21/15 01/03/24 [Vitamin D3] Gabapentin 400 mg PO DAILY 08/21/15 01/03/24 Rivaroxaban [Xarelto] 20 mg PO QDDINNER 08/18/19 01/03/24 Atorvastatin [Lipitor] 20 mg PO QPM 04/25/21 01/03/24 Gabapentin [Neurontin] 800 mg PO QPM 04/25/21 01/03/24 Sertraline [Zoloft] 50 mg PO DAILY 04/25/21 01/03/24 Verapamil HCl [Verapamil ER] 240 mg PO QPM 06/15/21 01/03/24 Docusate Sodium 100Mg Capsule 100 mg PO DAILY PRN 01/04/24 01/04/24 [Colace 100Mg Capsule] Losartan [Cozaar] 50 mg PO BID 01/04/24 01/04/24 Mdi: Albuterol 1 - 2 puffs INH Q4HR PRN 01/04/24 01/04/24 Mv-Mn/Folic/Lutein/Herbal 293 1 each PO DAILY 01/04/24 01/04/24 [Alive Women's 50 Plus Vitamins] metFORMIN [Glucophage] 500 mg PO BIDWM 01/04/24 01/04/24 Allergies/Adverse Reactions: Allergies Allergy/AdvReac Type Severity Reaction Status Date / Time No Known Drug Allergies Allergy Verified 01/03/24 17:09 - Vital Signs Vital Signs: Last Vital Signs Temp 97.9 F 01/04/24 11:07 Pulse 106 H 01/04/24 11:07 Resp 16 01/04/24 11:07 BP 190/83 H 01/04/24 11:07 Pulse Ox 95 01/04/24 11:07 O2 Flow Rate Intake & Output: Intake & Output 01/01/24 01/02/24 01/03/24 01/04/24 23:59 23:59 23:59 23:59 Intake Total 1041.25 958.75 Output Total 0 150 Balance 1041.25 808.75 - Lab Results Result Diagrams: 01/04/24 05:31 01/04/24 05:31 - Consultation Note Consultation Note: General Surgery Consultation Note Assessment: 1) UGI bleed with associated anemia. No clinical or image evidence of active bleeding 2) Cognitive impairment - chronic 3) Therapeutic anticoagulation Recommendation: 1) Hold DOAC. Last dose was yesterday 2) Serial H&H; Transfuse for Hgb <8 3) Clear liquid diet; NPO after Midnight 4) Will schedule for EGD tomorrow after permission obtained from her medical POA <><><><><><><><><><> Reason for Consultation Anemia, UGI bleed ANGELA White is a 73 year old female who was brought to the ED late yesterday with coffee ground emesis which started earlier in the day. She carries a diagnosis of cognitive impairment and is unable to give me a history. She does respond to yes/no questions and denies abdominal pain or injury. In the ED she underwent CTA of the abdomen and there was no evidence of intra-luminal extravasation. She was admitted to the Medical Hospitalist Service and serial H&H results indicate a mild anemia worse than on admission. i was asked to assist in her evaluation and management by Dr. Del Valle. The patient currently takes Xeralto but there is no indication that she has been using NSAIDs. Past Medical History - see below Past Surgical History - see below Family History - see below Social History - see below Current Medications See "Medication" section Allergies See "Allergy" section ROS Pertinent positives Denies abdominal pain All other reviewed systems negative Physical Examination Vital Signs: See "Vital Signs" section BMI: 21 GENERAL APPEARANCE: Normal development, normal body habitus, normal grooming PSYCHIATRIC: Sleeping but can be awakened. Answers yes/no questions sometimes. Closes her eyes and returns to sleep frequently SCALP: No evidence of injury EYES: Pupils equal, round and reactive to light, sclera anicteric NECK: No crepitus, lymphadenopathy, or thyromegaly LUNGS: Clear to auscultation without wheezing; No use of accessory muscles to breathe CARDIOVASCULAR: Heart-NSR without murmurs; ABD: Soft, non-tender, non-distended, few BS LYMPHATIC: Neck, Axillae, Groin [] palpable adenopathy EXTREMITIES: No clubbing, cyanosis, infections SKIN: Anicteric; No rashes, lesions, Ulcerations Labs See "Labs" section INR 2.2 Antibiotics: None VTEP: SCD Imaging CTA Abd - No evidence of extravasation into GI tract CXR - WNL CT Head - WNL All images were personally reviewed by me for this encounter. Tim Cassidy MD, FACS General Surgery Service [phone]
--- NOTE | 2024-01-04 16:06 | PROVIDER PROGRESS NOTE ---
Assessment/Plan - Problem List (1) Upper GI bleeding Assessment/Plan: No further evidence of UGI bleed, H/H trending down 12.1/37 on admit to 9.6/28.7, continue to monitor H/H and transfuse as needed, continue iv PPI q12, hold DOAC, appreciate input from general surgery with possible plans for EGD, CLD for now and NPO p MN if EGD planned. (2) History of CVA with residual deficit Assessment/Plan: Have called and discussed with and caregiver. Apparently patient had been placed on Xarelto as she had difficulty maintaining theraputic INR while on warfarin. Regardless with UGI bleed and anemia will hold any antiplatelet or DOAC. (3) Right tibial fracture Assessment/Plan: S/p CT RLE 01/02/24 consistent with acute comminuted and slightly displaced fracture through lateral portion of proximal tibia. ED physician had spoken to Dr. Mejia who did not recommend surgery and to treat with knee immobilizer and minimize weight bearing. Continue bedrest for now, f/u PT and OT recommendations, possible SNF and will clarify with ortho weight bearing status. (4) Hypokalemia Assessment/Plan: Replace and monitor, continue to hold Aldactone (5) Hypomagnesemia Assessment/Plan: Replace and monitor - Current Meds Current Meds: Current Medications Generic Name Dose Route Start Last Admin Trade Name Freq PRN Reason Stop Dose Admin Atorvastatin Calcium 20 mg 01/03/24 22:00 01/03/24 22:14 Atorvastatin 10 Mg Tablet PO 20 mg QPM ZIGGY Administration Budesonide 0.5 mg 01/04/24 07:00 01/04/24 08:33 Budesonide 0.5 Mg/2 Ml Neb INH 0.5 mg RTBID ZIGGY Administration Docusate Sodium 100 mg 01/04/24 09:00 01/04/24 10:24 Docusate Sodium 100 Mg Capsule PO Not Given DAILY ZIGGY Formoterol Fumarate 20 mcg 01/04/24 07:00 01/04/24 08:33 Formoterol Fumarate Neb 20 Mcg/2 Ml INH 20 mcg RTBID ZIGGY Administration Gabapentin 400 mg 01/04/24 09:00 01/04/24 09:52 Gabapentin 400 Mg Capsule PO 400 mg DAILY ZIGGY Administration Lactated Ringer's 1,000 mls @ 75 mls/hr 01/03/24 21:00 01/04/24 12:07 Lr IV 75 mls/hr .[id number] ZIGGY Administration Losartan Potassium 50 mg 01/04/24 09:00 01/04/24 10:15 Losartan 50 Mg Tablet PO 50 mg DAILY ZIGGY Administration Multivitamins 1 tab 01/04/24 09:00 01/04/24 10:24 Multivitamin Tablet PO Not Given DAILY ZIGGY Ondansetron HCl 4 mg 01/03/24 20:27 01/04/24 10:26 Ondansetron 4 Mg/2 Ml Vial IVP 4 mg Q6HR PRN Administration Nausea / Vomiting Sodium Chloride 10 ml 01/04/24 01:00 01/04/24 09:52 Sodium Chloride Flush 0.9% 10 Ml Syringe IVP 10 ml 0100,[id number],1700 ZIGGY Administration Spironolactone 25 mg 01/04/24 09:00 01/04/24 09:52 Spironolactone 25 Mg Tablet PO 25 mg DAILY ZIGGY Administration - Lab Result Fish Bone Diagrams: 01/04/24 13:59 01/04/24 05:31 - Additional Planning Condition/Complexity: Stable Consult/Specialty: Surgery Plan Discussed with:: Patient, Other (caregive Erma) Objective Vital Signs: Vital Signs - 24 hr 01/03/24 01/03/24 01/03/24 17:01 19:09 19:30 Temperature 35.9 C L Heart Rate 112 H 116 H 106 H Heart Rate [ Brachial] Respiratory 20 17 15 Rate Blood Pressure 153/83 H 168/69 H 194/81 H Blood Pressure [Left Brachial artery] Blood Pressure [Left Radial artery] Blood Pressure [Right Brachial artery] O2 Saturation 97 96 96 01/03/24 01/03/24 01/04/24 20:30 21:29 00:14 Temperature 36.5 C 36.5 C Heart Rate 111 H Heart Rate [ 110 H 102 H Brachial] Respiratory 19 18 18 Rate Blood Pressure 166/77 H Blood Pressure [Left Brachial artery] Blood Pressure 163/80 H [Left Radial artery] Blood Pressure 146/88 H [Right Brachial artery] O2 Saturation 97 94 95 01/04/24 01/04/24 01/04/24 05:00 08:35 11:07 Temperature 36.3 C L 36.6 C Heart Rate 88 Heart Rate [ 94 106 H Brachial] Respiratory 18 18 16 Rate Blood Pressure Blood Pressure 190/83 H [Left Brachial artery] Blood Pressure [Left Radial artery] Blood Pressure 149/68 H [Right Brachial artery] O2 Saturation 94 95 01/04/24 01/04/24 13:00 15:50 Temperature 36.6 C 36.6 C Heart Rate Heart Rate [ 92 89 Brachial] Respiratory 16 16 Rate Blood Pressure Blood Pressure 144/78 H 133/63 H [Left Brachial artery] Blood Pressure [Left Radial artery] Blood Pressure [Right Brachial artery] O2 Saturation 95 92 Oxygen O2 Source Room air I&O (Last 24 Hrs): Intake and Output Totals x24h 01/02/24 01/03/24 01/04/24 23:59 23:59 23:59 Intake Total 1041.25 958.75 Output Total 0 850 Balance 1041.25 108.75 - Results Results: Laboratory Results WBC 16.9 x10^3/uL (4.8-10.8) H 01/04/24 05:31 RBC 3.07 10^6/uL (4.20-5.40) L 01/04/24 05:31 Hgb 9.0 g/dL (12.0-16.0) L 01/04/24 13:59 Hct 28.7 % (37.0-47.0) L 01/04/24 05:31 MCV 93.5 fL (81.0-99.0) 01/04/24 05:31 MCH 31.3 pg (27.0-31.0) H 01/04/24 05:31 MCHC 33.4 g/dL (32.0-36.0) 01/04/24 05:31 RDW 15.1 % (12.0-15.0) H 01/04/24 05:31 Plt Count 344 10^3/uL (130-450) 01/04/24 05:31 MPV 9.9 fL (7.9-10.8) 01/04/24 05:31 Neut # (Auto) 14.7 10^3/uL (1.5-6.6) H 01/04/24 05:31 Lymph # (Auto) 0.8 10^3/uL (1.5-3.5) L 01/04/24 05:31 [place] # (Auto) 1.2 10^3/uL (0.0-1.0) H 01/04/24 05:31 Eos # (Auto) 0.0 10^3/uL (0.0-0.7) 01/04/24 05:31 Baso # (Auto) 0.0 10^3/uL (0.0-0.1) 01/04/24 05:31 Absolute Nucleated RBC 0.00 x10^3/uL 01/04/24 05:31 Total Counted 100 01/03/24 20:54 Band Neuts % (Manual) 1 % (0-10) 01/03/24 20:54 Reactive Lymphs % (Man) 1 % 01/03/24 20:54 Abnorm Lymph % (Manual) 0 % 01/03/24 20:54 Nucleated RBC % 0.0 /100WBC 01/04/24 05:31 Neutrophils # (Manual) 17.9 10^3/uL (1.5-6.6) H 01/03/24 20:54 Lymphocytes # (Manual) 0.8 10^3/uL (1.5-3.5) L 01/03/24 20:54 Monocytes # (Manual) 1.7 10^3/uL (0.0-1.0) H 01/03/24 20:54 Eosinophils # (Manual) 0.4 10^3/uL (0-0.7) 01/03/24 20:54 Basophils # (Manual) 0.0 10^3/uL (0-0.1) 01/03/24 20:54 Differential Comment MANUAL DIFFERENTIAL 01/03/24 20:54 Platelet Estimate NORMAL (130-450,000) (NORMAL) 01/03/24 20:54 Platelet Morphology NORMAL APPEARANCE (NORMAL) 01/03/24 20:54 RBC Morph Micro Appear NORMAL APPEARANCE (NORMAL) 01/03/24 20:54 PT 25.4 secs (9.9-12.6) H 01/03/24 17:15 INR 2.4 (0.8-1.2) H 01/03/24 17:15 VBG pH 7.501 (7.31-7.41) H 01/03/24 17:15 VBG pCO2 28.7 mmHg (41-51) L 01/03/24 17:15 VBG pO2 60.3 mmHg (25-47) H 01/03/24 17:15 VBG HCO3 21.9 mmol/L (23-28) L 01/03/24 17:15 VBG Total CO2 22.8 mmol/L (24-29) L 01/03/24 17:15 VBG O2 Saturation 92.6 % (60-80) H 01/03/24 17:15 VBG Base Excess -0.1 mmol/L (-2 - +2) 01/03/24 17:15 Sodium 140 mmol/L (135-145) 01/04/24 05:31 Potassium 3.2 mmol/L (3.5-4.5) L 01/04/24 05:31 Chloride 107 mmol/L (101-111) 01/04/24 05:31 Carbon Dioxide 25 mmol/L (21-32) 01/04/24 05:31 Anion Gap 8.0 (6-13) 01/04/24 05:31 BUN 50 mg/dL (6-20) H 01/04/24 05:31 Creatinine 1.1 mg/dL (0.6-1.3) 01/04/24 05:31 Estimated GFR (MDRD) 49 (>89) L 01/04/24 05:31 Glucose 149 mg/dL (74-104) H 01/04/24 05:31 Estimat Average Glucose 120 mg/dL (70-100) H 01/03/24 20:54 Hemoglobin A1c % 5.8 % (4.27-6.07) 01/03/24 20:54 Lactic Acid 1.1 mmol/L (0.5-2.2) 01/03/24 17:15 Calcium 8.8 mg/dL (8.5-10.3) 01/04/24 05:31 Magnesium 1.5 mg/dL (1.7-2.3) L 01/04/24 05:31 Total Bilirubin 0.6 mg/dL (0.2-1.0) 01/04/24 05:31 AST 9 IU/L (10-42) L 01/04/24 05:31 ALT 8 IU/L (10-60) L 01/04/24 05:31 Alkaline Phosphatase 78 IU/L (42-121) 01/04/24 05:31 Ammonia 44.3 umol/L (18-72) 01/03/24 19:13 Troponin I High Sens 27.7 ng/L (2.3-14.8) H* 01/03/24 17:15 Total Protein 6.0 g/dL (6.4-8.9) L 01/04/24 05:31 Albumin 3.2 g/dL (3.2-5.5) 01/04/24 05:31 Globulin 2.8 g/dL (2.1-4.2) 01/04/24 05:31 Albumin/Globulin Ratio 1.1 (1.0-2.2) 01/04/24 05:31 Triglycerides 171 mg/dL 01/03/24 20:54 Cholesterol 125 mg/dL (-200) 01/03/24 20:54 LDL Cholesterol, Calc 47 mg/dL (-129) 01/03/24 20:54 VLDL Cholesterol 34 mg/dL 01/03/24 20:54 HDL Cholesterol 44 mg/dL (60-) L 01/03/24 20:54 LDL/HDL Ratio 1.1 (<4.4) 01/03/24 20:54 Cholesterol/HDL Ratio 2.8 (<4.4) 01/03/24 20:54 Vitamin B12 165 pg/mL (180-914) L 01/04/24 05:39 TSH 1.28 uIU/mL (0.34-5.60) 01/03/24 20:54 Urine Color YELLOW 01/03/24 20:44 Urine Clarity CLEAR (CLEAR) 01/03/24 20:44 Urine pH 5.5 PH (5.0-7.5) 01/03/24 20:44 Ur Specific [place] >=1.030 (1.002-1.030) H 01/03/24 20:44 Urine Protein 30 mg/dL (NEGATIVE) H 01/03/24 20:44 Urine Glucose (UA) NEGATIVE mg/dL (NEGATIVE) 01/03/24 20:44 Urine Ketones TRACE mg/dL (NEGATIVE) 01/03/24 20:44 Urine Occult Blood NEGATIVE (NEGATIVE) 01/03/24 20:44 Urine Nitrite NEGATIVE (NEGATIVE) 01/03/24 20:44 Urine Bilirubin SMALL (NEGATIVE) H 01/03/24 20:44 Urine Urobilinogen 0.2 (NORMAL) E.U./dL (NORMAL) 01/03/24 20:44 Ur Leukocyte Esterase NEGATIVE (NEGATIVE) 01/03/24 20:44 Urine RBC 0-5 /HPF (0-5) 01/03/24 20:44 Urine WBC 0-3 /HPF (0-5) 01/03/24 20:44 Ur Squamous Epith Cells FEW Squamous (<= Few) 01/03/24 20:44 Urine Bacteria Few /HPF (None Seen) 01/03/24 20:44 Ur Microscopic Review INDICATED 01/03/24 20:44 Urine Culture Comments NOT INDICATED 01/03/24 20:44 Salicylates < 1.5 mg/dL 01/03/24 17:15 Urine Opiates Screen POSITIVE (NEGATIVE) H 01/03/24 20:44 Ur Buprenorphine Scrn NEGATIVE (NEGATIVE) 01/03/24 20:44 Ur Oxycodone Screen NEGATIVE (NEGATIVE) 01/03/24 20:44 Urine Methadone Screen NEGATIVE (NEGATIVE) 01/03/24 20:44 Acetaminophen 0.5 ug/mL 01/03/24 17:15 Ur Barbiturates Screen NEGATIVE (NEGATIVE) 01/03/24 20:44 Ur Tricyclics Screen NEGATIVE (NEGATIVE) 01/03/24 20:44 Ur Phencyclidine Scrn NEGATIVE (NEGATIVE) 01/03/24 20:44 Ur Amphetamine Screen NEGATIVE (NEGATIVE) 01/03/24 20:44 U Methamphetamines Scrn NEGATIVE (NEGATIVE) 01/03/24 20:44 U Benzodiazepines Scrn NEGATIVE (NEGATIVE) 01/03/24 20:44 Urine Cocaine Screen NEGATIVE (NEGATIVE) 01/03/24 20:44 U Cannabinoids Screen POSITIVE (NEGATIVE) H 01/03/24 20:44 Ur Drug Screen Comment CUTOFF CONC BELOW: 01/03/24 20:44 Ethyl Alcohol < 10.0 mg/dL 01/03/24 17:15 Blood Type A POSITIVE 01/03/24 17:15 Blood Type Recheck A POSITIVE 01/02/24 11:40 Antibody Screen NEGATIVE 01/03/24 17:15 ABX Reporting Has patient been on IV antibiotics over the past 48 hours?: No
[2024-01-04] MEDS: MAGNESIUM SULFATE 2 GRAM 2 GM/50 ML BAG IV ONE (16:50)
[2024-01-04] MEDS: oxyCODONE 5 MG TABLET PO PRN (16:56)
[2024-01-04] MEDS ORDERED: NON FORMULARY MED (Rivaroxaban [Xarelto] 20 MG Tablet) PO SCH (17:00)
[2024-01-04] MEDS: CYANOCOBALAMIN 1,000 MCG/ML VIAL IM ONE (17:32)
[2024-01-04] MEDS: ALBUTEROL NEB 2.5 MG/3 ML INH PRN (18:57)
[2024-01-04] MEDS: VERAPAMIL ER 120 MG TABLET PO SCH (20:23)
[2024-01-04] MEDS: POTASSIUM CHLORIDE 20 MEQ TABLET PO SCH (20:23)
[2024-01-04] MEDS: PANTOPRAZOLE 40 MG VIAL IVP SCH (20:23)
[2024-01-04] MEDS ORDERED: hydrALAZINE INJ 20 MG/ML VIAL IVP PRN (23:16)
[2024-01-04 23:24] LABS: HCT - HEMATOCRIT 27.8 % (37.0-47.0); HGB - HEMOGLOBIN 8.9 g/dL (12.0-16.0)
[2024-01-05 07:47] LABS: BASOPHILS % (AUTO) 0.3 %; EOSINOPHILS # (AUTO) 0.2 10^3/uL (0.0-0.7); EOSINOPHILS % (AUTO) 1.3 %; HGB - HEMOGLOBIN 8.6 g/dL (12.0-16.0); LYMPHOCYTES # (AUTO) 0.8 10^3/uL (1.5-3.5); LYMPHOCYTES % (AUTO) 6.7 %; MEAN CORPUSCULAR HGB CONC 31.9 g/dL (32.0-36.0); MEAN CORPUSCULAR VOLUME 97.5 fL (81.0-99.0); MEAN PLATELET VOLUME 9.9 fL (7.9-10.8); MONOCYTES # (AUTO) 0.8 10^3/uL (0.0-1.0); MONOCYTES % (AUTO) 6.5 %; NEUTROPHILS # (AUTO) 9.9 10^3/uL (1.5-6.6); NEUTROPHILS % (AUTO) 84.3 %; PLT - PLATELET COUNT 316 10^3/uL (130-450); RED BLOOD COUNT 2.77 10^6/uL (4.20-5.40); RED CELL DISTRIBUTION WIDTH 15.2 % (12.0-15.0); WHITE BLOOD COUNT 11.7 x10^3/uL (4.8-10.8)
[2024-01-05 07:56] LABS: CALCIUM 8.8 mg/dL (8.5-10.3); POTASSIUM 4.4 mmol/L (3.5-4.5)
--- NOTE | 2024-01-05 08:48 | PROVIDER PROGRESS NOTE ---
Assessment/Plan - Problem List (1) Upper GI bleeding Assessment/Plan: (1) Upper GI bleeding Assessment/Plan: No further evidence of UGI bleed, H/H trending down, 12.1/37 on admit to 8.12/16, continue to monitor H/H and transfuse as needed, continue iv PPI q12, hold DOAC, appreciate input from general surgery with possible plans for EGD today, continue NPO status (2) History of CVA with residual deficit Assessment/Plan: Have called and discussed with and caregiver. Apparently patient had been placed on Xarelto as she had difficulty maintaining theraputic INR while on warfarin. Regardless with UGI bleed and anemia will hold any antiplatelet or DOAC. (3) Right tibial fracture Assessment/Plan: S/p CT RLE 01/02/24 consistent with acute comminuted and slightly displaced fracture through lateral portion of proximal tibia. Have spoken to Dr. Mejia who did not recommend surgery and to treat with knee immobilizer and partial weight bearing. Continue bedrest for now with EGD plan for later today, f/u PT and OT recommendations, possible SNF on discharge. (4) Hypokalemia Assessment/Plan: Improvd with replacement Replace and monitor, continue to hold Aldactone (5) Hypomagnesemia Assessment/Plan: Replace and monitor - Current Meds Current Meds: Current Medications Generic Name Dose Route Start Last Admin Trade Name Freq PRN Reason Stop Dose Admin Albuterol 2.5 mg 01/03/24 20:10 01/04/24 18:57 Albuterol Neb 2.5 Mg/3 Ml INH 2.5 mg Q4H PRN Administration Wheezing Atorvastatin Calcium 20 mg 01/03/24 22:00 01/04/24 20:23 Atorvastatin 10 Mg Tablet PO 20 mg QPM ZIGGY Administration Budesonide 0.5 mg 01/04/24 07:00 01/05/24 07:28 Budesonide 0.5 Mg/2 Ml Neb INH 0.5 mg RTBID ZIGGY Administration Docusate Sodium 100 mg 01/04/24 09:00 01/04/24 10:24 Docusate Sodium 100 Mg Capsule PO Not Given DAILY ZIGGY Formoterol Fumarate 20 mcg 01/04/24 07:00 01/05/24 07:28 Formoterol Fumarate Neb 20 Mcg/2 Ml INH 20 mcg RTBID ZIGGY Administration Gabapentin 400 mg 01/04/24 09:00 01/04/24 09:52 Gabapentin 400 Mg Capsule PO 400 mg DAILY ZIGGY Administration Lactated Ringer's 1,000 mls @ 75 mls/hr 01/03/24 21:00 01/05/24 02:46 Lr IV 75 mls/hr .[id number] ZIGGY Administration Losartan Potassium 50 mg 01/04/24 09:00 01/04/24 10:15 Losartan 50 Mg Tablet PO 50 mg DAILY ZIGGY Administration Multivitamins 1 tab 01/04/24 09:00 01/04/24 10:24 Multivitamin Tablet PO Not Given DAILY ZIGGY Ondansetron HCl 4 mg 01/03/24 20:27 01/04/24 10:26 Ondansetron 4 Mg/2 Ml Vial IVP 4 mg Q6HR PRN Administration Nausea / Vomiting Oxycodone HCl 5 mg 01/03/24 20:27 01/05/24 00:22 Oxycodone 5 Mg Tablet PO 5 mg Q4HR PRN Administration Pain 5 to 7 Pantoprazole Sodium 40 mg 01/04/24 21:00 01/04/24 20:23 Pantoprazole 40 Mg Vial IVP 40 mg BID ZIGGY Administration Potassium Chloride 40 meq 01/04/24 21:00 01/04/24 20:23 Potassium Chloride 20 Meq Tablet PO 01/05/24 09:01 40 meq BID ZIGGY Administration Sodium Chloride 10 ml 01/04/24 01:00 01/05/24 02:48 Sodium Chloride Flush 0.9% 10 Ml Syringe IVP Not Given 0100,0900,1700 ZIGGY Spironolactone 25 mg 01/04/24 09:00 01/04/24 09:52 Spironolactone 25 Mg Tablet PO 25 mg DAILY ZIGGY Administration Verapamil HCl 240 mg 01/04/24 21:00 01/04/24 20:23 Verapamil Er 120 Mg Tablet PO Not Given QPM ZIGGY - Lab Result Fish Bone Diagrams: 01/05/24 07:38 01/05/24 07:38 - Additional Planning My Orders: My Active Orders 01/04/24 21:00 Potassium Chloride [K-Dur] 40 meq PO BID Objective Vital Signs: Vital Signs - 24 hr 01/04/24 01/04/24 01/04/24 11:07 13:00 15:50 Temperature 36.6 C 36.6 C 36.6 C Heart Rate Heart Rate [ 106 H 92 89 Brachial] Respiratory 16 16 16 Rate Blood Pressure 190/83 H 144/78 H 133/63 H [Left Brachial artery] Blood Pressure [Right Brachial artery] O2 Saturation 95 95 92 01/04/24 01/04/24 01/04/24 19:00 20:00 22:30 Temperature 36.5 C Heart Rate 99 Heart Rate [ 103 H Brachial] Respiratory 18 16 Rate Blood Pressure 178/82 H 171/81 H [Left Brachial artery] Blood Pressure 178/94 H [Right Brachial artery] O2 Saturation 93 01/05/24 01/05/24 01/05/24 00:00 05:00 07:29 Temperature 36.5 C 36.5 C Heart Rate 94 Heart Rate [ 96 91 Brachial] Respiratory 18 18 18 Rate Blood Pressure [Left Brachial artery] Blood Pressure 159/75 H 148/64 H [Right Brachial artery] O2 Saturation 93 92 01/05/24 08:25 Temperature 36.5 C Heart Rate Heart Rate [ 94 Brachial] Respiratory 18 Rate Blood Pressure 179/83 H [Left Brachial artery] Blood Pressure [Right Brachial artery] O2 Saturation 92 Oxygen O2 Source Room air I&O (Last 24 Hrs): Intake and Output Totals x24h 01/03/24 01/04/24 01/05/24 23:59 23:59 23:59 Intake Total 1041.25 2272.50 306.25 Output Total 0 850 150 Balance 1041.25 1422.50 156.25 - Results Results: Laboratory Results WBC 11.7 x10^3/uL (4.8-10.8) H 01/05/24 07:38 RBC 2.77 10^6/uL (4.20-5.40) L 01/05/24 07:38 Hgb 8.6 g/dL (12.0-16.0) L 01/05/24 07:38 Hct 27.0 % (37.0-47.0) L 01/05/24 07:38 MCV 97.5 fL (81.0-99.0) 01/05/24 07:38 MCH 31.0 pg (27.0-31.0) 01/05/24 07:38 MCHC 31.9 g/dL (32.0-36.0) L 01/05/24 07:38 RDW 15.2 % (12.0-15.0) H 01/05/24 07:38 Plt Count 316 10^3/uL (130-450) 01/05/24 07:38 MPV 9.9 fL (7.9-10.8) 01/05/24 07:38 Neut # (Auto) 9.9 10^3/uL (1.5-6.6) H 01/05/24 07:38 Lymph # (Auto) 0.8 10^3/uL (1.5-3.5) L 01/05/24 07:38 [place] # (Auto) 0.8 10^3/uL (0.0-1.0) 01/05/24 07:38 Eos # (Auto) 0.2 10^3/uL (0.0-0.7) 01/05/24 07:38 Baso # (Auto) 0.0 10^3/uL (0.0-0.1) 01/05/24 07:38 Absolute Nucleated RBC 0.00 x10^3/uL 01/05/24 07:38 Total Counted 100 01/03/24 20:54 Band Neuts % (Manual) 1 % (0-10) 01/03/24 20:54 Reactive Lymphs % (Man) 1 % 01/03/24 20:54 Abnorm Lymph % (Manual) 0 % 01/03/24 20:54 Nucleated RBC % 0.0 /100WBC 01/05/24 07:38 Neutrophils # (Manual) 17.9 10^3/uL (1.5-6.6) H 01/03/24 20:54 Lymphocytes # (Manual) 0.8 10^3/uL (1.5-3.5) L 01/03/24 20:54 Monocytes # (Manual) 1.7 10^3/uL (0.0-1.0) H 01/03/24 20:54 Eosinophils # (Manual) 0.4 10^3/uL (0-0.7) 01/03/24 20:54 Basophils # (Manual) 0.0 10^3/uL (0-0.1) 01/03/24 20:54 Differential Comment MANUAL DIFFERENTIAL 01/03/24 20:54 Platelet Estimate NORMAL (130-450,000) (NORMAL) 01/03/24 20:54 Platelet Morphology NORMAL APPEARANCE (NORMAL) 01/03/24 20:54 RBC Morph Micro Appear NORMAL APPEARANCE (NORMAL) 01/03/24 20:54 PT 25.4 secs (9.9-12.6) H 01/03/24 17:15 INR 2.4 (0.8-1.2) H 01/03/24 17:15 VBG pH 7.501 (7.31-7.41) H 01/03/24 17:15 VBG pCO2 28.7 mmHg (41-51) L 01/03/24 17:15 VBG pO2 60.3 mmHg (25-47) H 01/03/24 17:15 VBG HCO3 21.9 mmol/L (23-28) L 01/03/24 17:15 VBG Total CO2 22.8 mmol/L (24-29) L 01/03/24 17:15 VBG O2 Saturation 92.6 % (60-80) H 01/03/24 17:15 VBG Base Excess -0.1 mmol/L (-2 - +2) 01/03/24 17:15 Sodium 144 mmol/L (135-145) 01/05/24 07:38 Potassium 4.4 mmol/L (3.5-4.5) 01/05/24 07:38 Chloride 112 mmol/L (101-111) H 01/05/24 07:38 Carbon Dioxide 27 mmol/L (21-32) 01/05/24 07:38 Anion Gap 5.0 (6-13) L 01/05/24 07:38 BUN 33 mg/dL (6-20) H 01/05/24 07:38 Creatinine 1.0 mg/dL (0.6-1.3) 01/05/24 07:38 Estimated GFR (MDRD) 55 (>89) L 01/05/24 07:38 Glucose 128 mg/dL (74-104) H 01/05/24 07:38 Estimat Average Glucose 120 mg/dL (70-100) H 01/03/24 20:54 Hemoglobin A1c % 5.8 % (4.27-6.07) 01/03/24 20:54 Lactic Acid 1.1 mmol/L (0.5-2.2) 01/03/24 17:15 Calcium 8.8 mg/dL (8.5-10.3) 01/05/24 07:38 Magnesium 2.0 mg/dL (1.7-2.3) 01/05/24 07:38 Total Bilirubin 0.6 mg/dL (0.2-1.0) 01/04/24 05:31 AST 9 IU/L (10-42) L 01/04/24 05:31 ALT 8 IU/L (10-60) L 01/04/24 05:31 Alkaline Phosphatase 78 IU/L (42-121) 01/04/24 05:31 Ammonia 44.3 umol/L (18-72) 01/03/24 19:13 Troponin I High Sens 27.7 ng/L (2.3-14.8) H* 01/03/24 17:15 Total Protein 6.0 g/dL (6.4-8.9) L 01/04/24 05:31 Albumin 3.2 g/dL (3.2-5.5) 01/04/24 05:31 Globulin 2.8 g/dL (2.1-4.2) 01/04/24 05:31 Albumin/Globulin Ratio 1.1 (1.0-2.2) 01/04/24 05:31 Triglycerides 171 mg/dL 01/03/24 20:54 Cholesterol 125 mg/dL (-200) 01/03/24 20:54 LDL Cholesterol, Calc 47 mg/dL (-129) 01/03/24 20:54 VLDL Cholesterol 34 mg/dL 01/03/24 20:54 HDL Cholesterol 44 mg/dL (60-) L 01/03/24 20:54 LDL/HDL Ratio 1.1 (<4.4) 01/03/24 20:54 Cholesterol/HDL Ratio 2.8 (<4.4) 01/03/24 20:54 Vitamin B12 165 pg/mL (180-914) L 01/04/24 05:39 TSH 1.28 uIU/mL (0.34-5.60) 01/03/24 20:54 Urine Color YELLOW 01/03/24 20:44 Urine Clarity CLEAR (CLEAR) 01/03/24 20:44 Urine pH 5.5 PH (5.0-7.5) 01/03/24 20:44 Ur Specific [place] >=1.030 (1.002-1.030) H 01/03/24 20:44 Urine Protein 30 mg/dL (NEGATIVE) H 01/03/24 20:44 Urine Glucose (UA) NEGATIVE mg/dL (NEGATIVE) 01/03/24 20:44 Urine Ketones TRACE mg/dL (NEGATIVE) 01/03/24 20:44 Urine Occult Blood NEGATIVE (NEGATIVE) 01/03/24 20:44 Urine Nitrite NEGATIVE (NEGATIVE) 01/03/24 20:44 Urine Bilirubin SMALL (NEGATIVE) H 01/03/24 20:44 Urine Urobilinogen 0.2 (NORMAL) E.U./dL (NORMAL) 01/03/24 20:44 Ur Leukocyte Esterase NEGATIVE (NEGATIVE) 01/03/24 20:44 Urine RBC 0-5 /HPF (0-5) 01/03/24 20:44 Urine WBC 0-3 /HPF (0-5) 01/03/24 20:44 Ur Squamous Epith Cells FEW Squamous (<= Few) 01/03/24 20:44 Urine Bacteria Few /HPF (None Seen) 01/03/24 20:44 Ur Microscopic Review INDICATED 01/03/24 20:44 Urine Culture Comments NOT INDICATED 01/03/24 20:44 Salicylates < 1.5 mg/dL 01/03/24 17:15 Urine Opiates Screen POSITIVE (NEGATIVE) H 01/03/24 20:44 Ur Buprenorphine Scrn NEGATIVE (NEGATIVE) 01/03/24 20:44 Ur Oxycodone Screen NEGATIVE (NEGATIVE) 01/03/24 20:44 Urine Methadone Screen NEGATIVE (NEGATIVE) 01/03/24 20:44 Acetaminophen 0.5 ug/mL 01/03/24 17:15 Ur Barbiturates Screen NEGATIVE (NEGATIVE) 01/03/24 20:44 Ur Tricyclics Screen NEGATIVE (NEGATIVE) 01/03/24 20:44 Ur Phencyclidine Scrn NEGATIVE (NEGATIVE) 01/03/24 20:44 Ur Amphetamine Screen NEGATIVE (NEGATIVE) 01/03/24 20:44 U Methamphetamines Scrn NEGATIVE (NEGATIVE) 01/03/24 20:44 U Benzodiazepines Scrn NEGATIVE (NEGATIVE) 01/03/24 20:44 Urine Cocaine Screen NEGATIVE (NEGATIVE) 01/03/24 20:44 U Cannabinoids Screen POSITIVE (NEGATIVE) H 01/03/24 20:44 Ur Drug Screen Comment CUTOFF CONC BELOW: 01/03/24 20:44 Ethyl Alcohol < 10.0 mg/dL 01/03/24 17:15 Blood Type A POSITIVE 01/03/24 17:15 Blood Type Recheck A POSITIVE 01/02/24 11:40 Antibody Screen NEGATIVE 01/03/24 17:15 ABX Reporting Has patient been on IV antibiotics over the past 48 hours?: No
[2024-01-05] MEDS: CYANOCOBALAMIN 500 MCG TABLET PO SCH (09:51)
[2024-01-05] MEDS: CHOLECALCIFEROL 25 MCG TABLET PO SCH (09:51)
--- NOTE | 2024-01-05 10:53 | PROVIDER PROGRESS NOTE ---
Progress Note General Surgery Progress Note Christopher's anemia persists. She may have a gastric or duodenal ulcer. I recommend EGD under IV sedation. Consent: Christopher's POA, Michael Bean has been counseled for the procedure, it's indications, risks, benefits and expected outcome as well as alternative the rapies. We specifically discussed risks associated with anesthesia and insertion of the endoscope into the UGI tract which includes bleeding and/or injury to the esophagus which may require surgical intervention. Michael understands, agrees, and consents to the proposed operative strategy and requests that we proceed with the procedure as outlined in our discussion. The procedure will be performed this afternoon following the elective scheduled endoscopy cases. Tim Cassidy MD, FACS General Surgery Service
[2024-01-05 11:10] LABS: HCT - HEMATOCRIT 27.2 % (37.0-47.0); HGB - HEMOGLOBIN 8.7 g/dL (12.0-16.0)
[2024-01-05] MEDS ORDERED: PROPOFOL 500 MG/50 ML 500 MG/50 ML VIAL ONE (11:18)
--- NOTE | 2024-01-05 13:13 | ANESTHESIA ---
Pre-Anesthesia VS, & Labs - Diagnosis Screening - Procedure EGD Vital Signs: Temp Pulse Resp BP Pulse Ox O2 Flow Rate 36.5 C 94 18 179/83 H 92 01/05/24 08:25 01/05/24 08:25 01/05/24 08:25 01/05/24 08:25 01/05/24 08:25 Height: 5 ft 6 in Weight (kg): 58.5 kg Body Mass Index: 20.8 BMI Classification: Normal - Is Patient ?: No - Lab Results Current Lab Results: Laboratory Tests 01/05/24 11:04: Hgb 8.7 L, Hct 27.2 L 01/05/24 07:38: Magnesium 2.0 01/05/24 07:38: Sodium 144, Potassium 4.4, Chloride 112 H, Carbon Dioxide 27, Anion Gap 5.0 L, BUN 33 H, Creatinine 1.0, Estimated GFR (MDRD) 55 L, Glucose 128 H, Calcium 8.8 01/05/24 07:38: WBC 11.7 H, RBC 2.77 L, Hgb 8.6 L, Hct 27.0 L, MCV 97.5, MCH 31.0, MCHC 31.9 L, RDW 15.2 H, Plt Count 316, MPV 9.9, Neut # (Auto) 9.9 H, Lymph # (Auto) 0.8 L, Mchenry # (Auto) 0.8, Eos # (Auto) 0.2, Baso # (Auto) 0.0, Absolute Nucleated RBC 0.00, Nucleated RBC % 0.0 01/04/24 23:18: Hgb 8.9 L, Hct 27.8 L 01/04/24 13:59: Hgb 9.0 L 01/04/24 05:39: Vitamin B12 165 L 01/04/24 05:31: Sodium 140, Potassium 3.2 L, Chloride 107, Carbon Dioxide 25, Anion Gap 8.0, BUN 50 H, Creatinine 1.1, Estimated GFR (MDRD) 49 L, Glucose 149 H, Calcium 8.8, Magnesium 1.5 L, Total Bilirubin 0.6, AST 9 L, ALT 8 L, Alkaline Phosphatase 78, Total Protein 6.0 L, Albumin 3.2, Globulin 2.8, Albumin/Globulin Ratio 1.1 01/04/24 05:31: WBC 16.9 H, RBC 3.07 L, Hgb 9.6 L, Hct 28.7 L, MCV 93.5, MCH 31.3 H, MCHC 33.4, RDW 15.1 H, Plt Count 344, MPV 9.9, Neut # (Auto) 14.7 H, Ly mph # (Auto) 0.8 L, Mchenry # (Auto) 1.2 H, Eos # (Auto) 0.0, Baso # (Auto) 0.0, Absolute Nucleated RBC 0.00, Nucleated RBC % 0.0 01/03/24 20:54: Sodium 142, Potassium 3.6, Chloride 108, Carbon Dioxide 23, Anion Gap 11.0, BUN 56 H, Creatinine 1.3, Estimated GFR (MDRD) 40 L, Glucose 169 H, Calcium 9.0, Magnesium 1.5 L, Total Bilirubin 0.6, AST 10, ALT 8 L, Alkaline Phosphatase 92, Total Protein 6.8, Albumin 3.7, Globulin 3.1, Albumin/Globulin Ratio 1.2 01/03/24 20:54: WBC 20.8 H, RBC 3.74 L, Hgb 11.4 L, Hct 35.2 L, MCV 94.1, MCH 30.5, MCHC 32.4, RDW 15.0, Plt Count 441, MPV 10.1, Neut # (Auto) Not Reportable, Lymph # (Auto) Not Reportable, Mchenry # (Auto) Not Reportable, Eos # (Auto) Not Reportable, Baso # (Auto) Not Reportable, Absolute Nucleated RBC Not Reportable, Total Counted 100, Band Neuts % (Manual) 1, Reactive Lymphs % (Man) 1, Abnorm Lymph % (Manual) 0, Nucleated RBC % Not Reportable, Neutrophils # (Manual) 17.9 H, Lymphocytes # (Manual) 0.8 L, Monocytes # (Manual) 1.7 H, Eosinophils # (Manual) 0.4, Basophils # (Manual) 0.0, Differential Comment MANUAL DIFFERENTIAL, Platelet Estimate NORMAL (130-450,000), Platelet Morphology NORMAL APPEARANCE, RBC Morph Micro Appear NORMAL APPEARANCE 01/03/24 20:54: Estimat Average Glucose 120 H, Hemoglobin A1c % 5.8 01/03/24 20:54: Triglycerides 171, Cholesterol 125, LDL Cholesterol, Calc 47, VLDL Cholesterol 34, HDL Cholesterol 44 L, LDL/HDL Ratio 1.1, Cholesterol/HDL Ratio 2.8, TSH 1.28 01/03/24 20:44: Urine Opiates Screen POSITIVE H, Ur Buprenorphine Scrn NEGATIVE, Ur Oxycodone Screen NEGATIVE, Urine Methadone Screen NEGATIVE, Ur Barbiturates Screen NEGATIVE, Ur Tricyclics Screen NEGATIVE, Ur Phencyclidine Scrn NEGATIVE, Ur Amphetamine Screen NEGATIVE, U Methamphetamines Scrn NEGATIVE, U Benzodiazepines Scrn NEGATIVE, Urine Cocaine Screen NEGATIVE, U Cannabinoids Screen POSITIVE H, Ur Drug Screen Comment CUTOFF CONC BELOW: 01/03/24 19:13: Ammonia 44.3 01/03/24 19:13: Hgb 11.9 L, Hct 37.7 01/03/24 17:15: Troponin I High Sens 27.7 H* 01/03/24 17:15: Blood Type A POSITIVE, Antibody Screen NEGATIVE 01/03/24 17:15: VBG pH 7.501 H, VBG pCO2 28.7 L, VBG pO2 60.3 H, VBG HCO3 21.9 L , VBG Total CO2 22.8 L, VBG O2 Saturation 92.6 H, VBG Base Excess -0.1 01/03/24 17:15: Lactic Acid 1.1 01/03/24 17:15: Sodium 142, Potassium 3.2 L, Chloride 106, Carbon Dioxide 24, Anion Gap 12.0, BUN 59 H, Creatinine 1.3, Estimated GFR (MDRD) 40 L, Glucose 203 H, Calcium 9.6, Total Bilirubin 0.7, AST 10, ALT 9 L, Alkaline Phosphatase 103, Total Protein 7.3, Albumin 3.9, Globulin 3.4, Albumin/Globulin Ratio 1.1, Salicylates < 1.5, Acetaminophen 0.5, Ethyl Alcohol < 10.0 01/03/24 17:15: PT 25.4 H, INR 2.4 H 01/03/24 17:15: WBC 19.7 H, RBC 3.96 L, Hgb 12.1, Hct 37.0, MCV 93.4, MCH 30.6, MCHC 32.7, RDW 14.6, Plt Count 497 H, MPV 10.3, Neut # (Auto) Not Reportable, Lymph # (Auto) Not Reportable, Mchenry # (Auto) Not Reportable, Eos # (Auto) Not Reportable, Baso # (Auto) Not Reportable, Absolute Nucleated RBC Not Reportable, Total Counted 100, Band Neuts % (Manual) 1, Abnorm Lymph % (Manual) 0, Nucleated RBC % Not Reportable, Neutrophils # (Manual) 18.1 H, Lymphocytes # (Manual) 0.2 L, Monocytes # (Manual) 1.2 H, Eosinophils # (Manual) 0.2, Basophils # (Manual) 0.0, Differential Comment MANUAL DIFFERENTIAL, Platelet Estimate INCREASED (>450,000), Platelet Morphology NORMAL APPEARANCE, RBC Morph Micro Appear NORMAL APPEARANCE 01/02/24 11:40: Blood Type Recheck A POSITIVE Fish Bones: 01/05/24 11:04 01/05/24 07:38 Home Medications and Allergies Home Medications: Ambulatory Orders Docusate Sodium 100Mg Capsule [Colace 100Mg Capsule] 100 mg PO DAILY PRN 01/04/24 Losartan [Cozaar] 50 mg PO BID 01/04/24 Mdi: Albuterol 1 - 2 puffs INH Q4HR PRN 01/04/24 Mv-Mn/Folic/Lutein/Herbal 293 [Alive Women's 50 Plus Vitamins] 1 each PO DAILY 01/04/24 metFORMIN [Glucophage] 500 mg PO BIDWM 01/04/24 Active Medications Acetaminophen (Acetaminophen 325 Mg Tablet) 650 mg PO Q6H PRN PRN Reason: Pain 1 to 4, or Fever Albuterol (Albuterol Neb 2.5 Mg/3 Ml) 2.5 mg INH Q4H PRN PRN Reason: Wheezing Last Admin: 01/04/24 18:57 Dose: 2.5 mg Atorvastatin Calcium (Atorvastatin 10 Mg Tablet) 20 mg PO QPM ZIGGY Last Admin: 01/04/24 20:23 Dose: 20 mg Budesonide (Budesonide 0.5 Mg/2 Ml Neb) 0.5 mg INH RTBID [facility] Last Admin: 01/05/24 07:28 Dose: 0.5 mg Cholecalciferol (Cholecalciferol 25 Mcg Tablet) 50 mcg PO DAILY [facility] Last Admin: 01/05/24 09:51 Dose: 50 mcg Cyanocobalamin (Cyanocobalamin 500 Mcg Tablet) 500 mcg PO DAILY [facility] Last Admin: 01/05/24 09:51 Dose: 500 mcg Docusate Sodium (Docusate Sodium 100 Mg Capsule) 100 mg PO DAILY [facility] Last Admin: 01/05/24 09:50 Dose: 100 mg Formoterol Fumarate (Formoterol Fumarate Neb 20 Mcg/2 Ml) 20 mcg INH RTBID [facility] Last Admin: 01/05/24 07:28 Dose: 20 mcg Gabapentin (Gabapentin 400 Mg Capsule) 400 mg PO DAILY [facility] Last Admin: 01/05/24 09:51 Dose: 400 mg Hydralazine HCl (Hydralazine Inj 20 Mg/Ml Vial) 5 mg IVP Q6H PRN PRN Reason: Anesthesia Lactated Ringer's (Lr) 1,000 mls @ 75 mls/hr IV .[id number] [facility] Last Admin: 01/05/24 02:46 Dose: 75 mls/hr Losartan Potassium (Losartan 50 Mg Tablet) 50 mg PO DAILY [facility] Last Admin: 01/05/24 09:51 Dose: 50 mg Morphine Sulfate (Morphine 2 Mg/Ml Carpuject) 1 mg IVP Q2HR PRN PRN Reason: Pain 8 to 10 Multivitamins (Multivitamin Tablet) 1 tab PO DAILY [facility] Last Admin: 01/05/24 09:50 Dose: 1 tab Ondansetron HCl (Ondansetron 4 Mg/2 Ml Vial) 4 mg IVP Q6HR PRN PRN Reason: Nausea / Vomiting Last Admin: 01/04/24 10:26 Dose: 4 mg Oxycodone HCl (Oxycodone 5 Mg Tablet) 5 mg PO Q4HR PRN PRN Reason: Pain 5 to 7 Last Admin: 01/05/24 00:22 Dose: 5 mg Pantoprazole Sodium (Pantoprazole 40 Mg Vial) 40 mg IVP BID [facility] Last Admin: 01/05/24 09:51 Dose: 40 mg Sodium Chloride (Sodium Chloride Flush 0.9% 10 Ml Syringe) 10 ml IVP PRN PRN PRN Reason: NEEDED PER PROVIDER ORDERS Sodium Chloride (Sodium Chloride Flush 0.9% 10 Ml Syringe) 10 ml IVP 0100,0900,1700 [facility] Last Admin: 01/05/24 09:51 Dose: 10 ml Spironolactone (Spironolactone 25 Mg Tablet) 25 mg PO DAILY [facility] Last Admin: 01/05/24 09:51 Dose: 25 mg Verapamil HCl (Verapamil Er 120 Mg Tablet) 240 mg PO QPM [facility] Last Admin: 01/04/24 20:23 Dose: Not Given Cholecalciferol (Vitamin D3) [Vitamin D3] 2,000 unit PO DAILY 08/21/15 Gabapentin 400 mg PO DAILY 08/21/15 Rivaroxaban [Xarelto] 20 mg PO QDDINNER 08/18/19 Atorvastatin [Lipitor] 20 mg PO QPM 04/25/21 Gabapentin [Neurontin] 800 mg PO QPM 04/25/21 Sertraline [Zoloft] 50 mg PO DAILY 04/25/21 Verapamil HCl [Verapamil ER] 240 mg PO QPM 06/15/21 Docusate Sodium 100Mg Capsule [Colace 100Mg Capsule] 100 mg PO DAILY PRN 01/04/24 Losartan [Cozaar] 50 mg PO BID 01/04/24 Mdi: Albuterol 1 - 2 puffs INH Q4HR PRN 01/04/24 Mv-Mn/Folic/Lutein/Herbal 293 [Alive Women's 50 Plus Vitamins] 1 each PO DAILY 01/04/24 metFORMIN [Glucophage] 500 mg PO BIDWM 01/04/24 Allergies/Adverse Reactions: Allergies Allergy/AdvReac Type Severity Reaction Status Date / Time No Known Drug Allergies Allergy Verified 01/03/24 17:09 Anes History & Medical History - Medical History Cardiovascular: reports: High cholesterol, Coronary artery disease, Deep vein thrombosis Pulmonary: reports: None Gastrointestinal: reports: None Urinary: reports: None Neuro: reports: Dementia, CVA Musculoskeletal: reports: Fibromyalgia, Hemiplegia Endocrine/Autoimmune: reports: Type 2 diabetes Blood Disorders: reports: None Skin: reports: None Smoking Status: Former smoker - Surgical History Eyes Ears Nose Throat (EENT): reports: Tonsil/Adenoidectomy Exam General: No acute distress, Other (Pt is nonverbal. Not able to answer questions. Family stated no previous complications with anesthesia. Unable to open mouth to assess airway.) Dental: Other Mouth Opening: Can't Open Mouth Plan Anesthesia Type: General Consent for Procedure(s) Verified and Reviewed: Yes Code Status: Attempt Resuscitation ASA classification: 3-Severe systemic disease Is this case an emergency?: No (Consent obtained from Spouse. Risks of anesthes ia were discussed.)
[2024-01-05] MEDS: fentaNYL 100 MCG/2 ML VIAL IVP ONE (13:58)
--- NOTE | 2024-01-05 15:41 | ANESTHESIA POST OP EVALUATION ---
Anesthesia Post Eval - Post Anesthesia Eval Vitals: Last Vital Signs Temp 36.6 C 01/05/24 13:00 Pulse 79 01/05/24 13:00 Resp 18 01/05/24 13:00 BP 149/83 H 01/05/24 13:00 Pulse Ox 95 01/05/24 13:00 O2 Flow Rate CV Function Including HR & BP: Stable Pain Control: Satisfactory Nausea & Vomiting: Negative Mental Status: Baseline Respiratory Status: Airway Patent Hydration Status: Satisfactory Anesthesia Complications: None
--- NOTE | 2024-01-05 15:42 | OPERATIVE REPORT ---
Operative Report - General Admit Date: 01/04/24 - Other Other Information/Narrative: General Surgery Brief Op Note - See Provation for details. EGD identified general esophagitis, a healing Brenda-Layton tear, a hiatal hernia, superficial distal antral ulcerations, and duodenitis. There was no evidence of fresh blood in the UGI tract and no evidence of active bleeding I recommend continued PPI use for at least 8-10 weeks and several days of Mylanta as her diet is increased. Adan Cassidy MD, FACS General Surgery Service
[2024-01-05] MEDS ORDERED: MAG HYDROX/AL HYDROX/SIMETH 30 ML UDC PO PRN (16:20)
[2024-01-06] MEDS: hydrALAZINE INJ 20 MG/ML VIAL IVP PRN (04:03)
[2024-01-06] MEDS: polyethylene glycoL 3350 17 GM PACKET PO SCH (08:50)
--- NOTE | 2024-01-06 09:02 | PROVIDER PROGRESS NOTE ---
Assessment/Plan - Problem List (1) Upper GI bleeding Assessment/Plan: 1) Upper GI bleeding Assessment/Plan: S/p EGD with esophagitis, healing Brenda-Layton tear, HH, superficial distal antral ulcerations and duodenitis. No evidence of fresh blood and no active GI bleed. Appreciate assistance of general surgery, continue PPI, monitor H/H and transfuse as needed. (2) History of CVA with residual deficit Assessment/Plan: Have called and discussed with and caregiver. Apparently patient had been placed on Xarelto as she had difficulty maintaining theraputic INR while on warfarin. Regardless with UGI bleed and anemia will hold any antiplatelet or DOAC. (3) Right tibial fracture Assessment/Plan: S/p CT RLE 01/02/24 consistent with acute comminuted and slightly displaced fracture through lateral portion of proximal tibia. Have spoken to Dr. Mejia who did not recommend surgery and to treat with knee immobilizer and partial weight bearing. Continue bedrest for now with EGD plan for later today, f/u PT and OT recommendations, possible SNF on discharge. (4) Hypokalemia Assessment/Plan: Improvd with replacement Replace and monitor, continue to hold Aldactone (5) Hypomagnesemia Assessment/Plan: Replace and monitor - Current Meds Current Meds: Current Medications Generic Name Dose Route Start Last Admin Trade Name Freq PRN Reason Stop Dose Admin Albuterol 2.5 mg 01/03/24 20:10 01/04/24 18:57 Albuterol Neb 2.5 Mg/3 Ml INH 2.5 mg Q4H PRN Administration Wheezing Atorvastatin Calcium 20 mg 01/03/24 22:00 01/05/24 21:25 Atorvastatin 10 Mg Tablet PO Not Given QPM ZIGGY Budesonide 0.5 mg 01/04/24 07:00 01/06/24 07:28 Budesonide 0.5 Mg/2 Ml Neb INH Not Given RTBID ZIGGY Cholecalciferol 50 mcg 01/05/24 09:00 01/06/24 08:49 Cholecalciferol 25 Mcg Tablet PO 50 mcg DAILY ZIGGY Administration Cyanocobalamin 500 mcg 01/05/24 09:00 01/06/24 08:49 Cyanocobalamin 500 Mcg Tablet PO 500 mcg DAILY ZIGGY Administration Docusate Sodium 100 mg 01/04/24 09:00 01/06/24 08:50 Docusate Sodium 100 Mg Capsule PO 100 mg DAILY ZIGGY Administration Formoterol Fumarate 20 mcg 01/04/24 07:00 01/06/24 07:28 Formoterol Fumarate Neb 20 Mcg/2 Ml INH Not Given RTBID ZIGYG Gabapentin 400 mg 01/04/24 09:00 01/06/24 08:50 Gabapentin 400 Mg Capsule PO 400 mg DAILY ZIGGY Administration Hydralazine HCl 5 mg 01/06/24 03:31 01/06/24 04:03 Hydralazine Inj 20 Mg/Ml Vial IVP 5 mg Q6H PRN Administration SBP> or= 160 OR DBP> or= 110 Lactated Ringer's 1,000 mls @ 75 mls/hr 01/03/24 21:00 01/06/24 04:11 Lr IV 75 mls/hr .[id number] ZIGGY Administration Losartan Potassium 50 mg 01/04/24 09:00 01/06/24 08:50 Losartan 50 Mg Tablet PO 50 mg DAILY ZIGGY Administration Multivitamins 1 tab 01/04/24 09:00 01/06/24 08:50 Multivitamin Tablet PO 1 tab DAILY ZIGGY Administration Ondansetron HCl 4 mg 01/03/24 20:27 01/04/24 10:26 Ondansetron 4 Mg/2 Ml Vial IVP 4 mg Q6HR PRN Administration Nausea / Vomiting Oxycodone HCl 5 mg 01/03/24 20:27 01/05/24 19:35 Oxycodone 5 Mg Tablet PO 5 mg Q4HR PRN Administration Pain 5 to 7 Pantoprazole Sodium 40 mg 01/04/24 21:00 01/06/24 08:50 Pantoprazole 40 Mg Vial IVP 40 mg BID ZIGGY Administration Polyethylene Glycol 17 gm 01/06/24 09:00 01/06/24 08:50 Polyethylene Glycol 3350 17 Gm Packet PO 17 gm DAILY ZIGGY Administration Sodium Chloride 10 ml 01/04/24 01:00 01/06/24 08:50 Sodium Chloride Flush 0.9% 10 Ml Syringe IVP 10 ml 0100,0900,1700 ZIGGY Administration Spironolactone 25 mg 01/04/24 09:00 01/06/24 08:50 Spironolactone 25 Mg Tablet PO 25 mg DAILY ZIGGY Administration Verapamil HCl 240 mg 01/04/24 21:00 01/05/24 21:25 Verapamil Er 120 Mg Tablet PO Not Given QPM ZIGGY - Lab Result Fish Bone Diagrams: 01/05/24 11:04 01/05/24 07:38 Objective Vital Signs: Vital Signs - 24 hr 01/05/24 01/05/24 01/05/24 11:35 13:00 15:40 Temperature 36.6 C 36.5 C Heart Rate [ 79 78 Brachial] Heart Rate [ 90 Supine] Respiratory 18 24 Rate Blood Pressure Blood Pressure 149/83 H 113/51 L [Left Brachial artery] Blood Pressure [Right Brachial artery] Blood Pressure 177/85 H [Supine] O2 Saturation 95 92 O2 Saturation [ 93 Supine] 01/05/24 01/06/24 01/06/24 20:00 01:21 02:14 Temperature 36.5 C 36.5 C Heart Rate [ 83 87 86 Brachial] Heart Rate [ Supine] Respiratory 20 16 Rate Blood Pressure Blood Pressure 152/76 H [Left Brachial artery] Blood Pressure 188/91 H 173/84 H [Right Brachial artery] Blood Pressure [Supine] O2 Saturation 94 93 O2 Saturation [ Supine] 01/06/24 01/06/24 01/06/24 04:01 04:03 04:08 Temperature 36.2 C L Heart Rate [ 75 78 Brachial] Heart Rate [ Supine] Respiratory 18 Rate Blood Pressure 184/83 H Blood Pressure [Left Brachial artery] Blood Pressure 184/84 H 182/84 H [Right Brachial artery] Blood Pressure [Supine] O2 Saturation 92 O2 Saturation [ Supine] 01/06/24 01/06/24 01/06/24 04:13 04:30 04:33 Temperature Heart Rate [ 78 79 Brachial] Heart Rate [ Supine] Respiratory Rate Blood Pressure 183/83 H Blood Pressure [Left Brachial artery] Blood Pressure 176/79 H 183/84 H [Right Brachial artery] Blood Pressure [Supine] O2 Saturation O2 Saturation [ Supine] 01/06/24 05:11 Temperature Heart Rate [ 78 Brachial] Heart Rate [ Supine] Respiratory 16 Rate Blood Pressure Blood Pressure [Left Brachial artery] Blood Pressure 170/76 H [Right Brachial artery] Blood Pressure [Supine] O2 Saturation 92 O2 Saturation [ Supine] Oxygen O2 Source Room air I&O (Last 24 Hrs): Intake and Output Totals x24h 01/04/24 01/05/24 01/06/24 23:59 23:59 23:59 Intake Total 2272.50 1397.50 985.00 Output Total 850 1300 1250 Balance 1422.50 97.50 -265.00 - Results Results: Laboratory Results WBC 11.7 x10^3/uL (4.8-10.8) H 01/05/24 07:38 RBC 2.77 10^6/uL (4.20-5.40) L 01/05/24 07:38 Hgb 8.7 g/dL (12.0-16.0) L 01/05/24 11:04 Hct 27.2 % (37.0-47.0) L 01/05/24 11:04 MCV 97.5 fL (81.0-99.0) 01/05/24 07:38 MCH 31.0 pg (27.0-31.0) 01/05/24 07:38 MCHC 31.9 g/dL (32.0-36.0) L 01/05/24 07:38 RDW 15.2 % (12.0-15.0) H 01/05/24 07:38 Plt Count 316 10^3/uL (130-450) 01/05/24 07:38 MPV 9.9 fL (7.9-10.8) 01/05/24 07:38 Neut # (Auto) 9.9 10^3/uL (1.5-6.6) H 01/05/24 07:38 Lymph # (Auto) 0.8 10^3/uL (1.5-3.5) L 01/05/24 07:38 Avery # (Auto) 0.8 10^3/uL (0.0-1.0) 01/05/24 07:38 Eos # (Auto) 0.2 10^3/uL (0.0-0.7) 01/05/24 07:38 Baso # (Auto) 0.0 10^3/uL (0.0-0.1) 01/05/24 07:38 Absolute Nucleated RBC 0.00 x10^3/uL 01/05/24 07:38 Total Counted 100 01/03/24 20:54 Band Neuts % (Manual) 1 % (0-10) 01/03/24 20:54 Reactive Lymphs % (Man) 1 % 01/03/24 20:54 Abnorm Lymph % (Manual) 0 % 01/03/24 20:54 Nucleated RBC % 0.0 /100WBC 01/05/24 07:38 Neutrophils # (Manual) 17.9 10^3/uL (1.5-6.6) H 01/03/24 20:54 Lymphocytes # (Manual) 0.8 10^3/uL (1.5-3.5) L 01/03/24 20:54 Monocytes # (Manual) 1.7 10^3/uL (0.0-1.0) H 01/03/24 20:54 Eosinophils # (Manual) 0.4 10^3/uL (0-0.7) 01/03/24 20:54 Basophils # (Manual) 0.0 10^3/uL (0-0.1) 01/03/24 20:54 Differential Comment MANUAL DIFFERENTIAL 01/03/24 20:54 Platelet Estimate NORMAL (130-450,000) (NORMAL) 01/03/24 20:54 Platelet Morphology NORMAL APPEARANCE (NORMAL) 01/03/24 20:54 RBC Morph Micro Appear NORMAL APPEARANCE (NORMAL) 01/03/24 20:54 PT 25.4 secs (9.9-12.6) H 01/03/24 17:15 INR 2.4 (0.8-1.2) H 01/03/24 17:15 VBG pH 7.501 (7.31-7.41) H 01/03/24 17:15 VBG pCO2 28.7 mmHg (41-51) L 01/03/24 17:15 VBG pO2 60.3 mmHg (25-47) H 01/03/24 17:15 VBG HCO3 21.9 mmol/L (23-28) L 01/03/24 17:15 VBG Total CO2 22.8 mmol/L (24-29) L 01/03/24 17:15 VBG O2 Saturation 92.6 % (60-80) H 01/03/24 17:15 VBG Base Excess -0.1 mmol/L (-2 - +2) 01/03/24 17:15 Sodium 144 mmol/L (135-145) 01/05/24 07:38 Potassium 4.4 mmol/L (3.5-4.5) 01/05/24 07:38 Chloride 112 mmol/L (101-111) H 01/05/24 07:38 Carbon Dioxide 27 mmol/L (21-32) 01/05/24 07:38 Anion Gap 5.0 (6-13) L 01/05/24 07:38 BUN 33 mg/dL (6-20) H 01/05/24 07:38 Creatinine 1.0 mg/dL (0.6-1.3) 01/05/24 07:38 Estimated GFR (MDRD) 55 (>89) L 01/05/24 07:38 Glucose 128 mg/dL (74-104) H 01/05/24 07:38 Estimat Average Glucose 120 mg/dL (70-100) H 01/03/24 20:54 Hemoglobin A1c % 5.8 % (4.27-6.07) 01/03/24 20:54 Lactic Acid 1.1 mmol/L (0.5-2.2) 01/03/24 17:15 Calcium 8.8 mg/dL (8.5-10.3) 01/05/24 07:38 Magnesium 2.0 mg/dL (1.7-2.3) 01/05/24 07:38 Total Bilirubin 0.6 mg/dL (0.2-1.0) 01/04/24 05:31 AST 9 IU/L (10-42) L 01/04/24 05:31 ALT 8 IU/L (10-60) L 01/04/24 05:31 Alkaline Phosphatase 78 IU/L (42-121) 01/04/24 05:31 Ammonia 44.3 umol/L (18-72) 01/03/24 19:13 Troponin I High Sens 27.7 ng/L (2.3-14.8) H* 01/03/24 17:15 Total Protein 6.0 g/dL (6.4-8.9) L 01/04/24 05:31 Albumin 3.2 g/dL (3.2-5.5) 01/04/24 05:31 Globulin 2.8 g/dL (2.1-4.2) 01/04/24 05:31 Albumin/Globulin Ratio 1.1 (1.0-2.2) 01/04/24 05:31 Triglycerides 171 mg/dL 01/03/24 20:54 Cholesterol 125 mg/dL (-200) 01/03/24 20:54 LDL Cholesterol, Calc 47 mg/dL (-129) 01/03/24 20:54 VLDL Cholesterol 34 mg/dL 01/03/24 20:54 HDL Cholesterol 44 mg/dL (60-) L 01/03/24 20:54 LDL/HDL Ratio 1.1 (<4.4) 01/03/24 20:54 Cholesterol/HDL Ratio 2.8 (<4.4) 01/03/24 20:54 Vitamin B12 165 pg/mL (180-914) L 01/04/24 05:39 TSH 1.28 uIU/mL (0.34-5.60) 01/03/24 20:54 Urine Color YELLOW 01/03/24 20:44 Urine Clarity CLEAR (CLEAR) 01/03/24 20:44 Urine pH 5.5 PH (5.0-7.5) 01/03/24 20:44 Ur Specific [place] >=1.030 (1.002-1.030) H 01/03/24 20:44 Urine Protein 30 mg/dL (NEGATIVE) H 01/03/24 20:44 Urine Glucose (UA) NEGATIVE mg/dL (NEGATIVE) 01/03/24 20:44 Urine Ketones TRACE mg/dL (NEGATIVE) 01/03/24 20:44 Urine Occult Blood NEGATIVE (NEGATIVE) 01/03/24 20:44 Urine Nitrite NEGATIVE (NEGATIVE) 01/03/24 20:44 Urine Bilirubin SMALL (NEGATIVE) H 01/03/24 20:44 Urine Urobilinogen 0.2 (NORMAL) E.U./dL (NORMAL) 01/03/24 20:44 Ur Leukocyte Esterase NEGATIVE (NEGATIVE) 01/03/24 20:44 Urine RBC 0-5 /HPF (0-5) 01/03/24 20:44 Urine WBC 0-3 /HPF (0-5) 01/03/24 20:44 Ur Squamous Epith Cells FEW Squamous (<= Few) 01/03/24 20:44 Urine Bacteria Few /HPF (None Seen) 01/03/24 20:44 Ur Microscopic Review INDICATED 01/03/24 20:44 Urine Culture Comments NOT INDICATED 01/03/24 20:44 Salicylates < 1.5 mg/dL 01/03/24 17:15 Urine Opiates Screen POSITIVE (NEGATIVE) H 01/03/24 20:44 Ur Buprenorphine Scrn NEGATIVE (NEGATIVE) 01/03/24 20:44 Ur Oxycodone Screen NEGATIVE (NEGATIVE) 01/03/24 20:44 Urine Methadone Screen NEGATIVE (NEGATIVE) 01/03/24 20:44 Acetaminophen 0.5 ug/mL 01/03/24 17:15 Ur Barbiturates Screen NEGATIVE (NEGATIVE) 01/03/24 20:44 Ur Tricyclics Screen NEGATIVE (NEGATIVE) 01/03/24 20:44 Ur Phencyclidine Scrn NEGATIVE (NEGATIVE) 01/03/24 20:44 Ur Amphetamine Screen NEGATIVE (NEGATIVE) 01/03/24 20:44 U Methamphetamines Scrn NEGATIVE (NEGATIVE) 01/03/24 20:44 U Benzodiazepines Scrn NEGATIVE (NEGATIVE) 01/03/24 20:44 Urine Cocaine Screen NEGATIVE (NEGATIVE) 01/03/24 20:44 U Cannabinoids Screen POSITIVE (NEGATIVE) H 01/03/24 20:44 Ur Drug Screen Comment CUTOFF CONC BELOW: 01/03/24 20:44 Ethyl Alcohol < 10.0 mg/dL 01/03/24 17:15 Blood Type A POSITIVE 01/03/24 17:15 Blood Type Recheck A POSITIVE 01/02/24 11:40 Antibody Screen NEGATIVE 01/03/24 17:15
[2024-01-06] MEDS: PANTOPRAZOLE 40 MG TABLET PO SCH (16:34)
[2024-01-07 07:26] LABS: BASOPHILS % (AUTO) 0.5 %; EOSINOPHILS # (AUTO) 0.3 10^3/uL (0.0-0.7); EOSINOPHILS % (AUTO) 3.3 %; HCT - HEMATOCRIT 27.1 % (37.0-47.0); HGB - HEMOGLOBIN 8.8 g/dL (12.0-16.0); LYMPHOCYTES # (AUTO) 0.8 10^3/uL (1.5-3.5); LYMPHOCYTES % (AUTO) 8.7 %; MEAN CORPUSCULAR HEMOGLOBIN 30.7 pg (27.0-31.0); MEAN CORPUSCULAR HGB CONC 32.5 g/dL (32.0-36.0); MEAN CORPUSCULAR VOLUME 94.4 fL (81.0-99.0); MEAN PLATELET VOLUME 9.5 fL (7.9-10.8); MONOCYTES # (AUTO) 0.7 10^3/uL (0.0-1.0); MONOCYTES % (AUTO) 8.2 %; NEUTROPHILS # (AUTO) 6.8 10^3/uL (1.5-6.6); NEUTROPHILS % (AUTO) 77.8 %; PLT - PLATELET COUNT 339 10^3/uL (130-450); RED BLOOD COUNT 2.87 10^6/uL (4.20-5.40); RED CELL DISTRIBUTION WIDTH 14.6 % (12.0-15.0); WHITE BLOOD COUNT 8.7 x10^3/uL (4.8-10.8)
[2024-01-07 07:39] LABS: CALCIUM 8.7 mg/dL (8.5-10.3); CREATININE 0.9 mg/dL (0.6-1.3); POTASSIUM 3.8 mmol/L (3.5-4.5)
[2024-01-07] MEDS: CYANOCOBALAMIN 500 MCG TABLET PO SCH (08:23)
--- NOTE | 2024-01-07 08:28 | PROVIDER PROGRESS NOTE ---
Assessment/Plan - Problem List (1) Upper GI bleeding Assessment/Plan: 1) Upper GI bleeding Assessment/Plan: H/H stable and no further evidence of UGI bleed, S/p EGD 01/04 with esophagitis, healing Brenda-Layton tear, HH, superficial distal antral ulcerations and duodenitis. No evidence of fresh blood and no active GI bleed. Appreciate assistance of general surgery, continue PPI, monitor H/H and transfuse as needed. (2) History of CVA with residual deficit Assessment/Plan: Have called and discussed with and caregiver. Apparently patient had been placed on Xarelto as she had difficulty maintaining theraputic INR while on warfarin. Regardless with UGI bleed and anemia will hold any antiplatelet or DOAC. (3) Right tibial fracture Assessment/Plan: S/p CT RLE 01/02/24 consistent with acute comminuted and slightly displaced fracture through lateral portion of proximal tibia. Have spoken to Dr. Mejia who did not recommend surgery and to treat with knee immobilizer and partial weight bearing. Continue bedrest for now with EGD plan for later today, f/u PT and OT recommendations, possible SNF on discharge. (4) Hypokalemia Assessment/Plan: Resolved, continue to monitor and replace as needed. (5) Hypomagnesemia Assessment/Plan: Resolved, replace and monitor 6. Hypertension -Continue losartan 50mg QD, Aldactone 25 mg QD, verapamil 240mg QPM - Current Meds Current Meds: Current Medications Generic Name Dose Route Start Last Admin Trade Name Freq PRN Reason Stop Dose Admin Albuterol 2.5 mg 01/03/24 20:10 01/04/24 18:57 Albuterol Neb 2.5 Mg/3 Ml INH 2.5 mg Q4H PRN Administration Wheezing Atorvastatin Calcium 20 mg 01/03/24 22:00 01/06/24 21:27 Atorvastatin 10 Mg Tablet PO 20 mg QPM ZIGGY Administration Budesonide 0.5 mg 01/04/24 07:00 01/06/24 18:38 Budesonide 0.5 Mg/2 Ml Neb INH Not Given RTBID ZIGGY Cholecalciferol 50 mcg 01/05/24 09:00 01/07/24 08:18 Cholecalciferol 25 Mcg Tablet PO 50 mcg DAILY ZIGGY Administration Cyanocobalamin 500 mcg 01/07/24 09:00 01/07/24 08:23 Cyanocobalamin 500 Mcg Tablet PO Not Given DAILY ZIGGY Docusate Sodium 100 mg 01/04/24 09:00 01/07/24 08:17 Docusate Sodium 100 Mg Capsule PO 100 mg DAILY ZIGGY Administration Formoterol Fumarate 20 mcg 01/04/24 07:00 01/06/24 18:38 Formoterol Fumarate Neb 20 Mcg/2 Ml INH Not Given RTBID ZIGGY Gabapentin 400 mg 01/04/24 09:00 01/07/24 08:18 Gabapentin 400 Mg Capsule PO 400 mg DAILY ZIGGY Administration Hydralazine HCl 5 mg 01/06/24 03:31 01/07/24 08:03 Hydralazine Inj 20 Mg/Ml Vial IVP 5 mg Q6H PRN Administration SBP> or= 160 OR DBP> or= 110 Lactated Ringer's 1,000 mls @ 75 mls/hr 01/03/24 21:00 01/07/24 04:06 Lr IV 75 mls/hr .[id number] ZIGGY Administration Losartan Potassium 50 mg 01/04/24 09:00 01/07/24 08:23 Losartan 50 Mg Tablet PO 50 mg DAILY ZIGGY Administration Multivitamins 1 tab 01/04/24 09:00 01/07/24 08:18 Multivitamin Tablet PO 1 tab DAILY ZIGGY Administration Ondansetron HCl 4 mg 01/03/24 20:27 01/04/24 10:26 Ondansetron 4 Mg/2 Ml Vial IVP 4 mg Q6HR PRN Administration Nausea / Vomiting Oxycodone HCl 5 mg 01/03/24 20:27 01/07/24 00:20 Oxycodone 5 Mg Tablet PO 5 mg Q4HR PRN Administration Pain 5 to 7 Pantoprazole Sodium 40 mg 01/06/24 16:00 01/07/24 05:49 Pantoprazole 40 Mg Tablet PO 40 mg BIDAC ZIGGY Administration Polyethylene Glycol 17 gm 01/06/24 09:00 01/06/24 21:27 Polyethylene Glycol 3350 17 Gm Packet PO 17 gm DAILY ZIGGY Administration Sodium Chloride 10 ml 01/04/24 01:00 01/07/24 05:49 Sodium Chloride Flush 0.9% 10 Ml Syringe IVP 10 ml 0100,0900,1700 ZIGGY Administration Spironolactone 25 mg 01/04/24 09:00 01/07/24 08:17 Spironolactone 25 Mg Tablet PO 25 mg DAILY ZIGGY Administration Verapamil HCl 240 mg 01/04/24 21:00 01/06/24 21:27 Verapamil Er 120 Mg Tablet PO 240 mg QPM ZIGGY Administration - Lab Result Fish Bone Diagrams: 01/07/24 07:19 01/07/24 07:19 - Additional Planning My Orders: My Active Orders 01/06/24 16:00 Pantoprazole [Protonix] 40 mg PO BIDAC 01/06/24 Dinner Regular Diet [DIET] 01/07/24 09:00 Cyanocobalamin [Vitamin B-12] 500 mcg PO DAILY 01/08/24 05:00 CBC [CBC - COMP BLD CT W/AUTO DIFF] [HEME] DAILYLAB 01/09/24 05:00 CBC [CBC - COMP BLD CT W/AUTO DIFF] [HEME] DAILYLAB 01/10/24 05:00 CBC [CBC - COMP BLD CT W/AUTO DIFF] [HEME] DAILYLAB 01/11/24 05:00 CBC [CBC - COMP BLD CT W/AUTO DIFF] [HEME] DAILYLAB 01/12/24 05:00 CBC [CBC - COMP BLD CT W/AUTO DIFF] [HEME] DAILYLAB Objective Vital Signs: Vital Signs - 24 hr 01/06/24 01/06/24 01/06/24 09:00 13:29 16:01 Temperature 36.3 C L 36.4 C L 36.5 C Heart Rate [ 70 81 86 Brachial] Respiratory 16 16 16 Rate Blood Pressure Blood Pressure 157/82 H 169/92 H [Left Brachial artery] Blood Pressure 149/77 H [Right Brachial artery] O2 Saturation 94 95 96 01/06/24 01/06/24 01/06/24 20:25 21:28 21:42 Temperature 36.5 C Heart Rate [ 82 Brachial] Respiratory 20 Rate Blood Pressure 177/82 H Blood Pressure 181/86 H 158/69 H [Left Brachial artery] Blood Pressure [Right Brachial artery] O2 Saturation 96 01/06/24 01/06/24 01/07/24 21:58 23:37 05:00 Temperature 36.5 C 36.5 C Heart Rate [ 79 70 Brachial] Respiratory 22 16 Rate Blood Pressure 110/65 Blood Pressure 110/65 161/70 H [Left Brachial artery] Blood Pressure [Right Brachial artery] O2 Saturation 94 93 01/07/24 01/07/24 01/07/24 07:42 08:03 08:23 Temperature 36.4 C L Heart Rate [ 76 Brachial] Respiratory 20 Rate Blood Pressure 181/79 H Blood Pressure 181/79 H 151/61 H [Left Brachial artery] Blood Pressure [Right Brachial artery] O2 Saturation 93 Oxygen O2 Source Room air I&O (Last 24 Hrs): Intake and Output Totals x24h 01/05/24 01/06/24 01/07/24 23:59 23:59 23:59 Intake Total 1397.50 2335.00 Output Total 1300 2950 350 Balance 97.50 -615.00 -350 - Results Results: Laboratory Results WBC 8.7 x10^3/uL (4.8-10.8) 01/07/24 07:19 RBC 2.87 10^6/uL (4.20-5.40) L 01/07/24 07:19 Hgb 8.8 g/dL (12.0-16.0) L 01/07/24 07:19 Hct 27.1 % (37.0-47.0) L 01/07/24 07:19 MCV 94.4 fL (81.0-99.0) 01/07/24 07:19 MCH 30.7 pg (27.0-31.0) 01/07/24 07:19 MCHC 32.5 g/dL (32.0-36.0) 01/07/24 07:19 RDW 14.6 % (12.0-15.0) 01/07/24 07:19 Plt Count 339 10^3/uL (130-450) 01/07/24 07:19 MPV 9.5 fL (7.9-10.8) 01/07/24 07:19 Neut # (Auto) 6.8 10^3/uL (1.5-6.6) H 01/07/24 07:19 Lymph # (Auto) 0.8 10^3/uL (1.5-3.5) L 01/07/24 07:19 [place] # (Auto) 0.7 10^3/uL (0.0-1.0) 01/07/24 07:19 Eos # (Auto) 0.3 10^3/uL (0.0-0.7) 01/07/24 07:19 Baso # (Auto) 0.0 10^3/uL (0.0-0.1) 01/07/24 07:19 Absolute Nucleated RBC 0.00 x10^3/uL 01/07/24 07:19 Total Counted 100 01/03/24 20:54 Band Neuts % (Manual) 1 % (0-10) 01/03/24 20:54 Reactive Lymphs % (Man) 1 % 01/03/24 20:54 Abnorm Lymph % (Manual) 0 % 01/03/24 20:54 Nucleated RBC % 0.0 /100WBC 01/07/24 07:19 Neutrophils # (Manual) 17.9 10^3/uL (1.5-6.6) H 01/03/24 20:54 Lymphocytes # (Manual) 0.8 10^3/uL (1.5-3.5) L 01/03/24 20:54 Monocytes # (Manual) 1.7 10^3/uL (0.0-1.0) H 01/03/24 20:54 Eosinophils # (Manual) 0.4 10^3/uL (0-0.7) 01/03/24 20:54 Basophils # (Manual) 0.0 10^3/uL (0-0.1) 01/03/24 20:54 Differential Comment MANUAL DIFFERENTIAL 01/03/24 20:54 Platelet Estimate NORMAL (130-450,000) (NORMAL) 01/03/24 20:54 Platelet Morphology NORMAL APPEARANCE (NORMAL) 01/03/24 20:54 RBC Morph Micro Appear NORMAL APPEARANCE (NORMAL) 01/03/24 20:54 PT 25.4 secs (9.9-12.6) H 01/03/24 17:15 INR 2.4 (0.8-1.2) H 01/03/24 17:15 VBG pH 7.501 (7.31-7.41) H 01/03/24 17:15 VBG pCO2 28.7 mmHg (41-51) L 01/03/24 17:15 VBG pO2 60.3 mmHg (25-47) H 01/03/24 17:15 VBG HCO3 21.9 mmol/L (23-28) L 01/03/24 17:15 VBG Total CO2 22.8 mmol/L (24-29) L 01/03/24 17:15 VBG O2 Saturation 92.6 % (60-80) H 01/03/24 17:15 VBG Base Excess -0.1 mmol/L (-2 - +2) 01/03/24 17:15 Sodium 139 mmol/L (135-145) 01/07/24 07:19 Potassium 3.8 mmol/L (3.5-4.5) 01/07/24 07:19 Chloride 106 mmol/L (101-111) 01/07/24 07:19 Carbon Dioxide 27 mmol/L (21-32) 01/07/24 07:19 Anion Gap 6.0 (6-13) 01/07/24 07:19 BUN 18 mg/dL (6-20) 01/07/24 07:19 Creatinine 0.9 mg/dL (0.6-1.3) 01/07/24 07:19 Estimated GFR (MDRD) 62 (>89) L 01/07/24 07:19 Glucose 122 mg/dL (74-104) H 01/07/24 07:19 Estimat Average Glucose 120 mg/dL (70-100) H 01/03/24 20:54 Hemoglobin A1c % 5.8 % (4.27-6.07) 01/03/24 20:54 Lactic Acid 1.1 mmol/L (0.5-2.2) 01/03/24 17:15 Calcium 8.7 mg/dL (8.5-10.3) 01/07/24 07:19 Magnesium 2.0 mg/dL (1.7-2.3) 01/05/24 07:38 Total Bilirubin 0.6 mg/dL (0.2-1.0) 01/04/24 05:31 AST 9 IU/L (10-42) L 01/04/24 05:31 ALT 8 IU/L (10-60) L 01/04/24 05:31 Alkaline Phosphatase 78 IU/L (42-121) 01/04/24 05:31 Ammonia 44.3 umol/L (18-72) 01/03/24 19:13 Troponin I High Sens 27.7 ng/L (2.3-14.8) H* 01/03/24 17:15 Total Protein 6.0 g/dL (6.4-8.9) L 01/04/24 05:31 Albumin 3.2 g/dL (3.2-5.5) 01/04/24 05:31 Globulin 2.8 g/dL (2.1-4.2) 01/04/24 05:31 Albumin/Globulin Ratio 1.1 (1.0-2.2) 01/04/24 05:31 Triglycerides 171 mg/dL 01/03/24 20:54 Cholesterol 125 mg/dL (-200) 01/03/24 20:54 LDL Cholesterol, Calc 47 mg/dL (-129) 01/03/24 20:54 VLDL Cholesterol 34 mg/dL 01/03/24 20:54 HDL Cholesterol 44 mg/dL (60-) L 01/03/24 20:54 LDL/HDL Ratio 1.1 (<4.4) 01/03/24 20:54 Cholesterol/HDL Ratio 2.8 (<4.4) 01/03/24 20:54 Vitamin B12 165 pg/mL (180-914) L 01/04/24 05:39 TSH 1.28 uIU/mL (0.34-5.60) 01/03/24 20:54 Urine Color YELLOW 01/03/24 20:44 Urine Clarity CLEAR (CLEAR) 01/03/24 20:44 Urine pH 5.5 PH (5.0-7.5) 01/03/24 20:44 Ur Specific [place] >=1.030 (1.002-1.030) H 01/03/24 20:44 Urine Protein 30 mg/dL (NEGATIVE) H 01/03/24 20:44 Urine Glucose (UA) NEGATIVE mg/dL (NEGATIVE) 01/03/24 20:44 Urine Ketones TRACE mg/dL (NEGATIVE) 01/03/24 20:44 Urine Occult Blood NEGATIVE (NEGATIVE) 01/03/24 20:44 Urine Nitrite NEGATIVE (NEGATIVE) 01/03/24 20:44 Urine Bilirubin SMALL (NEGATIVE) H 01/03/24 20:44 Urine Urobilinogen 0.2 (NORMAL) E.U./dL (NORMAL) 01/03/24 20:44 Ur Leukocyte Esterase NEGATIVE (NEGATIVE) 01/03/24 20:44 Urine RBC 0-5 /HPF (0-5) 01/03/24 20:44 Urine WBC 0-3 /HPF (0-5) 01/03/24 20:44 Ur Squamous Epith Cells FEW Squamous (<= Few) 01/03/24 20:44 Urine Bacteria Few /HPF (None Seen) 01/03/24 20:44 Ur Microscopic Review INDICATED 01/03/24 20:44 Urine Culture Comments NOT INDICATED 01/03/24 20:44 Salicylates < 1.5 mg/dL 01/03/24 17:15 Urine Opiates Screen POSITIVE (NEGATIVE) H 01/03/24 20:44 Ur Buprenorphine Scrn NEGATIVE (NEGATIVE) 01/03/24 20:44 Ur Oxycodone Screen NEGATIVE (NEGATIVE) 01/03/24 20:44 Urine Methadone Screen NEGATIVE (NEGATIVE) 01/03/24 20:44 Acetaminophen 0.5 ug/mL 01/03/24 17:15 Ur Barbiturates Screen NEGATIVE (NEGATIVE) 01/03/24 20:44 Ur Tricyclics Screen NEGATIVE (NEGATIVE) 01/03/24 20:44 Ur Phencyclidine Scrn NEGATIVE (NEGATIVE) 01/03/24 20:44 Ur Amphetamine Screen NEGATIVE (NEGATIVE) 01/03/24 20:44 U Methamphetamines Scrn NEGATIVE (NEGATIVE) 01/03/24 20:44 U Benzodiazepines Scrn NEGATIVE (NEGATIVE) 01/03/24 20:44 Urine Cocaine Screen NEGATIVE (NEGATIVE) 01/03/24 20:44 U Cannabinoids Screen POSITIVE (NEGATIVE) H 01/03/24 20:44 Ur Drug Screen Comment CUTOFF CONC BELOW: 01/03/24 20:44 Ethyl Alcohol < 10.0 mg/dL 01/03/24 17:15 Blood Type A POSITIVE 01/03/24 17:15 Blood Type Recheck A POSITIVE 01/02/24 11:40 Antibody Screen NEGATIVE 01/03/24 17:15
--- NOTE | 2024-01-07 10:36 | Discharge Plan ---
"Discharge Plan for SNF / [facility] - Discharge Plan And Transition Orders Problem Reviewed?: Yes Disposition: 03 SNF DC/Xfer Condition: Fair Allergies and Adverse Reactions: Allergies Allergy/AdvReac Type Severity Reaction Status Date / Time No Known Drug Allergies Allergy Verified 01/03/24 17:09 Health Concerns: Monitor for further GI bleed Assessment: 1) Upper GI bleeding Assessment/Plan: H/H stable and no further evidence of UGI bleed, S/p EGD 01/04 with esophagitis, healing Brenda-Layton tear, HH, superficial distal antral ulcerations and duodenitis. No evidence of fresh blood and no active GI bleed. Appreciate assistance of general surgery, continue PPI, monitor H/H and transfuse as needed. (2) History of CVA with residual deficit Assessment/Plan: Have called and discussed with and caregiver. Apparently patient had been placed on Xarelto as she had difficulty maintaining theraputic INR while on warfarin. According to had been placed on warfarin due to DVT's. Regardless with UGI bleed and anemia will hold any antiplatelet or DOAC. (3) Right tibial fracture Assessment/Plan: S/p CT RLE 01/02/24 consistent with acute comminuted and slightly displaced fracture through lateral portion of proximal tibia. Have spoken to Dr. Mejia who did not recommend surgery and to treat with knee immobilizer and partial weight bearing. Continue bedrest for now with EGD plan for later today, f/u PT and OT recommendations. DC to SNF today. (4) Hypokalemia Assessment/Plan: Resolved, continue to monitor and replace as needed. (5) Hypomagnesemia Assessment/Plan: Resolved, replace and monitor 6. Hypertension -Continue losartan 50mg QD, Aldactone 25 mg QD, verapamil 240mg QPM - SNF / [facility] Transition Orders [facility] Diagnosis: 1) Upper GI bleeding Assessment/Plan: H/H stable and no further evidence of UGI bleed, S/p EGD 01/04 with esophagitis, healing Brenda-Layton tear, HH, superficial distal antral ulcerations and duodenitis. No evidence of fresh blood and no active GI bleed. Appreciate assistance of general surgery, continue PPI, monitor H/H and transfuse as needed. (2) History of CVA with residual deficit Assessment/Plan: Have called and discussed with and caregiver. Apparently patient had been placed on Xarelto as she had difficulty maintaining theraputic INR while on warfarin. Regardless with UGI bleed and anemia will hold any antiplatelet or DOAC. (3) Right tibial fracture Assessment/Plan: S/p CT RLE 01/02/24 consistent with acute comminuted and slightly displaced fracture through lateral portion of proximal tibia. Have spoken to Dr. Mejia who did not recommend surgery and to treat with knee immobilizer and partial weight bearing. Continue bedrest for now with EGD plan for later today, f/u PT and OT recommendations, possible SNF on discharge. (4) Hypokalemia Assessment/Plan: Resolved, continue to monitor and replace as needed. (5) Hypomagnesemia Assessment/Plan: Resolved, replace and monitor 6. Hypertension -Continue losartan 50mg QD, Aldactone 25 mg QD, verapamil 240mg QPM Medicare Certification Statement: I certify that Post Hospital intermediate care is medically necessary on a continuing basis for any of the conditions for which she/he is receiving care during hospitalization. Notify PCP of admission and forward orders to primary provider for signature. Weight on admission and: Weekly Other Notification Orders: Call PCP immediately if patient develops dyspnea, chest pain/tightness or edema. House Bowel Program: Yes Additional Bowel Program Orders: If no BM after 2 days, nurse may give M.O.M. 30ml PO PRN and/or ducolax Supp 1 PA and/or DELLA 250mg P.O., and/or senna 1-2 tabs PO. On day 3 nurse may give repeat above order until residents constipation is resolved. Annual Influenza Vaccine (between Feb 20 and September 19): Yes Two-step PPD per [facility] [phone] or approved exception documents: Yes Orthopedic Orders: partial weight bearing as tolerated, R knee immobilizer Medication Orders: PLEASE REFER TO THE DISCHARGE MEDICATION LIST. Insulin Orders?: No - Medications New Prescriptions: Mag Hydrox/Al Hydrox/Simeth [Mylanta Plus] 30 ml PO Q4HR PRN 30 Days #30 ea PRN Reason: Indigestion oxyCODONE [Roxicodone] 5 mg PO Q4HR PRN #30 tab PRN Reason: Pain 5 to 7 Albuterol 2.5 mg INH Q4H PRN 30 Days #30 ml PRN Reason: Wheezing Spironolactone [Aldactone] 25 mg PO DAILY #30 tab Mv-Mn/Folic/Lutein/Herbal 293 [Alive Women's 50 Plus Gummy] 1 each PO DAILY 30 Days Verapamil ER [Calan SA] 240 mg PO QPM 30 Days #60 tab Docusate Sodium 100Mg Capsule [Colace 100Mg Capsule] 100 mg PO DAILY 30 Days #30 cap Losartan [Cozaar] 50 mg PO DAILY 30 Days #30 tab metFORMIN [Glucophage] 500 mg PO BIDWM 30 Days #60 tab polyethylene glycoL 3350 [Miralax] 17 gm PO DAILY #30 packet Gabapentin [Neurontin] 400 mg PO DAILY #30 cap Pantoprazole [Protonix] 40 mg PO BIDAC 60 Days #120 tab Budesonide [Pulmicort] 0.5 mg INH RTBID 30 Days #30 ml Multivitamin [Theragran] 1 tab PO DAILY #30 tab Acetaminophen [Tylenol] 650 mg PO Q6H PRN 30 Days #30 tab PRN Reason: Pain 1 to 4, or Fever Cyanocobalamin [Vitamin B-12] 500 mcg PO DAILY 30 Days #30 tab Sertraline [Zoloft] 50 mg PO DAILY 30 Days #30 tab - Diet Type: Geriatric Texture: Mech soft Liquids: Thin May have monthly special meal: Yes - Therapies | Activity Therapy: Evaluation | Treat if indicated: PT, OT, Swallowing / ST Rehabilitation Potential: Maintain present ADL Functional Activity: partial WBAT"
--- NOTE | 2024-01-07 11:10 | DISCHARGE SUMMARY ---
"Discharge Summary Admit Date: 01/03/24 Discharge Date: 01/07/24 Discharging Provider: Dr. Kaden Cortez Code Status: Attempt Resuscitation Condition at Discharge: Fair Discharge Disposition: 03 SNF DC/Xfer Discharge Facility [facility]: [facility] - DIAGNOSES Admission Diagnoses: Acute blood loss anemia due to UGI bleed Discharge Diagnoses with Status of Each Condition: 1) Upper GI bleeding Assessment/Plan: H/H stable and no further evidence of UGI bleed, S/p EGD 01/04 with esophagitis, healing Brenda-Layton tear, HH, superficial distal antral ulcerations and duodenitis. No evidence of fresh blood and no active GI bleed. Appreciate assistance of general surgery, continue PPI, monitor H/H and transfuse as needed. (2) History of CVA with residual deficit Assessment/Plan: Have called and discussed with and caregiver. Apparently patient had been placed on Xarelto as she had difficulty maintaining theraputic INR while on warfarin. Regardless with UGI bleed and anemia will hold any antiplatelet or DOAC. (3) Right tibial fracture Assessment/Plan: S/p CT RLE 01/02/24 consistent with acute comminuted and slightly displaced fracture through lateral portion of proximal tibia. Have spoken to Dr. Mejia who did not recommend surgery and to treat with knee immobilizer and partial weight bearing. Continue bedrest for now with EGD plan for later today, f/u PT and OT recommendations, possible SNF on discharge. (4) Hypokalemia Assessment/Plan: Resolved, continue to monitor and replace as needed. (5) Hypomagnesemia Assessment/Plan: Resolved, replace and monitor 6. Hypertension -Continue losartan 50mg QD, Aldactone 25 mg QD, verapamil 240mg QPM - HPI History of Present Illness: Patient presents via ems with reports of coffee-ground emesis as reported by EMS and ed staff. no family currently available for details. pt has prior cognitive deficits d/t cva, but she has worsening AMS. pt currently takes xarelto. pt is confused and able to reorient with simple repeated statements and questions, but can't provide much history, though she does deny chest pain. - CONSULTS | PROCEDURES Consultations: Dr. Cassidy Procedures: EGD 01/05/24: EGD identified general esophagitis, a healing Brenda-Layton tear, a hiatal hernia, superficial distal antral ulcerations, and duodenitis. There was no evidence of fresh blood in the UGI tract and no evidence of active bleeding I recommend continued PPI use for at least 8-10 weeks and several days of Mylanta as her diet is increased. - HOSPITAL COURSE Hospital Course: 73 year old female with a PMH as stated above. Brought into the ED by EMS after she was noted to have hematemesis. Anemic with an initial H/H 12.1/37 and on discharge 8.8/27.1. No further GI bleed. Seen by surgery and underwent EGD as stated above. During her hospitalization she was maintained on PPI BID and her DOAC was not continued. I was able to talk with her as well as her caregiver and give them updates. In addition I was able to discuss her R tibial plateau fracture with orthopedics who did not recommend surgery at this time and to place the patient in a knee immobilizer. During her hospitalization she was continued on her home medications and she was discharged to a SNF today. - ALLERGIES Allergies/Adverse Reactions: Allergies Allergy/AdvReac Type Severity Reaction Status Date / Time No Known Drug Allergies Allergy Verified 01/03/24 17:09 - MEDICATIONS Home Medications: Ambulatory Orders Medication Instructions Recorded Confirmed Cholecalciferol (Vitamin D3) 2,000 unit PO DAILY 08/21/15 01/03/24 [Vitamin D3] Acetaminophen [Tylenol] 650 mg PO Q6H PRN 30 Days #30 tab 01/07/24 Albuterol 2.5 mg INH Q4H PRN 30 Days #30 ml 01/07/24 Atorvastatin [Lipitor] 20 mg PO QPM 30 Days #30 cap 01/07/24 01/03/24 Budesonide [Pulmicort] 0.5 mg INH RTBID 30 Days #30 ml 01/07/24 Cyanocobalamin [Vitamin B-12] 500 mcg PO DAILY 30 Days #30 tab 01/07/24 Docusate Sodium 100Mg Capsule 100 mg PO DAILY 30 Days #30 cap 01/07/24 [Colace 100Mg Capsule] Gabapentin [Neurontin] 400 mg PO DAILY #30 cap 01/07/24 Losartan [Cozaar] 50 mg PO DAILY 30 Days #30 tab 01/07/24 Mag Hydrox/Al Hydrox/Simeth 30 ml PO Q4HR PRN 30 Days #30 ea 07/18/24 [Mylanta Plus] Multivitamin [Theragran] 1 tab PO DAILY #30 tab 01/07/24 Mv-Mn/Folic/Lutein/Herbal 293 1 each PO DAILY 30 Days 01/07/24 [Alive Women's 50 Plus Gummy] Pantoprazole [Protonix] 40 mg PO BIDAC 60 Days #120 tab 01/07/24 Sertraline [Zoloft] 50 mg PO DAILY 30 Days #30 tab 01/07/24 Spironolactone [Aldactone] 25 mg PO DAILY #30 tab 01/07/24 Verapamil ER [Calan SA] 240 mg PO QPM 30 Days #60 tab 01/07/24 metFORMIN [Glucophage] 500 mg PO BIDWM 30 Days #60 tab 01/07/24 oxyCODONE [Roxicodone] 5 mg PO Q4HR PRN #30 tab 01/07/24 polyethylene glycoL 3350 [Miralax] 17 gm PO DAILY #30 packet 01/07/24 - PHYSICAL EXAM AT DISCHARGE General Appearance: positive: No acute distress Eyes Bilateral: positive: Normal inspection ENT: positive: No signs of dehydration Neck: positive: Nml inspection Respiratory: positive: Chest non-tender, No respiratory distress Cardiovascular: positive: Regular rate & rhythm Abdomen: positive: Non-tender Skin: positive: Color nml Extremities: positive: Non-tender Neurologic/Psychiatric: positive: Other (aphasic) - LABS Result Diagrams: 01/07/24 07:19 01/07/24 07:19 - DIAGNOSTIC IMAGING Diagnostic Imaging Results: Final report reviewed - SEPSIS Current Stage of Sepsis: Ruled out - QUALITY (Female Hip Fx Only) Was patient sent home on osteoporosis medication?: No - FOLLOW UP Follow Up: PCP in 1 week upon discharge from SNF - TIME SPENT Time Spent in Discharge (Minutes): 45"
[2024-01-07] MEDS: MORPHINE 2 MG/ML CARPUJECT IVP PRN (12:29)
[2024-01-07 16:00] VITALS: BP 108/53; O2SAT 96
== END 2024-01-07 17:19 | DRG 368 ==
LOC: EDUNIT# → ED 16:55 → MS2 20:27 → OBSVTOIN 01-04 11:53
PROVIDERS: ADMIT Student in an Organized Health Care Education/Training Program; ATTEND Internal Medicine
PROC: 0DB78ZX Excision of Stomach, Pylorus, Via Natural or Artificial Opening Endoscopic, Diagnostic (ICD-10-PCS; principal; 2024-01-05 13:45)
DX: K92.2 Gastrointestinal hemorrhage, unspecified (principal); K22.6 Gastro-esophageal laceration-hemorrhage syndrome; I69.328 Other speech and language deficits following cerebral infarction; G92.8 Other toxic encephalopathy; R00.0 Tachycardia, unspecified; D62 Acute posthemorrhagic anemia; R41.0 Disorientation, unspecified; N17.9 Acute kidney failure, unspecified; E86.0 Dehydration; K44.9 Diaphragmatic hernia without obstruction or gangrene; K20.91 Esophagitis, unspecified with bleeding; K25.4 Chronic or unspecified gastric ulcer with hemorrhage; E11.9 Type 2 diabetes mellitus without complications; K29.81 Duodenitis with bleeding; E87.3 Alkalosis; I69.319 Unspecified symptoms and signs involving cognitive functions following cerebral infarction; E78.00 Pure hypercholesterolemia, unspecified; I25.10 Atherosclerotic heart disease of native coronary artery without angina pectoris; N19 Unspecified kidney failure; E11.22 Type 2 diabetes mellitus with diabetic chronic kidney disease; S82.141D Displaced bicondylar fracture of right tibia, subsequent encounter for closed fracture with routine healing; N18.9 Chronic kidney disease, unspecified; D72.829 Elevated white blood cell count, unspecified; E87.6 Hypokalemia; E83.42 Hypomagnesemia; I12.9 Hypertensive chronic kidney disease with stage 1 through stage 4 chronic kidney disease, or unspecified chronic kidney disease; Z86.718 Personal history of other venous thrombosis and embolism; Z79.01 Long term (current) use of anticoagulants; Z87.891 Personal history of nicotine dependence; Z79.84 Long term (current) use of oral hypoglycemic drugs
CPT/HCPCS: 36415; 70450; 71045; 74174; 80048; 80053; 80061; 80143; 80306; 81001; 82140; 82607; 82803; 83036; 83605; 83735; 84443; 84484; 85014; 85018; 85025; 85610; 86850; 86900; 86901; 93005; 94640; 96361; 96374; 96375; 97162; 97166; 99285; A9270; G0378; G0480; J7120; J7626; Q9967; 80179; 81003; 82077; 83721; 87086

== ENCOUNTER 2024-01-07 15:53 | Outpatient (CLI) | payer MEDICARE, MEDICAID | END 2024-01-07 23:59 | LOC: EMS 15:53 | PROVIDERS: ATTEND Internal Medicine | DX: R41.0 Disorientation, unspecified (principal); S82.201A Unspecified fracture of shaft of right tibia, initial encounter for closed fracture; Z74.01 Bed confinement status; F03.90 Unspecified dementia, unspecified severity, without behavioral disturbance, psychotic disturbance, mood disturbance, and anxiety; R53.1 Weakness | CPT/HCPCS: A0425; A0428 ==

== ENCOUNTER 2024-01-09 08:00 | Outpatient (CLI) | payer MEDICARE, MEDICAID ==
[2024-01-09 19:00] LABS: BASOPHILS % (AUTO) 0.3 %; EOSINOPHILS # (AUTO) 0.2 10^3/uL (0.0-0.7); EOSINOPHILS % (AUTO) 1.7 %; HCT - HEMATOCRIT 30.6 % (37.0-47.0); HGB - HEMOGLOBIN 10.1 g/dL (12.0-16.0); LYMPHOCYTES # (AUTO) 0.8 10^3/uL (1.5-3.5); LYMPHOCYTES % (AUTO) 8.6 %; MEAN CORPUSCULAR HEMOGLOBIN 31.4 pg (27.0-31.0); MEAN PLATELET VOLUME 9.9 fL (7.9-10.8); MONOCYTES # (AUTO) 0.9 10^3/uL (0.0-1.0); MONOCYTES % (AUTO) 9.3 %; NEUTROPHILS # (AUTO) 7.6 10^3/uL (1.5-6.6); NEUTROPHILS % (AUTO) 77.5 %; PLT - PLATELET COUNT 522 10^3/uL (130-450); RED BLOOD COUNT 3.22 10^6/uL (4.20-5.40); WHITE BLOOD COUNT 9.8 x10^3/uL (4.8-10.8)
[2024-01-09 19:18] LABS: ALBUMIN 3.6 g/dL (3.2-5.5); ALBUMIN/GLOBULIN RATIO 1.2 (1.0-2.2); BILIRUBIN,TOTAL 0.5 mg/dL (0.2-1.0); CALCIUM 9.4 mg/dL (8.5-10.3); CREATININE 1.2 mg/dL (0.6-1.3); POTASSIUM 3.8 mmol/L (3.5-4.5); TOTAL PROTEIN 6.5 g/dL (6.4-8.9)
== END 2024-01-09 23:59 | disposition home or self-care (01) ==
LOC: LAB.R 08:00
DX: I10 Essential (primary) hypertension (principal); I48.20 Chronic atrial fibrillation, unspecified
CPT/HCPCS: 80053; 85025

== ENCOUNTER 2024-01-18 08:39 | Outpatient (CLI) | payer MEDICARE, MEDICAID ==
--- NOTE | 2024-01-18 15:59 | XRAY Report ---
PROCEDURE: Knee 4+V RT INDICATIONS: PAIN IN RIGHT KNEE TECHNIQUE: 4 views of the knee(s) were acquired. COMPARISON: None. FINDINGS: Bones: Severe osteopenia limits evaluation of osseous structures. A fracture subluxation seen. Tricom partmental DJD of the knee is noted. Soft tissues: No radiographically evident joint effusion. IMPRESSION: Severely limited study due to severe osteopenia, with no acute fracture discernible. If clinical susp icion for fracture remains, noncontrast CT may provide additional diagnostic benefit. Reviewed by: Sunil Hinkle MD on 01/18/2024 3:58 PM PDT Approved by: Sunil Hinkle MD on 01/18/2024 3:58 PM PDT Station ID: [id number]
== END 2024-01-18 08:40 | disposition home or self-care (01) ==
LOC: DI 08:39
PROVIDERS: ATTEND Orthopaedic Surgery
DX: M85.861 Other specified disorders of bone density and structure, right lower leg (principal); M25.561 Pain in right knee

== ENCOUNTER 2024-02-06 08:00 | Outpatient (CLI) | payer MEDICARE, MEDICAID ==
[2024-02-06 03:39] LABS: BASOPHILS # (AUTO) 0.1 10^3/uL (0.0-0.1); BASOPHILS % (AUTO) 0.7 %; EOSINOPHILS # (AUTO) 0.2 10^3/uL (0.0-0.7); EOSINOPHILS % (AUTO) 3.3 %; HCT - HEMATOCRIT 29.8 % (37.0-47.0); HGB - HEMOGLOBIN 9.2 g/dL (12.0-16.0); LYMPHOCYTES # (AUTO) 1.1 10^3/uL (1.5-3.5); LYMPHOCYTES % (AUTO) 14.6 %; MEAN CORPUSCULAR HGB CONC 30.9 g/dL (32.0-36.0); MEAN CORPUSCULAR VOLUME 97.1 fL (81.0-99.0); MONOCYTES # (AUTO) 0.6 10^3/uL (0.0-1.0); MONOCYTES % (AUTO) 8.7 %; NEUTROPHILS # (AUTO) 5.3 10^3/uL (1.5-6.6); PLT - PLATELET COUNT 280 10^3/uL (130-450); RED BLOOD COUNT 3.07 10^6/uL (4.20-5.40); RED CELL DISTRIBUTION WIDTH 15.1 % (12.0-15.0); WHITE BLOOD COUNT 7.3 x10^3/uL (4.8-10.8)
[2024-02-06 03:49] LABS: BILIRUBIN,URINE NEGATIVE (NEGATIVE); CLARITY,URINE CLEAR (CLEAR); GLUCOSE, URINE (UA) NEGATIVE (NEGATIVE); KETONES,URINE (UA) NEGATIVE (NEGATIVE); LEUKOCYTE ESTERASE, URINE NEGATIVE (NEGATIVE); NITRITE,URINE NEGATIVE (NEGATIVE); OCCULT BLOOD,URINE NEGATIVE (NEGATIVE); PH,URINE 5.5 PH (5.0-7.5); PROTEIN,URINE NEGATIVE (NEGATIVE); UROBILINOGEN,URINE 0.2 (NORMAL) E.U./dL (NORMAL)
[2024-02-06 03:56] LABS: CALCIUM 8.4 mg/dL (8.5-10.3); POTASSIUM 3.8 mmol/L (3.5-4.5)
== END 2024-02-06 23:59 | disposition home or self-care (01) ==
LOC: LAB.R 08:00
PROVIDERS: ATTEND Family Medicine
DX: E11.9 Type 2 diabetes mellitus without complications (principal); S82.141D Displaced bicondylar fracture of right tibia, subsequent encounter for closed fracture with routine healing; N39.0 Urinary tract infection, site not specified
CPT/HCPCS: 80048; 81001; 81003; 85025; 87086

== ENCOUNTER 2024-02-14 19:15 | Outpatient (CLI) | payer MEDICARE, MEDICAID | END 2024-02-14 19:16 | disposition left against medical advice (07) | LOC: EMS 19:15 | DX: S00.83XA Contusion of other part of head, initial encounter (principal); W05.0XXA Fall from non-moving wheelchair, initial encounter; Y92.009 Unspecified place in unspecified non-institutional (private) residence as the place of occurrence of the external cause; Z79.01 Long term (current) use of anticoagulants ==

== ENCOUNTER 2024-02-26 08:00 | Outpatient (CLI) | payer MEDICARE, MEDICAID | END 2024-02-26 23:59 | disposition home or self-care (01) | LOC: LAB 08:00 | PROVIDERS: ATTEND Nurse Practitioner Family | DX: S81.801A Unspecified open wound, right lower leg, initial encounter (principal) | CPT/HCPCS: 87070; 87077; 87181; 87205 ==

== ENCOUNTER 2024-02-26 15:55 | Outpatient (CLI) | payer MEDICARE, MEDICAID ==
--- NOTE | 2024-02-27 07:57 | XRAY Report ---
PROCEDURE: Ankle 1-2V RT INDICATIONS: ANKLE SWELLING TECHNIQUE: 2 views of the ankle were acquired. COMPARISON: None. FINDINGS: Bones: No fractures or dislocations. Ankle mortise is normally aligned. No suspicious bony lesions . Osteopenia. Soft tissues: No tibiotalar joint effusion. Achilles tendon appears normal. IMPRESSION: No acute bony abnormality. No significant effusion. Osteopenia. Reviewed by: Ady Griffin MD on 02/27/2024 7:56 AM PDT Approved by: Ady Griffin MD on 02/27/2024 7:56 AM PDT Station ID: [id number]
--- NOTE | 2024-02-27 12:04 | XRAY Report ---
PROCEDURE: Facial Bones 1-2V INDICATIONS: FACIAL EDEMA TECHNIQUE: 2 views of the facial bones were acquired. COMPARISON: None FINDINGS: Sinuses: Visualized sinuses demonstrate no air-fluid levels or mucosal thickening. Bones: No fractures. No suspicious bony lesions. Orbital rims and zygomatic arches appear intact. Soft tissues: No suspicious soft tissue densities. IMPRESSION: No acute bony abnormality. Reviewed by: Elle Cabrera MD, PhD on 02/27/2024 12:03 PM PDT Approved by: Elle Cabrera MD, PhD on 02/27/2024 12:03 PM PDT Station ID: [id number]
== END 2024-02-26 15:56 | disposition home or self-care (01) ==
LOC: DI 15:55
PROVIDERS: ATTEND Nurse Practitioner Family
DX: R60.0 Localized edema (principal); M25.473 Effusion, unspecified ankle; M85.871 Other specified disorders of bone density and structure, right ankle and foot; S81.801A Unspecified open wound, right lower leg, initial encounter
CPT/HCPCS: 87070; 87077; 87181; 87205

== ENCOUNTER 2024-03-03 09:09 | Day surgery (SDC) | payer MEDICARE, MEDICAID ==
[2024-03-03] MEDS ORDERED: LIDOCAINE-MPF 2% 5 ML VIAL ONE (10:31)
[2024-03-03 11:06] VITALS: BP 126/56; O2SAT 94
--- NOTE | 2024-03-03 11:09 | ANESTHESIA PROCEDURE NOTE ---
Anesth Central Line Template - Central Line Central Line Preparation: Consent Obtained Central line location: Left Basilic Central line type: PICC Single Lumen (4 maori, trimmed at 35cm, 3 exposed) Central line catheter tip site resides: Superior vena cava (SVC) Central line aftercare: Chlorhexidine disc placed, Secured, Placement confirmed, No complications, Bundle checklist complete, Pt tolerated well
--- NOTE | 2024-03-03 11:15 | XRAY Report ---
PROCEDURE: Chest for Line Placement INDICATIONS: new PICC at L arm TECHNIQUE: One view of the chest was acquired. COMPARISON: None. FINDINGS: Surgical changes and devices: Left arm PICC line, tip which projects to the SVC. Lungs and pleura: No pleural effusions or pneumothorax. Lungs are clear. Mediastinum: Mediastinal contours appear normal. Heart size is normal. Bones and chest wall: No suspicious bony lesions. Overlying soft tissues appear unremarkable. IMPRESSION: PICC line tip projects to SVC. Reviewed by: Josh Barber MD on 03/03/2024 11:14 AM PDT Approved by: Josh Barber MD on 03/03/2024 11:14 AM PDT Station ID: [id number]
== END 2024-03-03 09:10 | disposition home or self-care (01) ==
LOC: SDS 09:09
PROVIDERS: ATTEND Nurse Anesthetist, Certified Registered
DX: L08.9 Local infection of the skin and subcutaneous tissue, unspecified (principal)
CPT/HCPCS: 36569; C1751

== ENCOUNTER 2024-03-05 18:49 | Outpatient (CLI) | payer MEDICARE, MEDICAID | END 2024-03-05 23:59 | disposition critical access hospital (66) | LOC: EMS 18:49 | DX: I95.9 Hypotension, unspecified (principal); R61 Generalized hyperhidrosis; R41.89 Other symptoms and signs involving cognitive functions and awareness; R00.0 Tachycardia, unspecified; R06.82 Tachypnea, not elsewhere classified | CPT/HCPCS: A0425; A0427 ==

== ENCOUNTER 2024-03-05 19:02 | Inpatient (IN) | payer MEDICARE, MEDICAID ==
[2024-03-05] MEDS: SODIUM CHLORIDE 0.9% 1,000 ML IV STA (19:07)
--- NOTE | 2024-03-05 19:10 | ED Physician Documentation ---
History of Present Illness - Stated complaint Stated Complaint: ALOC - History obtained from History obtained from: EMS - Additonal information Additional information: She has a history of CVA, T2DM, A-fib, prior anticoagulation which was held a couple of months ago due to upper GI bleeding. Looks like she had a PICC line placed 2 days ago, presume for IV antibiotics. She had a wound culture done on the sixth of this month which grew Proteus, staph, and Klebsiella. She recently went home from a snf, not clear when. She has home health care and lives with her . Reportedly today she woke up and was feeling ill but was communicative and over the last few hours has ceased to be able to verbalize anything. She was noted by initial EMS responders to have a blood pressure of 60/40 which improved somewhat en route. She was also hypothermic with a oral temp of 93 en route. 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 : None HEENT: Chronic vision loss, Other Psych: None Musculoskeletal: Fibromyalgia, Hemiplegia Derm: None - Past Surgical History Past Surgical History: No HEENT: Tonsil/Adenoidectomy - Present Medications Home Medications: Ambulatory Orders Medication Instructions Recorded Confirmed Cholecalciferol (Vitamin D3) 2,000 unit PO DAILY 08/21/15 01/03/24 [Vitamin D3] Acetaminophen [Tylenol] 650 mg PO Q6H PRN 30 Days #30 tab 01/07/24 Albuterol 2.5 mg INH Q4H PRN 30 Days #30 ml 01/07/24 Atorvastatin [Lipitor] 20 mg PO QPM 30 Days #30 cap 01/07/24 01/03/24 Budesonide [Pulmicort] 0.5 mg INH RTBID 30 Days #30 ml 01/07/24 Cyanocobalamin [Vitamin B-12] 500 mcg PO DAILY 30 Days #30 tab 01/07/24 Docusate Sodium 100Mg Capsule 100 mg PO DAILY 30 Days #30 cap 01/07/24 [Colace 100Mg Capsule] Gabapentin [Neurontin] 400 mg PO DAILY #30 cap 01/07/24 Losartan [Cozaar] 50 mg PO DAILY 30 Days #30 tab 01/07/24 Mag Hydrox/Al Hydrox/Simeth 30 ml PO Q4HR PRN 30 Days #30 ea 01/07/24 [Mylanta Plus] Multivitamin [Theragran] 1 tab PO DAILY #30 tab 01/07/24 Mv-Mn/Folic/Lutein/Herbal 293 1 each PO DAILY 30 Days 01/07/24 [Alive Women's 50 Plus Gummy] Pantoprazole [Protonix] 40 mg PO BIDAC 60 Days #120 tab 01/07/24 Sertraline [Zoloft] 50 mg PO DAILY 30 Days #30 tab 01/07/24 Spironolactone [Aldactone] 25 mg PO DAILY #30 tab 01/07/24 Verapamil ER [Calan SA] 240 mg PO QPM 30 Days #60 tab 01/07/24 metFORMIN [Glucophage] 500 mg PO BIDWM 30 Days #60 tab 01/07/24 oxyCODONE [Roxicodone] 5 mg PO Q4HR PRN #30 tab 01/07/24 polyethylene glycoL 3350 [Miralax] 17 gm PO DAILY #30 packet 01/07/24 - Allergies Allergies/Adverse Reactions: Allergies Allergy/AdvReac Type Severity Reaction Status Date / Time No Known Drug Allergies Allergy Verified 03/05/24 19:07 - Social History Does the pt smoke?: No Smoking Status: Former smoker Does the pt drink ETOH?: Yes Does the pt have substance abuse?: No - Immunizations Immunizations are current?: No Immunizations: TDAP >10years/unknown - POLST Patient has POLST: No POLST Status: Full Code PD ED PE NORMAL - Vitals Vital signs reviewed: Yes - General General: Other (She is alert and follows simple commands but with only mumbling speech that is really unintelligible.) - HEENT HEENT: PERRL, EOMI - Neck Neck: Supple, no meningeal sign, No bony TTP - Cardiac Cardiac: RRR, No murmur - Respiratory Respiratory: No respiratory distress, Clear bilaterally - Abdomen Abdomen: Non tender - Back Back: No CVA TTP, No spinal TTP - Derm Derm: Normal color, Warm and dry - Extremities Extremities: Other (There is a bandaged wound on the right knee with about a quarter sized mildly purulent ulcer with minimal overlying cellulitis.) - Neuro Eye Opening: Spontaneous Motor: Obeys Commands Verbal: Incomprehensible GCS Score: 12 Results - Vitals Vitals: Vital Signs - 24 hr 03/05/24 03/05/24 03/05/24 19:07 19:19 19:30 Temperature 34 C L 35.5 C L Heart Rate 105 H 104 H Respiratory 25 H 26 H Rate Blood Pressure 111/49 L 134/86 H 180/72 H O2 Saturation 91 L 100 If not protocol 2 : Oxygen Flow, liters/minute 03/05/24 03/05/24 03/05/24 19:53 20:00 20:35 Temperature 35.8 C L 35.7 C L 36.1 C L Heart Rate 98 104 H 98 Respiratory 20 21 20 Rate Blood Pressure 176/86 H 168/81 H 183/73 H O2 Saturation 100 100 100 If not protocol 2 2 2 : Oxygen Flow, liters/minute 03/05/24 21:00 Temperature 36.1 C L Heart Rate 99 Respiratory 21 Rate Blood Pressure 138/73 H O2 Saturation 100 If not protocol 2 : Oxygen Flow, liters/minute Oxygen O2 Source Nasal cannula Oxygen Flow Rate 3 - EKG (time done) 192 EKG releavant findings:: EKG personally interpreted by author of this note. Relevant findings are: Rate: Rate (enter#) (101) Rhythm: Sinus tachycardia, NAIMA Intervals: Normal ID, Prolonged QT (borderline) Ischemia: Non specific changes. No: ST elevation c/w ischemia - Labs Labs: Laboratory Tests 03/05/24 03/05/24 03/05/24 19:10 19:10 19:10 WBC 10.4 RBC 3.43 L Hgb 10.0 L Hct 33.0 L MCV 96.2 MCH 29.2 MCHC 30.3 L RDW 14.8 Plt Count 461 H MPV 9.5 Neut # (Auto) 7.7 H Lymph # (Auto) 1.8 Nance # (Auto) 0.8 Eos # (Auto) 0.1 Baso # (Auto) 0.0 Absolute Nucleated RBC 0.00 Nucleated RBC % 0.0 PT 14.0 H INR 1.3 H VBG pH VBG pCO2 VBG pO2 VBG HCO3 VBG Total CO2 VBG O2 Saturation VBG Base Excess Sodium 140 Potassium 3.6 Chloride 107 Carbon Dioxide 22 Anion Gap 11.0 BUN 20 Creatinine 1.1 Estimated GFR (MDRD) 49 L Glucose 135 H Lactic Acid Calcium 8.0 L Phosphorus 3.1 Magnesium 0.8 L* Total Bilirubin 0.3 AST 9 L ALT 7 L Alkaline Phosphatase 92 Total Protein 6.1 L Albumin 3.3 Globulin 2.8 Albumin/Globulin Ratio 1.2 Lipase 16 TSH Urine Color Urine Clarity Urine pH Ur Specific Crossett Urine Protein Urine Glucose (UA) Urine Ketones Urine Occult Blood Urine Nitrite Urine Bilirubin Urine Urobilinogen Ur Leukocyte Esterase Urine RBC Urine WBC Ur Epithelial Cells Ur Squamous Epith Cells Urine Bacteria Urine Casts Ur Microscopic Review Urine Culture Comments Nasal Adenovirus (PCR) Nasal B. parapertussis DNA (PCR) Nasal Coronavir 229E PCR Nasal Coronavir HKU1 PCR Nasal Coronavir NL63 PCR Nasal Coronavir OC43 PCR Nasal Enterovir/Rhinovir PCR Nasal Influenza B PCR Nasal Influenza A PCR Nasal Parainfluen 1 PCR Nasal Parainfluen 2 PCR Nasal Parainfluen 3 PCR Nasal Parainfluen 4 PCR Nasal RSV (PCR) Nasal B.pertussis DNA PCR Nasal C.pneumoniae (PCR) Jewel Human Metapneumo PCR Nasal M.pneumoniae (PCR) Nasal SARS-CoV-2 (PCR) Urine Opiates Screen Ur Buprenorphine Scrn Ur Oxycodone Screen Urine Methadone Screen Ur Barbiturates Screen Ur Tricyclics Screen Ur Phencyclidine Scrn Ur Amphetamine Screen U Methamphetamines Scrn U Benzodiazepines Scrn Urine Cocaine Screen U Cannabinoids Screen Ur Drug Screen Comment Ethyl Alcohol < 10.0 03/05/24 03/05/24 03/05/24 19:18 19:18 19:18 WBC RBC Hgb Hct MCV MCH MCHC RDW Plt Count MPV Neut # (Auto) Lymph # (Auto) Nance # (Auto) Eos # (Auto) Baso # (Auto) Absolute Nucleated RBC Nucleated RBC % PT INR VBG pH 7.334 VBG pCO2 37.1 L VBG pO2 48.5 H VBG HCO3 19.3 L VBG Total CO2 20.4 L VBG O2 Saturation 82.2 H VBG Base Excess -6.0 L Sodium Potassium Chloride Carbon Dioxide Anion Gap BUN Creatinine Estimated GFR (MDRD) Glucose Lactic Acid 1.4 Calcium Phosphorus Magnesium Total Bilirubin AST ALT Alkaline Phosphatase Total Protein Albumin Globulin Albumin/Globulin Ratio Lipase TSH 2.87 Urine Color Urine Clarity Urine pH Ur Specific Crossett Urine Protein Urine Glucose (UA) Urine Ketones Urine Occult Blood Urine Nitrite Urine Bilirubin Urine Urobilinogen Ur Leukocyte Esterase Urine RBC Urine WBC Ur Epithelial Cells Ur Squamous Epith Cells Urine Bacteria Urine Casts Ur Microscopic Review Urine Culture Comments Nasal Adenovirus (PCR) Nasal B. parapertussis DNA (PCR) Nasal Coronavir 229E PCR Nasal Coronavir HKU1 PCR Nasal Coronavir NL63 PCR Nasal Coronavir OC43 PCR Nasal Enterovir/Rhinovir PCR Nasal Influenza B PCR Nasal Influenza A PCR Nasal Parainfluen 1 PCR Nasal Parainfluen 2 PCR Nasal Parainfluen 3 PCR Nasal Parainfluen 4 PCR Nasal RSV (PCR) Nasal B.pertussis DNA PCR Nasal C.pneumoniae (PCR) Jewel Human Metapneumo PCR Nasal M.pneumoniae (PCR) Nasal SARS-CoV-2 (PCR) Urine Opiates Screen Ur Buprenorphine Scrn Ur Oxycodone Screen Urine Methadone Screen Ur Barbiturates Screen Ur Tricyclics Screen Ur Phencyclidine Scrn Ur Amphetamine Screen U Methamphetamines Scrn U Benzodiazepines Scrn Urine Cocaine Screen U Cannabinoids Screen Ur Drug Screen Comment Ethyl Alcohol 03/05/24 03/05/24 19:20 19:20 WBC RBC Hgb Hct MCV MCH MCHC RDW Plt Count MPV Neut # (Auto) Lymph # (Auto) Nance # (Auto) Eos # (Auto) Baso # (Auto) Absolute Nucleated RBC Nucleated RBC % PT INR VBG pH VBG pCO2 VBG pO2 VBG HCO3 VBG Total CO2 VBG O2 Saturation VBG Base Excess Sodium Potassium Chloride Carbon Dioxide Anion Gap BUN Creatinine Estimated GFR (MDRD) Glucose Lactic Acid Calcium Phosphorus Magnesium Total Bilirubin AST ALT Alkaline Phosphatase Total Protein Albumin Globulin Albumin/Globulin Ratio Lipase TSH Urine Color YELLOW Urine Clarity CLEAR Urine pH 5.5 Ur Specific Crossett >=1.030 H Urine Protein TRACE Urine Glucose (UA) NEGATIVE Urine Ketones TRACE Urine Occult Blood MODERATE H Urine Nitrite NEGATIVE Urine Bilirubin NEGATIVE Urine Urobilinogen 0.2 (NORMAL) Ur Leukocyte Esterase TRACE H Urine RBC TNTC H Urine WBC 6-10 H Ur Epithelial Cells FEW Transitional Ur Squamous Epith Cells MANY Squamous H Urine Bacteria Many H Urine Casts 0-2 Hyaline Casts Ur Microscopic Review INDICATED Urine Culture Comments NOT INDICATED Nasal Adenovirus (PCR) NOT DETECTED Nasal B. parapertussis DNA (PCR) NOT DETECTED Nasal Coronavir 229E PCR NOT DETECTED Nasal Coronavir HKU1 PCR NOT DETECTED Nasal Coronavir NL63 PCR NOT DETECTED Nasal Coronavir OC43 PCR NOT DETECTED Nasal Enterovir/Rhinovir PCR NOT DETECTED Nasal Influenza B PCR NOT DETECTED Nasal Influenza A PCR NOT DETECTED Nasal Parainfluen 1 PCR NOT DETECTED Nasal Parainfluen 2 PCR NOT DETECTED Nasal Parainfluen 3 PCR NOT DETECTED Nasal Parainfluen 4 PCR NOT DETECTED Nasal RSV (PCR) NOT DETECTED Nasal B.pertussis DNA PCR NOT DETECTED Nasal C.pneumoniae (PCR) NOT DETECTED Jewel Human Metapneumo PCR NOT DETECTED Nasal M.pneumoniae (PCR) NOT DETECTED Nasal SARS-CoV-2 (PCR) NOT DETECTED Urine Opiates Screen NEGATIVE Ur Buprenorphine Scrn NEGATIVE Ur Oxycodone Screen NEGATIVE Urine Methadone Screen NEGATIVE Ur Barbiturates Screen NEGATIVE Ur Tricyclics Screen NEGATIVE Ur Phencyclidine Scrn NEGATIVE Ur Amphetamine Screen NEGATIVE U Methamphetamines Scrn NEGATIVE U Benzodiazepines Scrn NEGATIVE Urine Cocaine Screen NEGATIVE U Cannabinoids Screen POSITIVE H Ur Drug Screen Comment CUTOFF CONC BELOW: Ethyl Alcohol - Rads (name of study) Single view chest x-ray is without acute disease. Relevant Findings:: Final report received, EMP independent interpretation of test CT of the head showing old left MCA stroke without acute changes. Relevant Findings:: Final report received, EMP independent interpretation of test CT abdomen pelvis showing splenic cyst and cholelithiasis without cholecystitis. Relevant Findings:: Final report received, EMP independent interpretation of test PD Medical Decision Making - ED course ED course: 74-year-old woman presents with severe encephalopathy, hypothermia, and prehospital hypotension. Her blood pressure resolved fairly quickly here with IV fluids and she actually became hypertensive. She was placed on a Hector hugger. And her PICC line was accessed as well as a peripheral IV. She is being treated with ertapenem for a sore on her knee, that said, as far as a source of sepsis I think the sore on her knee is quite unimpressive. Differential diagnosis would include other causes of encephalopathy and hypotension and hypothermia such as myxedema although her presentation seems fairly acute for that, drug abuse and exposure. Initial lab work demonstrated a CBC showing moderate anemia that is chronic and mild thrombocytosis also intermittently chronic. Her INR slightly elevated at 1.3. Venous blood gases generally unremarkable. CMP most notable for critically low magnesium which we will replete with IV magnesium sulfate. No lactic acidosis. Her urinalysis did look positive but had many squamous cells. That said this was a catheterized sample so I will order culture. [employer] respiratory panel was negative. Toxicology testing showed a small amount of alcohol in her system and positive for cannabis. She was difficult for blood draw and I personally did a right brachial arterial stick for her second blood culture which the software developer mid level could not get. CT of the head and abdomen did not show any reason for illness. At this point seems that perhaps she is septic from a urinary source versus encephalopathic for other reasons. Note made that I documented above that toxicology testing showed a small amount of alcohol, but it turns out the machine was missed calibrated and on rerun there was no alcohol in her system. Spoke with Dr. Nolan for admission at 10:05 PM. - Critical Care Time(min): 45 Time Includes: Direct patient care, Review records, Reassess patient, Document care, Coordinate care, Medical consult, Family consult for tx dec Data interpretation: Labs, Pulse ox, ABG, CXR Procedures included in critical care time: Peripheral IV Procedures excluded from critical care time: EKG Departure - Departure Disposition: 66 [facility] DC/Xfer Clinical Impression: History of CVA (cerebrovascular accident) Encephalopathy Qualifiers: Encephalopathy type: unspecified encephalopathy Qualified Code(s): G93.40 - Encephalopathy, unspecified Hypothermia Qualifiers: Encounter type: initial encounter Qualified Code(s): T68.XXXA - Hypothermia, initial encounter Hypotension Qualifiers: Hypotension type: unspecified hypotension type Qualified Code(s): I95.9 - Hypotension, unspecified T2DM (type 2 diabetes mellitus) Qualifiers: Diabetes mellitus senior care insulin 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
[2024-03-05] MEDS ORDERED: iohexoL-300 100 ML VIAL ONE (19:14)
[2024-03-05 19:21] LABS: BASOPHILS % (AUTO) 0.4 %; EOSINOPHILS # (AUTO) 0.1 10^3/uL (0.0-0.7); EOSINOPHILS % (AUTO) 0.9 %; LYMPHOCYTES # (AUTO) 1.8 10^3/uL (1.5-3.5); LYMPHOCYTES % (AUTO) 17.4 %; MEAN CORPUSCULAR HEMOGLOBIN 29.2 pg (27.0-31.0); MEAN CORPUSCULAR HGB CONC 30.3 g/dL (32.0-36.0); MEAN CORPUSCULAR VOLUME 96.2 fL (81.0-99.0); MEAN PLATELET VOLUME 9.5 fL (7.9-10.8); MONOCYTES # (AUTO) 0.8 10^3/uL (0.0-1.0); MONOCYTES % (AUTO) 7.3 %; NEUTROPHILS # (AUTO) 7.7 10^3/uL (1.5-6.6); NEUTROPHILS % (AUTO) 73.5 %; PLT - PLATELET COUNT 461 10^3/uL (130-450); RED BLOOD COUNT 3.43 10^6/uL (4.20-5.40); RED CELL DISTRIBUTION WIDTH 14.8 % (12.0-15.0); WHITE BLOOD COUNT 10.4 x10^3/uL (4.8-10.8)
[2024-03-05 19:27] LABS: INR 1.3 (0.8-1.2)
[2024-03-05 19:33] LABS: VBG PCO2 37.1 mmHg (41-51); VBG PH 7.334 (7.31-7.41)
[2024-03-05 19:34] LABS: VBG HCO3 19.3 mmol/L (23-28); VBG OXYGEN SATURATION 82.2 % (60-80); VBG PO2 48.5 mmHg (25-47); VBG TOTAL CO2 20.4 mmol/L (24-29)
[2024-03-05 19:38] LABS: ALBUMIN 3.3 g/dL (3.2-5.5); ALBUMIN/GLOBULIN RATIO 1.2 (1.0-2.2); ALKALINE PHOSPHATASE 92 IU/L (42-121); ALT ALANINE AMINOTRANSFERASE 7 IU/L (10-60); AST ASPARTATE AMINOTRANSFERASE 9 IU/L (10-42); BILIRUBIN,TOTAL 0.3 mg/dL (0.2-1.0); BUN - BLOOD UREA NITROGEN 20 mg/dL (6-20); CARBON DIOXIDE - CO2 22 mmol/L (21-32); CHLORIDE 107 mmol/L (101-111); CREATININE 1.1 mg/dL (0.6-1.3); GFR - MDRD 49 (>89); GLUCOSE 135 mg/dL (74-104); LIPASE 16 U/L (11-82); PHOSPHORUS 3.1 mg/dL (2.5-5.0); POTASSIUM 3.6 mmol/L (3.5-4.5); SODIUM 140 mmol/L (135-145); TOTAL PROTEIN 6.1 g/dL (6.4-8.9)
[2024-03-05 19:40] LABS: BILIRUBIN,URINE NEGATIVE (NEGATIVE); GLUCOSE, URINE (UA) NEGATIVE (NEGATIVE); KETONES,URINE (UA) TRACE mg/dL (NEGATIVE); LEUKOCYTE ESTERASE, URINE TRACE (NEGATIVE); NITRITE,URINE NEGATIVE (NEGATIVE); OCCULT BLOOD,URINE MODERATE (NEGATIVE); PH,URINE 5.5 PH (5.0-7.5); PROTEIN,URINE TRACE mg/dL (NEGATIVE); UROBILINOGEN,URINE 0.2 (NORMAL) E.U./dL (NORMAL)
[2024-03-05 19:41] LABS: CLARITY,URINE CLEAR (CLEAR)
[2024-03-05 19:45] LABS: MAGNESIUM 0.8 mg/dL (1.7-2.3)
[2024-03-05 19:50] LABS: BACTERIA,URINE Many /HPF (None Seen); RBC,URINE TNTC /HPF (0-5); SQUAMOUS EPITHELIAL CELL,UR MANY Squamous (<= Few)
[2024-03-05 19:51] LABS: AMPHETAMINE SCREEN,URINE NEGATIVE (NEGATIVE); BARBITURATE SCREEN,UR NEGATIVE (NEGATIVE); BENZODIAZEPINES SCREEN, URINE NEGATIVE (NEGATIVE); BUPRENORPHINE SCREEN, URINE NEGATIVE (NEGATIVE); CASTS, URINE 0-2 Hyaline Casts /LPF; COCAINE SCREEN URINE NEGATIVE (NEGATIVE); EPITHELIAL CELLS,UR FEW Transitional /HPF (<= Few); METHADONE SCREEN, URINE NEGATIVE (NEGATIVE); METHAMPHETAMINES SCREEN, URINE NEGATIVE (NEGATIVE); OPIATE SCREEN, URINE NEGATIVE (NEGATIVE); OXYCODONE SCREEN, URINE NEGATIVE (NEGATIVE); THC CANNABINOID SCREEN, URINE POSITIVE (NEGATIVE); TRICYCLIC ANTIDEPRESSANT,URINE NEGATIVE (NEGATIVE)
[2024-03-05] MEDS ORDERED: VANCOMYCIN 1 GM VIAL ONE (19:55)
[2024-03-05] MEDS: MAGNESIUM SULFATE 2 GRAM 2 GM/50 ML BAG IV ONE (19:57)
[2024-03-05] MEDS: CEFEPIME 2 GM in SODIUM CHLORIDE 0.9% MINIBAG 100 ML IV STA (20:09)
[2024-03-05 20:31] LABS: B. PARAPERTUSSIS- RESP PCR PAN NOT DETECTED; B. PERTUSSIS- RESP PCR PANEL NOT DETECTED; C. PNEUMONIAE- RESP PCR PANEL NOT DETECTED; CORONAVIRUS 229E-RESP PCR NOT DETECTED; CORONAVIRUS HKU1-RESP PCR NOT DETECTED; CORONAVIRUS NL63-RESP PCR NOT DETECTED; CORONAVIRUS OC43-RESP PCR NOT DETECTED; HUMAN METAPNEUMOVIRUS NOT DETECTED; INFLUENZA A- RESP PCR PANEL NOT DETECTED; INFLUENZA B - RESP PCR PANEL NOT DETECTED; M. PNEUMONIAE- RESP PCR PANEL NOT DETECTED; PARAINFLUENZA VIRUS 1 NOT DETECTED; PARAINFLUENZA VIRUS 2 NOT DETECTED; PARAINFLUENZA VIRUS 3 NOT DETECTED; PARAINFLUENZA VIRUS 4 NOT DETECTED; RHINOVIRUS/ENTEROVIRUS NOT DETECTED; RSV- RESP PCR PANEL NOT DETECTED; SARS-CoV-2 -RESP PCR PANEL NOT DETECTED
--- NOTE | 2024-03-05 20:53 | XRAY Report ---
PROCEDURE: Chest 1V INDICATIONS: sepsis unknown source TECHNIQUE: One view of the chest was acquired. COMPARISON: 03/03/2024. FINDINGS: Surgical changes and devices: Left-sided PICC line tip is in SVC. Lungs and pleura: No pleural effusions or pneumothorax. Lungs are clear. Mediastinum: Mediastinal contours appear normal. Heart size is normal. Bones and chest wall: No suspicious bony lesions. Overlying soft tissues appear unremarkable. IMPRESSION: No acute cardiopulmonary process. Reviewed by: Angel Schaefer MD on 03/05/2024 8:52 PM PDT Approved by: Angel Schaefer MD on 03/05/2024 8:52 PM PDT Station ID: [id number]
[2024-03-05] MEDS: metroNIDAZOLE 500 MG/100 ML 500 MG/100 ML BAG IV ONE (20:56)
[2024-03-05] MEDS: VANCOMYCIN INJ 1 GM in SODIUM CHLORIDE 0.9% 250 ML IV STA (20:56)
--- NOTE | 2024-03-05 20:56 | CT Report ---
PROCEDURE: Head WO INDICATIONS: ams TECHNIQUE: Noncontrast 4.5 mm thick angled axial sections acquired from the foramen magnum to the vertex. For r adiation dose reduction, the following was used: automated exposure control, adjustment of mA and/or kV according to patient size. COMPARISON: 06/23/2023 and 01/03/2024 FINDINGS: Image quality: Excellent. CSF spaces: Basal cisterns are patent. No extra-axial fluid collections. The ventricles are symmet mattie in size and shape. Brain: No intracranial bleeds or masses. Old left MCA territory infarction is again seen with volum e loss and ex vacuo dilatation of left lateral ventricle unchanged from prior study. There is cerebra l volume loss for age, with resultant ventricular and sulcal prominence. There are periventricular a nd deep white matter chronic small vessel ischemic changes. There is intracranial internal carotid a rtery atherosclerosis. Skull and face: Calvarium and visualized facial bones appear intact, without suspicious lesions. Sinuses: Visualized sinuses and mastoids are clear. IMPRESSION: No acute intracranial pathology. No significant changes from previous study. Reviewed by: Angel Schaefer MD on 03/05/2024 8:55 PM PDT Approved by: Angel Schaefer MD on 03/05/2024 8:55 PM PDT Station ID: [id number]
--- NOTE | 2024-03-05 21:30 | CT Report ---
PROCEDURE: Abdomen/Pelvis W INDICATIONS: iv only sepsis unknown source CONTRAST: 100 ML OMNI 300 TECHNIQUE: After the administration of intravenous contrast, a CT scan of the abdomen and pelvis was performed. Images were recorded and evaluated at appropriate window settings. Reformats: coronal and sagittal. F or radiation dose reduction, the following was used: automated exposure control, adjustment of mA and /or kV according to patient size. COMPARISON: CT angiogram of abdomen and pelvis dated 01/03/2024. FINDINGS: Image quality: Diagnostic. Lower chest: Chronic emphysematous changes are noted at bilateral lung bases with right basilar scarr ing/atelectasis. Heart size is normal, no pericardial effusion.. Liver: No solid mass. Gallbladder: Numerous calcified stones are again seen in dependent portion of gallbladder lumen. No g allbladder wall thickening. Biliary tree: No intrahepatic or extrahepatic dilation, accounting for age. Spleen: No splenomegaly. Calcification in anterior aspect of upper spleen is again seen unchanged fro m prior study and may represent peripherally calcified cyst or dystrophic calcification. Pancreas: No pancreatic ductal dilation. Adrenals: No adrenal nodule. Kidneys and ureters: No hydronephrosis. Simple appearing right renal cyst is again seen. No renal cys tic lesion which requires follow up. No solid mass. Stomach, bowel and peritoneum: There is a small hiatal hernia. No gastric or small bowel dilation. No abnormal wall thickening. No pathologic free fluid. No peritoneal free air. Lymph nodes: No central or retroperitoneal adenopathy. Vessels: Moderate atherosclerotic calcifications are noted throughout abdominal aorta. No infrarenal aortic aneurysm. Patent portal vein. PELVIS Reproductive organs: Unremarkable. Bladder: Woodward catheter is seen in a decompressed urinary bladder. Pelvic lymph nodes: No pelvic adenopathy by size criteria. Bones: No aggressive osseous abnormality. Other: No significant ventral or inguinal hernia. IMPRESSION: 1. No acute inflammatory process is seen within abdomen or pelvis. 2. No bowel obstruction or abnormal bowel wall thickening. No abscess collection. No free fluid of fr ee air. 3. Cholelithiasis without CT evidence of acute cholecystitis. 4. Stable likely dystrophic calcification versus calcified cyst in upper spleen unchanged from prior studies. Reviewed by: Angel Vicente MD on 03/05/2024 9:29 PM PDT Approved by: Angel Vicente MD on 03/05/2024 9:29 PM PDT Station ID: [id number]
[2024-03-05 21:56] LABS: ETOH - ETHANOL < 10.0 mg/dL
[2024-03-05] MEDS ORDERED: ONDANSETRON 4 MG/2 ML VIAL IVP PRN (22:12)
[2024-03-05] MEDS ORDERED: SODIUM CHLORIDE FLUSH 0.9% 10 ML SYRINGE IVP PRN (22:12)
--- NOTE | 2024-03-05 22:30 | HISTORY & PHYSICAL EXAMINATION ---
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 Looks like she had a PICC line placed 2 days ago, presume for IV antibiotics. She had a wound culture done on the sixth of this month which grew Proteus, staph, and Klebsiella. She recently went home from a senior care, not clear when. She has home health care and lives with her . Reportedly today she woke up and was feeling ill but was communicative and over the last few hours has ceased to be able to verbalize anything. She was noted by initial EMS responders to have a blood pre ssure of 60/40 which improved somewhat en route. She was also hypothermic with a oral temp of 93 en route On presentation, pt was hypothermic, hypotensive and confused Labs showed normal WBC, Mag 0.9, lactic acid 1.4, UA positive for UTI In ER, pt was given IVF, IV cefepime and vanco and magnesium CT brain, CT abdomen/pelvis and CXR showed no acute findings Pt is admitted due to AMS, metabolic encephlopathy, severe sepsis, hypotension, UTI, hypomagnesemia, hypothermia History - Past Medical History Cardiovascular: reports: High cholesterol, Coronary artery disease, Deep vein thrombosis Respiratory: reports: None Neuro: reports: Dementia, CVA Endocrine/Autoimmune: reports: Type 2 diabetes GI: reports: None 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 Her mother of CHF complications but also had a major stroke in her 70s. Her father is secondary to a brain bleed secondary to a fall at age of 86. She has 5 siblings, 1 is due to Hodgkin's lymphoma. Social History Notes: The patient smoked on and off for 20 years combined at half a pack per day. She drinks wine with dinner on occasion. She uses marijuana. - POLST Patient has POLST: No POLST Status: Full Code Meds/Allgy - Home Medications Home Medications: Ambulatory Orders Medication Instructions Recorded Confirmed Cholecalciferol (Vitamin D3) 2,000 unit PO DAILY 08/21/15 01/03/24 [Vitamin D3] Acetaminophen [Tylenol] 650 mg PO Q6H PRN 30 Days #30 tab 01/07/24 Albuterol 2.5 mg INH Q4H PRN 30 Days #30 ml 01/07/24 Atorvastatin [Lipitor] 20 mg PO QPM 30 Days #30 cap 01/07/24 01/03/24 Budesonide [Pulmicort] 0.5 mg INH RTBID 30 Days #30 ml 01/07/24 Cyanocobalamin [Vitamin B-12] 500 mcg PO DAILY 30 Days #30 tab 01/07/24 Docusate Sodium 100Mg Capsule 100 mg PO DAILY 30 Days #30 cap 01/07/24 [Colace 100Mg Capsule] Gabapentin [Neurontin] 400 mg PO DAILY #30 cap 01/07/24 Losartan [Cozaar] 50 mg PO DAILY 30 Days #30 tab 01/07/24 Mag Hydrox/Al Hydrox/Simeth 30 ml PO Q4HR PRN 30 Days #30 ea 01/07/24 [Mylanta Plus] Multivitamin [Theragran] 1 tab PO DAILY #30 tab 01/07/24 Mv-Mn/Folic/Lutein/Herbal 293 1 each PO DAILY 30 Days 01/07/24 [Alive Women's 50 Plus Gummy] Pantoprazole [Protonix] 40 mg PO BIDAC 60 Days #120 tab 01/07/24 Sertraline [Zoloft] 50 mg PO DAILY 30 Days #30 tab 01/07/24 Spironolactone [Aldactone] 25 mg PO DAILY #30 tab 01/07/24 Verapamil ER [Calan SA] 240 mg PO QPM 30 Days #60 tab 01/07/24 metFORMIN [Glucophage] 500 mg PO BIDWM 30 Days #60 tab 01/07/24 oxyCODONE [Roxicodone] 5 mg PO Q4HR PRN #30 tab 01/07/24 polyethylene glycoL 3350 [Miralax] 17 gm PO DAILY #30 packet 01/07/24 - Allergies Allergies/Adverse Reactions: Allergies Allergy/AdvReac Type Severity Reaction Status Date / Time No Known Drug Allergies Allergy Verified 03/05/24 19:07 Review of Systems - Other Findings Other Findings: unable to obtain due to AMS Exam - Vital Signs Vital Signs: Vital Signs x48h Temp Pulse Resp BP Pulse Ox O2 Flow Rate 03/05/24 22:00 103 H 21 123/70 99 2 03/05/24 21:30 103 H 18 142/70 H 99 03/05/24 21:00 36.1 C L 99 21 138/73 H 100 2 03/05/24 20:35 36.1 C L 98 20 183/73 H 100 2 03/05/24 20:00 35.7 C L 104 H 21 168/81 H 100 2 03/05/24 19:53 35.8 C L 98 20 176/86 H 100 2 03/05/24 19:30 35.5 C L 104 H 26 H 180/72 H 100 2 03/05/24 19:19 34 C L 134/86 H 03/05/24 19:07 105 H 25 H 111/49 L 91 L - Physical Exam General Appearance: positive: No acute distress ENT: positive: ENT inspection nml Neck: positive: Nml inspection Respiratory: positive: No respiratory distress, Breath sounds nml Cardiovascular: positive: Tachycardia Abdomen: positive: Non-tender, Nml bowel sounds Skin: positive: No rash Extremities: positive: No pedal edema Neurologic/Psychiatric: positive: Disoriented to place Conclusion/Plan - Lab Results Fish Bones: 03/05/24 19:10 03/05/24 19:10 - Other Other Results/Comments: A; AMS Metabolic encepahloathy Severe sepsis Hypothermia Hypotension UTI Hypomagnesemia Dehydration Cellulitis DM type 2 Hyperlipidemia CVA Left MCA infract with right hemiperesis H/O A fib , not on anticoagulation due to recent GI bleed Dementia Plan: Admit in tele NPO [place] eval Start NS @ 125 cc/h Monitor mental status Neuro checks q4h Follow cultures Start IV cefepeime Start vanco iv per pharmacy Repeat CBC, CMP, mag in am Warming blanket Replace magnesium and monitor Start sliding scale insulin DVT proplhyalxic: SCD Full code Pt is admitted as inpatient as more than 2 midnight stay is expected
[2024-03-05] MEDS: iohexoL-300 100 ML VIAL IVP ONE (23:19)
[2024-03-05] MEDS: SODIUM CHLORIDE 0.9% 1,000 ML IV SCH (23:38)
[2024-03-05] MEDS: SODIUM CHLORIDE FLUSH 0.9% 10 ML SYRINGE IVP SCH (23:50)
[2024-03-06] MEDS: INSULIN REGULAR, HUMAN 300 UNIT/3 ML PEN SUBQ SCH (01:20)
[2024-03-06] MEDS ORDERED: ZINC OXIDE 20% OINT 30 GM TUBE TOP PRN (02:00)
[2024-03-06 05:35] LABS: BASOPHILS % (AUTO) 0.3 %; EOSINOPHILS # (AUTO) 0.1 10^3/uL (0.0-0.7); EOSINOPHILS % (AUTO) 0.6 %; HCT - HEMATOCRIT 30.1 % (37.0-47.0); HGB - HEMOGLOBIN 9.6 g/dL (12.0-16.0); LYMPHOCYTES # (AUTO) 0.9 10^3/uL (1.5-3.5); MEAN CORPUSCULAR HEMOGLOBIN 30.3 pg (27.0-31.0); MEAN CORPUSCULAR HGB CONC 31.9 g/dL (32.0-36.0); MEAN PLATELET VOLUME 9.4 fL (7.9-10.8); MONOCYTES # (AUTO) 0.6 10^3/uL (0.0-1.0); MONOCYTES % (AUTO) 3.8 %; NEUTROPHILS # (AUTO) 13.4 10^3/uL (1.5-6.6); NEUTROPHILS % (AUTO) 88.9 %; PLT - PLATELET COUNT 344 10^3/uL (130-450); RED BLOOD COUNT 3.17 10^6/uL (4.20-5.40); RED CELL DISTRIBUTION WIDTH 14.6 % (12.0-15.0); WHITE BLOOD COUNT 15.1 x10^3/uL (4.8-10.8)
[2024-03-06 05:51] LABS: ALBUMIN 2.8 g/dL (3.2-5.5); ALBUMIN/GLOBULIN RATIO 1.1 (1.0-2.2); BILIRUBIN,TOTAL 0.4 mg/dL (0.2-1.0); CALCIUM 7.4 mg/dL (8.5-10.3); MAGNESIUM 1.4 mg/dL (1.7-2.3); POTASSIUM 3.4 mmol/L (3.5-4.5); TOTAL PROTEIN 5.3 g/dL (6.4-8.9)
[2024-03-06] MEDS: MAGNESIUM SULFATE 2 GRAM 2 GM/50 ML BAG IV ONE (07:48)
[2024-03-06] MEDS: POTASSIUM CHLOR 10 MEQ/100 ML 10 MEQ/100 ML BAG IV SCH (07:51)
--- NOTE | 2024-03-06 08:23 | PROVIDER PROGRESS NOTE ---
Subjective - Prog Note Date Prog Note Date: 03/06/24 Objective - Vital Signs/Intake & Output Reviewed Vital Signs: Yes Vital Signs: Vital Signs x48h Temp Pulse Resp BP Pulse Ox 03/06/24 05:26 36.7 C 94 16 162/90 H 97 Intake & Output: Intake & Output 03/03/24 03/04/24 03/05/24 03/06/24 23:59 23:59 23:59 23:59 Intake Total 1500 1020.833 Output Total 350 Balance 1500 670.833 - Objective General Appearance: positive: No acute distress, Alert Eyes Bilateral: positive: Normal inspection Neck: positive: Nml inspection Respiratory: positive: Chest non-tender, No respiratory distress, Breath sounds nml Cardiovascular: positive: Regular rate & rhythm, Systolic murmur Abdomen: positive: Non-tender Skin: positive: Color nml - Lab Results Fish Bones: 03/06/24 05:13 03/06/24 05:13 Other Labs: Lab Results x24hrs 03/06/24 03/06/24 03/06/24 Range/Units 06:07 05:13 05:13 WBC 15.1 H (4.8-10.8) x10^3/uL RBC 3.17 L (4.20-5.40) 10^6/uL Hgb 9.6 L (12.0-16.0) g/dL Hct 30.1 L (37.0-47.0) % MCV 95.0 (81.0-99.0) fL MCH 30.3 (27.0-31.0) pg MCHC 31.9 L (32.0-36.0) g/dL RDW 14.6 (12.0-15.0) % Plt Count 344 (130-450) 10^3/uL MPV 9.4 (7.9-10.8) fL Neut # (Auto) 13.4 H (1.5-6.6) 10^3/uL Lymph # (Auto) 0.9 L (1.5-3.5) 10^3/uL [place] # (Auto) 0.6 (0.0-1.0) 10^3/uL Eos # (Auto) 0.1 (0.0-0.7) 10^3/uL Baso # (Auto) 0.0 (0.0-0.1) 10^3/uL Absolute Nucleated RBC 0.00 x10^3/uL Nucleated RBC % 0.0 /100WBC PT (9.9-12.6) secs INR (0.8-1.2) VBG pH (7.31-7.41) VBG pCO2 (41-51) mmHg VBG pO2 (25-47) mmHg VBG HCO3 (23-28) mmol/L VBG Total CO2 (24-29) mmol/L VBG O2 Saturation (60-80) % VBG Base Excess (-2 - +2) mmol/L Sodium 140 (135-145) mmol/L Potassium 3.4 L (3.5-4.5) mmol/L Chloride 113 H (101-111) mmol/L Carbon Dioxide 20 L (21-32) mmol/L Anion Gap 7.0 (6-13) BUN 19 (6-20) mg/dL Creatinine 1.0 (0.6-1.3) mg/dL Estimated GFR (MDRD) 55 L (>89) Glucose 100 (74-104) mg/dL POC Whole Bld Glucose 94 (70 - 100) mg/dL Lactic Acid (0.5-2.2) mmol/L Calcium 7.4 L (8.5-10.3) mg/dL Phosphorus (2.5-5.0) mg/dL Magnesium 1.4 L (1.7-2.3) mg/dL Total Bilirubin 0.4 (0.2-1.0) mg/dL AST 8 L (10-42) IU/L ALT 6 L (10-60) IU/L Alkaline Phosphatase 80 (42-121) IU/L Total Protein 5.3 L (6.4-8.9) g/dL Albumin 2.8 L (3.2-5.5) g/dL Globulin 2.5 (2.1-4.2) g/dL Albumin/Globulin Ratio 1.1 (1.0-2.2) Lipase (11-82) U/L TSH (0.34-5.60) uIU/mL Urine Color Urine Clarity (CLEAR) Urine pH (5.0-7.5) PH Ur Specific [place] (1.002-1.030) Urine Protein (NEGATIVE) mg/dL Urine Glucose (UA) (NEGATIVE) mg/dL Urine Ketones (NEGATIVE) mg/dL Urine Occult Blood (NEGATIVE) Urine Nitrite (NEGATIVE) Urine Bilirubin (NEGATIVE) Urine Urobilinogen (NORMAL) E.U./dL Ur Leukocyte Esterase (NEGATIVE) Urine RBC (0-5) /HPF Urine WBC (0-5) /HPF Ur Epithelial Cells (<= Few) /HPF Ur Squamous Epith Cells (<= Few) Urine Bacteria (None Seen) /HPF Urine Casts /LPF Ur Microscopic Review Urine Culture Comments Nasal Adenovirus (PCR) Nasal B. parapertussis DNA (PCR) Nasal Coronavir 229E PCR Nasal Coronavir HKU1 PCR Nasal Coronavir NL63 PCR Nasal Coronavir OC43 PCR Nasal Enterovir/Rhinovir PCR Nasal Influenza B PCR Nasal Influenza A PCR Nasal Parainfluen 1 PCR Nasal Parainfluen 2 PCR Nasal Parainfluen 3 PCR Nasal Parainfluen 4 PCR Nasal RSV (PCR) Nasal B.pertussis DNA PCR Nasal C.pneumoniae (PCR) Jewel Human Metapneumo PCR Nasal M.pneumoniae (PCR) Nasal SARS-CoV-2 (PCR) Urine Opiates Screen (NEGATIVE) Ur Buprenorphine Scrn (NEGATIVE) Ur Oxycodone Screen (NEGATIVE) Urine Methadone Screen (NEGATIVE) Ur Barbiturates Screen (NEGATIVE) Ur Tricyclics Screen (NEGATIVE) Ur Phencyclidine Scrn (NEGATIVE) Ur Amphetamine Screen (NEGATIVE) U Methamphetamines Scrn (NEGATIVE) U Benzodiazepines Scrn (NEGATIVE) Urine Cocaine Screen (NEGATIVE) U Cannabinoids Screen (NEGATIVE) Ur Drug Screen Comment Ethyl Alcohol mg/dL 03/05/24 03/05/24 03/05/24 Range/Units 23:01 19:20 19:20 WBC (4.8-10.8) x10^3/uL RBC (4.20-5.40) 10^6/uL Hgb (12.0-16.0) g/dL Hct (37.0-47.0) % MCV (81.0-99.0) fL MCH (27.0-31.0) pg MCHC (32.0-36.0) g/dL RDW (12.0-15.0) % Plt Count (130-450) 10^3/uL MPV (7.9-10.8) fL Neut # (Auto) (1.5-6.6) 10^3/uL Lymph # (Auto) (1.5-3.5) 10^3/uL [place] # (Auto) (0.0-1.0) 10^3/uL Eos # (Auto) (0.0-0.7) 10^3/uL Baso # (Auto) (0.0-0.1) 10^3/uL Absolute Nucleated RBC x10^3/uL Nucleated RBC % /100WBC PT (9.9-12.6) secs INR (0.8-1.2) VBG pH (7.31-7.41) VBG pCO2 (41-51) mmHg VBG pO2 (25-47) mmHg VBG HCO3 (23-28) mmol/L VBG Total CO2 (24-29) mmol/L VBG O2 Saturation (60-80) % VBG Base Excess (-2 - +2) mmol/L Sodium (135-145) mmol/L Potassium (3.5-4.5) mmol/L Chloride (101-111) mmol/L Carbon Dioxide (21-32) mmol/L Anion Gap (6-13) BUN (6-20) mg/dL Creatinine (0.6-1.3) mg/dL Estimated GFR (MDRD) (>89) Glucose (74-104) mg/dL POC Whole Bld Glucose 136 H (70 - 100) mg/dL Lactic Acid (0.5-2.2) mmol/L Calcium (8.5-10.3) mg/dL Phosphorus (2.5-5.0) mg/dL Magnesium (1.7-2.3) mg/dL Total Bilirubin (0.2-1.0) mg/dL AST (10-42) IU/L ALT (10-60) IU/L Alkaline Phosphatase (42-121) IU/L Total Protein (6.4-8.9) g/dL Albumin (3.2-5.5) g/dL Globulin (2.1-4.2) g/dL Albumin/Globulin Ratio (1.0-2.2) Lipase (11-82) U/L TSH (0.34-5.60) uIU/mL Urine Color YELLOW Urine Clarity CLEAR (CLEAR) Urine pH 5.5 (5.0-7.5) PH Ur Specific [place] >=1.030 H (1.002-1.030) Urine Protein TRACE (NEGATIVE) mg/dL Urine Glucose (UA) NEGATIVE (NEGATIVE) mg/dL Urine Ketones TRACE (NEGATIVE) mg/dL Urine Occult Blood MODERATE H (NEGATIVE) Urine Nitrite NEGATIVE (NEGATIVE) Urine Bilirubin NEGATIVE (NEGATIVE) Urine Urobilinogen 0.2 (NORMAL) (NORMAL) E.U./dL Ur Leukocyte Esterase TRACE H (NEGATIVE) Urine RBC TNTC H (0-5) /HPF Urine WBC 6-10 H (0-5) /HPF Ur Epithelial Cells FEW Transitional (<= Few) /HPF Ur Squamous Epith Cells MANY Squamous H (<= Few) Urine Bacteria Many H (None Seen) /HPF Urine Casts 0-2 Hyaline Casts /LPF Ur Microscopic Review INDICATED Urine Culture Comments NOT INDICATED Nasal Adenovirus (PCR) NOT DETECTED Nasal B. parapertussis DNA (PCR) NOT DETECTED Nasal Coronavir 229E PCR NOT DETECTED Nasal Coronavir HKU1 PCR NOT DETECTED Nasal Coronavir NL63 PCR NOT DETECTED Nasal Coronavir OC43 PCR NOT DETECTED Nasal Enterovir/Rhinovir PCR NOT DETECTED Nasal Influenza B PCR NOT DETECTED Nasal Influenza A PCR NOT DETECTED Nasal Parainfluen 1 PCR NOT DETECTED Nasal Parainfluen 2 PCR NOT DETECTED Nasal Parainfluen 3 PCR NOT DETECTED Nasal Parainfluen 4 PCR NOT DETECTED Nasal RSV (PCR) NOT DETECTED Nasal B.pertussis DNA PCR NOT DETECTED Nasal C.pneumoniae (PCR) NOT DETECTED Jewel Human Metapneumo PCR NOT DETECTED Nasal M.pneumoniae (PCR) NOT DETECTED Nasal SARS-CoV-2 (PCR) NOT DETECTED Urine Opiates Screen NEGATIVE (NEGATIVE) Ur Buprenorphine Scrn NEGATIVE (NEGATIVE) Ur Oxycodone Screen NEGATIVE (NEGATIVE) Urine Methadone Screen NEGATIVE (NEGATIVE) Ur Barbiturates Screen NEGATIVE (NEGATIVE) Ur Tricyclics Screen NEGATIVE (NEGATIVE) Ur Phencyclidine Scrn NEGATIVE (NEGATIVE) Ur Amphetamine Screen NEGATIVE (NEGATIVE) U Methamphetamines Scrn NEGATIVE (NEGATIVE) U Benzodiazepines Scrn NEGATIVE (NEGATIVE) Urine Cocaine Screen NEGATIVE (NEGATIVE) U Cannabinoids Screen POSITIVE H (NEGATIVE) Ur Drug Screen Comment CUTOFF CONC BELOW: Ethyl Alcohol mg/dL 03/05/24 03/05/24 03/05/24 Range/Units 19:18 19:18 19:18 WBC (4.8-10.8) x10^3/uL RBC (4.20-5.40) 10^6/uL Hgb (12.0-16.0) g/dL Hct (37.0-47.0) % MCV (81.0-99.0) fL MCH (27.0-31.0) pg MCHC (32.0-36.0) g/dL RDW (12.0-15.0) % Plt Count (130-450) 10^3/uL MPV (7.9-10.8) fL Neut # (Auto) (1.5-6.6) 10^3/uL Lymph # (Auto) (1.5-3.5) 10^3/uL [place] # (Auto) (0.0-1.0) 10^3/uL Eos # (Auto) (0.0-0.7) 10^3/uL Baso # (Auto) (0.0-0.1) 10^3/uL Absolute Nucleated RBC x10^3/uL Nucleated RBC % /100WBC PT (9.9-12.6) secs INR (0.8-1.2) VBG pH 7.334 (7.31-7.41) VBG pCO2 37.1 L (41-51) mmHg VBG pO2 48.5 H (25-47) mmHg VBG HCO3 19.3 L (23-28) mmol/L VBG Total CO2 20.4 L (24-29) mmol/L VBG O2 Saturation 82.2 H (60-80) % VBG Base Excess -6.0 L (-2 - +2) mmol/L Sodium (135-145) mmol/L Potassium (3.5-4.5) mmol/L Chloride (101-111) mmol/L Carbon Dioxide (21-32) mmol/L Anion Gap (6-13) BUN (6-20) mg/dL Creatinine (0.6-1.3) mg/dL Estimated GFR (MDRD) (>89) Glucose (74-104) mg/dL POC Whole Bld Glucose (70 - 100) mg/dL Lactic Acid 1.4 (0.5-2.2) mmol/L Calcium (8.5-10.3) mg/dL Phosphorus (2.5-5.0) mg/dL Magnesium (1.7-2.3) mg/dL Total Bilirubin (0.2-1.0) mg/dL AST (10-42) IU/L ALT (10-60) IU/L Alkaline Phosphatase (42-121) IU/L Total Protein (6.4-8.9) g/dL Albumin (3.2-5.5) g/dL Globulin (2.1-4.2) g/dL Albumin/Globulin Ratio (1.0-2.2) Lipase (11-82) U/L TSH 2.87 (0.34-5.60) uIU/mL Urine Color Urine Clarity (CLEAR) Urine pH (5.0-7.5) PH Ur Specific [place] (1.002-1.030) Urine Protein (NEGATIVE) mg/dL Urine Glucose (UA) (NEGATIVE) mg/dL Urine Ketones (NEGATIVE) mg/dL Urine Occult Blood (NEGATIVE) Urine Nitrite (NEGATIVE) Urine Bilirubin (NEGATIVE) Urine Urobilinogen (NORMAL) E.U./dL Ur Leukocyte Esterase (NEGATIVE) Urine RBC (0-5) /HPF Urine WBC (0-5) /HPF Ur Epithelial Cells (<= Few) /HPF Ur Squamous Epith Cells (<= Few) Urine Bacteria (None Seen) /HPF Urine Casts /LPF Ur Microscopic Review Urine Culture Comments Nasal Adenovirus (PCR) Nasal B. parapertussis DNA (PCR) Nasal Coronavir 229E PCR Nasal Coronavir HKU1 PCR Nasal Coronavir NL63 PCR Nasal Coronavir OC43 PCR Nasal Enterovir/Rhinovir PCR Nasal Influenza B PCR Nasal Influenza A PCR Nasal Parainfluen 1 PCR Nasal Parainfluen 2 PCR Nasal Parainfluen 3 PCR Nasal Parainfluen 4 PCR Nasal RSV (PCR) Nasal B.pertussis DNA PCR Nasal C.pneumoniae (PCR) Jewel Human Metapneumo PCR Nasal M.pneumoniae (PCR) Nasal SARS-CoV-2 (PCR) Urine Opiates Screen (NEGATIVE) Ur Buprenorphine Scrn (NEGATIVE) Ur Oxycodone Screen (NEGATIVE) Urine Methadone Screen (NEGATIVE) Ur Barbiturates Screen (NEGATIVE) Ur Tricyclics Screen (NEGATIVE) Ur Phencyclidine Scrn (NEGATIVE) Ur Amphetamine Screen (NEGATIVE) U Methamphetamines Scrn (NEGATIVE) U Benzodiazepines Scrn (NEGATIVE) Urine Cocaine Screen (NEGATIVE) U Cannabinoids Screen (NEGATIVE) Ur Drug Screen Comment Ethyl Alcohol mg/dL 03/05/24 03/05/24 03/05/24 Range/Units 19:10 19:10 19:10 WBC 10.4 (4.8-10.8) x10^3/uL RBC 3.43 L (4.20-5.40) 10^6/uL Hgb 10.0 L (12.0-16.0) g/dL Hct 33.0 L (37.0-47.0) % MCV 96.2 (81.0-99.0) fL MCH 29.2 (27.0-31.0) pg MCHC 30.3 L (32.0-36.0) g/dL RDW 14.8 (12.0-15.0) % Plt Count 461 H (130-450) 10^3/uL MPV 9.5 (7.9-10.8) fL Neut # (Auto) 7.7 H (1.5-6.6) 10^3/uL Lymph # (Auto) 1.8 (1.5-3.5) 10^3/uL [place] # (Auto) 0.8 (0.0-1.0) 10^3/uL Eos # (Auto) 0.1 (0.0-0.7) 10^3/uL Baso # (Auto) 0.0 (0.0-0.1) 10^3/uL Absolute Nucleated RBC 0.00 x10^3/uL Nucleated RBC % 0.0 /100WBC PT 14.0 H (9.9-12.6) secs INR 1.3 H (0.8-1.2) VBG pH (7.31-7.41) VBG pCO2 (41-51) mmHg VBG pO2 (25-47) mmHg VBG HCO3 (23-28) mmol/L VBG Total CO2 (24-29) mmol/L VBG O2 Saturation (60-80) % VBG Base Excess (-2 - +2) mmol/L Sodium 140 (135-145) mmol/L Potassium 3.6 (3.5-4.5) mmol/L Chloride 107 (101-111) mmol/L Carbon Dioxide 22 (21-32) mmol/L Anion Gap 11.0 (6-13) BUN 20 (6-20) mg/dL Creatinine 1.1 (0.6-1.3) mg/dL Estimated GFR (MDRD) 49 L (>89) Glucose 135 H (74-104) mg/dL POC Whole Bld Glucose (70 - 100) mg/dL Lactic Acid (0.5-2.2) mmol/L Calcium 8.0 L (8.5-10.3) mg/dL Phosphorus 3.1 (2.5-5.0) mg/dL Magnesium 0.8 L* (1.7-2.3) mg/dL Total Bilirubin 0.3 (0.2-1.0) mg/dL AST 9 L (10-42) IU/L ALT 7 L (10-60) IU/L Alkaline Phosphatase 92 (42-121) IU/L Total Protein 6.1 L (6.4-8.9) g/dL Albumin 3.3 (3.2-5.5) g/dL Globulin 2.8 (2.1-4.2) g/dL Albumin/Globulin Ratio 1.2 (1.0-2.2) Lipase 16 (11-82) U/L TSH (0.34-5.60) uIU/mL Urine Color Urine Clarity (CLEAR) Urine pH (5.0-7.5) PH Ur Specific [place] (1.002-1.030) Urine Protein (NEGATIVE) mg/dL Urine Glucose (UA) (NEGATIVE) mg/dL Urine Ketones (NEGATIVE) mg/dL Urine Occult Blood (NEGATIVE) Urine Nitrite (NEGATIVE) Urine Bilirubin (NEGATIVE) Urine Urobilinogen (NORMAL) E.U./dL Ur Leukocyte Esterase (NEGATIVE) Urine RBC (0-5) /HPF Urine WBC (0-5) /HPF Ur Epithelial Cells (<= Few) /HPF Ur Squamous Epith Cells (<= Few) Urine Bacteria (None Seen) /HPF Urine Casts /LPF Ur Microscopic Review Urine Culture Comments Nasal Adenovirus (PCR) Nasal B. parapertussis DNA (PCR) Nasal Coronavir 229E PCR Nasal Coronavir HKU1 PCR Nasal Coronavir NL63 PCR Nasal Coronavir OC43 PCR Nasal Enterovir/Rhinovir PCR Nasal Influenza B PCR Nasal Influenza A PCR Nasal Parainfluen 1 PCR Nasal Parainfluen 2 PCR Nasal Parainfluen 3 PCR Nasal Parainfluen 4 PCR Nasal RSV (PCR) Nasal B.pertussis DNA PCR Nasal C.pneumoniae (PCR) Jewel Human Metapneumo PCR Nasal M.pneumoniae (PCR) Nasal SARS-CoV-2 (PCR) Urine Opiates Screen (NEGATIVE) Ur Buprenorphine Scrn (NEGATIVE) Ur Oxycodone Screen (NEGATIVE) Urine Methadone Screen (NEGATIVE) Ur Barbiturates Screen (NEGATIVE) Ur Tricyclics Screen (NEGATIVE) Ur Phencyclidine Scrn (NEGATIVE) Ur Amphetamine Screen (NEGATIVE) U Methamphetamines Scrn (NEGATIVE) U Benzodiazepines Scrn (NEGATIVE) Urine Cocaine Screen (NEGATIVE) U Cannabinoids Screen (NEGATIVE) Ur Drug Screen Comment Ethyl Alcohol < 10.0 mg/dL Assessment/Plan - Problem List (1) Septic shock Impression: Shock and hypothermia have resolved overnight after fluid resuscitation and warming blanket Was placed on cefepime/vancomycin Check MRSA PCR Consider de-escalation to Rocephin as cultures from prior to admit show susceptibility Continue IVF Wound care Patient with PICC line present on admission, concern for poor management at home Culture PICC line (2) Encephalopathy Impression: Differentials include residual effects from stroke exacerbated by sepsis and possible UTI or polypharmacy effect Supportive care, avoid oversedation Manage infections as below Qualifiers: Encephalopathy type: unspecified encephalopathy Qualified Code(s): G93.40 - Encephalopathy, unspecified (3) Wounds, multiple Impression: Wound care pictures obtained Antibiotics as above Wound care (4) Hypotension Impression: BP stable now after fluid resuscitation Qualifiers: Hypotension type: unspecified hypotension type Qualified Code(s): I95.9 - Hypotension, unspecified (5) Hypothermia Impression: stable/resolved Qualifiers: Encounter type: initial encounter Qualified Code(s): T68.XXXA - Hypot hermia, initial encounter (6) History of CVA (cerebrovascular accident) Impression: neurochecks Continue statin pending swallow eval We will be cautious with antiplatelet/anticoagulation as she has recent history of GI bleed (7) T2DM (type 2 diabetes mellitus) Impression: continue every 6 blood sugar checks with SSI while n.p.o. Will update insulin regimen when she is cleared for diet Qualifiers: Diabetes mellitus penitentiary insulin use: unspecified technician terminal and repeater insulin use status Diabetes mellitus complication status: without complication Qualified Code(s): E11.9 - Type 2 diabetes mellitus without complications (14) UTI (urinary tract infection) Qualifiers: Urinary tract infection type: acute cystitis Hematuria presence: without hematuria Qualified Code(s): N30.00 - Acute cystitis without hematuria
[2024-03-06] MEDS: PANTOPRAZOLE 40 MG VIAL IV SCH (08:30)
[2024-03-06] MEDS: CEFEPIME 1 GM in SODIUM CHLORIDE 0.9% MINIBAG 100 ML IV SCH (08:57)
[2024-03-06] MEDS: cefTRIAXone 2 GM in SODIUM CHLORIDE 0.9% MINIBAG 100 ML IV SCH (11:34)
--- NOTE | 2024-03-06 12:24 | PHARMACY PROGRESS NOTE ---
- Best Possible Medication History Admit Date and Time: 03/05/242211 Processed by: Pharmacy Medications reviewed in ED?: No Patient Interview: Pt unable to participate Secondary Source(s): Physician records, Pharmacy records, Insurance records, Pr evious admit records As the person ultimately responsible for medication therapy, providers are able to order a medication from an existing home medication list in [facility] via the "Reconcile Routine" prior to Confirmation of that medication by accounting support specialist. Such practice is discouraged except when the physician, in their clinical judgment, deems that a medical need exists for a medication without regard to previous use.
[2024-03-06] MEDS ORDERED: VANCOMYCIN INJ 1 GM, VANCOMYCIN INJ 250 MG in SODIUM CHLORIDE 0.9% 250 ML IV SCH (17:00)
[2024-03-06] MEDS: INSULIN LISPRO 300 UNIT/3 ML PEN SUBQ SCH (18:31)
[2024-03-07 05:09] LABS: BASOPHILS # (AUTO) 0.1 10^3/uL (0.0-0.1); BASOPHILS % (AUTO) 0.6 %; EOSINOPHILS # (AUTO) 0.3 10^3/uL (0.0-0.7); EOSINOPHILS % (AUTO) 2.9 %; HCT - HEMATOCRIT 30.2 % (37.0-47.0); HGB - HEMOGLOBIN 9.5 g/dL (12.0-16.0); LYMPHOCYTES # (AUTO) 0.8 10^3/uL (1.5-3.5); LYMPHOCYTES % (AUTO) 8.7 %; MEAN CORPUSCULAR HEMOGLOBIN 29.6 pg (27.0-31.0); MEAN CORPUSCULAR HGB CONC 31.5 g/dL (32.0-36.0); MEAN CORPUSCULAR VOLUME 94.1 fL (81.0-99.0); MEAN PLATELET VOLUME 9.7 fL (7.9-10.8); MONOCYTES # (AUTO) 0.6 10^3/uL (0.0-1.0); MONOCYTES % (AUTO) 6.2 %; NEUTROPHILS # (AUTO) 7.5 10^3/uL (1.5-6.6); NEUTROPHILS % (AUTO) 81.2 %; PLT - PLATELET COUNT 353 10^3/uL (130-450); RED BLOOD COUNT 3.21 10^6/uL (4.20-5.40); RED CELL DISTRIBUTION WIDTH 14.5 % (12.0-15.0); WHITE BLOOD COUNT 9.3 x10^3/uL (4.8-10.8)
[2024-03-07 05:16] LABS: CALCIUM 7.5 mg/dL (8.5-10.3); CREATININE 0.8 mg/dL (0.6-1.3); POTASSIUM 3.2 mmol/L (3.5-4.5)
[2024-03-07 08:08] VITALS: O2SAT 97
--- NOTE | 2024-03-07 09:27 | PROVIDER PROGRESS NOTE ---
Subjective - Prog Note Date Prog Note Date: 03/07/24 - Subjective Pt reports feeling: No change ( denies fever, chills. Nods appropriately but not verbally interactive with interview due to severe expressive aphasia) Objective - Vital Signs/Intake & Output Reviewed Vital Signs: Yes Vital Signs: Vital Signs x48h Temp Pulse Resp BP Pulse Ox 03/07/24 07:59 36.5 C 89 16 174/92 H 97 03/07/24 06:59 173/95 H 03/07/24 04:52 36.4 C L 78 20 174/81 H 96 Intake & Output: Intake & Output 03/04/24 03/05/24 03/06/24 03/07/24 23:59 23:59 23:59 23:59 Intake Total 1500 3371.250 1000 Output Total 950 1600 Balance 1500 2421.250 -600 - Objective General Appearance: positive: No acute distress Neck: positive: Nml inspection Respiratory: positive: Chest non-tender, No respiratory distress Cardiovascular: positive: Regular rate & rhythm, Systolic murmur Abdomen: positive: Non-tender Skin: positive: Color nml, Other ( old wounds, healing) Extremities: positive: Non-tender Neurologic/Psychiatric: positive: Disoriented to place, Disoriented to time, Slurred/abnml speech ( severe expressive aphasia, nods appropriately) - Lab Results Fish Bones: 03/07/24 04:42 03/07/24 04:42 Other Labs: Lab Results x24hrs 03/07/24 03/07/24 03/06/24 Range/Units 04:42 04:42 20:45 WBC 9.3 (4.8-10.8) x10^3/uL RBC 3.21 L (4.20-5.40) 10^6/uL Hgb 9.5 L (12.0-16.0) g/dL Hct 30.2 L (37.0-47.0) % MCV 94.1 (81.0-99.0) fL MCH 29.6 (27.0-31.0) pg MCHC 31.5 L (32.0-36.0) g/dL RDW 14.5 (12.0-15.0) % Plt Count 353 (130-450) 10^3/uL MPV 9.7 (7.9-10.8) fL Neut # (Auto) 7.5 H (1.5-6.6) 10^3/uL Lymph # (Auto) 0.8 L (1.5-3.5) 10^3/uL [place] # (Auto) 0.6 (0.0-1.0) 10^3/uL Eos # (Auto) 0.3 (0.0-0.7) 10^3/uL Baso # (Auto) 0.1 (0.0-0.1) 10^3/uL Absolute Nucleated RBC 0.00 x10^3/uL Nucleated RBC % 0.0 /100WBC Sodium 139 (135-145) mmol/L Potassium 3.2 L (3.5-4.5) mmol/L Chloride 113 H (101-111) mmol/L Carbon Dioxide 20 L (21-32) mmol/L Anion Gap 6.0 (6-13) BUN 13 (6-20) mg/dL Creatinine 0.8 (0.6-1.3) mg/dL Estimated GFR (MDRD) 71 L (>89) Glucose 81 (74-104) mg/dL POC Whole Bld Glucose 119 H (70 - 100) mg/dL Calcium 7.5 L (8.5-10.3) mg/dL Nasal Screen MRSA (PCR) (NEGATIVE) 03/06/24 03/06/24 03/06/24 Range/Units 17:06 11:46 10:10 WBC (4.8-10.8) x10^3/uL RBC (4.20-5.40) 10^6/uL Hgb (12.0-16.0) g/dL Hct (37.0-47.0) % MCV (81.0-99.0) fL MCH (27.0-31.0) pg MCHC (32.0-36.0) g/dL RDW (12.0-15.0) % Plt Count (130-450) 10^3/uL MPV (7.9-10.8) fL Neut # (Auto) (1.5-6.6) 10^3/uL Lymph # (Auto) (1.5-3.5) 10^3/uL [place] # (Auto) (0.0-1.0) 10^3/uL Eos # (Auto) (0.0-0.7) 10^3/uL Baso # (Auto) (0.0-0.1) 10^3/uL Absolute Nucleated RBC x10^3/uL Nucleated RBC % /100WBC Sodium (135-145) mmol/L Potassium (3.5-4.5) mmol/L Chloride (101-111) mmol/L Carbon Dioxide (21-32) mmol/L Anion Gap (6-13) BUN (6-20) mg/dL Creatinine (0.6-1.3) mg/dL Estimated GFR (MDRD) (>89) Glucose (74-104) mg/dL POC Whole Bld Glucose 88 82 (70 - 100) mg/dL Calcium (8.5-10.3) mg/dL Nasal Screen MRSA (PCR) NEGATIVE (NEGATIVE) ABX Reporting Has patient been on IV antibiotics over the past 48 hours?: Yes Sepsis Event Note (H) - Evaluation Possible source of Sepsis: positive: Genitourinary, Skin/soft tissue Assessment/Plan - Problem List (1) Septic shock Impression: (1) Septic shock Impression: Shock and hypothermia have resolved after fluid resuscitation and warming blanket Was placed on cefepime/vancomycin now on Rocephin Wound care Patient with PICC line present on admission, concern for poor management at home PICC line culture no growth after 1 day (2) Encephalopathy Impression: Differentials include residual effects from stroke exacerbated by sepsis and possible UTI or polypharmacy effect Supportive care, avoid oversedation Manage infections as above Qualifiers: Encephalopathy type: unspecified encephalopathy Qualified Code(s): G93.40 - Encephalopathy, unspecified (3) Wounds, multiple Impression: Wound care pictures obtained Antibiotics as above Wound care (4) Hypotension Impression: resolved after fluid resuscitation Qualifiers: Hypotension type: unspecified hypotension type Qualified Code(s): I95.9 - Hypotension, unspecified (5) Hypothermia Impression: stable/resolved Qualifiers: Encounter type: initial encounter Qualified Code(s): T68.XXXA - Hypothermia, initial encounter (6) History of CVA (cerebrovascular accident) Impression: neurochecks Continue statin pending swallow eval We will be cautious with antiplatelet/anticoagulation as she has recent history of GI bleed (7) T2DM (type 2 diabetes mellitus) Impression: Qualifiers: Diabetes mellitus half-way insulin use: unspecified half-way insulin use status Diabetes mellitus complication status: without complication Qualified Code(s): E11.9 - Type 2 diabetes mellitus without complications (14) UTI (urinary tract infection) Qualifiers: Urinary tract infection type: acute cystitis Hematuria presence: without hematuria Qualified Code(s): N30.00 - Acute cystitis without hematuria (2) Encephalopathy Qualifiers: Encephalopathy type: unspecified encephalopathy Qualified Code(s): G93.40 - Encephalopathy, unspecified (4) Hypotension Qualifiers: Hypotension type: unspecified hypotension type Qualified Code(s): I95.9 - Hypotension, unspecified (5) Hypothermia Qualifiers: Encounter type: initial encounter Qualified Code(s): T68.XXXA - Hypothermia, initial encounter (7) T2DM (type 2 diabetes mellitus) Qualifiers: Diabetes mellitus terminal manager insulin use: unspecified terminal manager insulin use status Diabetes mellitus complication status: without complication Qualified Code(s): E11.9 - Type 2 diabetes mellitus without complications (14) UTI (urinary tract infection) Qualifiers: Urinary tract infection type: acute cystitis Hematuria presence: without hematuria Qualified Code(s): N30.00 - Acute cystitis without hematuria
--- NOTE | 2024-03-07 11:08 | Discharge Plan ---
Discharge Plan Problem Reviewed?: Yes Disposition: Home, Self Care Condition: Poor Prescriptions: Zinc Oxide 20% Oint [Zinc Oxide] 1 applic TOP PRN PRN #1 each PRN Reason: Skin Care Diet: Soft Activity Restrictions: Activity as Tolerated Instruction Topics: Zinc Oxide cream ointment paste, Sepsis Dc, Antibiotics Health Concerns: you are a 74-year-old female with past medical history significant for stroke and diabetes as well as wounds from prior orthotic devices. You came into the hospital in an altered mental state. We scanned your brain and did not find any new problems with your brain. You were found to be severely infected, likely from a urinary or skin source. We gave you fluids and antibiotics Plan of Treatment: we will continue IV antibiotics after discharge so that he will have a total of 7 days of IV antibiotics. I would like you to continue to keep your wounds clean and covered with the zinc paste I have ordered for you. I would like you to increase how much you eat, and focus on foods that are rich in protein such as meat, cheese, peanut butter Care Goals: improve nutrition, resolve infection. Follow-Up Care: Home Health - RN, Home Health - PT, Home Health - OT No Smoking: If you smoke, Please STOP! Call for help. Follow-up with: Prem Vaughn MD [Provider Admit Priv/Credential] -
[2024-03-07] MEDS: POTASSIUM CHLORIDE 20 MEQ/15 ML UDC PO ONE (11:25)
--- NOTE | 2024-03-07 11:25 | DISCHARGE SUMMARY ---
"Discharge Summary Admit Date: 03/05/24 Discharge Date: 03/07/24 Discharging Provider: Arjun Nuno NP Primary Care Provider: Prem Vaughn Code Status: Attempt Resuscitation Condition at Discharge: Poor Discharge Disposition: 01 Home, Self Care - DIAGNOSES Admission Diagnoses: Altered mental status Metabolic encephalopathy Severe sepsis with shock Hypothermia UTI Hypomagnesemia Dehydration Cellulitis Diabetes type 2 History of MCA infarct with right hemiparesis History of GI bleed Atrial fibrillation Discharge Diagnoses with Status of Each Condition: altered mental statusresolved Acute metabolic encephalopathyresolved Severe sepsisstable Hypothermiaresolved Cellulitisstable UTIstable Hypomagnesemiaimproved Type 2 diabetes with hyperglycemiachronic History of CVAchronic Dementiachronic Atrial fibrillationchronic - HPI History of Present Illness: 74-year-old female with PMH significant for DMT2, hyperlipidemia, left MCA infarct with residual right hemiplegia, dementia, atrial fibrillation not on anticoagulant due to GI bleeding presented with altered mental status as well as hypothermia and blood pressure 60/40 - CONSULTS | PROCEDURES Procedures: CT brain, CT abdomen/pelvis, CXR no acute findings - HOSPITAL COURSE Hospital Course: Patient admitted with altered mental status secondary to severe sepsis/septic shock from either urogenital or skin source. Given outpatient blood culture and sensitivity results, was placed on Rocephin with good response. Low blood pre ssure resolved with IVF, hypothermia resolved with warming blanket - ALLERGIES Allergies/Adverse Reactions: Allergies Allergy/AdvReac Type Severity Reaction Status Date / Time No Known Drug Allergies Allergy Verified 03/05/24 19:07 - MEDICATIONS Home Medications: Ambulatory Orders Medication Instructions Recorded Confirmed Cholecalciferol (Vitamin D3) 2,000 unit PO DAILY 08/21/15 03/06/24 [Vitamin D3] Acetaminophen [Tylenol] 650 mg PO Q6H PRN 30 Days #30 tab 01/07/24 03/06/24 Atorvastatin [Lipitor] 20 mg PO QPM 30 Days #30 cap 01/07/24 03/06/24 Cyanocobalamin [Vitamin B-12] 500 mcg PO DAILY 30 Days #30 tab 01/07/24 03/06/24 Losartan [Cozaar] 50 mg PO DAILY 30 Days #30 tab 01/07/24 03/06/24 Mv-Mn/Folic/Lutein/Herbal 293 1 each PO DAILY 30 Days 07/18/24 09/15/24 [Alive Women's 50 Plus Gummy] Sertraline [Zoloft] 50 mg PO DAILY 30 Days #30 tab 01/07/24 03/06/24 Spironolactone [Aldactone] 25 mg PO DAILY #30 tab 01/07/24 03/06/24 Verapamil ER [Calan SA] 240 mg PO QPM 30 Days #60 tab 01/07/24 03/06/24 Albuterol Sulf [Ventolin Hfa 1 - 2 puffs INH QID PRN 03/06/24 03/06/24 Inhaler] Gabapentin [Neurontin] 100 mg PO BID 03/06/24 03/06/24 Omeprazole 20 mg PO QDAC 03/06/24 03/06/24 metFORMIN [Glucophage] 1,000 mg PO BIDWM 03/06/24 03/06/24 Zinc Oxide 20% Oint [Zinc Oxide] 1 applic TOP PRN PRN #1 each 03/07/24 cefTRIAXone [Rocephin 2 gram] 2 gm IV DAILY ml 03/07/24 - PHYSICAL EXAM AT DISCHARGE General Appearance: positive: No acute distress, Other ( chronically ill- appearing) Eyes Bilateral: positive: Normal inspection Respiratory: positive: Chest non-tender, No respiratory distress Cardiovascular: positive: Regular rate & rhythm, Systolic murmur Abdomen: positive: Non-tender Skin: positive: Color nml, Other ( wounds on legs with dressing) Extremities: positive: Non-tender, No pedal edema Neurologic/Psychiatric: positive: Disoriented to place, Disoriented to time, Other ( nonverbal/severe expressive aphasia. Nods appropriately. Right-sided hemiparesis) - LABS Result Diagrams: 03/07/24 04:42 03/07/24 04:42 - DIAGNOSTIC IMAGING Diagnostic Imaging Results: Final report reviewed - SEPSIS Current Stage of Sepsis: Resolved Possible source of Sepsis: Genitourinary, Skin/soft tissue Sepsis Associated Organ Dysfunction: altered mental status, electrolyte derangement - FOLLOW UP Follow Up: follow-up with PCP, Dr. Vaughn - TIME SPENT Time Spent in Discharge (Minutes): 35"
[2024-03-07 14:52] VITALS: BP 146/69
[2024-03-07] MEDS ORDERED: MULTIVITAMIN W/MINERALS TABLET PO SCH (17:00)
[2024-03-07] MEDS ORDERED: CYANOCOBALAMIN 500 MCG TABLET PO SCH (17:00)
== END 2024-03-07 17:20 | disposition home or self-care (01) | DRG 871 ==
LOC: EDUNIT# → ED 19:02 → MS2 22:12
PROVIDERS: ADMIT Internal Medicine; ATTEND Nurse Practitioner Acute Care
DX: A41.9 Sepsis, unspecified organism (principal); G93.41 Metabolic encephalopathy; I95.9 Hypotension, unspecified; R65.21 Severe sepsis with septic shock; N30.00 Acute cystitis without hematuria; I69.951 Hemiplegia and hemiparesis following unspecified cerebrovascular disease affecting right dominant side; L03.115 Cellulitis of right lower limb; T68.XXXA Hypothermia, initial encounter; E83.42 Hypomagnesemia; Z79.84 Long term (current) use of oral hypoglycemic drugs; E78.00 Pure hypercholesterolemia, unspecified; I25.10 Atherosclerotic heart disease of native coronary artery without angina pectoris; R00.0 Tachycardia, unspecified; G93.40 Encephalopathy, unspecified; D64.9 Anemia, unspecified; D75.839 Thrombocytosis, unspecified; Z86.718 Personal history of other venous thrombosis and embolism; I48.91 Unspecified atrial fibrillation; F03.90 Unspecified dementia, unspecified severity, without behavioral disturbance, psychotic disturbance, mood disturbance, and anxiety; E11.65 Type 2 diabetes mellitus with hyperglycemia; Z87.891 Personal history of nicotine dependence
CPT/HCPCS: 36415; 70450; 71045; 74177; 80048; 80053; 80306; 81001; 82607; 82803; 83605; 83690; 83735; 84100; 84443; 85025; 85610; 87040; 87086; 87633; 87640; 93005; 96361; 96365; 96366; 96368; 99291; A9270; G0480; J3370; Q9967; 81003; 82077

== ENCOUNTER 2024-03-17 16:01 | Outpatient (CLI) | payer MEDICARE | END 2024-03-17 16:02 | disposition home or self-care (01) | LOC: LAB 16:01 | PROVIDERS: ATTEND Nurse Practitioner Family | DX: L89.513 Pressure ulcer of right ankle, stage 3 (principal) | CPT/HCPCS: 87070; 87205 ==